=== PATIENT | male | born 1960 | race Caucasian/White ===

== ENCOUNTER → 2017-03-31 | Outpatient (CLI) | payer OTHER ==
[2017-03-31 12:07] LABS: BASO # 0.1 K/mm3 (0.0-0.2); BASO % 0.7 % (0.0-1.0); EOS # 0.3 K/mm3 (0.0-0.50); EOS % 2.9 % (0.0-3.0); LARGE UNSTAINED CELL # 0.2 K/mm3 (0.0-0.4); LARGE UNSTAINED CELL % 2.2 % (0.0-4.0); LYMPH % 19.9 % (24.0-44.0); MEAN CORPUSCULAR HEMOGLOBIN 32.4 pg (27.0-33.0); MEAN CORPUSCULAR HGB CONC 34.3 g/dl (32.0-36.5); MEAN CORPUSCULAR VOLUME 94.5 fl (80.0-96.0); MONO # 0.6 K/mm3 (0.0-0.8); MONO % 5.4 % (0.0-5.0); NEUTROPHILS % 68.9 % (36.0-66.0); PLATELET COUNT, AUTOMATED 281 k/mm3 (150-450); RED CELL DISTRIBUTION WIDTH 12.1 % (11.5-14.5); WHITE BLOOD COUNT 10.2 K/mm3 (4.0-10.0)
[2017-03-31 12:27] LABS: ALBUMIN/GLOBULIN RATIO 1.48 (1.00-1.93); ALKALINE PHOSPHATASE 77 U/L (45-117); ALT/SGPT 30 U/L (12-78); ANION GAP 7 MEQ/L (8-16); AST/SGOT 22 U/L (15-37); BILIRUBIN,TOTAL 0.7 MG/DL (0.2-1.0); BLOOD UREA NITROGEN 13 MG/DL (7-18); CALCIUM LEVEL 8.7 MG/DL (8.5-10.1); CARBON DIOXIDE LEVEL 26 MEQ/L (21-32); CHLORIDE LEVEL 106 MEQ/L (98-107); CHOLESTEROL LEVEL 221 MG/DL (<200); CREATININE FOR GFR 0.99 MG/DL (0.70-1.30); GLOMERULAR FILTRATION RATE > 60.0 (>56); GLUCOSE, FASTING 92 MG/DL (70-105); POTASSIUM SERUM 4.4 MEQ/L (3.5-5.1); SODIUM LEVEL 139 MEQ/L (136-145); TOTAL PROTEIN 6.7 GM/DL (6.4-8.2); TRIGLYCERIDES LEVEL 56 MG/DL (<150)
== END ==
LOC: M LAB 10:22
PROVIDERS: ATTEND Family Medicine
DX: R03.0 Elevated blood-pressure reading, without diagnosis of hypertension (principal)

== ENCOUNTER → 2017-06-11 | Outpatient (CLI) | payer OTHER ==
[2017-06-11 09:05] LABS: ALBUMIN 3.8 GM/DL (3.2-5.2); ALBUMIN/GLOBULIN RATIO 1.46 (1.00-1.93); BILIRUBIN,DIRECT 0.1 MG/DL (0.0-0.2); BILIRUBIN,TOTAL 0.4 MG/DL (0.2-1.0); TOTAL PROTEIN 6.4 GM/DL (6.4-8.2)
== END ==
LOC: M LAB 08:23
PROVIDERS: ATTEND Family Medicine
DX: E78.2 Mixed hyperlipidemia (principal)

== ENCOUNTER 2017-10-29 08:33 | Day surgery (SDC) | payer OTHER ==
[~2017-10-29 08:33] MED LIST: LIDOCAINE 2% MDV 20 ML VIAL As Ordered; PROPOFOL 200 MG/20 ML VIAL As Ordered
[2017-10-29] MEDS: NS 1,000 ML IV (08:57)
== END 2017-10-29 10:05 | disposition home or self-care (01) ==
LOC: M OPP 08:33
DX: Z12.11 Encounter for screening for malignant neoplasm of colon (principal); K64.4 Residual hemorrhoidal skin tags; K57.30 Diverticulosis of large intestine without perforation or abscess without bleeding; I10 Essential (primary) hypertension; E78.00 Pure hypercholesterolemia, unspecified; R51 Headache; F32.9 Major depressive disorder, single episode, unspecified; F41.9 Anxiety disorder, unspecified; R06.83 Snoring; Z79.82 Long term (current) use of aspirin; Z79.899 Other long term (current) drug therapy; Z87.891 Personal history of nicotine dependence
CPT/HCPCS: 45378

== ENCOUNTER → 2018-08-04 | Outpatient (CLI) | payer OTHER ==
[2018-08-04 11:31] LABS: ALBUMIN/GLOBULIN RATIO 1.48 (1.00-1.93); ALKALINE PHOSPHATASE 72 U/L (45-117); ALT/SGPT 27 U/L (12-78); ANION GAP 6 MEQ/L (8-16); AST/SGOT 21 U/L (7-37); BILIRUBIN,TOTAL 0.6 MG/DL (0.2-1.0); BLOOD UREA NITROGEN 9 MG/DL (7-18); CARBON DIOXIDE LEVEL 27 MEQ/L (21-32); CHLORIDE LEVEL 106 MEQ/L (98-107); CHOLESTEROL LEVEL 163 MG/DL (<200); CREATININE FOR GFR 1.03 MG/DL (0.70-1.30); GLOMERULAR FILTRATION RATE > 60.0 (>56); GLUCOSE, FASTING 103 MG/DL (70-100); HDL CHOLESTEROL 50 MG/DL (>40); LDL CHOLESTEROL 101 MG/DL (<100); NON-HDL-C 113 MG/DL; POTASSIUM SERUM 4.4 MEQ/L (3.5-5.1); SODIUM LEVEL 139 MEQ/L (136-145); TOTAL PROTEIN 6.7 GM/DL (6.4-8.2); TRIGLYCERIDES LEVEL 59 MG/DL (<150)
== END ==
LOC: M LAB 10:21
DX: E78.2 Mixed hyperlipidemia (principal)
CPT/HCPCS: 80053

== ENCOUNTER → 2019-12-02 | Outpatient (CLI) | payer OTHER ==
[~2019-12-02] MED LIST changes: +AMBI5TAB PO; +ASPI81TA26 PO; +ATOR1TAB21 PO; -LIDOCAINE 2% MDV 20 ML VIAL As Ordered; +MULT200T7 PO; -PROPOFOL 200 MG/20 ML VIAL As Ordered; +WELLTAB38 PO
--- NOTE | 2019-12-06 14:43 | SLEEPHOME ---
DATE OF PROCEDURE: 12/02/2019 ORDERING PROVIDER: Ignacio Farrell. INTERPRETATION: Diagnostic home sleep testing was performed due to concern for the obstructive sleep apnea syndrome. For testing a nocturnal T3 respiratory monitoring device was used. Continuous record was made of pulse, oxygen saturation, airflow, chest, abdominal strain and body position. 9 hours and 58 minutes of data were reviewed. There were 7 hours and 22 minutes marked as time in bed. During the interval marked time in bed, there were 70 respiratory events identified of 10 seconds in duration or greater for respiratory event index of 9.5. The events were primarily obstructive. Baseline pulse rate 65, pulse rate ranged 58-97. Baseline saturation 94%. Saturations fell to 87%. Testing was performed in both supine and non-supine positions. IMPRESSION: Abnormal home sleep testing with repetitive respiratory events and oxygen desaturations to 87% with a respiratory event index of 9.5 is consistent with the obstructive sleep apnea syndrome. RECOMMENDATIONS: The patient should be encouraged to undergo formal sleep evaluation.
== END ==
LOC: M SLEEP HO 10:01
PROVIDERS: ATTEND Physician Assistant
DX: G47.9 Sleep disorder, unspecified (principal); R53.82 Chronic fatigue, unspecified

== ENCOUNTER → 2020-02-15 | Outpatient (CLI) | payer OTHER | LOC: M LABSMTC 10:30 | PROVIDERS: ATTEND Family Medicine | DX: Z11.59 Encounter for screening for other viral diseases (principal); Z20.828 Contact with and (suspected) exposure to other viral communicable diseases ==

== ENCOUNTER → 2020-08-28 | Outpatient (CLI) | payer OTHER ==
[~2020-08-28] MED LIST changes: +ASPI-255 PO; +BRIN10TA4 PO; +BUPIVACAINE/EPIN 0.5% 30 ML VIAL As Ordered ONE; +CLON0.5T17 PO; +CLOP75TA2 PO; +ISOVUE-300 61% 50ML VIAL As Ordered ONE; +LIDOCAINE 1% MDV 20ML VIAL As Ordered ONE; +MELO15TA28 PO; +MIDAZOLAM INJ 2MG/2ML VIAL (J2250 PER 1MG) As Ordered ONE; +NAPR220C14 PO; +NORC1TAB7 PO; +PRED10TA2 PO; +REGL10TA6 PO; +ceFAZolin 2 GM/D5W 50 ML IV BAG (J0690 PER 500MG) As Ordered ONE; +fentaNYL 100 MCG/2 ML INJECTION (J3010) As Ordered ONE
[2020-08-28 06:52] LABS: HEMATOCRIT 45.6 % (42.0-52.0); HEMOGLOBIN 14.8 g/dl (13.5-17.5); MEAN CORPUSCULAR HGB CONC 32.5 g/dl (32.0-36.5); MEAN CORPUSCULAR VOLUME 95.4 fl (80.0-96.0); PLATELET COUNT, AUTOMATED 269 10^3/uL (150-450); RED BLOOD COUNT 4.78 10^6/uL (4.30-6.10); WHITE BLOOD COUNT 11.2 10^3/uL (4.0-10.0)
[2020-08-28 07:23] LABS: BLOOD UREA NITROGEN 16 MG/DL (7-18); CALCIUM LEVEL 8.8 MG/DL (8.8-10.2); CARBON DIOXIDE LEVEL 30 MEQ/L (21-32); CHLORIDE LEVEL 107 MEQ/L (98-107); CREATININE FOR GFR 0.98 MG/DL (0.70-1.30); GLOMERULAR FILTRATION RATE > 60.0 (>49); GLUCOSE, FASTING 99 MG/DL (70-100); POTASSIUM SERUM 4.1 MEQ/L (3.5-5.1); SODIUM LEVEL 140 MEQ/L (136-145)
--- NOTE | 2020-08-28 10:04 | ROOPDOC ---
[facility] Report Of Operation Report of Operation DATE OF PROCEDURE: 08/28/20 PREPROCEDURE DIAGNOSES: Right brachiocephalic artery stenosis with TIA POSTPROCEDURE DIAGNOSES: Same PROCEDURE: 1. Ultrasound-guided access right common femoral artery 2. Arteriogram aortic arch 3. Open exposure right brachial artery 4. Selection right brachiocephalic arteriogram 5. Predilation right brachiocephalic artery with 7 x 40 [place] balloon 6. VBX balloon expandable covered stent (8 x 29) placement right brachiocephalic artery and posterior dilation with 10 x 40 [place] balloon 7. Completion arteriograms 8. Primary closure right brachial arteriotomy 9. Mynx closure device right common femoral artery SURGEON: Frederick Arango MD ANESTHESIA: Local anesthesia 12 mL lidocaine and 10 mL half percent Marcaine with epinephrine. Moderate intravenous conscious sedation was supervised by Dr. Arango. The patient was independently monitored by registered nurse assigned to the Department of radiology using automated blood pressure, EKG, and pulse oximetry. The detailed sedation record is permanently stored in the [facility] information system. The following is a brief sedation record: Start time 07:44, stop time 09:34, Versed 3 mg IV, fentanyl 150 g IV, heparin 5000 units IV, Ancef 2 g IV. 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 Risks benefits and alternatives to an arteriogram and potential intervention were explained to the patient, including the possibility of both a right common femoral access and a right open brachial artery access. We extensively discussed the risk of stroke with this procedure, and we'll take every precaution to prevent this. The patient is agreeable to proceed. Informed consent was obtained. INTERPRETATION: 1. There is widely patent inflow through the arch, the left subclavian artery, the left carotid artery, the right carotid artery, the right subclavian artery, but a focal 50% stenosis is noted 1 cm from the origin of the brachiocephalic artery with no significant poststenotic dilatation noted. 2. After predilation with the 7 x 40 [place] balloon, we had successful balloon expandable covered stent placement over the stenosis in the brachiocephalic artery. This was then postdilated with a 10 x 40 [place] balloon and completion imaging showed a widely patent brachiocephalic artery with no significant residual stenosis, no dissection, no embolization noted, no neuro deficits during the case, no extravasation. REPORT OF OPERATION: The patient was brought to the angiographic suite in stable condition. His bilateral groins and right upper extremity were prepped and draped in a sterile fashion. A timeout was performed. Sedation and antibiotics were administered without complication. Local anesthesia was administered to the skin and subcutaneous tissue over the right common femoral artery. A microneedle was used to access the artery under ultrasound guidance. A wire was passed through this access and the needle was removed. A 4 [place] sheath was placed and flushed with saline. Through this access a pigtail catheter and Glidewire were advanced into the aortic arch and arteriograms were performed. Please see interpretation above. We attempted to access the right brachiocephalic artery utilizing the pigtail, but this was challenging due to the angle of the origin of the right brachiocephalic artery off of the arch. We then turned our attention to the right upper extremity. Local anesthesia was a sharepoint consultant to the skin and subcutaneous tissue just proximal to the antecubital crease over the brachial artery pulse. A longitudinal incision was made over the brachial artery and carried down through the subcutaneous tissue carefully sharp dissection. Additional local anesthesia was given. We then continued R dissection down through the brachial sheath and expose the brachial artery proximally and distally. Vesseloops were placed proximally and distally on the artery. A microneedle was used to access the artery and a wire was passed through this access the needle was removed and a 4 [place] sheath was placed and flushed with saline. We then advanced a Glidewire through this access into the central system under fluoroscopic guidance. The patient was heparinized. We then exchange the sheath for a 7 [place] destination sheath over the wire using the Seldinger technique and flushed the sheath was saline. We then exchange the sheath at the right groin for a 6 x 90 sheath over the Glidewire. The sheath was flushed with saline. We then advanced the Glidewire into the descending aorta and snared it through the 6 [place] sheath from the groin to gain a through and through access with a stiff O35 Glidewire. The the 6 [place] sheath was then advanced using a stylette up to the origin of the right brachiocephalic artery. The sheath was flushed with saline. We dilated the right brachiocephalic artery with a 7 x 40 [place] balloon and no significant waist was noted on the balloon. I wanted to minimize the chance of an embolic event while passing the balloon across the stenosis. We then advanced the 8 x 29 balloon expandable covered stent across the lesion. A contrast injection through the 6 [place] sheath from the groin confirm the stent to be in good position. The stent was deployed with the proximal and slightly into the aortic arch. We then exchange the balloon for a 10 x 40 [place] balloon to upsize the stent to a 10 and gently expanded the stent. Following this, there was widely patent inflow through the brachiocephalic artery with no extravasation, no embolization, no dissection, no significant residual stenosis. The patient was able to move all 4 extremities equally and his speech was clear and vision was unaffected. We then flushed both of our sheaths. The sheath at the right groin was exchanged for a short 6 [place] sheath which was flushed with saline. We then removed the wire and under direct visualization we removed the 7 [place] sheath and used hour Vesseloops for hemostasis. We irrigated with heparinized saline and Prolene suture was used to close the arteriotomy. We flushed the inflow and outflow artery irrigated with saline and the suture was secured. Good hemostasis was noted. Has a good pulse in the artery proximal and distal to our closure. We irrigated with saline and the deep tissues were approximated with [id number] 4-0 Vicryl suture. The fascia was closed with running 4-0 Vicryl suture. The dermal layer was approximated with interrupted 4-0 Vicryl suture. The skin was closed with r unning subcuticular Monocryl suture. The skin was cleaned and dried and Mastisol and Steri-Strips replace the length of the incision. A dry gauze and Tegaderm were placed as a final dressing. The hand was warm and well-perfused. Next, a Mynx closure device was deployed at the right femoral access with good hemostasis. Pressure was held for 10 minutes and sterile dressings were applied. The patient was then taken to recovery in stable condition. Tolerated the procedure and the sedation well. ESTIMATED BLOOD LOSS: Approximately 5 mL. COMPLICATIONS: None. PLAN: The patient will be given a prescription for Plavix at discharge. He will need to take this uninterrupted for 60 days. He should continue aspirin and statin for life. We will see him back in clinic in 1 week to check his arm incision and his groin access site and to see how he is doing after the procedure. He can resume his home diet medications. No lifting greater than 5 pounds or strenuous exercise for 72 hours. No tub baths or swimming until incis ion right arm is completely healed. Okay to shower. We appreciate the opportunity to participate the care of this patient. FREDERICK ARANGO MD Aug 28, 2020 10:04
[2020-08-28 14:00] VITALS: BP 119/64
== END ==
LOC: M IRPRO 06:23
PROVIDERS: ATTEND Surgery Vascular Surgery
DX: I70.298 Other atherosclerosis of native arteries of extremities, other extremity (principal); G45.3 Amaurosis fugax
CPT/HCPCS: 36215; 36221; 37236; 75625; 80048; 85027; 99152; 99153; C1725; C1760; C1769; C1773; C1874; C1887; C1894; J0690; J1644; J2250; J3010; Q9967

== ENCOUNTER 2020-08-30 11:43 | Emergency (ER) | payer OTHER ==
[~2020-08-30] VITALS: Ht 172.7 cm; Wt 61.4 kg
[~2020-08-30 11:43] MED LIST changes: -BUPIVACAINE/EPIN 0.5% 30 ML VIAL As Ordered ONE; -ISOVUE-300 61% 50ML VIAL As Ordered ONE; -LIDOCAINE 1% MDV 20ML VIAL As Ordered ONE; -MIDAZOLAM INJ 2MG/2ML VIAL (J2250 PER 1MG) As Ordered ONE; -NORC1TAB7 PO; -PRED10TA2 PO; -REGL10TA6 PO; -ceFAZolin 2 GM/D5W 50 ML IV BAG (J0690 PER 500MG) As Ordered ONE; -fentaNYL 100 MCG/2 ML INJECTION (J3010) As Ordered ONE
[2020-08-30 12:34] LABS: BASO # 0.1 10^3/uL (0.0-0.2); BASO % 0.4 % (0.0-1.0); EOS # 0.1 10^3/uL (0.0-0.5); EOS % 0.7 % (0.0-3.0); HEMATOCRIT 42.6 % (42.0-52.0); HEMOGLOBIN 14.5 g/dl (13.5-17.5); LYMPH # 1.6 10^3/uL (1.5-5.0); LYMPH % 10.4 % (24.0-44.0); MEAN CORPUSCULAR HEMOGLOBIN 31.7 pg (27.0-33.0); MONO # 1.2 10^3/uL (0.0-0.8); MONO % 7.7 % (0.0-5.0); NEUTROPHILS # 12.3 10^3/uL (1.5-8.5); NEUTROPHILS % 80.5 % (36.0-66.0); PLATELET COUNT, AUTOMATED 263 10^3/uL (150-450); RED BLOOD COUNT 4.58 10^6/uL (4.30-6.10); WHITE BLOOD COUNT 15.3 10^3/uL (4.0-10.0)
--- NOTE | 2020-08-30 12:38 | REP ---
INDICATION: CHEST PAIN. COMPARISON: 03/11/2016. TECHNIQUE: SINGLE PORTABLE AP VIEW OF THE CHEST WAS PERFORMED. FINDINGS: THERE IS NO ACUTE INFILTRATE OR PULMONARY EDEMA. LUNGS ARE CLEAR. HEART IS NOT SIGNIFICANTLY ENLARGED. MEDIASTINAL SILHOUETTE IS UNREMARKABLE. THE VISUALIZED OSSEOUS STRUCTURES ARE INTACT. IMPRESSION: NO ACUTE PULMONARY DISEASE. <Electronically signed by Sander Cunha > 08/30/20 [id number]
[2020-08-30 12:52] LABS: BLOOD UREA NITROGEN 12 MG/DL (7-18); CALCIUM LEVEL 9.5 MG/DL (8.8-10.2); CARBON DIOXIDE LEVEL 25 MEQ/L (21-32); CHLORIDE LEVEL 109 MEQ/L (98-107); CREATININE FOR GFR 1.02 MG/DL (0.70-1.30); GLOMERULAR FILTRATION RATE > 60.0 (>49); GLUCOSE, FASTING 118 MG/DL (70-100); POTASSIUM SERUM 3.7 MEQ/L (3.5-5.1); SODIUM LEVEL 139 MEQ/L (136-145)
[2020-08-30] MEDS ORDERED: ISOVUE-370 76% 100ML VIAL As Ordered ONE (14:03)
--- NOTE | 2020-08-30 14:58 | REP ---
INDICATION: headache- right. COMPARISON: None. TECHNIQUE: Helical scanning is acquired. 5 mm axial images were reformatted. Coronal MPR images were generated. FINDINGS: Bone window settings demonstrate an intact bony calvarium. There is no evidence of skull fracture or incidental bony calvarial lesion. The visualized paranasal sinuses appear clear. No intraorbital abnormality is seen. On soft tissue window setting images; the lateral, third, and fourth ventricles are normal in size and position. Cunha-white differentiation pattern is normal above and below the tentorium. There are is no evidence of intracranial hemorrhage. No mass, edema, infarction, or midline shift is seen. No extra-axial fluid collection is appreciated. IMPRESSION: Negative noncontrast head CT. <Electronically signed by Edu Nuñez > 08/30/20 1502
--- NOTE | 2020-08-30 15:03 | REP ---
INDICATION: brachiocephalic stent this week- headache, chest pain COMPARISON: Comparison is made with angiography images obtained on 28 August 2020. TECHNIQUE: Contrast enhancement dose is 100 mL of intravenous Isovue 370. Helical scanning is acquired. 2 mm axial images are re-formatted. Coronal and sagittal MPR images are generated. Coronal and sagittal MIP and oblique MPR images are generated. 3D surface rendered images are generated and viewed rotationally. FINDINGS: There is good opacification of the aortic arch and great vessels. A patent right innominate artery stent is seen in position. The right distal innominate the right common carotid the right vertebral artery are patent. Right vertebral artery is smaller than the left. There is minimal plaquing in the proximal ICA at the carotid bulb. There is no evidence of dissection aneurysm or significant stenosis. No occlusive changes seen. Great vessel origins are otherwise intact. There is mild vascular calcification is subclavian artery on the left and minimal vascular calcification is seen at the carotid bifurcation on the left. No high-grade stenosis is seen on either side. IMPRESSION: There is a patent innominate artery stent in place on the right. No evidence of occlusion or stenosis. No evidence of dissection. Minimal plaquing in the carotid bifurcations bilaterally. Otherwise negative. <Electronically signed by Edu Nuñez > 08/30/20 [id number]
--- NOTE | 2020-08-30 15:06 | REP ---
INDICATION: brachiocephalic stent this week- headache, chest pain. COMPARISON: None. TECHNIQUE: CT contrast dose: 100 ml of intravenous Isovue 370. CT technique: Helical scanning is acquired. 2 mm axial images are reformatted. Maximal intensity projection and multiplanar re-formation images are generated along with 3-D surface rendered color imaging which is viewed rotational. FINDINGS: The distal vertebral arteries are patent bilaterally. Left is dominant. Basilar artery is somewhat tortuous but patent. Posterior cerebral and superior cerebellar vessels are unremarkable. The distal internal carotid arteries are unremarkable. Anterior and middle cerebral arteries appear intact. There is no evidence of sheppard aneurysm or vessel cut off. No evidence of arteriovenous malformation. Dural sinuses are patent. The right sigmoid sinus is smaller than the left. IMPRESSION: No evidence of dissection, stenosis or occlusion. No aneurysm or arteriovenous malformation seen. <Electronically signed by Edu Nuñez > 08/30/20 [id number]
--- NOTE | 2020-08-30 15:13 | REP ---
INDICATION: brachiocephalic stent this week- headache, chest pain. COMPARISON: Comparison CT angio October 13, 2008.. TECHNIQUE: Contrast dose: 100 ML of Isovue [address] technique: Helical scanning is acquired and overlapping 1.5 mm and contiguous 3 mm axial images are reformatted. In addition, maximum intensity projection and multiplanar re-formation images are generated in sagittal and coronal imaging projections. FINDINGS: There is adequate opacification of the thoracic aorta and pulmonary arterial tree. There is mild vascular calcification in the aortic arch. Patent right innominate artery stent is seen in place. There is some vascular calcification in the left subclavian artery. There is no filling defect in the pulmonary arterial tree to suggest pulmonary embolism. No hilar or mediastinal mass or adenopathy is observed. No pleural or pericardial effusion is seen. Lung rodriguez show no evidence of infiltrate or mass lesion. Mild biapical pleuroparenchymal scarring is seen. There is a 4 mm noncalcified fairly pulmonary nodule in the left lung apex on page 31 of 124 series 702 of today's study. This is not apparent in 2007. There is minimal adjacent pleural fibrosis. There is a granulomatous calcification in the right middle lobe, page 61. No bony destructive lesion is seen. IMPRESSION: Right innominate arterial stent in place. Mild vascular calcification. 4 mm noncalcified pulmonary nodule in the left upper lobe. If the patient is considered at risk for pulmonary malignancy, a follow-up chest CT can be obtained in 1 year. <Electronically signed by Edu Nuñez > 08/30/20 [id number]
[2020-08-30] MEDS ORDERED: METOCLOPRAMIDE INJ 10MG/2ML VIAL (J2765 PER 1) IV ONE (15:15)
[2020-08-30] MEDS ORDERED: NS 1,000 ML IV ONE (15:15)
[2020-08-30] MEDS ORDERED: KETOROLAC 30 MG/ML 1ML VIAL IV ONE (15:15)
[2020-08-30] MEDS ORDERED: diphenhydrAMINE 50MG/ML VIAL (J1200) IV ONE (15:15)
[2020-08-30] MEDS ORDERED: dexameTHASONE 4 MG/ML 1ML VIAL (J1100 PER 1MG) IV ONE (15:15)
[2020-08-30] MEDS ORDERED: ACETAMINOPHEN 500 MG TAB PO ONE (15:15)
[2020-08-30 16:35] LABS: ERYTHROCYTE SEDIMENTATION RATE 8 mm/hr (0-20)
[2020-08-30] MEDS ORDERED: PRED10TA2 PO (18:16)
[2020-08-30] MEDS ORDERED: REGL10TA6 PO (18:16)
[2020-08-30] MEDS ORDERED: NORC1TAB7 PO (18:16)
[2020-08-30 19:15] VITALS: BP 129/70
--- NOTE | 2020-08-30 20:47 | ECGEPIP ---
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
--- NOTE | 2020-09-04 11:43 | ED PDOC ---
Post-Departure Follow-Up dr sosa faxed formal report of cta chest for fu Elvin Mejía MD Sep 04, 2020 11:43
== END 2020-08-30 19:37 | disposition home or self-care (01) ==
LOC: M ED 11:43
DX: G43.909 Migraine, unspecified, not intractable, without status migrainosus (principal); R07.9 Chest pain, unspecified; R11.2 Nausea with vomiting, unspecified; R91.8 Other nonspecific abnormal finding of lung field; R00.1 Bradycardia, unspecified; I10 Essential (primary) hypertension; Z95.5 Presence of coronary angioplasty implant and graft; Z87.891 Personal history of nicotine dependence; Z79.899 Other long term (current) drug therapy
CPT/HCPCS: 70450; 70496; 70498; 71045; 71275; 80047; 80048; 85025; 85652; 93005; 93041; 94760; 96361; 96374; 96375; 99285; J1100; J1200; J1885; J2765; Q9967

== ENCOUNTER → 2020-10-13 | Outpatient (CLI) | payer OTHER ==
[~2020-10-13] MED LIST changes: +NORC1TAB7 PO; +PRED10TA2 PO; +REGL10TA6 PO
--- NOTE | 2020-10-13 16:00 | REP ---
INDICATION: ATHEROSCLEROSIS, HX NICOTINE DEPENDENCE COMPARISON: None. TECHNIQUE: Real time sonographic evaluation and duplex Doppler evaluation of the Bilateral upper extremity arterial systems is performed. FINDINGS: Bilaterally there is mild plaquing and narrowing of the arterial systems with no evidence of hemodynamically significant stenosis. There is no arterial occlusion. Right arterial structures: Peak systolic velocity (cm/s)/waveform Distal subclavian: 79.4 TRIPHASIC Axillary: 95.4 TRIPHASIC Proximal brachial: 84.7 TRIPHASIC Mid brachial: 121.5 TRIPHASIC Distal brachial: 131.9 TRIPHASIC Proximal radial: 69.4 TRIPHASIC Mid radial: 66.3 TRIPHASIC Distal radial: 62.4 TRIPHASIC Proximal 69.2 TRIPHASIC Mid 63.2 TRIPHASIC Distal ulnar: 68.9 TRIPHASIC Left arterial structures: Peak systolic velocity (cm/s)/waveform Distal subclavian: 97.5 TRIPHASIC Axillary: 51.8 TRIPHASIC Proximal brachial: 70.9 TRIPHASIC Mid brachial: 84.8 TRIPHASIC Distal brachial: 90.0 TRIPHASIC Proximal radial: 55.0 TRIPHASIC Mid radial: 60.3 TRIPHASIC Distal radial: 49.6 TRIPHASIC Proximal ulnar:61.3 TRIPHASIC Mid ulnar:45.1 TRIPHASIC Distal ulnar: 48.6 TRIPHASIC IMPRESSION: No evidence of hemodynamically significant stenosis and no evidence of occlusion of the upper extremity arterial systems bilaterally. <Electronically signed by Sander Cunha > 10/13/20 [id number]
== END ==
LOC: M RAD 13:47
PROVIDERS: ATTEND Physician Assistant
DX: I70.8 Atherosclerosis of other arteries (principal); Z87.891 Personal history of nicotine dependence

== ENCOUNTER → 2021-04-16 | Outpatient (REF) | payer OTHER ==
[2021-04-16 12:42] LABS: MAGNESIUM LEVEL 2.4 MG/DL (1.8-2.4); PHOSPHORUS LEVEL 3.5 MG/DL (2.5-4.9); THYROID STIMULATING HORMONE 0.585 uIU/ML (0.358-3.740)
[2021-04-16 14:45] LABS: TOTAL 25(OH) VITAMIN D 30.4 NG/ML (30.0-100.0)
== END ==
LOC: M SFHCRHEU 10:02
PROVIDERS: ATTEND Internal Medicine
DX: M79.10 Myalgia, unspecified site (principal)

== ENCOUNTER → 2021-05-28 | Outpatient (CLI) | payer OTHER ==
[~2021-05-28] MED LIST changes: +CIPR-249 PO; +FIRV25SO; +FLAG500T PO; +OMEP40CA5
[2021-05-28 17:41] LABS: BASO # 0.1 10^3/uL (0.0-0.2); BASO % 0.7 % (0.0-1.0); EOS # 0.3 10^3/uL (0.0-0.5); EOS % 2.4 % (0.0-3.0); HEMATOCRIT 41.7 % (42.0-52.0); HEMOGLOBIN 13.7 g/dl (13.5-17.5); LYMPH # 1.6 10^3/uL (1.5-5.0); LYMPH % 15.3 % (24.0-44.0); MEAN CORPUSCULAR HEMOGLOBIN 31.1 pg (27.0-33.0); MEAN CORPUSCULAR HGB CONC 32.9 g/dl (32.0-36.5); MEAN CORPUSCULAR VOLUME 94.8 fl (80.0-96.0); MONO # 0.8 10^3/uL (0.0-0.8); MONO % 7.9 % (2.0-8.0); NEUTROPHILS # 7.7 10^3/uL (1.5-8.5); NEUTROPHILS % 73.4 % (36.0-66.0); PLATELET COUNT, AUTOMATED 254 10^3/uL (150-450); WHITE BLOOD COUNT 10.5 10^3/uL (4.0-10.0)
[2021-05-28 18:14] LABS: ALBUMIN 3.8 GM/DL (3.2-5.2); ALT/SGPT 33 U/L (12-78); AMYLASE 55 U/L (25-115); BILIRUBIN,TOTAL 0.4 MG/DL (0.2-1.0); BLOOD UREA NITROGEN 12 MG/DL (7-18); CALCIUM LEVEL 9.1 MG/DL (8.8-10.2); CARBON DIOXIDE LEVEL 30 MEQ/L (21-32); CHLORIDE LEVEL 107 MEQ/L (98-107); CREATININE FOR GFR 0.86 MG/DL (0.70-1.30); FREE T4 0.69 NG/DL (0.76-1.46); GLOMERULAR FILTRATION RATE > 60.0 (>49); GLUCOSE, FASTING 101 MG/DL (70-100); LIPASE 378 U/L (73-393); POTASSIUM SERUM 4.2 MEQ/L (3.5-5.1); SODIUM LEVEL 142 MEQ/L (136-145); THYROID STIMULATING HORMONE 0.901 uIU/ML (0.358-3.740); TOTAL PROTEIN 6.5 GM/DL (6.4-8.2)
== END ==
LOC: M LAB 15:35
PROVIDERS: ATTEND Family Medicine
DX: R68.84 Jaw pain (principal); R63.4 Abnormal weight loss

== ENCOUNTER → 2021-06-01 | Outpatient (CLI) | payer OTHER ==
[~2021-06-01] MED LIST changes: -CIPR-249 PO; -FIRV25SO; -FLAG500T PO; +GASTROGRAFIN SOLUTION 30ML (Q9963) As Ordered ONE; +ISOVUE-370 76% 100ML VIAL As Ordered ONE; -OMEP40CA5
--- NOTE | 2021-06-01 19:20 | REP ---
INDICATION: EARLY SATIETY, ABN WEIGHT LOSS, CONSTIPATION. COMPARISON: None. TECHNIQUE: Abdomen pelvis CT with IV and bowel contrast. FINDINGS: The visualized lung rodriguez are unremarkable. The hepatic parenchyma is homogeneous. The gallbladder, pancreas and spleen are normal size and unremarkable. The adrenals and kidneys are unremarkable. The abdominal aorta is unremarkable. There is no periaortic adenopathy or mass. The large and small bowel loops are unremarkable. The mesentery is unremarkable. There is no ascites. Pelvis: There are multiple diverticula in the sigmoid colon. The pelvic bowel loops are otherwise unremarkable. The bladder is unremarkable. There is no pelvic adenopathy or ascites. There are no lytic, blastic or destructive skeletal changes. There is advanced degenerative disc disease in the lumbar spine at L5-S1. IMPRESSION: There is no abdominal or pelvic mass, adenopathy or ascites. There is sigmoid colon diverticulosis. There is advanced degenerative disc disease in the lumbar spine at L5-S1. <Electronically signed by Sander Wu > 06/01/21 [id number]
== END ==
LOC: M RAD 15:41
PROVIDERS: ATTEND Family Medicine
DX: R68.81 Early satiety (principal); K59.00 Constipation, unspecified; R63.4 Abnormal weight loss; K57.30 Diverticulosis of large intestine without perforation or abscess without bleeding; M51.37 Other intervertebral disc degeneration, lumbosacral region
CPT/HCPCS: 74177; Q9963; Q9967

== ENCOUNTER 2021-06-16 18:27 | Emergency (ER) | payer OTHER ==
[~2021-06-16] VITALS: Ht 175.3 cm; Wt 64.4 kg
[~2021-06-16 18:27] MED LIST changes: -GASTROGRAFIN SOLUTION 30ML (Q9963) As Ordered ONE; -ISOVUE-370 76% 100ML VIAL As Ordered ONE
[2021-06-16] MEDS ORDERED: OMEP-221 (18:40)
[2021-06-16] MEDS ORDERED: NS 1,000 ML IV ONE (20:35)
[2021-06-16] MEDS ORDERED: ONDANSETRON 4MG/2ML VIAL IV ONE (20:35)
[2021-06-16] MEDS ORDERED: KETOROLAC 30 MG/ML 1ML VIAL IV ONE (20:35)
[2021-06-16 21:25] LABS: BASO # 0.1 10^3/uL (0.0-0.2); BASO % 0.3 % (0.0-1.0); EOS # 0.1 10^3/uL (0.0-0.5); EOS % 0.6 % (0.0-3.0); HEMOGLOBIN 14.8 g/dl (13.5-17.5); LYMPH # 1.8 10^3/uL (1.5-5.0); MEAN CORPUSCULAR HGB CONC 33.6 g/dl (32.0-36.5); MEAN CORPUSCULAR VOLUME 92.1 fl (80.0-96.0); MONO # 1.5 10^3/uL (0.0-0.8); MONO % 8.3 % (2.0-8.0); NEUTROPHILS # 14.2 10^3/uL (1.5-8.5); NEUTROPHILS % 80.2 % (36.0-66.0); PLATELET COUNT, AUTOMATED 279 10^3/uL (150-450); RED BLOOD COUNT 4.78 10^6/uL (4.30-6.10)
[2021-06-16 21:28] LABS: WHITE BLOOD COUNT 17.7 10^3/uL (4.0-10.0)
[2021-06-16] MEDS ORDERED: ISOVUE-370 76% 100ML VIAL As Ordered ONE (21:37)
[2021-06-16 21:53] LABS: ALBUMIN 3.6 GM/DL (3.2-5.2); BILIRUBIN,DIRECT 0.2 MG/DL (0.0-0.2); TOTAL PROTEIN 6.8 GM/DL (6.4-8.2)
--- NOTE | 2021-06-16 23:04 | REPVR ---
PROCEDURE INFORMATION: Exam: CT Abdomen And Pelvis With Contrast Exam date and time: 06/16/2021 10:24 PM Age: 61 years old Clinical indication: Other: Llq abd pain TECHNIQUE: Imaging protocol: Computed tomography of the abdomen and pelvis with contrast. Radiation optimization: All CT scans at this facility use at least one of these dose optimization techniques: automated exposure control; mA and/or kV adjustment per patient size (includes targeted exams where dose is matched to clinical indication); or iterative reconstruction. Contrast material: ISOVUE 370; Contrast volume: 100 ml; Contrast route: INTRAVENOUS (IV); COMPARISON: CT ABD PELVIS WITH CONTRAST 06/01/2021 5:36 PM FINDINGS: Lungs: No suspicious mass or airspace process in the visualized lung bases. Liver: Liver appears normal with no focal abnormality. Gallbladder and bile ducts: Gallbladder is present and shows no evidence of gallstone. Pancreas: Pancreas appears normal. No focal mass or peripancreatic inflammation. Spleen: Spleen appears homogeneous without focal mass. Adrenal glands: Adrenal glands are normal in appearance. Kidneys and ureters: Kidneys appear normal, with no stone, solid mass or hydronephrosis. Stomach and bowel: No concerning asymmetry or abnormality at the GE junction. No evidence of small bowel obstruction. Mid descending colon wall thickening at the level of the left iliac crest, with adjacent fat stranding and regional diverticula suggests acute diverticulitis without perforation or abscess formation at this point. Appendix: Normal caliber appendix is identified, with no adjacent inflammation. Intraperitoneal space: No pneumoperitoneum. Vasculature: Atherosclerotic change present in the aorta, without aneurysm. Main portal and splenic veins enhance normally. Lymph nodes: No enlarged lymph nodes. Urinary bladder: Urinary bladder appears normal. Reproductive: Dystrophic prostate calcifications are noted. Bones/joints: Bony structures are normal except for lumbar spine degenerative disc changes. Soft tissues: No concerning focal abnormality of the extra-abdominal and pelvic soft tissues. IMPRESSION: Acute diverticulitis involving the mid descending colon without evidence of obstruction, perforation or abscess. Electronically signed by: Azeem Dunne On 06/16/2021 23:04:00 PM
[2021-06-16] MEDS ORDERED: metroNIDAZOLE (FLAGYL) 500MG TABLET PO ONE (23:10)
[2021-06-16] MEDS ORDERED: CIPROFLOXACIN 500MG TABLET PO ONE (23:10)
[2021-06-16] MEDS ORDERED: FLAG500T PO (23:14)
[2021-06-16] MEDS ORDERED: CIPR-249 PO (23:14)
[2021-06-16 23:20] VITALS: BP 129/73
== END 2021-06-16 23:22 | disposition home or self-care (01) ==
LOC: M ED 18:27
DX: K57.32 Diverticulitis of large intestine without perforation or abscess without bleeding (principal); I10 Essential (primary) hypertension; E78.5 Hyperlipidemia, unspecified; R51.9 Headache, unspecified; F17.200 Nicotine dependence, unspecified, uncomplicated; Z79.82 Long term (current) use of aspirin; Z79.899 Other long term (current) drug therapy
CPT/HCPCS: 74177; 80047; 80076; 81001; 83690; 85025; 96361; 96374; 96375; 99284; J1885; J2405; Q9967

== ENCOUNTER → 2021-07-03 | Outpatient (CLI) | payer OTHER ==
[~2021-07-03] MED LIST changes: +CIPR-249 PO; +FLAG500T PO; +OMEP-221
--- NOTE | 2021-07-03 14:57 | REP ---
INDICATION: PRIMARY OSTEOARTHRITIS, UNSPECIFIED HAND. COMPARISON: None. TECHNIQUE: Eight views, bilateral wrist radiographs. FINDINGS: Four views of the right and four views of the left wrist are presented. There are 2 accessory ossicles adjacent to the ulnar styloid on the right. There is distal radioulnar spurring. There is osteoarthritis at the 1st carpometacarpal articulation on the right with joint space narrowing, sclerosis and spurring. Joint spaces are otherwise preserved. On the left, there is advanced osteophyte formation, joint space narrowing and accessory ossicle formation at the 1st carpometacarpal articulation. Subcortical cyst formation is seen at this joint. There is a tiny accessory ossicle adjacent to the lunate. Left wrist views are otherwise unremarkable. IMPRESSION: Advanced osteoarthritis at the 1st carpometacarpal articulations bilaterally. Accessory ossicles noted bilaterally. <Electronically signed by Edu Nuñez > 07/03/21 [id number]
--- NOTE | 2021-07-03 14:59 | REP ---
INDICATION: PRIMARY OSTEOARTHRITIS, UNSPECIFIED HAND. COMPARISON: None. TECHNIQUE: Nine views, five views of each knee. Bilateral study. FINDINGS: Five views of the right and left knee demonstrate mild bilateral superior and lateral patellar spurring. There is some vascular calcification noted on the left. A normal fabella is seen bilaterally. There is non articular spurring on the superior pole of the patella on the left consistent with tendinitis of the quadriceps tendon insertion. Joint spaces are preserved. No fracture or subluxation is seen. No opaque foreign body noted. IMPRESSION: Mild bilateral patellofemoral osteoarthritic spurring. Non articular spurring of the left patella superiorly at the quadriceps tendon insertion. Vascular calcification on the left. <Electronically signed by Edu Nuñez > 07/03/21 0019
--- NOTE | 2021-07-03 14:59 | REP ---
INDICATION: PRIMARY OSTEOARTHRITIS, UNSPECIFIED HAND. COMPARISON: None. TECHNIQUE: Four views bilateral FINDINGS: Right hand: There is asymmetric intra digital joint space narrowing affecting the interphalangeal joint of the 1st digit, D IP joint of the 2nd digit, and D IP joint of the 5th digit to the greatest degree and seen in conjunction with marginal osteophytosis. The remainder of the joint spaces are symmetric and relatively well maintained. There is no acute fracture, dislocation, or subluxation. There is no periarticular osteopenia. There are no marginal erosions. Mild to moderate degenerative changes seen involving the wrist. Left hand: There is asymmetric intra digital joint space narrowing seen affecting the interphalangeal joint of the 1st digit and all D IP joints but particularly the 2nd and 3rd. There is concomitant marginal osteophyte formation involving those joints. More mild appearing joint space narrowing is seen involving all other imaged joints. Moderate to severe degenerative changes are seen involving the wrist particularly the 1st carpometacarpal joint and some evidence of an old fracture arising from the trapezium. There are no marginal erosions. There is no periarticular osteopenia. IMPRESSION: Chronic changes seen bilaterally as described above. <Electronically signed by Varun Fuentes > 07/03/21 [id number]
== END ==
LOC: M RAD 12:38
PROVIDERS: ATTEND Internal Medicine
DX: M19.032 Primary osteoarthritis, left wrist (principal); M19.031 Primary osteoarthritis, right wrist; M25.741 Osteophyte, right hand; M25.742 Osteophyte, left hand; M17.0 Bilateral primary osteoarthritis of knee; M18.0 Bilateral primary osteoarthritis of first carpometacarpal joints

== ENCOUNTER → 2021-08-13 | Outpatient (CLI) | payer OTHER ==
--- NOTE | 2021-08-15 06:31 | REP ---
INDICATION: CAROTID COMPARISON: None. TECHNIQUE: Cunha scale and color Doppler evaluation using linear high frequency transducer Findings: FINDINGS: Two-dimensional cunha scale and color images demonstrate intimal thickening and atherosclerotic plaquing with laminar flow and no appreciable narrowing. Color Doppler interrogation demonstrates normal arterial wave patterns and velocities with no significant spectral broadening. Normal flow direction is appreciated in the bilateral vertebral arteries. ICA peak systolic velocity: Right 114 cm/s; Left 70.1 cm/s ICA diastolic velocity: Right 42.3 cm/s; Left 24.6 cm/s ECA peak systolic velocity: Right 90.2 cm/s; Left 76.2 cm/s CCA peak systolic velocity: Right 99.4 cm/s; Left 96.2 cm/s ICA/CCA ratio: Right 1.2 cm/s; Left 0.73 cm/s IMPRESSION: No hemodynamically significant areas of narrowing or stenosis appreciated. Based on set standards narrowing falls within the less than 50% range. <Electronically signed by Chris Bledsoe > 08/15/21 0628
--- NOTE | 2021-08-15 06:49 | REP ---
INDICATION: ATHEROSCLEROSIS, AMAUROSIS FUGAX COMPARISON: None. TECHNIQUE: Real time diehl scale and color Doppler evaluation of the bilateral lower extremity arterial vasculature using linear high frequency transducer. FINDINGS: Doppler interrogation demonstrates patent bilateral upper extremity arteries with velocities and wave patterns as described below. No obvious areas of stenosis or occlusion are identified. The right brachiocephalic stent could not be evaluated due to technical factors related to air. Peak systolic velocities (cm/sec)-phasicity Subclavian artery: Right 110-triphasic; Left 80-biphasic Proximal axillary artery: Right 75-triphasic; Left 77-triphasic Distal axillary artery: Right 76-monophasic; Left 60-monophasic Proximal brachial artery: Right 95-monophasic; Left 81-monophasic Distal brachial artery: Right 96-monophasic; Left 79-monophasic Proximal ulnar artery: Right 68-monophasic; Left 39-monophasic Distal ulnar artery: Right 94-monophasic; Left 42-monophasic Proximal radial artery: Right 108-monophasic; Left 40-triphasic Mid radial artery: Right 62-monophasic; Left 41-triphasic Distal radial artery: Right 51-monophasic; Left 47-monophasic IMPRESSION: 1. Age-related changes with patent appearance to the bilateral arterial system and no evidence for focal stenosis or occlusion. 2. Evaluation of the right brachiocephalic stent could not be evaluated due to technical factors related to gas within the lungs <Electronically signed by Chris Bledsoe > 08/15/21 0654
== END ==
LOC: M RAD 09:47
PROVIDERS: ATTEND Surgery Vascular Surgery
DX: I70.8 Atherosclerosis of other arteries (principal); G45.3 Amaurosis fugax

== ENCOUNTER → 2021-08-20 | Outpatient (CLI) | payer OTHER ==
[2021-08-20 16:02] LABS: BLOOD UREA NITROGEN 11 MG/DL (7-18); CREATININE FOR GFR 0.82 MG/DL (0.70-1.30); FREE T4 0.89 NG/DL (0.76-1.46); GLOMERULAR FILTRATION RATE > 60.0 (>49); THYROID STIMULATING HORMONE 0.719 uIU/ML (0.358-3.740)
== END ==
LOC: M PLALAB 10:38
PROVIDERS: ATTEND Internal Medicine Gastroenterology
DX: R19.4 Change in bowel habit (principal)

== ENCOUNTER → 2021-08-24 | Outpatient (CLI) | payer OTHER ==
[~2021-08-24] MED LIST changes: +ISOVUE-370 76% 100ML VIAL ONE
--- NOTE | 2021-08-24 13:05 | REP ---
INDICATION: ABN WT LOSS, DISORDERS OF INTESTINE COMPARISON: 06/16/2021. TECHNIQUE: CT angiogram of the abdomen and pelvis was performed with intravenous administration of 100 cc of Isovue 370, without oral contrast. 3D MIP reconstruction images performed. FINDINGS: Abdominal aorta: No aneurysm or dissection. There is mild scattered atherosclerotic plaquing of the abdominal aorta. 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 There is stenosis at the origin of the superior mesenteric artery, estimated to be 40% stenotic. There is approximately 50% stenosis of the inferior mesenteric artery origin. There is approximately 50% stenosis at the origin of the main right renal artery. There is mild narrowing at the origin of the main left renal artery. There is mild diffuse partially calcified plaque in the iliac arterial system bilaterally. There is mild diffuse narrowing of the common iliac arteries bilaterally. There is moderate stenosis at the origin of the left internal iliac artery. There is [id number] narrowing of the left common femoral artery without significant stenosis. Lung bases: Mild fibrotic changes. Liver: Normal Gallbladder: Unremarkable. Spleen: Normal. Adrenals: Normal. Pancreas: Normal. Kidneys: Normal. Small and large bowel: There is sigmoid and left colonic diverticulosis. There is significant improvement of the previously noted left colonic diverticulitis. There is some minimal inflammatory stranding in the left pericolonic fat at that location.. Free fluid: None. Adenopathy: None. Appendix: Not inflamed. Pelvis: No mass. Osseous structures: There are degenerative changes of the spine without compression deformity.. 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 There is 40% stenosis at the origin of the superior mesenteric artery. There is approximately 50% stenosis at the origin of the inferior mesenteric artery. There is approximately 50% stenosis at the origin of the main right renal artery. There is mild narrowing of the main left renal artery. <Electronically signed by Sander Cunha > 08/24/21 8706
== END ==
LOC: M PLAIMG 09:42
PROVIDERS: ATTEND Internal Medicine Gastroenterology
DX: K55.1 Chronic vascular disorders of intestine (principal); R63.4 Abnormal weight loss; I77.4 Celiac artery compression syndrome; I70.0 Atherosclerosis of aorta; I70.1 Atherosclerosis of renal artery; J84.10 Pulmonary fibrosis, unspecified

== ENCOUNTER → 2021-08-26 | Outpatient (REF) | payer OTHER ==
[~2021-08-26] MED LIST changes: -ISOVUE-370 76% 100ML VIAL ONE
[2021-08-26 18:17] LABS: CLOSTRIDIUM DIFFICILE PCR POSITIVE (NEGATIVE)
== END ==
LOC: M LAB REF 16:31
PROVIDERS: ATTEND Internal Medicine Gastroenterology
DX: R19.4 Change in bowel habit (principal)

== ENCOUNTER → 2021-09-10 | Outpatient (CLI) | payer OTHER ==
--- NOTE | 2021-09-10 12:44 | REP ---
INDICATION: SOLITARY PULMONARY NODULE COMPARISON: Multiple the latest 08/30/2020 CT angio chest TECHNIQUE: Standard helical technique without contrast FINDINGS: Once again, there are multiple nonenlarged mediastinal and hilar lymph nodes. There are no pleural or pericardial effusions. There is no significant change in appearance of the imaged upper abdomen or imaged osseous structures. Evaluation of the lung rodriguez shows rather extensive appearing biapical pleuroparenchymal scarring. In the left lung apex there is a 1.1 cm sized irregular nodule which has changed significantly in appearance compared to the prior exam. The 4 mm size nodule seen previously in the apicoposterior segment of the left upper lobe now measures 7 mm. There are scattered asymmetric parenchymal densities status quo. There is cylindrical bronchiectasis. IMPRESSION: 1. There is a new 1.1 cm sized asymmetric nodule in the left lung apex. For this lesion alone according to the revised Fleischner society criteria PET-CT is recommended. 2. Evidence of increased biapical pleuroparenchymal scarring. 3. Additional chronic lung field changes as described above. <Electronically signed by Varun Fuentes > 09/10/21 9090
== END ==
LOC: M RAD 11:22
PROVIDERS: ATTEND Physician Assistant
DX: R91.1 Solitary pulmonary nodule (principal); J47.1 Bronchiectasis with (acute) exacerbation; J98.4 Other disorders of lung

== ENCOUNTER 2021-09-13 11:19 | Emergency (ER) | payer OTHER ==
[~2021-09-13] VITALS: Ht 172.7 cm; Wt 65.6 kg
[2021-09-13 11:19] VITALS: BP 134/83
--- OUTSIDE RECORDS SUMMARY | 2021-09-13 11:27 | CCD | Continuity of Care Document ---
Author Organization Unknown Address Unknown Phone Unavailable Care Team Providers Care Barber Shop Manager Name Role Phone Ping Garcia D.O. [facility] [phone] Mela Harrison NP [facility] [phone] Fay Sinha MD [facility] [phone] Jos Barr MD [facility] [phone] [facility] [phone] [facility] [phone] [facility] Rheumatology AUTM [phone] Jose L Cherry MD [facility]M [phone] Marianna Arango M.D. [facility] [phone] Dinesh Santacruz M.D. 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 12/24/2019 Mild recurrent major depression LISSA Jimenez Onset: 0 05/22/2020 Obstructive sleep apnea syndrome LISSA Jimenez Onset: 02/21/2020 Mixed hyperlipidemia LISSA Jimenez Onset: 01/13/2019 Essential hypertension LISSA Jimenez Onset: 01/13/2019 Social History Type Date Description Comments Sex Unknown ETOH Use Occasionally consumes alcohol Recreational Drug Use Current Drug User Tobacco Use Start: Unknown End: Unknown Patient is a former smoker Recreational Drug Use Regularly uses Marijuana Smoking Status Reviewed: 06/14/21 Patient is a former smoker Exercise Type/Frequency Exercises regularly Exercise Type/Frequency hard work Sun Exposure Uses sunscreen Seat Belt/Car Seat Always uses seat belt Allergies and adverse reactions Active Allergies Criticality Reaction | Severity Comments Date Ketoconazole Unable to assess criticality 12/27/2019 Inactive Allergies NKDA Unable to assess criticality 08/25/2018 Medications Active Medications SIG Qnty Indications Ordering Provide r Date Zolpidem Tartrate 10mg Tablets Take One Tablet By Mouth Every Day AT Bedtime as Needed, Maximum Daily Dose = One Tablet 30tabs Josseline UsOSilke 06/14/[address] 1 by mouth every day 90caps Josseline UsO. 05/28 Clopidogrel Bisulfate 75mg Tablets Take One Tablet By Mouth Every Day 30tabs Ping Urbina er, Abbie.O. 12/04/2020 Hydrocodone Bitartrate/Acetaminophen 5-325mg Tablets take 1 tablet every 12 hours by mouth as needed for pain istop: [id number] 60tabs M25.552 Josselien UsOSilke 10/23 Aspirin Adult 325mg Tablets take one tablet by mouth daily. 90tabs I65.29 Josseline UsO Silke 06/08/2020 Albuterol Sulfate HFA 108(90Base) mcg/Act Aerosol 1-2 puffs every 4-6 hours as needed for shortness of breath 8.50 0gm Josseline UsOSilke 05/22/2020 Clobetasol Propionate 0.05% Shampo o apply daily to scalp until rash resolves. 236ml L40.9 Josseline SutherlandOSilke 05/22/2020 Adult Mask Large Misc cpap mask and related supplies. prognosis good. 1units G47.33 Josseline MeyerOSilke 02/21/2020 Trintellix 10mg Tablets Take One Tablet By Mouth Every Day 90tabs F33.0 Josseline UsOSilke 12/22 Atorvastatin Calcium 20mg Tablets Take One Tablet By Mouth Every Evening 90tabs Ping Urbina er, D.O. Clonazepam 0.5mg Tablets Take One Tablet By Mouth Twice A Day , Maximum Daily Dose = 2 Tablets 60tabs Ping Camilo, D.O. Iron 27 240(27Fe) mg Tablets Unknown History Medications Zolpidem Tartrate 5mg Tablets Take One Tablet By Mouth AT Bedtime as Needed Maximum Daily Dose = 1 30tabs Ping Garcia D.O. 05/05/2021 - 06/14/2021 Immunizations CPT Code Status Date Vaccine Lot # [id number] Given 07/26/2021 Influenza Virus Vaccine, Quadrivalent, Slit Virus, Im Use [id number] Given 03/10/2019 TB Intradermal Test [id number] Vital Signs Date Vital Result Comment 08/15/2021 9:35am BP Systolic 142 mmHg BP Diastolic 82 mmHg Height 68 inches 5'8" Weight 144.00 lb BMI (Body Mass Index) 21.9 kg/m2 Heart Rate 68 /min Respiratory Rate 18 /min Body Temperature 97.6 F O2 % BldC Oximetry 98 % Orma Body Weight 154 lb 07/26/2021 9:04am BP Systolic 146 mmHg BP Diastolic 72 mmHg Height 68 inches 5'8" Weight 148.00 lb BMI (Body Mass Index) 22.5 kg/m2 Heart Rate 68 /min Respiratory Rate 18 /min Body Temperature 97.2 F O2 % BldC Oximetry 98 % Orma Body Weight 154 lb Results Test Acquired Date Facility Test Result H/L Range Note Laboratory test finding 08/20/2021 [facility] Outpatient T esting (Registration) [address] [place] [address] [phone] Blood Urea Nitrogen 11 mg/dL Normal 7-18 Creatinine With GFR 08/20/2021 [facility] Outpatient Testi ng (Registration) [address] [place] [address] [phone] Creatinine For GFR 0.82 mg/dL Normal 0.70-1.30 Glomerular Filtration Rate > 60.0 Normal >49 1 Laboratory test finding 08/20/2021 [facility] Outpatient T esting (Registration) [address] [place] [address] [phone] Immunoglobulin A 145.0 mg/dL Normal 70-400 FT4&TSH Panel 08/20/2021 [facility] Outpatient Testi ng (Registration) [address] [place] [address] [phone] Thyroid Stimulating Hormone 0.719 uIU/ML Normal 0. 358-3.740 Free T4 0.89 ng/dL Normal 0.76-1.46 Laboratory test finding 08/20/2021 [facility] Outpatient T mileying (Registration) [address] [place] [address] [phone] Tissue Transglutaminase IgA <2 U/mL Normal 0-3 2 Istat Chem8+ Panel 06/16/2021 [facility] Outpatient Testi ng (Registration) [address] [place] [address] [phone] iSTAT HCT 44.0 % Normal 38.0-51.0 iSTAT Glucose 99 mg/dL Normal 70-105 iSTAT Sodium 139 mEq/L Normal 136-145 iSTAT Potassium 4.0 mEq/L Normal 3.5-5.1 iSTAT CA++ 4.7 mg/dL Normal 4.5-5.3 iSTAT Chloride 102 mEq/L Normal 98-109 iSTAT Co2 23.0 MM/L Normal 23.0-27.0 iSTAT BUN 12 mg/dL Normal 8-26 iSTAT Creatinine 0.9 mg/dL Normal 0.6-1.3 CBC With Differential 06/16/2021 [facility] Outpatient Ita ting (Registration) [address] [place] [address] [phone] White Blood Count 17.7 10 High 4.0-10.0 3 Red Blood Count 4.78 10 Normal 4.30-6.10 Hemoglobin 14.8 g/dL Normal 13.5-17.5 Hematocrit 44.0 % Normal 42.0-52.0 Mean Corpuscular Volume 92.1 fl Normal 80.0-96.0 Mean Corpuscular Hemoglobin 31.0 pg Normal 27.0-33.0 Mean Corpuscular HGB Conc 33.6 g/dL Normal 32.0-36.5 Red Cell Distribution Width 12.7 % Normal 11.5-14.5 Platelet Count, Automated 279 10 Normal 150-450 Neutrophils % 80.2 % High 36.0-66.0 Lymph % 10.0 % Low 24.0-44.0 Merrick % 8.3 % High 2.0-8.0 Eos % 0.6 % Normal 0.0-3.0 Baso % 0.3 % Normal 0.0-1.0 Immature Granulocyte % 0.6 % Normal 0-3.0 Nucleated Red Blood Cell % 0.0 % Normal 0-0 Neutrophils # 14.2 10 High 1.5-8.5 Lymph # 1.8 10 Normal 1.5-5.0 Merrick # 1.5 10 High 0.0-0.8 Eos # 0.1 10 Normal 0.0-0.5 Baso # 0.1 10 Normal 0.0-0.2 Liver Profile 06/16/2021 [facility] Outpatient Testi ng (Registration) [address] [place] [address] [phone] Ast/Sgot 19 U/L Normal 7-37 Alt/SGPT 23 U/L Normal 12-78 Alkaline Phosphatase 100 U/L Normal 45-117 Bilirubin,Total 1.0 mg/dL Normal 0.2-1.0 Bilirubin,Direct 0.2 mg/dL Normal 0.0-0.2 Total Protein 6.8 GM/DL Normal 6.4-8.2 Albumin 3.6 GM/DL Normal 3.2-5.2 Albumin/Globulin Ratio 1.1 Normal Laboratory test finding 06/16/2021 [facility] Outpatient T esting (Registration) [address] [place] [address] [phone] Lipase 128 U/L Normal 73-393 Ua W/ Reflex To Culture 06/16/2021 [facility] Outpatient T esting (Registration) [address] [place] [address] [phone] Appearance, Urine RFX CLEAR Normal Clear Color, Urine RFX YELLOW Normal Yellow PH,Urine RFX 6.0 units Normal 5.0-9.0 Specific [place] Ur Auto RFX 1.033 Normal 1.002-1.035 Protein, Urine Auto RFX NEGATIVE mg/dL Normal Negative Glucose, Urine (Ua) Auto RFX NEGATIVE mg/dL Normal Negative Ketone, Urine Auto RFX 1+ mg/dL High Negative Urobilinogen, Urine Auto RFX 0.2 mg/dL Normal 0.0-2.0 Bilirubin, Urine Auto RFX NEGATIVE Normal Negative Nitrite, Urine Auto RFX NEGATIVE Normal Negative Leukocyte Esterase Ur Auto RFX NEGATIVE Normal Negative Blood, Urine Blood RFX NEGATIVE Normal Negative WBC, Urine Auto RFX 0 /HPF Normal 0-3 RBC, Urine Auto RFX 2 /HPF Normal 0-3 Bacteria, Urine Auto RFX NEGATIVE Normal Negative Squam Epithelial Cell Ur Aurfx 0 /HPF Normal 0-6 Transitional Epithelial AU RFX <1 /HPF Normal None Mucus, Urine RFX SMALL Normal Negative Hyaline Cast, Urine Auto RFX 0 /LPF Normal 0-1 FT4&TSH Panel 05/28/2021 [facility] nter [address] [place] [address] [phone] Thyroid Stimulating Hormone 0.901 uIU/ML Normal 0. 358-3.740 Free T4 0.69 ng/dL Low 0.76-1.46 CBC With Differential 05/28/[address] [address] [phone] White Blood Count 10.5 10 High 4.0-10.0 Red Blood Count 4.40 10 Normal 4.30-6.10 Hemoglobin 13.7 g/dL Normal 13.5-17.5 Hematocrit 41.7 % Low 42.0-52.0 Mean Corpuscular Volume 94.8 fl Normal 80.0-96.0 Mean Corpuscular Hemoglobin 31.1 pg Normal 27.0-33.0 Mean Corpuscular HGB Conc 32.9 g/dL Normal 32.0-36.5 Red Cell Distribution Width 12.2 % Normal 11.5-14.5 Platelet Count, Automated 254 10 Normal 150-450 Neutrophils % 73.4 % High 36.0-66.0 Lymph % 15.3 % Low 24.0-44.0 Merrick % 7.9 % Normal 2.0-8.0 Eos % 2.4 % Normal 0.0-3.0 Baso % 0.7 % Normal 0.0-1.0 Immature Granulocyte % 0.3 % Normal 0-3.0 Nucleated Red Blood Cell % 0.0 % Normal 0-0 Neutrophils # 7.7 10 Normal 1.5-8.5 Lymph # 1.6 10 Normal 1.5-5.0 Merrick # 0.8 10 Normal 0.0-0.8 Eos # 0.3 10 Normal 0.0-0.5 Baso # 0.1 10 Normal 0.0-0.2 Comprehensive Metabolic Profil 05/28/[address] [address] [phone] Glucose, Fasting 101 mg/dL High 70-100 Blood Urea Nitrogen 12 mg/dL Normal 7-18 Creatinine For GFR 0.86 mg/dL Normal 0.70-1.30 Glomerular Filtration Rate > 60.0 Normal >49 4 Sodium Level 142 mEq/L Normal 136-145 Potassium Serum 4.2 mEq/L Normal 3.5-5.1 Chloride Level 107 mEq/L Normal 98-107 Carbon Dioxide Level 30 mEq/L Normal 21-32 Anion Gap 5 mEq/L Low 8-16 Calcium Level 9.1 mg/dL Normal 8.8-10.2 Ast/Sgot 23 U/L Normal 7-37 Alt/SGPT 33 U/L Normal 12-78 Alkaline Phosphatase 83 U/L Normal 45-117 Bilirubin,Total 0.4 mg/dL Normal 0.2-1.0 Total Protein 6.5 GM/DL Normal 6.4-8.2 Albumin 3.8 GM/DL Normal 3.2-5.2 Albumin/Globulin Ratio 1.4 Normal Laboratory test finding 05/28/[address] [address] [phone] Lipase 378 U/L Normal 73-393 Amylase 55 U/L Normal 25-115 1 Units are mL/min/1.73 m2 Chronic Kidney Disease Staging per NKF: Stage I & II GFR >=60 Normal to Mildly Decreased Stage III GFR 30-59 Moderately Decreased Stage IV GFR 15-29 Severely Decreased Stage V GFR <15 Very Little GFR Left ESRD GFR <15 on PRINT DECORATOR 2 Negative 0 - 3 Weak Positive 4 - 10 Positive >10 . Tissue Transglutaminase (tTG) has been identified as the endomysial antigen. Studies have demonstr- ated that endomysial IgA antibodies have over 99% specificity for gluten sensitive enteropathy. Performed at: RN - [facility] [address] [id number] Ventilation Equipment Tender: Lakshmi Martin MD, Phone: [phone] 3 A Pathologist review of this differential can help in the evaluation of a differential diagnosis. Please order a Pathologist Review (PERISM) if deemed necessary. Results are subject to change if a Pathologist Review is performed. 4 Units are mL/min/1.73 m2 Chronic Kidney Disease Staging per NKF: Stage I & II GFR >=60 Normal to Mildly Decreased Stage III GFR 30-59 Moderately Decreased Stage IV GFR 15-29 Severely Decreased Stage V GFR <15 Very Little GFR Left ESRD GFR <15 on PRINT DECORATOR Procedures Date Code Description Status 08/15/2021 32888 Office/Outpatient Established Mo d MDM 30-39 Min Completed 07/26/2021 47456 Preventive Visit Est 40-64 Yrs C ompleted 06/14/2021 26611 Office/Outpatient Established Mo d MDM 30-39 Min Completed 05/28/2021 55740 Office/Outpatient Established Mo d MDM 30-39 Min Completed 04/24/2021 35905 Office/Outpatient Established Mo d MDM 30-39 Min Completed Medical Devices Description No Information Available Encounters Type Date Location Provider Dx Diagnosis Office Visit 08/15/2021 9:20a [facility] Ping Garcia D.O. 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, lumbar region Office Visit 07/26/2021 9:00a [facility] LISSA Zimmer Z00.00 Encntr for general adult med ical exam w/o abnormal findings G47.33 Obstructive sleep apnea (neel lt) (pediatric) E78.2 Mixed hyperlipidemia F33.0 Major depressive disorder, r ecurrent, mild Z79.899 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 R68.81 Early satiety K59.00 Constipation, unspecified R63.4 Abnormal weight loss Office Visit 05/28/2021 2:40p [facility] Ping Garcia D.O. R68.81 Early satiety K59.00 Constipation, unspecified R63.4 Abnormal weight loss Office Visit 04/24/2021 9:00a [facility] LISSA Jimenez G47.33 Obstructive sleep apnea (neel lt) (pediatric) E78.2 Mixed hyperlipidemia M25.552 Pain in left hip L40.9 Psoriasis, unspecified F33.0 Major depressive disorder, r ecurrent, mild Z79.82 exterminator (current) use of a spirin Z79.01 exterminator (current) use of a nticoagulants Assessments Date Code Description Provider 08/15/2021 M16.0 Bilateral primary osteoarthritis of hip Ping Garcia, D.O. 08/15/2021 R68.81 Early satiety Ping casas, D.O. 08/15/2021 R63.4 Abnormal weight loss Ping Joaquin, D.O. 08/15/2021 K59.00 Constipation, unspecified Ping Garcia, D.O. 08/15/2021 G47.33 Obstructive sleep apnea (adult) (pediatric) Ping Camilo, D.O. 08/15/2021 E78.2 Mixed hyperlipidemia Ping Sandhuber, D.O. 08/15/2021 F33.0 Major depressive disorder, recur rent, mild Ping Camilo, D.O. 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 08/15/2021 Z79.01 exterminator (current) use of antic oagulants Ping Camilo, D.O. 08/15/2021 M51.86 Other intervertebral disc disord ers, lumbar region Josseline UsOSilke 07/26/2021 Z00.00 Encntr for general adult medical exam w/o abnormal findings LISSA Jimenez 07/26/2021 G47.33 Obstructive sleep apnea (adult) (pediatric) LISSA Jimenez 07/26/2021 E78.2 Mixed hyperlipidemia LISSA Sanchez 07/26/2021 F33.0 Major depressive disorder, recur rent, mild LISSA Jimenez 07/26/2021 Z79.899 Other group home (current) drug t herapy LISSA Jimenez 07/26/2021 Z79.01 residential (current) use of antic oagulants LISSA Jimenez 07/26/2021 Z12.5 Encounter for screening for matthieu gnant neoplasm of prostate LISSA Jimenez 07/26/2021 Z13.220 Encounter for screening for lipo id disorders LISSA Jimenez 07/26/2021 Z23 Encounter for immunization LISSA Branch 06/14/2021 R68.81 Early satiety Abbie Tello.OSilke 06/14/2021 K59.00 Constipation, unspecified Ping Garcia D.O. 06/14/2021 R63.4 Abnormal weight loss Abbie Stephenson.OSilke 05/28/2021 R68.81 Early satiety Abbie Tello.O. 05/28/2021 K59.00 Constipation, unspecified Ping Garcia, D.O. 05/28/2021 R63.4 Abnormal weight loss Abbie Stephenson.O. 04/24/2021 G47.33 Obstructive sleep apnea (adult) (pediatric) LISSA Jimenez 04/24/2021 E78.2 Mixed hyperlipidemia LISSA Sanchez 04/24/2021 M25.552 Pain in left hip LISSA Jimenez 04/24/2021 L40.9 Psoriasis, unspecified LISSA Jeronimo 04/24/2021 F33.0 Major depressive disorder, recur rent, mild LISSA Jimenez 04/24/2021 Z79.82 residential (current) use of aspir in LISSA Jimenez 04/24/2021 Z79.01 residential (current) use of antic oagulants LISSA Jimenez Plan of Treatment Future Appointment(s):* 09/26/2021 9:30 am - Ping Garcia D.O. at [facility] Functional Status Description No Information Available Mental Status Description No Information Available Referrals Refer to Dr Reason for Referral Status Appt Date Jonathan Arango M.D. This is a 61 year old male w ith left greater than right hip pain. He thinks he is ready for the hip replacement and he has talked with ortho about this in the past. Please evaluate and treat. Sent [facility] [address] [place], [place] [id number] [phone] Jose L Cherry MD This is a 61 year old male w ith abnormal weight loss, early satiety and change in bowel habit from constipation to loose stools. Please evaluate and treat. Sent 08/16/2021 [address] [facility] [address] [place], [place] [id number] [phone]
--- OUTSIDE RECORDS SUMMARY | 2021-09-13 11:28 | CCD | Continuity of Care Document ---
Author Author Atilio GARCIA D.O. Organization Unknown Address [address] [facility] [address] [place] [address] Phone [phone] Care Team Providers Care Service Delivery Director Name Role Phone Ping Garcia D.O. AUTM [phone] [facility] AUTM [phone] Mela Harrison NP AUTM [phone] Fay Sinha MD AUTM [phone] Jos Barr MD AUTM [phone] [facility] AUTM [phone] [facility] AUTM [phone] [facility] Rheumatology AUTM [phone] Jose L Cherry MD AUTM [phone] Problems Active Problems Provider Date Long-term current [...] Mouth Every Day 30tabs Ping Urbina er, D.O. 12/04/2020 Hydrocodone Bitartrate/Acetaminophen 5-325mg Tablets take 1 tablet every 12 hours by mouth as needed for pain istop: [id number] 60tabs M25.552 Josseline UsO. 10/23 Aspirin Adult 325mg Tablets take one [...] Daily Dose = 2 Tablets 60tabs Ping Camilo D.O. Iron 27 240(27Fe) mg Tablets Unknown History Medications Zolpidem Tartrate 5mg Tablets Take One Tablet By Mouth AT Bedtime as Needed Maximum Daily Dose = 1 30tabs Ping Garcia D.O. 05/05/2021 - 06/14/2021 Immunizations CPT Code Status Date Vaccine Lot # [id number] Given 07/26/2021 Influenza Virus Vaccine, Quadrivalent, Slit Virus, Im Use [id number] Given 03/10/2019 TB Intradermal Test [id number] Vital Signs Date Vital Result Comment 08/15/2021 9:35am BP Systolic 142 mmHg BP Diastolic 82 mmHg Height 68 inches 5'8" Weight 144.00 lb BMI (Body Mass Index) 21.9 kg/m2 Heart Rate 68 /min Respiratory Rate 18 /min Body Temperature 97.6 F O2 % BldC Oximetry 98 % [place] Body Weight 154 lb 07/26/2021 9:04am BP Systolic 146 mmHg BP Diastolic 72 mmHg Height 68 inches 5'8" Weight 148.00 lb BMI (Body Mass Index) 22.5 kg/m2 Heart Rate 68 /min Respiratory Rate 18 /min Body Temperature 97.2 F O2 % BldC Oximetry 98 % [place] Body Weight 154 lb Results Test Acquired Date Facility Test Result H/L Range Note Istat Chem8+ Panel 06/16/2021 [facility] Outpatient Testi ng (Registration) [address] [place] [address] [phone] iSTAT HCT 44.0 % Normal 38.0-51.0 iSTAT Glucose 99 mg/dL Normal 70-105 iSTAT Sodium 139 mEq/L Normal 136-145 iSTAT Potassium 4.0 mEq/L Normal 3.5-5.1 iSTAT CA++ 4.7 mg/dL Normal 4.5-5.3 iSTAT Chloride 102 mEq/L Normal 98-109 iSTAT Co2 23.0 MM/L Normal 23.0-27.0 iSTAT BUN 12 mg/dL Normal 8-26 iSTAT Creatinine 0.9 mg/dL Normal 0.6-1.3 CBC With Differential 06/16/2021 [facility] Outpatient Ita ting (Registration) [address] [place] [address] [phone] White Blood Count 17.7 10 High 4.0-10.0 1 Red Blood Count 4.78 10 Normal 4.30-6.10 [...] 36.0-66.0 Lymph % 10.0 % Low 24.0-44.0 [place] % 8.3 % High 2.0-8.0 Eos % 0.6 % Normal 0.0-3.0 Baso % 0.3 % Normal 0.0-1.0 Immature Granulocyte % 0.6 % Normal 0-3.0 Nucleated Red Blood Cell % 0.0 % Normal 0-0 Neutrophils # 14.2 10 High 1.5-8.5 Lymph # 1.8 10 Normal 1.5-5.0 [place] # 1.5 10 High 0.0-0.8 Eos # 0.1 10 Normal 0.0-0.5 Baso # 0.1 10 Normal 0.0-0.2 Liver Profile 06/16/2021 [facility] Outpatient Testi ng (Registration) [address] [place] [address] [phone] Ast/Sgot 19 U/L Normal 7-37 Alt/SGPT 23 U/L Normal 12-78 Alkaline Phosphatase 100 U/L Normal 45-117 Bilirubin,Total 1.0 mg/dL Normal 0.2-1.0 Bilirubin,Direct 0.2 mg/dL Normal 0.0-0.2 Total Protein 6.8 GM/DL Normal 6.4-8.2 Albumin 3.6 GM/DL Normal 3.2-5.2 Albumin/Globulin Ratio 1.1 Normal Laboratory test finding 06/16/2021 [facility] Outpatient T esting (Registration) [address] [place] [address] [phone] Lipase 128 U/L Normal 73-393 Ua W/ Reflex To Culture 06/16/2021 [facility] Outpatient T esting (Registration) [address] [place] [address] [phone] Appearance, Urine RFX CLEAR Normal Clear Color, Urine RFX YELLOW Normal Yellow PH,Urine RFX 6.0 units Normal 5.0-9.0 Specific Adin Ur Auto RFX 1.033 Normal 1.002-1.035 Protein, [...] 0 /LPF Normal 0-1 FT4&TSH Panel 05/28/2021 [facility] ce nter [address] [place] [address] [phone] Thyroid Stimulating Hormone 0.901 uIU/ML Normal 0. 358-3.740 Free T4 0.69 ng/dL Low 0.76-1.46 CBC With Differential 05/28/[address] [address] [phone] White Blood Count 10.5 10 High 4.0-10.0 [...] 36.0-66.0 Lymph % 15.3 % Low 24.0-44.0 [place] % 7.9 % Normal 2.0-8.0 Eos % 2.4 % Normal 0.0-3.0 Baso % 0.7 % Normal 0.0-1.0 Immature Granulocyte % 0.3 % Normal 0-3.0 Nucleated Red Blood Cell % 0.0 % Normal 0-0 Neutrophils # 7.7 10 Normal 1.5-8.5 Lymph # 1.6 10 Normal 1.5-5.0 [place] # 0.8 10 Normal 0.0-0.8 Eos # 0.3 10 Normal 0.0-0.5 Baso # 0.1 10 Normal 0.0-0.2 Comprehensive Metabolic Profil 05/28/[address] [address] [phone] Glucose, Fasting 101 mg/dL High 70-100 Blood Urea Nitrogen 12 mg/dL Normal 7-18 Creatinine For GFR 0.86 mg/dL Normal 0.70-1.30 Glomerular Filtration Rate > 60.0 Normal >49 2 Sodium Level 142 mEq/L Normal 136-145 Potassium [...] Ratio 1.4 Normal Laboratory test finding 05/28/2021 [facility] [address], [place] [address] [phone] Lipase 378 U/L Normal 73-393 Amylase 55 U/L Normal 25-115 1 A Pathologist review of this differential can help in the evaluation of a differential diagnosis. Please order a Pathologist Review (PERISM) if deemed necessary. Results are subject to change if a Pathologist Review is performed. 2 Units are mL/min/1.73 m2 Chronic Kidney Disease Staging per NKF: Stage I & II GFR >=60 Normal to Mildly Decreased Stage III GFR 30-59 Moderately Decreased Stage IV GFR 15-29 Severely Decreased Stage V GFR <15 Very Little GFR Left ESRD GFR <15 on TELESALES MANAGER Procedures Date Code Description Status 08/15/2021 09843 Office/Outpatient Established Mo d MDM 30-39 Min Completed 07/26/2021 56644 Preventive Visit Est 40-64 Yrs C ompleted 06/14/2021 54248 Office/Outpatient Established Mo d MDM 30-39 Min Completed 05/28/2021 43526 Office/Outpatient Established Mo d MDM 30-39 Min Completed 04/24/2021 18077 Office/Outpatient Established Mo d MDM 30-39 Min Completed Medical Devices Description No Information Available Encounters Type Date Location Provider Dx Diagnosis Office Visit 08/15/2021 9:20a [facility] Ping Garcia D.O. 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, lumbar region Office Visit 07/26/2021 9:00a [facility] LISSA Jimenez Z00.00 Encntr for general adult med ical exam w/o abnormal findings G47.33 Obstructive sleep apnea (neel lt) (pediatric) E78.2 Mixed hyperlipidemia F33.0 Major depressive disorder, r ecurrent, mild Z79.899 Other [facility] (current) dr justine varghese 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 R68.81 Early satiety K59.00 Constipation, unspecified R63.4 Abnormal weight loss Office Visit 05/28/2021 2:40p [facility] Ping Garcia D.O. R68.81 Early satiety K59.00 Constipation, unspecified R63.4 Abnormal weight loss Office Visit 04/24/2021 9:00a [facility] LISSA Jimenez G47.33 Obstructive sleep apnea (neel lt) (pediatric) E78.2 Mixed hyperlipidemia M25.552 Pain in left hip L40.9 Psoriasis, unspecified F33.0 Major depressive disorder, r ecurrent, mild Z79.82 alf (current) use of a spirin Z79.01 alf (current) use of a nticoagulants Assessments Date Code Description Provider 08/15/2021 M16.0 Bilateral primary osteoarthritis of hip Ping Garcia, D.O. 08/15/2021 R68.81 Early satiety Ping casas D.O. 08/15/2021 R63.4 Abnormal weight loss Ping Joaquin, D.O. 08/15/2021 K59.00 Constipation, unspecified Ping Garcia, D.O. 08/15/2021 G47.33 Obstructive sleep apnea (adult) (pediatric) Ping Camilo D.O. 08/15/2021 E78.2 Mixed hyperlipidemia Ping Joaquin, D.O. 08/15/2021 F33.0 Major depressive disorder, recur rent, mild Ping Camilo D.O. 08/15/2021 Z79.899 [facility] drug t herapy Ping Garcia D.O. 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 08/15/2021 M51.86 Other intervertebral disc disord ers, lumbar region Ping Garcia D.O. 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 06/14/2021 K59.00 Constipation, unspecified Ping Garcia, D.O. 06/14/2021 R63.4 Abnormal weight loss Ping Joaquin, D.O. 05/28/2021 R68.81 Early satiety Ping casas, D.O. 05/28/2021 K59.00 Constipation, unspecified Ping Garcia, D.O. 05/28/2021 R63.4 Abnormal weight loss Ping Joaquin D.O. 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 at [facility] Functional Status Description No Information Available Mental [...] in the past. Please evaluate and treat. Created [facility] [address], [place] [id number] [phone] Jose L Cherry MD This is a 61 year old male w ith abnormal weight loss, early satiety and change in bowel habit from constipation to loose stools. Please evaluate and treat. Sent 08/16/2021 [address] [facility] [address] [place], [place] [address] [phone]
--- OUTSIDE RECORDS SUMMARY | 2021-09-13 11:28 | CCD ---
Author Author [facility] Organization [facility] Address Unknown Phone Unavailable Care Team Providers Care Landing Support Specialist Name Role Phone Jessica Soto PROBLEMS Type Condition ICD9-CM Code QBE47-QV Code Onset Dates Condition S tatus W/U Status Risk SNOMED Code Notes Problem Osteoarthritis of hand, unsp ecified laterality, unspecified osteoarthritis type M19.049 Active confirmed 40223981 Problem Osteoarthritis of knee, unsp ecified laterality, unspecified osteoarthritis type M17.10 Active confirmed [id number] Problem Paresthesias R20.2 Active confirmed [id number] ALLERGIES Allergen (clinical drug ingredient) Drug/Non Drug Allergy do cumented on EMR Reaction Allergy Type Onset Date Status Ketoconazole Ketoconazole Hives Non Drug Allergy Acti ve ENCOUNTERS from 1960 to 2021-07-17 Encounter Location Date Provider Diagnosis [facility] Rheumatology [address] [place] [address] [place] [address] Mar, Jessica Soto Osteoarthritis of hand, unsp ecified laterality, unspecified osteoarthritis type M19.049 ; Polyarthralgia M25.50 ; Myalgia M79.10 ; Paresthesias R20.2 and Rash R21 IMMUNIZATIONS No Information SOCIAL HISTORY Tobacco Use: Social History Observation Description Date Details (start date - stop date) Former Smoker Sex Assigned At : Social History Observation Description Sex Assigned At Unknown Alcohol Screening: Question Answer Notes Did you have a drink containing alcohol in the past year? Ye s Points 5 Interpretation Positive How often did you have six or more drinks on one occas ion in the past year? Never (0 points) How many drinks did you have on a typica l day when you were drinking in the past year? 3 or 4 (1 point) How often did you have a drink containing alcohol in t he past year? Four or more times a week (4 points) Tobacco Use: Question Answer Notes Are you a: former smoker 3 ppd x 25 years REASON FOR REFERRAL from 1960 to 2021-07-17 Reason EMG of the upper extremities Diagnosis 1 Paresthesias (R20.2) Referral Organization [facility] Rheumatology Referring Provider First Name Jessica Referring Provider Last Name Charles Referring Provider Specialty Rheumatology Referred Provider Marquise Lee Referred Provider Specialty Neurology Referral Priority Routine General Notes Sarina Whitfield 04/16/2021 6:27:4 3 PM > Referral faxed with attachments as requested.Gwendolyn Montaño 06/08/2021 2:56:44 PM > Faxed againGwendolyn Montaño 06/08/2021 3:25:12 PM > Referral status request has been fax to neurology office.Sarina Whitfield 07/13/2021 1:38:01 PM > Referral has been faxed to Dr Callejas's office to obtain PA through insurance in order for Dr Lee to perform EMG. Clinical Notes CharlesJessica Payan 04/16/2021 9:58 :55 AM > Please perform EMG of the upper extremities, concern for carpal tunnel syndrome. VITAL SIGNS Weight 144.0 lbs Mar, Weight-kg 65.3 kg Mar, Height 69 in Mar, BMI 21.26 kg/m2 Mar, Heart Rate 77 /min Mar, Respiratory Rate 20 /min Mar, Temperature 98.1 degrees Fahrenheit Mar, Oximetry 97 Mar, Blood pressure systolic 118 mm Hg Mar, Blood pressure diastolic 72 mm Hg Mar, MEDICATIONS Medication SIG (Take, Route, Frequency, Duration) Notes Start Da te End Date Status HYDROcodone-Acetaminophen 5-325 MG (Schedule II Drug) TAKE ONE TABLET BY MOUTH EVERY 12 HOURS NEEDED FOR PAIN MAXIMUM DAILY DOSE TWO TABLETS Oral for 30 Active clonazePAM 0.5 MG 1 tablet Oral once daily as needed Active Aspirin Adult 325 MG TAKE ONE TABLET BY MOUTH EVERY DAY Oral for 30 Active Clopidogrel Bisulfate 75 MG TAKE ONE TABLET BY MOUTH EVERY D AY Oral for 30 (Plavix) Active Zolpidem Tartrate 10 MG 1 tablet at bedtime as needed Oral Once a day Active Clobetasol Propionate 0.05 % APPLY TO SCALP DAILY UNTI L RASH RESOLVES External for 15 Active Ferrous Sulfate 325 (65 Fe) MG 1 tablet Orally Once a day for 30 day( s) Active Trintellix 10 MG TAKE ONE TABLET BY MOUTH EVERY DAY Oral for 30 Active KAYDEN Neoprene Wrist Brace - as needed for 99 days 21 Sep, 2 021 Active Atorvastatin Calcium 20 MG TAKE ONE TABLET BY MOUTH EVERY EVENIN G Oral for 30 Active PROCEDURES No Information RESULTS Component Value Reference Range CPK CREATINE PHOSPHOKINASE Reviewed date:04/16/2021 14:47:02 Interpretation: Performing Lab:[facility] LABORATORY [address] [place] [address] , ,[place] [address] CPK CREATINE PHOSPHOKINASE 79 39-308 MAGNESIUM LEVEL Reviewed date:04/16/2021 14:47:02 Interpretation: Performing Lab:[facility] [address] [place] [address] , ,[place] [address] MAGNESIUM LEVEL 2.4 1.8-2.4 PHOSPHOROUS LEVEL Reviewed date:04/16/2021 14:47:02 Interpretation: Performing Lab:[facility] LAB[facility] [address] [facility] [address] , ,[place] [address] PHOSPHORUS LEVEL 3.5 2.5-4.9 TSH Reviewed date:04/16/2021 14:47:02 Interpretation: Performing Lab:[facility] LABOR[facility]ORY [address] [place] [address] , ,[place] [address] THYROID STIMULATING HORMONE 0.585 0.358-3.740 VITAMIN D 25-HYDROXY Reviewed date:04/16/2021 14:47:02 Interpretation: Performing Lab:[facility] [address] [place] [address] , ,[place] [address] TOTAL 25(OH) VITAMIN D 30.4 30.0-100.0 VITAMIN B12 LEVEL Reviewed date:04/16/2021 14:47:02 Interpretation: Performing Lab:[facility], [facility] [address] [facility] [address] , ,[place] [address] VITAMIN B12 LEVEL [phone] IRON (FE) Reviewed date:05/13/2021 18:30:56 Interpretation: Performing Lab:[facility], [facility] [address] [facility] [address] , ,[place] [address] IRON (FE) [phone] [facility] Hand, complete Reviewed date:07/05/2021 20:16:28 Interpretation: Performing Lab:[facility] ct ivnm], ,[address] Knee, complete Reviewed date:07/05/2021 20:16:28 Interpretation: Performing Lab:[facility],rep ct ivnm], ,[address] Wrist, complete Reviewed date:07/05/2021 20:16:28 Interpretation: Performing Lab:[facility],rep ct ivnm], ,[facility] REASON FOR VISIT C/o joint stiffness in multiple sites, states that his joints become very stiff then he is unable to walk. C/o bilateral leg pain, states that he is unable to j ogg anymore due to his pain symptons. 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 Counseling provided on the disease course and symptomatology of the hand osteoarthritis. Will obtain the x-rays of the hands to evaluate the severity of OA. Information on hand exercises provided to the patient for further education. Recommended the performance of the hand exercises for 10 minutes daily and the use of voltaren gel OTC - four times/daily as needed. If conservative methods fail, then will consider sending to occupational therapy to evaluate the ability to perform activities of daily living (ADLs), instruction in joint protection techniques, to provide assistive devices to help perform ADLs, and to instruct in use of thermal modalities. The patient had multiple concerns about his clinical presentation. He was agreeable and expressed understanding of the plan. All questions and concerns were addressed Mar, Polyarthralgia (ICD-10 - M25.50) Polyarthralgias are likely multifactorial. At this time, there is no synovitis on the physical examination. There is a concern that the patient is developing symptomatic osteoarthritis in the joints. Will obtain further imaging (wrists, knees) for further investigation of the underlying etiology. Mar, Myalgia (ICD-10 - M79.10) Given the widespread pain and somatic symptoms, will perform further investigation. Will check TSH, vitamin D and vitamin B12, given the muscle aches. Will check creatinine kinase to evaluate for elevated muscle enzymes, given the muscle pain. Nutritional deficiencies can contribute to increased joint pain and muscle aches. Will check iron, magnesium, and phosphorous. Mar, Paresthesias (ICD-10 - R20.2) Given the paresthesias of the upper extremities, will perform an EMG for further evaluation. Mar, Rash (ICD-10 - R21) Will defer to dermatology for further evaluation of the macular eruption. Mar, Other - Recommended th e performance of the hand exercises for 10 minutes daily. The total time spent on the date of the encounter: 95 minutes PLAN OF TREATMENT Medication Medication Name Sig Start Date Stop Date KAYDEN Neoprene Wrist Brace - as needed for 99 days Jun, Ferrous Sulfate 325 (65 Fe) MG 1 tablet Orally Once a day for 30 day(s) Treatment Notes Assessment Notes Clinical Notes Osteoarthritis of hand, unspecified laterality, unspec ified osteoarthritis type Clinical presentation consistent with bi lateral osteoarthritis of the hands. Counseling provided on the disease course and symptomatology of the hand osteoarthritis. Will obtain the x-rays of the hands to evaluate the severity of OA. Information on hand exercises provided to the patient for further education. Recommended the performance of the hand exercises for 10 minutes daily and the use of voltaren gel OTC - four times/daily as needed. If conservative methods fail, then will consider sending to occupational therapy to evaluate the ability to perform activities of daily living (ADLs), instruction in joint protection techniques, to provide assistive devices to help perform ADLs, and to instruct in use of thermal modalities. The patient had multiple concerns about his clinical presentation. He was agreeable and expressed understanding of the plan. All questions and concerns were addressed Polyarthralgia Polyarthralgias are likely multifactorial. At this time, there is no synovitis on the physical examination. There is a concern that the patient is developing symptomatic osteoarthritis in the joints. Will obtain further imaging (wrists, knees) for further investigation of the underlying etiology. Myalgia Given the widespread pain and somatic symptoms, will perform further investigation. Will check TSH, vitamin D and vitamin B12, given the muscle aches. Will check creatinine kinase to evaluate for elevated muscle enzymes, given the muscle pain. Nutritional deficiencies can contribute to increased joint pain and muscle aches. Will check iron, magnesium, and phosphorous. Paresthesias Given the paresthesi as of the upper extremities, will perform an EMG for further evaluation. Rash Will defer to dermat ology for further evaluation of the macular eruption. Referrals Referral Date Details EMG of the upper extremities , Marquise Lee Next Appt Details Provider Name:Jessica Soto, 2022-01-14 11:15:00 AM, [address] [place] [address], , [place], [address], Insurance Providers Payer Name Payer Address Payer Phone Insured Name Patient Relati onship to Insured Coverage Start Date Coverage End Date FOR[facility]LY [facility] [employer] [facility] [address] [facility] [id number] KIP [place] self
--- OUTSIDE RECORDS SUMMARY | 2021-09-13 11:28 | CCD ---
Author Author [employer] [facility] Syst ems Organization [facility] [facility] Syst ems Address Unknown Phone Unavailable Care Team Providers Care Reducing System Operator Name Role Phone Jessica Soto PROBLEMS Type Condition ICD9-CM Code [id number] Code Onset Dates Condition S tatus W/U Status Risk SNOMED Code Notes Problem Osteoarthritis of hand, unsp ecified laterality, unspecified osteoarthritis type M19.049 Active confirmed 80636866 Problem Paresthesias R20.2 Active confirmed [id number] ALLERGIES Allergen (clinical drug ingredient) Drug/Non Drug Allergy do cumented on EMR Reaction Allergy Type Onset Date Status Ketoconazole Ketoconazole Hives Non Drug Allergy Acti ve ENCOUNTERS from 1960 to 2021-07-13 Encounter Location Date Provider Diagnosis [facility] Rheumatology [address] [place] [address] [place] [address] Jun, [facility] IMMUNIZATIONS No Information SOCIAL HISTORY Tobacco Use: [...] ppd x 25 years REASON FOR REFERRAL No Information VITAL SIGNS No information MEDICATIONS Medication SIG (Take, Route, Frequency, Duration) Notes Start Da te End Date Status HYDROcodone-Acetaminophen 5-325 MG (Schedule II Drug) TAKE ONE TABLET BY MOUTH EVERY 12 HOURS NEEDED FOR PAIN MAXIMUM DAILY DOSE TWO TABLETS Oral for 30 Active Clobetasol Propionate 0.05 % APPLY TO SCALP DAILY UNTI L RASH RESOLVES External for 15 Active Atorvastatin Calcium 20 MG TAKE ONE TABLET BY MOUTH EVERY EVENIN G Oral for 30 Active Zolpidem Tartrate 10 MG 1 tablet at bedtime as needed Oral Once a day Active clonazePAM 0.5 MG 1 tablet Oral once daily as needed Active Ferrous Sulfate 325 (65 Fe) MG 1 tablet Orally Once a day for 30 day(s) Apr, Active Aspirin Adult 325 MG TAKE ONE TABLET BY MOUTH EVERY DAY Oral for 30 Active Trintellix 10 MG TAKE ONE TABLET BY MOUTH EVERY DAY Oral for 30 Active Clopidogrel Bisulfate 75 MG TAKE ONE TABLET BY MOUTH EVERY D AY Oral for 30 (Plavix) Active PROCEDURES No Information RESULTS No Results REASON FOR VISIT NCS/EMG MEDICAL (GENERAL) HISTORY Type Description Date Medical History Hypertension Medical History Hyperlipidemia Medical History Sleep Apnea Medical History 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 Medical History Multiple fractures in 20's and 30's r/t work Medical History Tetanus immunization Surgical History Colonoscopy Surgical History Dental surgery 02/2018 Surgical History 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 Hospitalization History Surgery related Goals Section No Information Health Concerns No Information MEDICAL EQUIPMENT No Information MENTAL STATUS No Information FUNCTIONAL STATUS No Information ASSESSMENTS No Information PLAN OF TREATMENT Medication Medication Name Sig Start Date Stop Date Ferrous Sulfate 325 (65 Fe) MG 1 tablet Orally Once a day fo r 30 day(s) Apr, Next Appt Details Provider Name:Jessica Soto, 2021-07-16 03:45:00 PM, [address] [place] [address], , [place], [place], [facility], Insurance Providers Payer Name Payer Address Payer Phone Insured Name Patient Relati onship to Insured Coverage Start Date Coverage End Date [facility] [employer] [facility] [address] [facility] [phone] KIP PATTEN self
--- OUTSIDE RECORDS SUMMARY | 2021-09-13 11:28 | CCD | Continuity of Care Document ---
Author Author Atilio ROB Organization [place] [address] Phone [phone] Care Team Providers Care Bowling Alley Refinisher Name Role Phone Ping Garcia D.O. [facility] [phone] Mela Harrison NP [facility] [phone] Fay Sinha MD [facility] [phone] Jos Barr MD [facility]M [phone] [facility] [phone] [facility] [phone] [facility] Rheumatology AUTM [phone] Jose L Cherry MD AUTM [phone] Problems Active Problems Provider Date Long-term current [...] Seat Belt/Car Seat Always uses seat belt Allergies, Adverse Reactions, Alerts Active Allergies Criticality Reaction | Severity Comments [...] by mouth as needed for pain istop: [id number] 60tabs M25.552 Josseline UsOSilke 10/23 Aspirin Adult 325mg Tablets take [...] Tablet By Mouth Every Evening 90tabs Ping benitez, D.O. Clonazepam 0.5mg Tablets Take One Tablet [...] CPT Code Status Date Vaccine Lot # [id number] Given 07/26/2021 Influenza Virus Vaccine, Quadrivalent, Slit Virus, Im Use [id number] Given 03/10/2019 TB Intradermal Test [id number] Vital Signs Date Vital Result Comment 07/26/2021 9:04am BP Systolic 146 mmHg BP Diastolic 72 mmHg Height 68 inches 5'8" Weight 148.00 lb BMI (Body Mass Index) 22.5 kg/m2 Heart Rate 68 /min Respiratory Rate 18 /min Body Temperature 97.2 F O2 % BldC Oximetry 98 % [place] Body Weight 154 lb 06/14/2021 11:24am BP Systolic 126 mmHg BP Diastolic 64 mmHg Height 68 inches 5'8" Weight 147.25 lb BMI (Body Mass Index) 22.4 kg/m2 Heart Rate 70 /min Respiratory Rate 18 /min Body Temperature 98.3 F O2 % BldC Oximetry 98 % [place] Body Weight 154 lb Results Test Acquired Date Facility Test Result H/L Range Note Istat Chem8+ Panel 06/16/2021 [facility] Outpatient Testi ng (Registration) [address] [place] [address] [phone] iSTAT HCT 44.0 % Normal 38.0-51.0 iSTAT Glucose 99 mg/dL Normal 70-105 iSTAT Sodium 139 mEq/L Normal 136-145 iSTAT Potassium 4.0 mEq/L Normal 3.5-5.1 iSTAT CA++ 4.7 mg/dL Normal 4.5-5.3 iSTAT Chloride 102 mEq/L Normal 98-109 iSTAT Co2 23.0 MM/L Normal 23.0-27.0 iSTAT BUN 12 mg/dL Normal 8-26 iSTAT Creatinine 0.9 mg/dL Normal 0.6-1.3 CBC With Differential 06/16/2021 [facility] Outpatient Ita ting (Registration) [address] [place] [address] [phone] White Blood Count 17.7 10 High 4.0-10.0 [...] 36.0-66.0 Lymph % 10.0 % Low 24.0-44.0 [place] % 8.3 % High 2.0-8.0 Eos % 0.6 % Normal 0.0-3.0 Baso % 0.3 % Normal 0.0-1.0 Immature Granulocyte % 0.6 % Normal 0-3.0 Nucleated Red Blood Cell % 0.0 % Normal 0-0 Neutrophils # 14.2 10 High 1.5-8.5 Lymph # 1.8 10 Normal 1.5-5.0 [place] # 1.5 10 High 0.0-0.8 Eos # 0.1 10 Normal 0.0-0.5 Baso # 0.1 10 Normal 0.0-0.2 Liver Profile 06/16/2021 [facility] Outpatient Testi ng (Registration) [address] [place] [address] [phone] Ast/Sgot 19 U/L Normal 7-37 Alt/SGPT 23 U/L Normal 12-78 Alkaline Phosphatase 100 U/L Normal 45-117 Bilirubin,Total 1.0 mg/dL Normal 0.2-1.0 Bilirubin,Direct 0.2 mg/dL Normal 0.0-0.2 Total Protein 6.8 GM/DL Normal 6.4-8.2 Albumin 3.6 GM/DL Normal 3.2-5.2 Albumin/Globulin Ratio 1.1 Normal Laboratory test finding 06/16/2021 [facility] Outpatient T esting (Registration) [address] [place] [address] [phone] Lipase 128 U/L Normal 73-393 Ua W/ Reflex To Culture 06/16/2021 [facility] Outpatient T esting (Registration) [address] [place] [address] [phone] Appearance, Urine RFX CLEAR Normal Clear Color, Urine RFX YELLOW Normal Yellow PH,Urine RFX 6.0 units Normal 5.0-9.0 Specific Ceres Ur Auto RFX 1.033 Normal 1.002-1.035 Protein, [...] 0 /LPF Normal 0-1 FT4&TSH Panel 05/28/2021 [facility] ce nter [address] [place] [address] [phone] Thyroid Stimulating Hormone 0.901 uIU/ML Normal 0. 358-3.740 Free T4 0.69 ng/dL Low 0.76-1.46 CBC With Differential 05/28/[address] [address] [phone] White Blood Count 10.5 10 High 4.0-10.0 [...] 36.0-66.0 Lymph % 15.3 % Low 24.0-44.0 [place] % 7.9 % Normal 2.0-8.0 Eos % 2.4 % Normal 0.0-3.0 Baso % 0.7 % Normal 0.0-1.0 Immature Granulocyte % 0.3 % Normal 0-3.0 Nucleated Red Blood Cell % 0.0 % Normal 0-0 Neutrophils # 7.7 10 Normal 1.5-8.5 Lymph # 1.6 10 Normal 1.5-5.0 [place] # 0.8 10 Normal 0.0-0.8 Eos # 0.3 10 Normal 0.0-0.5 Baso # 0.1 10 Normal 0.0-0.2 Comprehensive Metabolic Profil 05/28/[address] [address] [phone] Glucose, Fasting 101 mg/dL High 70-100 Blood [...] Ratio 1.4 Normal Laboratory test finding 05/28/[address] [id number] [phone] Lipase 378 U/L Normal 73-393 Amylase 55 [...] Little GFR Left ESRD GFR <15 on JOINERS 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 Procedures Date Code Description Status 07/26/2021 22712 Preventive Visit Est 40-64 Yrs C ompleted 06/14/2021 73020 Office/Outpatient Established Mo d MDM 30-39 Min Completed 05/28/2021 16597 Office/Outpatient Established Mo d MDM 30-39 Min Completed 04/24/2021 27277 Office/Outpatient Established Mo d MDM 30-39 Min Completed Medical Devices Description No Information Available Encounters Type Date Location Provider Dx Diagnosis Office Visit 07/26/2021 9:00a Family [facility] LISSA Jimenez Z00.00 Encntr for general adult med ical exam w/o abnormal findings G47.33 Obstructive sleep apnea (neel lt) (pediatric) E78.2 Mixed hyperlipidemia F33.0 Major depressive disorder, r ecurrent, mild Z79.899 Other long goods drier (current) dr fletcher therapy Z79.01 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 R68.81 Early satiety K59.00 Constipation, unspecified R63.4 Abnormal weight loss Office Visit 05/28/2021 2:40p [facility] Ping Garcia D.O. R68.81 Early satiety K59.00 Constipation, unspecified R63.4 Abnormal weight loss Office Visit 04/24/2021 9:00a [facility] LISSA Jimenez G47.33 Obstructive sleep apnea (neel lt) (pediatric) E78.2 Mixed hyperlipidemia M25.552 Pain in left hip L40.9 Psoriasis, unspecified F33.0 Major depressive disorder, r ecurrent, mild Z79.82 termite treater helper (current) use of a spirin Z79.01 termite treater helper (current) use of a nticoagulants Assessments Date Code Description Provider 07/26/2021 Z00.00 Encounter for genera l adult medical examination without abnormal findings LISSA Jimenez 07/26/2021 G47.33 Obstructive sleep apnea (adult) (pediatric) LISSA Jimenez 07/26/2021 E78.2 Mixed hyperlipidemia LISSA Sanchez 07/26/2021 F33.0 Major depressive disorder, recur rent, mild LISSA Jimenez 07/26/2021 Z79.899 Other [facility] (current) drug t herapy LISSA Jimenez 07/26/2021 Z79.01 jail (current) use of antic oagulants LISSA Jimenez 07/26/2021 Z12.5 Encounter for screening for matthieu gnant neoplasm of prostate LISSA Jimenez 07/26/2021 Z13.220 Encounter for screening for lipo id disorders LISSA Jimenez 06/14/2021 R68.81 Early satiety Ping casas, D.O. 06/14/2021 K59.00 Constipation, unspecified Ping marie-Leslee, D.O. 06/14/2021 R63.4 Abnormal weight loss Ping Joaquin, D.O. 05/28/2021 R68.81 Early satiety Ping casas, D.O. 05/28/2021 K59.00 Constipation, unspecified Ping L Jose, D.O. 05/28/2021 R63.4 Abnormal weight loss Ping Joaquin, D.O. 04/24/2021 G47.33 Obstructive sleep apnea (adult) (pediatric) LISSA Jimenez 04/24/2021 E78.2 Mixed hyperlipidemia LISSA Sanchez 04/24/2021 M25.552 Pain in left hip LISSA Jimenez 04/24/2021 L40.9 Psoriasis, unspecified LISSA Jeronimo 04/24/2021 F33.0 Major depressive disorder, recur rent, mild LISSA Jimenez 04/24/2021 Z79.82 termite treater helper (current) use of aspir in LISSA Jimenez 04/24/2021 Z79.01 jail (current) use of antic oagulants LISSA Jimenez Plan of Treatment Future Appointment(s):* 08/15/2021 9:20 am - Ping Garcia D.O. at [facility] 07/26/2021 - LISSA Jimenez* Z00.00 Encounter for general adult medical examination without abnormal findings* Comments:* Normal exam. Follow up with GI as scheduled next week to set up an EGD and colonoscopy to evaluate your bowels due to weight loss and abdominal pain * G47.33 Obstructive sleep apnea (adult) (pediatric)* Comments:* You must use your CPAP or we will not be able to prescribe you Ambien. consistently use your CPAP to help improve symptoms fatigue, headaches and ' clear head'. * E78.2 Mixed hyperlipidemia* Comments:* Atorvastatin tolerated well and continue with current medications. * F33.0 Major depressive disorder, recurrent, mild* Comments:* Continue with Trintellix on a regular basis and with Ambien and Clonazepam as needed for sleeping and/or anxiety. * Z79.899 Other [facility] (current) drug therapy * Z79.01 termite treater helper (current) use of anticoagulants * Z12.5 Encounter for screening for malignant neoplasm of prostate * Z13.220 Encounter for screening for lipoid disorders* New Labs:* Comprehensive Metabolic Profil, Scheduled: 07/26/21 * PSA Screening, Scheduled: 07/26/21 * Lipid Panel, Scheduled: 07/26/21 * CBC With Differential, Scheduled: 07/26/21 Functional Status Description No Information Available Mental Status Description No Information Available Referrals Refer to Reason for Referral Status Appt Date Jose L Cherry MD This is a 61 year old male w ith abnormal weight loss, early satiety and change in bowel habit from constipation to loose stools. Please evaluate and treat. Sent 08/16/2021 [address] [id number] [phone]
--- OUTSIDE RECORDS SUMMARY | 2021-09-13 11:28 | CCD ---
Author Author [facility] Organization [facility] Address Unknown Phone Unavailable Care Team Providers Care Insulation Professional Name Role Phone Jessica Soto PROBLEMS Type Condition ICD9-CM Code PCH28-SA Code Onset Dates Condition S tatus W/U Status Risk SNOMED Code Notes Problem Osteoarthritis of hand, unsp ecified laterality, unspecified osteoarthritis type M19.049 Active confirmed [id number] Problem Osteoarthritis of knee, unsp ecified laterality, unspecified osteoarthritis type M17.10 Active confirmed [id number] Problem Paresthesias R20.2 Active confirmed [id number] 4 ALLERGIES Allergen (clinical drug ingredient) Drug/Non Drug Allergy do cumented on EMR Reaction Allergy Type Onset Date Status Ketoconazole Ketoconazole Hives Non Drug Allergy Acti ve ENCOUNTERS from 1960 to 2021-08-02 Encounter Location Date Provider Diagnosis [facility] Rheumatology [address] [place] [address] [place] [address] Jun, Jessica Soto Osteoarthritis of hand, unsp ecified laterality, unspecified osteoarthritis type M19.049 ; Osteoarthritis of carpometacarpal (CMC) joint of thumb, unspecified laterality, unspecified osteoarthritis type M18.9 ; Osteoarthritis of knee, unspecified laterality, unspecified osteoarthritis type M17.10 ; Iron deficiency E61.1 ; Polyarthralgia M25.50 ; Myalgia M79.10 and Rash R21 IMMUNIZATIONS No Information SOCIAL HISTORY Tobacco Use: Social History Observation Description Date Details (start date - stop date) Former Smoker Sex Assigned At : Social History Observation Description Sex Assigned At Unknown Alcohol Screening: Question Answer Notes Did you have a drink containing alcohol in the past year? Gary s Points 5 Interpretation Positive How often [...] REASON FOR REFERRAL No Information VITAL SIGNS Weight 140.8 lbs Jun, Weight-kg 63.87 kg Jun, Height 69 in Jun, BMI 20.79 kg/m2 Jun, Heart Rate 73 /min Jun, Respiratory Rate 20 /min Jun, Temperature 98.0 degrees Fahrenheit Jun, Oximetry 98 Jun, Blood pressure systolic 122 mm Hg Jun, Blood pressure diastolic 68 mm Hg Jun, MEDICATIONS Medication SIG (Take, Route, Frequency, Duration) [...] - as needed for 99 days Jun, 2 021 Active Atorvastatin Calcium 20 MG TAKE ONE TABLET BY MOUTH EVERY EVENIN G Oral for 30 Active PROCEDURES No Information RESULTS No Results REASON FOR VISIT C/o joint pain in multiple sites MEDICAL (GENERAL) HISTORY Type Description Date Medical History Hypertension Medical History Hyperlipidemia Medical History Sleep Apnea Medical History 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 Counseling provided on the disease course and symptomatology of the hand osteoarthritis. Reviewed the x-rays of the hands consistent w/ degenerative changes. Information on hand exercises provided to the patient for further education. Continue the performance of the hand exercises for 10 minutes daily and the use of voltaren gel OTC - four times/daily as needed. Jun, Osteoarthritis of carpometac arpal (CMC) joint of thumb, unspecified laterality, unspecified osteoarthritis type (ICD-10 - M18.9) Clinical presentation consistent with CMC OA of the left hand. Will prescribe a thumb splica to improve function and decrease the pain. Information on hand exercises given to the patient for further education. Jun, Osteoarthritis of knee, unsp ecified laterality, unspecified osteoarthritis type (ICD-10 - M17.10) Knee pain is consistent with osteoarthritis. Counseling provided on the disease course, symptomatology, complications, and prognosis of osteoarthritis. Discussed the importance of a consistent exercise program and weight management. Exercises previously provided for home exercise program. Recommend participation in a home exercise programs for 10 minutes every other day. - Discussed the importance of a healthy, well balanced life style and making healthy choices. a. Discussed the importance of sleep; without a good night sleep, it will be extremely difficult to successfully treat the osteoarthritis. b. Discussed the importance of a well balanced diet, which has increased fruits and vegetables and decreased processed foods. c. Discussed the importance of physical activity and incorporating a consistent exercise regimen. - Information concerning osteoarthritis provided to the patient. He was agreeable and expressed understanding of the plan. All questions and concerns were addressed. Jun, Iron deficiency (ICD-10 - E61.1) Continue iron supplementation in the setting of iron deficiency. Expect improvement in the myalgias. Jun, Polyarthralgia (ICD-10 - M25.50) Polyarthralgias are likely multifactorial. There was no synovitis on the physical examination; the patient has symptomatic osteoarthritis in the joints. Jun, Myalgia (ICD-10 - M79.10) Myalgias likely related to the iron deficiency; will monitor the symptomatology closely. Jun, Rash (ICD-10 - R21) Will defer to dermatology for further evaluation of the macular eruption. No evidence of Psoriatic Arthritis, based on the clinical presentation. Jun, Other The total time spent on the date of the encounter: 38 minutes PLAN OF TREATMENT Medication Medication Name [...] course and symptomatology of the hand osteoarthritis. Reviewed the x-rays of the hands consistent w/ degenerative changes. Information on hand exercises provided to the patient for further education. Continue the performance of the hand exercises for 10 minutes daily and the use of voltaren gel OTC - four times/daily as needed. Osteoarthritis of carpometacarpal (CMC) joint of thumb, unspecified laterality, unspecified osteoarthritis type Clinical presentation consistent with CMC OA of the left hand. Will prescribe a thumb splica to improve function and decrease the pain. Information on hand exercises given to the patient for further education. Osteoarthritis of knee, unspecified laterality, unspec ified osteoarthritis type Knee pain is consistent with osteoarthri tis. Counseling provided on the disease course, symptomatology, complications, and prognosis of osteoarthritis. Discussed the importance of a consistent exercise program and weight management. Exercises previously provided for home exercise program. Recommend participation in a home exercise programs for 10 minutes every other day.- Discussed the importance of a healthy, well balanced life style and making healthy choices.a. Discussed the importance of sleep; without a good night sleep, it will be extremely difficult to successfully treat the osteoarthritis.b. Discussed the importance of a well balanced diet, which has increased fruits and vegetables and decreased processed foods.c. Discussed the importance of physical activity and incorporating a consistent exercise regimen.- Information concerning osteoarthritis provided to the patient. He was agreeable and expressed understanding of the plan. All questions and concerns were addressed. Iron deficiency Continue iron supple mentation in the setting of iron deficiency. Expect improvement in the myalgias. Polyarthralgia Polyarthralgias are likely multifactorial. There was no synovitis on the physical examination; the patient has symptomatic osteoarthritis in the joints. Myalgia Myalgias likely rela medina to the iron deficiency; will monitor the symptomatology closely. Rash Will defer to dermat ology for further evaluation of the macular eruption. No evidence of Psoriatic Arthritis, based on the clinical presentation. Next Appt Details Provider Name:Jessica Payan Soto, 2022-01-14 11:15:00 AM, [address] [place] [address], , [place], [place], [facility], Insurance Providers Payer Name Payer Address Payer Phone Insured Name Patient Relati onship to Insured Coverage Start Date Coverage End Date [facility] [employer] [address] [facility] [phone] KIP PATTEN self
--- OUTSIDE RECORDS SUMMARY | 2021-09-13 11:28 | CCD | Continuity of Care Document ---
Author Author Atilio GARCIA D.O. Organization Unknown Address [address] [facility] [address] [place] [address] Phone [phone] Care Team Providers Care Retail Assistant Manager Name Role Phone Ping Garcia D.O. AUT[facility] AUTM [phone] Mela Harrison NP AUTM [phone] Fay Sinha MD AUTM [phone] Jos Barr MD AUTM [phone] [facility] AUTM [phone] [facility] AUTM [phone] [facility] AUTM [phone] [facility] Rheumatology AUTM [phone] Jose L Cherry MD AUTM [phone] Problems Active Problems Provider Date Long-term current [...] Maximum Daily Dose = One Tablet 30tabs Abbie Us.O. 06/14/[address] 1 by mouth every day 90caps Abbie Us.O. 05/28 Clopidogrel Bisulfate 75mg Tablets Take One Tablet By Mouth Every Day 30tabs Ping Urbina er, D.O. 12/04/2020 Hydrocodone Bitartrate/Acetaminophen 5-325mg Tablets take 1 tablet every 12 hours by mouth as needed for pain istop: [id number] 60tabs M25.552 Abbie Us.O. 10/23 Aspirin Adult 325mg Tablets take one tablet by mouth daily. 90tabs I65.29 Abbie Us.O . 06/08/2020 Albuterol Sulfate HFA 108(90Base) mcg/Act Aerosol 1-2 puffs every 4-6 hours as needed for shortness of breath 8.50 0gm Abbie Us.OSilke 05/22/2020 Clobetasol Propionate 0.05% Shampo o apply daily to scalp until rash resolves. 236ml L40.9 Josseline SutherlandOSilke 05/22/2020 Adult Mask Large Misc cpap mask and related supplies. prognosis good. 1units G47.33 Abbie Meyer.OSilke 02/21/2020 Trintellix 10mg Tablets Take One Tablet By Mouth Every Day 90tabs F33.0 Abbie Us.OSilke 12/22 Atorvastatin Calcium 20mg Tablets Take One [...] CPT Code Status Date Vaccine Lot # [id number] Given 03/10/2019 TB Intradermal Test [id number] Vital Signs Date Vital Result Comment 06/14/2021 11:24am BP Systolic 126 mmHg BP Diastolic 64 mmHg Height 68 inches 5'8" Weight 147.25 lb BMI (Body Mass Index) 22.4 kg/m2 Heart Rate 70 /min Respiratory Rate 18 /min Body Temperature 98.3 F O2 % BldC Oximetry 98 % [place] Body Weight 154 lb 05/28/2021 2:53pm BP Systolic 122 mmHg BP Diastolic 68 mmHg Height 68 inches 5'8" Weight 145.50 lb BMI (Body Mass Index) 22.1 kg/m2 Heart Rate 81 /min Respiratory Rate 14 /min Body Temperature 97.6 F O2 % BldC Oximetry 98 % [place] Body Weight 154 lb Results Test Acquired Date Facility Test Result H/L Range Note Istat Chem8+ Panel 06/16/2021 [facility] Outpatient Testi (Registration) [address] [place] [address] [phone] iSTAT HCT 44.0 % Normal 38.0-51.0 iSTAT Glucose 99 mg/dL Normal 70-105 iSTAT Sodium 139 mEq/L Normal 136-145 iSTAT Potassium 4.0 mEq/L Normal 3.5-5.1 iSTAT CA++ 4.7 mg/dL Normal 4.5-5.3 iSTAT Chloride 102 mEq/L Normal 98-109 iSTAT Co2 23.0 MM/L Normal 23.0-27.0 iSTAT BUN 12 mg/dL Normal 8-26 iSTAT Creatinine 0.9 mg/dL Normal 0.6-1.3 CBC With Differential 06/16/2021 [facility] Outpatient Ita ting (Registration) [address] [place] [address] [phone] White Blood Count 17.7 10 High 4.0-10.0 [...] 36.0-66.0 Lymph % 10.0 % Low 24.0-44.0 [place] % 8.3 % High 2.0-8.0 Eos % 0.6 % Normal 0.0-3.0 Baso % 0.3 % Normal 0.0-1.0 Immature Granulocyte % 0.6 % Normal 0-3.0 Nucleated Red Blood Cell % 0.0 % Normal 0-0 Neutrophils # 14.2 10 High 1.5-8.5 Lymph # 1.8 10 Normal 1.5-5.0 [place] # 1.5 10 High 0.0-0.8 Eos # 0.1 10 Normal 0.0-0.5 Baso # 0.1 10 Normal 0.0-0.2 Liver Profile 06/16/2021 [facility] Outpatient Testi ng (Registration) [address] [place] [address] [phone] Ast/Sgot 19 U/L Normal 7-37 Alt/SGPT 23 U/L Normal 12-78 Alkaline Phosphatase 100 U/L Normal 45-117 Bilirubin,Total 1.0 mg/dL Normal 0.2-1.0 Bilirubin,Direct 0.2 mg/dL Normal 0.0-0.2 Total Protein 6.8 GM/DL Normal 6.4-8.2 Albumin 3.6 GM/DL Normal 3.2-5.2 Albumin/Globulin Ratio 1.1 Normal Laboratory test finding 06/16/2021 [facility] Outpatient T esting (Registration) [address] [place] [address] [phone] Lipase 128 U/L Normal 73-393 Ua W/ Reflex To Culture 06/16/2021 [facility] Outpatient T esting (Registration) [address] [place] [address] [phone] Appearance, Urine RFX CLEAR Normal Clear Color, Urine RFX YELLOW Normal Yellow PH,Urine RFX 6.0 units Normal 5.0-9.0 Specific [place] Ur Auto RFX 1.033 Normal 1.002-1.035 Protein, [...] 0 /LPF Normal 0-1 FT4&TSH Panel 05/28/2021 [facility] ce nter [address] [place] [address] [phone] Thyroid Stimulating Hormone 0.901 uIU/ML Normal 0. 358-3.740 Free T4 0.69 ng/dL Low 0.76-1.46 CBC With Differential 05/28/[address] [address] [phone] White Blood Count 10.5 10 High 4.0-10.0 [...] 36.0-66.0 Lymph % 15.3 % Low 24.0-44.0 [place] % 7.9 % Normal 2.0-8.0 Eos % 2.4 % Normal 0.0-3.0 Baso % 0.7 % Normal 0.0-1.0 Immature Granulocyte % 0.3 % Normal 0-3.0 Nucleated Red Blood Cell % 0.0 % Normal 0-0 Neutrophils # 7.7 10 Normal 1.5-8.5 Lymph # 1.6 10 Normal 1.5-5.0 [place] # 0.8 10 Normal 0.0-0.8 Eos # 0.3 10 Normal 0.0-0.5 Baso # 0.1 10 Normal 0.0-0.2 Comprehensive Metabolic Profil 05/28/[address] [address] [phone] Glucose, Fasting 101 mg/dL High 70-100 Blood [...] Ratio 1.4 Normal Laboratory test finding 05/28/2021 [address] [place] [address] [phone] Lipase 378 U/L Normal 73-393 Amylase 55 [...] Little GFR Left ESRD GFR <15 on P D DRIVER Procedures Date Code Description Status 06/14/2021 17964 Office/Outpatient Established Mo d MDM 30-39 Min Completed 05/28/2021 61544 Office/Outpatient Established Mo d MDM 30-39 Min Completed 04/24/2021 37538 Office/Outpatient Established Mo d MDM 30-39 Min Completed 01/22/2021 44427 Office/Outpatient Established Mo d MDM 30-39 Min Completed 01/02/2021 57783 Office/Outpatient Established Mo d MDM 30-39 Min Completed Medical Devices Description No Information Available Encounters Type Date Location Provider Dx Diagnosis Office Visit 06/14/2021 11:20a Family [facility] Ping Garcia D.O. R68.81 Early satiety K59.00 Constipation, unspecified R63.4 Abnormal weight loss Office Visit 05/28/2021 2:40p [facility] Ping Garcia D.O. 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 Office Visit 01/22/2021 9:30a [facility] LISSA Jimenez G47.33 Obstructive sleep apnea (neel lt) (pediatric) E78.2 Mixed hyperlipidemia L40.9 Psoriasis, unspecified F33.0 Major depressive disorder, r ecurrent, mild Z79.82 FDC (current) use of a spirin Z79.01 terminal carman (current) use of a nticoagulants Office Visit 01/02/2021 4:00p [facility] LISSA Jimenez E78.2 Mixed hyperlipidemia G47.33 Obstructive sleep apnea (neel lt) (pediatric) L40.9 Psoriasis, unspecified M25.552 Pain in left hip M25.512 Pain in left shoulder F41.1 Generalized anxiety disorder Z79.01 terminal carman (current) use of a nticoagulants F33.0 Major depressive disorder, r ecurrent, mild Assessments Date Code Description Provider 06/14/2021 R68.81 Early satiety Ping casas, D.O. 06/14/2021 K59.00 Constipation, unspecified Ping L aureano-Leslee, D.O. 06/14/2021 R63.4 Abnormal weight loss Ping Soria no-Leslee, D.O. 05/28/2021 R68.81 Early satiety Ping Blum rbemmanuel, D.O. 05/28/2021 K59.00 Constipation, unspecified Ping L aureano-Leslee, D.O. 05/28/2021 R63.4 Abnormal weight loss Ping Soria no-Leslee, D.O. 04/24/2021 G47.33 Obstructive sleep apnea (adult) (pediatric) LISSA Jimenez 04/24/2021 E78.2 Mixed hyperlipidemia LISSA Sanchez 04/24/2021 M25.552 Pain in left hip LISSA Jimenez 04/24/2021 L40.9 Psoriasis, unspecified LISSA Jeronimo 04/24/2021 F33.0 Major depressive disorder, recur rent, mild LISSA Jimenez 04/24/2021 Z79.82 FDC (current) use of aspir in LISSA Jimenez 04/24/2021 Z79.01 FDC (current) use of antic oagulants LISSA Jimenez 01/22/2021 G47.33 Obstructive sleep apnea (adult) (pediatric) LISSA Jimenez 01/22/2021 E78.2 Mixed hyperlipidemia LISSA Sanchez 01/22/2021 L40.9 Psoriasis, unspecified LISSA Jeronimo 01/22/2021 F33.0 Major depressive disorder, recur rent, mild LISSA Jimenez 01/22/2021 Z79.82 terminal carman (current) use of aspir in LISSA Jimenez 01/22/2021 Z79.01 FDC (current) use of antic oagulants LISSA Jimenez 01/02/2021 E78.2 Mixed hyperlipidemia LISSA Sanchez 01/02/2021 G47.33 Obstructive sleep apnea (adult) (pediatric) LISSA Jimenez 01/02/2021 L40.9 Psoriasis, unspecified LISSA Jeronimo 01/02/2021 M25.552 Pain in left hip LISSA Jimenez 01/02/2021 M25.512 Pain in left shoulder LISSA Brown 01/02/2021 F41.1 Generalized anxiety disorder [facility] LISSA Leahy 01/02/2021 Z79.01 terminal carman (current) use of antic oagulants LISSA Jimenez 01/02/2021 F33.0 Major depressive disorder, recur rent, LISSA Lira Plan of Treatment Future Appointment(s):* 08/15/2021 9:20 am - Ping Garcia D.O. at [facility] * 07/26/2021 9:00 am - LISSA Jimenez at [facility] Functional Status Description No Information Available Mental Status Description No Information Available Referrals Refer to Reason for Referral Status Appt Date Jose L Cherry MD This is a 61 year old male w ith abnormal weight loss, early satiety and change in bowel habit from constipation to loose stools. Please evaluate and treat. Sent 08/16/[address] [place], [place] [address], [place] [address] [phone] [facility] Rheumatology psoriatic arthritis with pro gressively worsening joint pains and difficultly controlling rash except prednisone. Closed [address] [facility] [address] [place] [address] [phone] [facility] Don has been established wit h [facility] for his left shoulder but having further pain in the left hip, and bilateral hands worse in thumbs. Please evaluate and treat for joint pains. Closed [address] [place] [address] [phone]
--- OUTSIDE RECORDS SUMMARY | 2021-09-13 11:28 | CCD ---
Continuity of Care Document (CCD) Created on: 07/26/2021 Atilio Rojas External Reference #: [id number] : [id number] Sex: Male Author Author Atilio ROB Organization Unknown [place] [address] Phone [phone] Care Team Providers Care Director Operations Broadcast Name Role Phone Ping Garcia D.O. AUT[facility] AUTM [phone] Mela Harrison NP AUTM [phone] Fay Sinha MD AUTM [phone] Jos Barr MD AUTM [phone] [facility] AUTM [phone] [facility] AUTM [phone] [facility] Outpatient [facility] Rheumatology AUTM [phone] Jose L Cherry MD AUTM [phone] Problems Active Problems Provider Date Long-term current [...] by mouth as needed for pain istop: [id number] 60tabs M25.552 Josseline UsOSilke 10/23 Aspirin Adult [...] CPT Code Status Date Vaccine Lot # [id number] Given 07/26/2021 Influenza Virus Vaccine, Quadrivalent, Slit Virus, Im Use [id number] Given 03/10/2019 TB Intradermal Test [id number] Vital Signs Date Vital Result Comment 07/26/2021 9:04am BP Systolic 146 mmHg BP Diastolic 72 mmHg Height 68 inches 5'8" Weight 148.00 lb BMI (Body Mass Index) 22.5 kg/m2 Heart Rate 68 /min Respiratory Rate 18 /min Body Temperature 97.2 F O2 % BldC Oximetry 98 % [place] Body Weight 154 lb 06/14/2021 11:24am BP Systolic 126 mmHg BP Diastolic 64 mmHg Height 68 inches 5'8" Weight 147.25 lb BMI (Body Mass Index) 22.4 kg/m2 Heart Rate 70 /min Respiratory Rate 18 /min Body Temperature 98.3 F O2 % BldC Oximetry 98 % [place] Body Weight 154 lb Results Test Acquired Date Facility Test Result H/L Range Note Istat Chem8+ Panel 06/16/2021 [facility] Outpatient Testi ng (Registration) [address] [place] [address] [phone] iSTAT HCT 44.0 % Normal 38.0-51.0 iSTAT Glucose 99 mg/dL Normal 70-105 iSTAT Sodium 139 mEq/L Normal 136-145 iSTAT Potassium 4.0 mEq/L Normal 3.5-5.1 iSTAT CA++ 4.7 mg/dL Normal 4.5-5.3 iSTAT Chloride 102 mEq/L Normal 98-109 iSTAT Co2 23.0 MM/L Normal 23.0-27.0 iSTAT BUN 12 mg/dL Normal 8-26 iSTAT Creatinine 0.9 mg/dL Normal 0.6-1.3 CBC With Differential 06/16/2021 [facility] Outpatient Ita ting (Registration) [address] [place] [address] [phone] White Blood Count 17.7 10 High 4.0-10.0 [...] 36.0-66.0 Lymph % 10.0 % Low 24.0-44.0 [place] % 8.3 % High 2.0-8.0 Eos % 0.6 % Normal 0.0-3.0 Baso % 0.3 % Normal 0.0-1.0 Immature Granulocyte % 0.6 % Normal 0-3.0 Nucleated Red Blood Cell % 0.0 % Normal 0-0 Neutrophils # 14.2 10 High 1.5-8.5 Lymph # 1.8 10 Normal 1.5-5.0 [place] # 1.5 10 High 0.0-0.8 Eos # 0.1 10 Normal 0.0-0.5 Baso # 0.1 10 Normal 0.0-0.2 Liver Profile 06/16/2021 [facility] Outpatient Testi ng (Registration) [address] [place] [address] [phone] Ast/Sgot 19 U/L Normal 7-37 Alt/SGPT 23 U/L Normal 12-78 Alkaline Phosphatase 100 U/L Normal 45-117 Bilirubin,Total 1.0 mg/dL Normal 0.2-1.0 Bilirubin,Direct 0.2 mg/dL Normal 0.0-0.2 Total Protein 6.8 GM/DL Normal 6.4-8.2 Albumin 3.6 GM/DL Normal 3.2-5.2 Albumin/Globulin Ratio 1.1 Normal Laboratory test finding 06/16/2021 [facility] Outpatient T esting (Registration) [address] [place] [address] [phone] Lipase 128 U/L Normal 73-393 Ua W/ Reflex To Culture 06/16/2021 [facility] Outpatient T esting (Registration) [address] [place] [address] [phone] Appearance, Urine RFX CLEAR Normal Clear Color, Urine RFX YELLOW Normal Yellow PH,Urine RFX 6.0 units Normal 5.0-9.0 Specific [place] Ur Auto RFX 1.033 Normal 1.002-1.035 Protein, [...] 0 /LPF Normal 0-1 FT4&TSH Panel 05/28/2021 [facility] ce nter [address] [place] [address] [phone] Thyroid Stimulating Hormone 0.901 uIU/ML Normal 0. 358-3.740 Free T4 0.69 ng/dL Low 0.76-1.46 CBC With Differential 05/28/[address] [address] [phone] White Blood Count 10.5 10 High 4.0-10.0 [...] 36.0-66.0 Lymph % 15.3 % Low 24.0-44.0 [place] % 7.9 % Normal 2.0-8.0 Eos % 2.4 % Normal 0.0-3.0 Baso % 0.7 % Normal 0.0-1.0 Immature Granulocyte % 0.3 % Normal 0-3.0 Nucleated Red Blood Cell % 0.0 % Normal 0-0 Neutrophils # 7.7 10 Normal 1.5-8.5 Lymph # 1.6 10 Normal 1.5-5.0 [place] # 0.8 10 Normal 0.0-0.8 Eos # 0.3 10 Normal 0.0-0.5 Baso # 0.1 10 Normal 0.0-0.2 Comprehensive Metabolic Profil 05/28/[address] [address] [phone] Glucose, Fasting 101 mg/dL High 70-100 Blood [...] Ratio 1.4 Normal Laboratory test finding 05/28/[address] [address] [phone] Lipase 378 U/L Normal 73-393 Amylase 55 [...] Little GFR Left ESRD GFR <15 on COMMERCIAL FISHING VESSEL OPERATOR Procedures Date Code Description Status 07/26/2021 49902 Preventive Visit Est 40-64 Yrs C ompleted 06/14/2021 61618 Office/Outpatient Established Mo d MDM 30-39 Min Completed 05/28/2021 72316 Office/Outpatient Established Mo d MDM 30-39 Min Completed 04/24/2021 47[address] Office/Outpatient Established Mo d MDM 30-39 Min Completed Medical Devices Description No Information Available Encounters Type Date Location Provider Dx Diagnosis Office Visit 07/26/2021 9:00a Family [facility] LISSA Jimenez Z00.00 Encntr for general adult med ical exam w/o abnormal findings G47.33 Obstructive sleep apnea (neel lt) (pediatric) E78.2 Mixed hyperlipidemia F33.0 Major depressive disorder, r ecurrent, mild Z79.899 Other buttermaker continuous churn (current) dr fletcher therapy 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 R68.81 Early satiety K59.00 Constipation, unspecified R63.4 Abnormal weight loss Office Visit 05/28/2021 2:40p Family [facility] Ping Garcia D.O. 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 of a spirin Z79.01 FPC (current) use of a nticoagulants Assessments Date Code Description Provider 07/26/2021 Z00.00 Encntr for general adult medical exam w/o abnormal findings LISSA Jimenez 07/26/2021 G47.33 Obstructive sleep apnea (adult) (pediatric) LISSA Jimenez 07/26/2021 E78.2 Mixed hyperlipidemia LISSA Sanchez 07/26/2021 F33.0 Major depressive disorder, recur rent, mild LISSA Jimenez 07/26/2021 Z79.899 Other mcfp (current) drug t herapy LISSA Jimenez 07/26/2021 Z79.01 FPC (current) use of antic oagulants LISSA Jimenez 07/26/2021 Z12.5 Encounter for screening for matthieu gnant neoplasm of prostate LISSA Jimenez 07/26/2021 Z13.220 Encounter for screening for lipo id disorders LISSA Jimenez 07/26/2021 Z23 Encounter for immunization LISSA Branch 06/14/2021 R68.81 Early satiety Ping casas, D.OSilke 06/14/2021 K59.00 Constipation, unspecified Pnig Garcia D.OSilke 06/14/2021 R63.4 Abnormal weight loss Ping Joaquin D.OSilke 05/28/2021 R68.81 Early satiety Ping casas D.OSilke 05/28/2021 K59.00 Constipation, unspecified Ping Garcia D.OSilke 05/28/2021 R63.4 Abnormal weight loss Ping Joaquin D.O. 04/24/2021 G47.33 Obstructive sleep apnea (adult) (pediatric) LISSA Jimenez 04/24/2021 E78.2 Mixed hyperlipidemia LISSA Sanchez 04/24/2021 M25.552 Pain in left hip LISSA Jimenez 04/24/2021 L40.9 Psoriasis, unspecified LISSA Jeronimo 04/24/2021 F33.0 Major depressive disorder, recur rent, mild LISSA Jimenez 04/24/2021 Z79.82 termite control technician (current) use of aspir in LISSA Jimenez 04/24/2021 Z79.01 termite control technician (current) use of antic oagulants LISSA Jimenez Plan of Treatment Future Appointment(s):* 08/15/2021 9:20 am - Ping Garcia D.O. at [facility] Functional Status Description No Information Available Mental Status Description No Information Available Referrals Refer to Reason for Referral Status Appt Date Jose L Cherry MD This is a 61 year old male w ith abnormal weight loss, early satiety and change in bowel habit from constipation to loose stools. Please evaluate and treat. Sent 08/16/[address] [address] [phone]
--- OUTSIDE RECORDS SUMMARY | 2021-09-13 11:28 | CCD ---
Author Author [employer] [facility] Organization [employer] [facility] Address Unknown Phone Unavailable Care Team Providers Care Corrections Caseworker Name Role Phone Jessica Soto PROBLEMS Type Condition ICD9-CM Code [id number] Code Onset Dates Condition S tatus W/U Status Risk SNOMED Code Notes Problem Osteoarthritis of hand, unsp ecified laterality, unspecified osteoarthritis type M19.049 Active confirmed 97106260 Problem Paresthesias R20.2 Active confirmed 2955264 4 ALLERGIES Allergen (clinical drug ingredient) Drug/Non Drug Allergy do cumented on EMR Reaction Allergy Type Onset Date Status Ketoconazole Ketoconazole Hives Non Drug Allergy Acti ve ENCOUNTERS from 1960 to 2021-07-13 Encounter Location Date Provider Diagnosis [facility] Rheumatology [address] [place] [address] [place] [address] Jun, [facility] IMMUNIZATIONS No Information SOCIAL HISTORY Tobacco Use: [...] Information RESULTS No Results REASON FOR VISIT Missing EMG MEDICAL (GENERAL) HISTORY Type Description Date Medical History Hypertension Medical History Hyperlipidemia Medical History Sleep Apnea Medical History 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 Medical History terminal worker use of 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
--- OUTSIDE RECORDS SUMMARY | 2021-09-13 11:28 | CCD | Continuity of Care Document ---
Author Organization Unknown Address Unknown Phone Unavailable Care Team Providers Care Research Manufacturing Operator Name Role Phone Ping Garcia D.O. AUTM [phone] AUTM [phone] Mela Harrison NP AUTM [phone] Fay iSnha MD AUTM [phone] Jos Barr MD AUTM [phone] [facility] AUTM [phone] [facility] AUTM [phone] [facility] Rheumatology AUTM [phone] Jose L Cherry MD AUTM [phone] Marianna Arango M.D. AUTM [phone] Dinesh Santacruz M.D. AUTM [phone] Problems Active Problems Provider Date Long-term current [...] by mouth as needed for pain istop: [id number] 60tabs M25.552 Josseline UsOSilke 10/23 Aspirin Adult [...] CPT Code Status Date Vaccine Lot # [id number] Given 07/26/2021 Influenza Virus Vaccine, Quadrivalent, Slit Virus, Im Use [id number] Given 03/10/2019 TB Intradermal Test [id number] Vital Signs Date Vital Result Comment 08/15/2021 9:35am BP Systolic 142 mmHg BP Diastolic 82 mmHg Height 68 inches 5'8" Weight 144.00 lb BMI (Body Mass Index) 21.9 kg/m2 Heart Rate 68 /min Respiratory Rate 18 /min Body Temperature 97.6 F O2 % BldC Oximetry 98 % [place] Body Weight 154 lb 07/26/2021 9:04am BP Systolic 146 mmHg BP Diastolic 72 mmHg Height 68 inches 5'8" Weight 148.00 lb BMI (Body Mass Index) 22.5 kg/m2 Heart Rate 68 /min Respiratory Rate 18 /min Body Temperature 97.2 F O2 % BldC Oximetry 98 % [place] Body Weight 154 lb Results Test Acquired Date Facility Test Result H/L Range Note Laboratory test finding 08/20/2021 [facility] Outpatient T esting (Registration) [address] [place] [address] [phone] Blood Urea Nitrogen 11 mg/dL Normal 7-18 Creatinine With GFR 08/20/2021 [facility] Outpatient Testi ng (Registration) [address] [place] [address] [phone] Creatinine For GFR 0.82 mg/dL Normal 0.70-1.30 Glomerular Filtration Rate > 60.0 Normal >49 1 Laboratory test finding 08/20/2021 [facility] Outpatient T esting (Registration) [address] [place] [address] [phone] Immunoglobulin A 145.0 mg/dL Normal 70-400 FT4&TSH Panel 08/20/2021 [facility] Outpatient Testi ng (Registration) [address] [place] [address] [phone] Thyroid Stimulating Hormone 0.719 uIU/ML Normal 0. 358-3.740 Free T4 0.89 ng/dL Normal 0.76-1.46 Istat Chem8+ Panel 06/16/2021 [facility] Outpatient Testi ng (Registration) [address] [place] [address] [phone] iSTAT HCT 44.0 % Normal 38.0-51.0 iSTAT Glucose 99 mg/dL Normal 70-105 iSTAT Sodium 139 mEq/L Normal 136-145 iSTAT Potassium 4.0 mEq/L Normal 3.5-5.1 iSTAT CA++ 4.7 mg/dL Normal 4.5-5.3 iSTAT Chloride 102 mEq/L Normal 98-109 iSTAT Co2 23.0 MM/L Normal 23.0-27.0 iSTAT BUN 12 mg/dL Normal 8-26 iSTAT Creatinine 0.9 mg/dL Normal 0.6-1.3 CBC With Differential 06/16/2021 [facility] Outpatient Ita ting (Registration) [address] [place] [address] [phone] White Blood Count 17.7 10 High 4.0-10.0 2 Red Blood Count 4.78 10 Normal 4.30-6.10 [...] 36.0-66.0 Lymph % 10.0 % Low 24.0-44.0 [place] % 8.3 % High 2.0-8.0 Eos % 0.6 % Normal 0.0-3.0 Baso % 0.3 % Normal 0.0-1.0 Immature Granulocyte % 0.6 % Normal 0-3.0 Nucleated Red Blood Cell % 0.0 % Normal 0-0 Neutrophils # 14.2 10 High 1.5-8.5 Lymph # 1.8 10 Normal 1.5-5.0 [place] # 1.5 10 High 0.0-0.8 Eos # 0.1 10 Normal 0.0-0.5 Baso # 0.1 10 Normal 0.0-0.2 Liver Profile 06/16/2021 [facility] Outpatient Testi ng (Registration) [address] [place] [address] [phone] Ast/Sgot 19 U/L Normal 7-37 Alt/SGPT 23 U/L Normal 12-78 Alkaline Phosphatase 100 U/L Normal 45-117 Bilirubin,Total 1.0 mg/dL Normal 0.2-1.0 Bilirubin,Direct 0.2 mg/dL Normal 0.0-0.2 Total Protein 6.8 GM/DL Normal 6.4-8.2 Albumin 3.6 GM/DL Normal 3.2-5.2 Albumin/Globulin Ratio 1.1 Normal Laboratory test finding 06/16/2021 [facility] Outpatient T esting (Registration) [address] [place] [address] [phone] Lipase 128 U/L Normal 73-393 Ua W/ Reflex To Culture 06/16/2021 [facility] Outpatient T esting (Registration) [address] [place] [address] [phone] Appearance, Urine RFX CLEAR Normal Clear Color, Urine RFX YELLOW Normal Yellow PH,Urine RFX 6.0 units Normal 5.0-9.0 Specific [place] Ur Auto RFX 1.033 Normal 1.002-1.035 Protein, [...] 0 /LPF Normal 0-1 FT4&TSH Panel 05/28/2021 [facility] nter [address] [place] [address] [phone] Thyroid Stimulating Hormone 0.901 uIU/ML Normal 0. 358-3.740 Free T4 0.69 ng/dL Low 0.76-1.46 CBC With Differential 05/28/[address] [address] [phone] White Blood Count 10.5 10 High 4.0-10.0 [...] 36.0-66.0 Lymph % 15.3 % Low 24.0-44.0 [place] % 7.9 % Normal 2.0-8.0 Eos % 2.4 % Normal 0.0-3.0 Baso % 0.7 % Normal 0.0-1.0 Immature Granulocyte % 0.3 % Normal 0-3.0 Nucleated Red Blood Cell % 0.0 % Normal 0-0 Neutrophils # 7.7 10 Normal 1.5-8.5 Lymph # 1.6 10 Normal 1.5-5.0 [place] # 0.8 10 Normal 0.0-0.8 Eos # 0.3 10 Normal 0.0-0.5 Baso # 0.1 10 Normal 0.0-0.2 Comprehensive Metabolic Profil 05/28/[address] [address] [phone] Glucose, Fasting 101 mg/dL High 70-100 Blood Urea Nitrogen 12 mg/dL Normal 7-18 Creatinine For GFR 0.86 mg/dL Normal 0.70-1.30 Glomerular Filtration Rate > 60.0 Normal >49 3 Sodium Level 142 mEq/L Normal 136-145 Potassium [...] Ratio 1.4 Normal Laboratory test finding 05/28/[address] [address] [phone] Lipase 378 U/L Normal 73-393 Amylase 55 U/L Normal 25-115 1 Units are mL/min/1.73 m2 Chronic Kidney Disease Staging per NKF: Stage I & II GFR >=60 Normal to Mildly Decreased Stage III GFR 30-59 Moderately Decreased Stage IV GFR 15-29 Severely Decreased Stage V GFR <15 Very Little GFR Left ESRD GFR <15 on BEAMING MACHINE OPERATOR 2 A Pathologist review of this differential can help in the evaluation of a differential diagnosis. Please order a Pathologist Review (PERISM) if deemed necessary. Results are subject to change if a Pathologist Review is performed. 3 Units are mL/min/1.73 m2 Chronic Kidney Disease Staging per NKF: Stage I & II GFR >=60 Normal to Mildly Decreased Stage III GFR 30-59 Moderately Decreased Stage IV GFR 15-29 Severely Decreased Stage V GFR <15 Very Little GFR Left ESRD GFR <15 on BEAMING MACHINE OPERATOR Procedures Date Code Description Status 08/15/2021 03849 Office/Outpatient Established Mo d MDM 30-39 Min Completed 07/26/2021 69852 Preventive Visit Est 40-64 Yrs C ompleted 06/14/2021 16412 Office/Outpatient Established Mo d MDM 30-39 Min Completed 05/28/2021 13691 Office/Outpatient Established Mo d MDM 30-39 Min Completed 04/24/2021 31978 Office/Outpatient Established Mo d MDM 30-39 Min Completed Medical Devices Description No Information Available Encounters Type Date Location Provider Dx Diagnosis Office Visit 08/15/2021 9:20a [facility] Ping Garcia D.O. M16.0 Bilateral primary osteoarthr itis of hip R68.81 Early satiety R63.4 Abnormal weight loss K59.00 Constipation, unspecified G47.33 Obstructive sleep apnea (neel lt) (pediatric) E78.2 Mixed hyperlipidemia F33.0 Major depressive disorder, r ecurrent, mild Z79.899 Other intermediate manager (current) dr justine varghese Z79.01 intermediate manager (current) use of a nticoagulants M51.86 Other intervertebral disc di sorders, lumbar region Office Visit 07/26/2021 9:00a [facility] LISSA Zimmer Z00.00 Encntr for general adult med ical exam w/o abnormal findings G47.33 Obstructive sleep apnea (neel lt) (pediatric) E78.2 Mixed hyperlipidemia F33.0 Major depressive disorder, r ecurrent, mild Z79.899 Other intermediate manager (current) dr justine varghese Z79.01 intermediate manager (current) use of a nticoagulants Z12.5 Encounter for screening for malignant neoplasm of prostate Z13.220 Encounter for screening for lipoid disorders Z23 Encounter for immunization Office Visit 06/14/2021 11:20a [facility] Ping Garcia D.O. R68.81 Early satiety K59.00 Constipation, unspecified R63.4 Abnormal weight loss Office Visit 05/28/2021 2:40p [facility] Ping Garcia D.O. R68.81 Early satiety K59.00 Constipation, unspecified R63.4 Abnormal weight loss Office Visit 04/24/2021 9:00a [facility] LISSA Jimenez G47.33 Obstructive sleep apnea (neel lt) (pediatric) E78.2 Mixed hyperlipidemia M25.552 Pain in left hip L40.9 Psoriasis, unspecified F33.0 Major depressive disorder, r ecurrent, mild Z79.82 halfway (current) use of a spirin Z79.01 intermediate manager (current) use of a nticoagulants Assessments Date Code Description Provider 08/15/2021 M16.0 Bilateral primary osteoarthritis of hip Ping Garcia, D.O. 08/15/2021 R68.81 Early satiety Ping casas D.O. 08/15/2021 R63.4 Abnormal weight loss Ping Joaquin D.O. 08/15/2021 K59.00 Constipation, unspecified Ping Garcia, D.O. 08/15/2021 G47.33 Obstructive sleep apnea (adult) (pediatric) Ping Camilo D.O. 08/15/2021 E78.2 Mixed hyperlipidemia Ping Joaquin, D.O. 08/15/2021 F33.0 Major depressive disorder, recur rent, mild Ping Camilo, D.O. 08/15/2021 Z79.899 Other alf (current) drug t herapy Ping Garcia D.O. 08/15/2021 Z79.01 halfway (current) use of antic oagulants Ping Camilo D.O. 08/15/2021 M51.86 Other intervertebral disc disord ers, lumbar region Ping Garcia, D.O. 07/26/2021 Z00.00 Encntr for general adult medical exam w/o abnormal findings LISSA Jimenez 07/26/2021 G47.33 Obstructive sleep apnea (adult) (pediatric) LISSA Jimenez 07/26/2021 E78.2 Mixed hyperlipidemia LISSA Sanchez 07/26/2021 F33.0 Major depressive disorder, recur rent, mild LISSA Jimenez 07/26/2021 Z79.899 Other alf (current) drug t herapy LISSA Jimenez 07/26/2021 Z79.01 halfway (current) use of antic oagulants LISSA Jimenez 07/26/2021 Z12.5 Encounter for screening for matthieu gnant neoplasm of prostate LISSA Jimenez 07/26/2021 Z13.220 Encounter for screening for lipo id disorders LISSA Jimenez 07/26/2021 Z23 Encounter for immunization LISSA Branch 06/14/2021 R68.81 Early satiety Ping casas D.O. 06/14/2021 K59.00 Constipation, unspecified Ping Garcia, D.O. 06/14/2021 R63.4 Abnormal weight loss Ping Joaquin D.O. 05/28/2021 R68.81 Early satiety Ping casas D.O. 05/28/2021 K59.00 Constipation, unspecified Ping Garcia, D.O. 05/28/2021 R63.4 Abnormal weight loss Ping Joaquin D.O. 04/24/2021 G47.33 Obstructive sleep apnea (adult) (pediatric) LISSA Jimenez 04/24/2021 E78.2 Mixed hyperlipidemia LISSA Sanchez 04/24/2021 M25.552 Pain in left hip LISSA Jimenez 04/24/2021 L40.9 Psoriasis, unspecified LISSA Jeronimo 04/24/2021 F33.0 Major depressive disorder, recur rent, mild LISSA Jimenez 04/24/2021 Z79.82 halfway (current) use of aspir in LISSA Jimenez 04/24/2021 Z79.01 intermediate manager (current) use of antic oagulants LISSA Jimenez Plan of Treatment Future Appointment(s):* 09/26/2021 9:30 am - Ping Garcia D.O. at [facility] Functional Status Description No Information Available Mental Status Description No Information Available Referrals Refer to Reason for Referral Status Appt Date Jonathan Arango M.D. This is a 61 year old male w ith left greater than right hip pain. He thinks he is ready for the hip replacement and he has talked with ortho about this in the past. Please evaluate and treat. Sent [facility] [address] [place] [address] [phone] Jose L Cherry MD This is a 61 year old male w ith abnormal weight loss, early satiety and change in bowel habit from constipation to loose stools. Please evaluate and treat. Sent 08/16/2021 [address] [facility] [address] [place] [address] [phone]
--- OUTSIDE RECORDS SUMMARY | 2021-09-13 11:28 | CCD | Continuity of Care Document ---
Author Author Atilio SMALL MD Organization Unknown Address [address] [place] [address] Phone [phone] Care Team Providers Care Radio Dispatcher Name Role Phone Ignacio Jeff AUTM [phone] Ping Garcia D.O. AUTM [facility] [employer] Claim Review AUTM [phone] AUTM Unavailable AUTM Unavailable Problems Active Problems Provider Date Essential hypertension Liam Smith MD Onset: 017 Social History Type Date Description Comments Sex Unknown ETOH Use 2 A Day Recreational Drug Use Denies Drug Use Tobacco Use Start: Unknown End: Unknown Patient is a former smoker 3 PPD X 25 YRS QUIT 1998 Tobacco Use Start: Unknown Quit 1998 Smoking Status Reviewed: 10/24/20 Quit 1998 Allergies and adverse reactions Description No Known Drug Allergies Medications Active Medications SIG Qnty Indications Ordering Provide r Date Miralax 17GM/Scoop Powder 17 gm once a day 1020gm R19.4 Dinesh Small MD 08/16/2021 Magnesium Citrate 1.745GM/30ML Shanna ution one 10 oz bottle green or clear only, use for additional prep at 2-3 days before procedure 296ml R19.4 Dinesh Small MD 08/16/2021 Miralax 17GM/Scoop Powder use as directed see dr small colon preparation instructions 510gm R19.4 Nathaniel joseph Small MD 08/16/2021 Atorvastatin Calcium 20mg Tablets 1 by mouth every day Unknown Aspirin 325mg Tablets 1 by mouth every day Unknown Clonazepam 0.5mg Tablets as n eeded Unknown Trintellix 10mg Tablets 1 qd Unknown Zolpidem Tartrate 5mg Tablets 1 qd Unknown Centrum Silver Tablets once a day Unknown Acetaminophen 8 Hour 650mg Tablets ER 1 by mouth tid prn Unknown Clopidogrel Bisulfate 75mg Tablets Take One Tablet By Mouth Every Day Unknown Immunizations Description No Information Available Vital Signs Date Vital Result Comment 08/16/2021 9:08am BP Systolic 148 mmHg BP Diastolic 78 mmHg Height 68 inches 5'8" Weight 143.00 lb BMI (Body Mass Index) 21.7 kg/m2 [place] Body Weight 154 lb Weight 64.865 kg BSA (Body Surface Area) 1.77 m2 10/24/2020 9:49am BP Systolic 132 mmHg BP Diastolic 70 mmHg Height 69 inches 5'9" Weight 156.38 lb BMI (Body Mass Index) 23.1 kg/m2 [place] Body Weight 160 lb Weight 70.932 kg BSA (Body Surface Area) 1.86 m2 Results Test Acquired Date Facility Test Result H/L Range Note Xray 08/13/2021 [facility] nter Radiology Dept [address] [place] [address] [phone] US Duplex Doppler Carotid Arteries Bilateral <pending> US Duplex Doppler Upper Extremity Arterial Bilateral <pending> Procedures Date Code Description Status 08/16/2021 85384 Office/Outpatient New Moderate M DM 45-59 Minutes Completed Medical Devices Description No Information Available Encounters Type Date Location Provider Dx Diagnosis Office Visit 08/16/2021 9:00a [facility] Dinesh Small MD R19.4 Change in bowel habit K59.00 Constipation, unspecified R10.30 Lower abdominal pain, unspec ified R63.4 Abnormal weight loss Assessments Date Code Description Provider 08/16/2021 R19.4 Change in bowel habit Dinesh hickey MD 08/16/2021 K59.00 Constipation, unspecified Dinesh Small MD 08/16/2021 R10.30 Lower abdominal pain, unspecifie d Dinesh Small MD 08/16/2021 R63.4 Abnormal weight loss Dinesh thakur MD 08/03/2021 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 Nakia Regan MD Plan of Treatment Future Appointment(s):* 09/06/2021 10:00 am - Nakia Regan MD at [facility] 08/16/2021 - Dinesh Small MD* R19.4 Change in bowel habit * K59.00 Constipation, unspecified * R10.30 Lower abdominal pain, unspecified * R63.4 Abnormal weight loss * * New Medication:* Miralax 17 GM/Scoop * Magnesium Citrate 1.745 GM/30ML * Miralax 17 GM/Scoop * New Labs:* Clostridium Difficile PCR, Ordered: 08/16/21 * Tissue Transglutaminase Iga, Ordered: 08/16/21 * Immunoglobulin A, Ordered: 08/16/21 * FT4&TSH Panel, Ordered: 08/16/21 * BUN & Creatinine ([facility]), Ordered: 08/16/21 * New Orders:* EGD and Colonoscopy, Ordered: 08/16/21 * Recommendations:* CT abdomen/angio--pain when eating/weight loss/Hx of vascular issues. EGD Colonoscopy Miralax daily use. stool for c diff--foul smelling stool/recent antibiotics Functional Status Description No Information Available Mental Status Description No Information Available Referrals Refer to Dr Reason for Referral Status Appt Date Nakia Regan MD VASCULAR RECALL Scheduled 08/2021 [address] [facility], [address] [place] [address] [phone] Dinesh Small M.D. R68.81 EARLY SATIETY K59.00 CONSTIPATION Me heduled 08/16/2021 [facility], Gastroenterology [address] [facility] [address] [place], [place] [id number] [phone]
--- OUTSIDE RECORDS SUMMARY | 2021-09-13 11:28 | CCD | Continuity of Care Document ---
Author Author Atilio GARCIA D.O. Organization Unknown Address [address] [facility] [address] [place] [address] Phone [phone] Care Team Providers Care Manager Truck Name Role Phone Ping Garcia D.O. AUTM [phone] [facility] AUTM [phone] Mela Harrison NP AUTM [phone] Fay Sinha MD AUTM [phone] Jos Barr MD AUTM [phone] [facility] AUTM [phone] [facility] AUTM [phone] [facility] AUTM [facility] Rheumatology AUTM [phone] Jose L Cherry MD AUTM [phone] Marianna Arango M.D. AUTM [phone] Problems Active Problems Provider Date Long-term current [...] Mouth Every Day 30tabs Ping Urbina er, Abbie.OSilke 12/04/2020 Hydrocodone Bitartrate/Acetaminophen 5-325mg Tablets take 1 tablet every 12 hours by mouth as needed for pain istop: [id number] 60tabs M25.552 Josseline UsOSilke 10/23 Aspirin Adult [...] Tablet By Mouth Every Day 90tabs F33.0 Ping Garcia D.O. 12/22 Atorvastatin Calcium 20mg Tablets Take One [...] CPT Code Status Date Vaccine Lot # [id number] Given 07/26/2021 Influenza Virus Vaccine, Quadrivalent, Slit Virus, Im Use [id number] Given 03/10/2019 TB Intradermal Test [id number] Vital Signs Date Vital Result Comment 08/15/2021 9:35am BP Systolic 142 mmHg BP Diastolic 82 mmHg Height 68 inches 5'8" Weight 144.00 lb BMI (Body Mass Index) 21.9 kg/m2 Heart Rate 68 /min Respiratory Rate 18 /min Body Temperature 97.6 F O2 % BldC Oximetry 98 % [place] Body Weight 154 lb 07/26/2021 9:04am BP Systolic 146 mmHg BP Diastolic 72 mmHg Height 68 inches 5'8" Weight 148.00 lb BMI (Body Mass Index) 22.5 kg/m2 Heart Rate 68 /min Respiratory Rate 18 /min Body Temperature 97.2 F O2 % BldC Oximetry 98 % [place] Body Weight 154 lb Results Test Acquired Date Facility Test Result H/L Range Note Istat Chem8+ Panel 06/16/2021 [facility] Outpatient Testi ng (Registration) [address] [place] [address] [phone] iSTAT HCT 44.0 % Normal 38.0-51.0 iSTAT Glucose 99 mg/dL Normal 70-105 iSTAT Sodium 139 mEq/L Normal 136-145 iSTAT Potassium 4.0 mEq/L Normal 3.5-5.1 iSTAT CA++ 4.7 mg/dL Normal 4.5-5.3 iSTAT Chloride 102 mEq/L Normal 98-109 iSTAT Co2 23.0 MM/L Normal 23.0-27.0 iSTAT BUN 12 mg/dL Normal 8-26 iSTAT Creatinine 0.9 mg/dL Normal 0.6-1.3 CBC With Differential 06/16/2021 [facility] Outpatient Ita ting (Registration) [address] [place] [address] [phone] White Blood Count 17.7 10 High 4.0-10.0 [...] 36.0-66.0 Lymph % 10.0 % Low 24.0-44.0 [place] % 8.3 % High 2.0-8.0 Eos % 0.6 % Normal 0.0-3.0 Baso % 0.3 % Normal 0.0-1.0 Immature Granulocyte % 0.6 % Normal 0-3.0 Nucleated Red Blood Cell % 0.0 % Normal 0-0 Neutrophils # 14.2 10 High 1.5-8.5 Lymph # 1.8 10 Normal 1.5-5.0 [place] # 1.5 10 High 0.0-0.8 Eos # 0.1 10 Normal 0.0-0.5 Baso # 0.1 10 Normal 0.0-0.2 Liver Profile 06/16/2021 [facility] Outpatient Testi ng (Registration) [address] [place] [address] [phone] Ast/Sgot 19 U/L Normal 7-37 Alt/SGPT 23 U/L Normal 12-78 Alkaline Phosphatase 100 U/L Normal 45-117 Bilirubin,Total 1.0 mg/dL Normal 0.2-1.0 Bilirubin,Direct 0.2 mg/dL Normal 0.0-0.2 Total Protein 6.8 GM/DL Normal 6.4-8.2 Albumin 3.6 GM/DL Normal 3.2-5.2 Albumin/Globulin Ratio 1.1 Normal Laboratory test finding 06/16/2021 [facility] Outpatient T esting (Registration) [address] [place] [address] [phone] Lipase 128 U/L Normal 73-393 Ua W/ Reflex To Culture 06/16/2021 [facility] Outpatient T esting (Registration) [address] [place] [address] [phone] Appearance, Urine RFX CLEAR Normal Clear Color, Urine RFX YELLOW Normal Yellow PH,Urine RFX 6.0 units Normal 5.0-9.0 Specific [place] Ur Auto RFX 1.033 Normal 1.002-1.035 Protein, [...] 0 /LPF Normal 0-1 FT4&TSH Panel 05/28/2021 [facility] ce nter [address] [place] [address] [phone] Thyroid Stimulating Hormone 0.901 uIU/ML Normal 0. 358-3.740 Free T4 0.69 ng/dL Low 0.76-1.46 CBC With Differential 05/28/[address] [address] [phone] White Blood Count 10.5 10 High 4.0-10.0 [...] 36.0-66.0 Lymph % 15.3 % Low 24.0-44.0 [place] % 7.9 % Normal 2.0-8.0 Eos % 2.4 % Normal 0.0-3.0 Baso % 0.7 % Normal 0.0-1.0 Immature Granulocyte % 0.3 % Normal 0-3.0 Nucleated Red Blood Cell % 0.0 % Normal 0-0 Neutrophils # 7.7 10 Normal 1.5-8.5 Lymph # 1.6 10 Normal 1.5-5.0 [place] # 0.8 10 Normal 0.0-0.8 Eos # 0.3 10 Normal 0.0-0.5 Baso # 0.1 10 Normal 0.0-0.2 Comprehensive Metabolic Profil 05/28/2021 [place] [id number] [phone] Glucose, Fasting 101 mg/dL High 70-100 Blood [...] Ratio 1.4 Normal Laboratory test finding 05/28/[address] [id number] [phone] Lipase 378 U/L Normal 73-393 Amylase 55 [...] Little GFR Left ESRD GFR <15 on [employer] Procedures Date Code Description Status 08/15/2021 13947 Office/Outpatient Established Mo d MDM 30-39 Min Completed 07/26/2021 48739 Preventive Visit Est 40-64 Yrs C ompleted 06/14/2021 87633 Office/Outpatient Established Mo d MDM 30-39 Min Completed 05/28/2021 08674 Office/Outpatient Established Mo d MDM 30-39 Min Completed 04/24/2021 95668 Office/Outpatient Established Mo d MDM 30-39 Min Completed Medical Devices Description No Information Available Encounters Type Date Location Provider Dx Diagnosis Office Visit 08/15/2021 9:20a [facility] Ping Garcia D.O. 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 M51.86 Other intervertebral disc di sorders, lumbar region Office Visit 07/26/2021 9:00a [facility] LISSA Jimenez Z00.00 Encntr for general adult med ical exam w/o abnormal findings G47.33 Obstructive sleep apnea (neel lt) (pediatric) E78.2 Mixed hyperlipidemia F33.0 Major depressive disorder, r ecurrent, mild Z79.899 Other intermediate teacher (current) dr justine varghese Z79.01 group home (current) use of a nticoagulants Z12.5 Encounter for screening for malignant neoplasm of prostate Z13.220 Encounter for screening for lipoid disorders Z23 Encounter for immunization Office Visit 06/14/2021 11:20a Family [facility] Ping Garcia D.O. 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 08/15/2021 R68.81 Early satiety Ping casas D.O. 08/15/2021 R63.4 Abnormal weight loss Ping Joaquin, D.O. 08/15/2021 K59.00 Constipation, unspecified Ping Garcia, D.O. 08/15/2021 G47.33 Obstructive sleep apnea (adult) (pediatric) Ping Camilo D.O. 08/15/2021 E78.2 Mixed hyperlipidemia Ping Joaquin, D.O. 08/15/2021 F33.0 Major depressive disorder, recur rent, mild Ping Camilo D.O. 08/15/2021 Z79.899 Other intermediate (current) drug t herapy Abbie Us.O. 08/15/2021 Z79.01 group home (current) use of antic oagulants Abbie Meyer.O. 08/15/2021 M51.86 Other intervertebral disc disord ers, lumbar region Abbie Us.O. 07/26/2021 Z00.00 Encntr for general adult medical exam w/o abnormal findings LISSA Jimenez 07/26/2021 G47.33 Obstructive sleep apnea (adult) (pediatric) LISSA Jimenez 07/26/2021 E78.2 Mixed hyperlipidemia LISSA Sanchez 07/26/2021 F33.0 Major depressive disorder, recur rent, mild LISSA Jimenez 07/26/2021 Z79.899 Other intermediate teacher (current) drug t herapy LISSA Jimenez 07/26/2021 Z79.01 group home (current) use of antic oagulants LISSA Jimenez 07/26/2021 Z12.5 Encounter for screening for matthieu gnant neoplasm of prostate LISSA Jimenez 07/26/2021 Z13.220 Encounter for screening for lipo id disorders LISSA Jimenez 07/26/2021 Z23 Encounter for immunization LISSA Branch 06/14/2021 R68.81 Early satiety Ping casas D.O. 06/14/2021 K59.00 Constipation, unspecified Ping aGrcia D.O. 06/14/2021 R63.4 Abnormal weight loss Ping Joaquin D.O. 05/28/2021 R68.81 Early satiety Ping casas D.O. 05/28/2021 K59.00 Constipation, unspecified Ping Garcia D.O. 05/28/2021 R63.4 Abnormal weight loss Ping Joaquin D.O. 04/24/2021 G47.33 Obstructive sleep apnea (adult) (pediatric) LISSA Jimenez 04/24/2021 E78.2 Mixed hyperlipidemia LISSA Sanchez 04/24/2021 M25.552 Pain in left hip LISSA Jimenez 04/24/2021 L40.9 Psoriasis, unspecified LISSA Jeronimo 04/24/2021 F33.0 Major depressive disorder, recur rent, mild LISSA Jimenez 04/24/2021 Z79.82 intermediate project manager (current) use of aspir in LISSA Jimenez 04/24/2021 Z79.01 group home (current) use of antic oagulants LISSA Jimenez [...] the past. Please evaluate and treat. Sent [facility] [address] [place] [address] [phone] Jose L Cherry MD This is a 61 year old male w ith abnormal weight loss, early satiety and change in bowel habit from constipation to loose stools. Please evaluate and treat. Sent 08/16/2021 [address] [facility] [address] [place] [address] [phone]
--- OUTSIDE RECORDS SUMMARY | 2021-09-13 11:29 | CCD | Continuity of Care Document ---
Author Author Atilio GARCIA D.O. Organization Unknown Address [address] [facility] [address] [place] [address] Phone [phone] Care Team Providers Care Photo Colorer Name Role Phone Ping Garcia D.O. AUTM [facility] AUTM [phone] Mela Harrison NP AUTM [phone] Fay Sinha MD AUTM [phone] Jos Barr MD AUTM [phone] [facility] AUTM [phone] [facility] AUTM [phone] D[facility]atology Outpatient Clinic AUTM [facility] Rheumatology AUTM [phone] Jose L Cherry MD AUTM [phone] Problems Active Problems Provider Date Long-term current [...] by mouth as needed for pain istop: [id number] 60tabs M25.552 Abbie Us.O. 10/23 Aspirin Adult [...] CPT Code Status Date Vaccine Lot # [id number] Given 03/10/2019 TB Intradermal Test [id number] Vital Signs Date Vital Result Comment 06/14/2021 11:24am BP Systolic 126 mmHg BP Diastolic 64 mmHg Height 68 inches 5'8" Weight 147.25 lb BMI (Body Mass Index) 22.4 kg/m2 Heart Rate 70 /min Respiratory Rate 18 /min Body Temperature 98.3 F O2 % BldC Oximetry 98 % [place] Body Weight 154 lb 05/28/2021 2:53pm BP Systolic 122 mmHg BP Diastolic 68 mmHg Height 68 inches 5'8" Weight 145.50 lb BMI (Body Mass Index) 22.1 kg/m2 Heart Rate 81 /min Respiratory Rate 14 /min Body Temperature 97.6 F O2 % BldC Oximetry 98 % [place] Body Weight 154 lb Results Test Acquired Date Facility Test Result H/L Range Note Istat Chem8+ Panel 06/16/2021 [facility] Outpatient Testi (Registration) [address] [place] [address] [phone] iSTAT HCT 44.0 % Normal 38.0-51.0 iSTAT Glucose 99 mg/dL Normal 70-105 iSTAT Sodium 139 mEq/L Normal 136-145 iSTAT Potassium 4.0 mEq/L Normal 3.5-5.1 iSTAT CA++ 4.7 mg/dL Normal 4.5-5.3 iSTAT Chloride 102 mEq/L Normal 98-109 iSTAT Co2 23.0 MM/L Normal 23.0-27.0 iSTAT BUN 12 mg/dL Normal 8-26 iSTAT Creatinine 0.9 mg/dL Normal 0.6-1.3 CBC With Differential 06/16/2021 [facility] Outpatient Ita ting (Registration) [address] [place] [address] [phone] White Blood Count 17.7 10 High 4.0-10.0 [...] 36.0-66.0 Lymph % 10.0 % Low 24.0-44.0 [place] % 8.3 % High 2.0-8.0 Eos % 0.6 % Normal 0.0-3.0 Baso % 0.3 % Normal 0.0-1.0 Immature Granulocyte % 0.6 % Normal 0-3.0 Nucleated Red Blood Cell % 0.0 % Normal 0-0 Neutrophils # 14.2 10 High 1.5-8.5 Lymph # 1.8 10 Normal 1.5-5.0 [place] # 1.5 10 High 0.0-0.8 Eos # 0.1 10 Normal 0.0-0.5 Baso # 0.1 10 Normal 0.0-0.2 Liver Profile 06/16/2021 [facility] Outpatient Testi ng (Registration) [address] [place] [address] [phone] Ast/Sgot 19 U/L Normal 7-37 Alt/SGPT 23 U/L Normal 12-78 Alkaline Phosphatase 100 U/L Normal 45-117 Bilirubin,Total 1.0 mg/dL Normal 0.2-1.0 Bilirubin,Direct 0.2 mg/dL Normal 0.0-0.2 Total Protein 6.8 GM/DL Normal 6.4-8.2 Albumin 3.6 GM/DL Normal 3.2-5.2 Albumin/Globulin Ratio 1.1 Normal Laboratory test finding 06/16/2021 [facility] Outpatient T esting (Registration) [address] [place] [address] [phone] Lipase 128 U/L Normal 73-393 Ua W/ Reflex To Culture 06/16/2021 [facility] Outpatient T esting (Registration) [address] [place] [address] [phone] Appearance, Urine RFX CLEAR Normal Clear Color, Urine RFX YELLOW Normal Yellow PH,Urine RFX 6.0 units Normal 5.0-9.0 Specific [place] Ur Auto RFX 1.033 Normal 1.002-1.035 Protein, [...] 0 /LPF Normal 0-1 FT4&TSH Panel 05/28/2021 [facility] ce nter [address] [place] [address] [phone] Thyroid Stimulating Hormone 0.901 uIU/ML Normal 0. 358-3.740 Free T4 0.69 ng/dL Low 0.76-1.46 CBC With Differential 05/28/[address] [address] [phone] White Blood Count 10.5 10 High 4.0-10.0 [...] 36.0-66.0 Lymph % 15.3 % Low 24.0-44.0 [place] % 7.9 % Normal 2.0-8.0 Eos % 2.4 % Normal 0.0-3.0 Baso % 0.7 % Normal 0.0-1.0 Immature Granulocyte % 0.3 % Normal 0-3.0 Nucleated Red Blood Cell % 0.0 % Normal 0-0 Neutrophils # 7.7 10 Normal 1.5-8.5 Lymph # 1.6 10 Normal 1.5-5.0 [place] # 0.8 10 Normal 0.0-0.8 Eos # 0.3 10 Normal 0.0-0.5 Baso # 0.1 10 Normal 0.0-0.2 Comprehensive Metabolic Profil 05/28/[address] [address] [phone] Glucose, Fasting 101 mg/dL High 70-100 Blood [...] Ratio 1.4 Normal Laboratory test finding 05/28/2021 [place] [address] [place] [address] [phone] Lipase 378 U/L Normal 73-393 Amylase 55 [...] Little GFR Left ESRD GFR <15 on [employer] Procedures Date Code Description Status 06/14/2021 49372 Office/Outpatient Established Mo d MDM 30-39 Min Completed 05/28/2021 42938 Office/Outpatient Established Mo d MDM 30-39 Min Completed 04/24/2021 33078 Office/Outpatient Established Mo d MDM 30-39 Min Completed 01/22/2021 78917 Office/Outpatient Established Mo d MDM 30-39 Min Completed 01/02/2021 16093 Office/Outpatient Established Mo d MDM 30-39 Min Completed Medical Devices Description No Information Available Encounters Type Date Location Provider Dx Diagnosis Office Visit 06/14/2021 11:20a Family [facility] Ping Garcia D.O. R68.81 Early satiety K59.00 Constipation, unspecified R63.4 Abnormal weight loss Office Visit 05/28/2021 2:40p [facility] Ping Garcia D.O. 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 Office Visit 01/22/2021 9:30a Family [facility] LISSA Jimenez G47.33 Obstructive sleep apnea (neel lt) (pediatric) E78.2 Mixed hyperlipidemia L40.9 Psoriasis, unspecified F33.0 Major depressive disorder, r ecurrent, mild Z79.82 assisted (current) use of a spirin Z79.01 computer terminal operator (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) use of a nticoagulants Office Visit 01/02/2021 4:00p [facility] LISSA Jimenez E78.2 Mixed hyperlipidemia G47.33 Obstructive sleep apnea (neel lt) (pediatric) L40.9 Psoriasis, unspecified M25.552 Pain in left hip M25.512 Pain in left shoulder F41.1 Generalized anxiety disorder 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.01 computer terminal operator (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) use of a nticoagulants F33.0 Major [...] recur rent, mild LISSA Jimenez 04/24/2021 Z79.82 assisted (current) use of aspir in LISSA Jimenez 04/24/2021 Z79.01 assisted (current) use of antic oagulants LISSA Jimenez 01/22/2021 G47.33 Obstructive sleep apnea (adult) (pediatric) LISSA Jimenez 01/22/2021 E78.2 Mixed hyperlipidemia LISSA Sanchez 01/22/2021 L40.9 Psoriasis, unspecified LISSA Jeronimo 01/22/2021 F33.0 Major depressive disorder, recur rent, mild LISSA Jimenez 01/22/2021 Z79.82 computer terminal operator (current) use of aspir in LISSA Jimenez 01/22/2021 Z79.01 assisted (current) use of antic oagulants LISSA Jimenez 01/02/2021 E78.2 Mixed hyperlipidemia LISSA Sanchez 01/02/2021 G47.33 Obstructive sleep apnea (adult) (pediatric) LISSA Jimenez 01/02/2021 L40.9 Psoriasis, unspecified LISSA Jeronimo 01/02/2021 M25.552 Pain in left hip LISSA Jimenez 01/02/2021 M25.512 Pain in left shoulder LISSA Brown 01/02/2021 F41.1 Generalized anxiety disorder [facility] LISSA Leahy 01/02/2021 Z79.01 computer terminal operator (current) use of antic oagulants LISSA Jimenez 01/02/2021 F33.0 Major depressive disorder, recur rent, LISSA Lira Plan of Treatment Future Appointment(s):* 08/15/2021 9:20 am - Ping Garcia D.O. at [facility] * 07/26/2021 9:00 am - LISSA Jimenez at [facility] Functional Status Description No Information Available Mental Status Description No Information Available Referrals Refer to Reason for Referral Status Appt Date Jose L Cherry MD This is a 61 year old male w ith abnormal weight loss, early satiety and change in bowel habit from constipation to loose stools. Please evaluate and treat. Sent 08/16/[address] [place], [place] [address], [place] [address] [phone] [facility] Rheumatology psoriatic arthritis with pro gressively worsening joint pains and difficultly controlling rash except prednisone. Closed [address] [facility] [address] [place] [address] [phone] [facility] Don has been established wit h [facility] for his left shoulder but having further pain in the left hip, and bilateral hands worse in thumbs. Please evaluate and treat for joint pains. Closed [address] [place] [address] [phone]
--- OUTSIDE RECORDS SUMMARY | 2021-09-13 11:29 | CCD | Continuity of Care Document ---
Author Organization Unknown Address Unknown Phone Unavailable Care Team Providers Care Gate Watch Name Role Phone Ping Garcia D.O. [facility] [phone] Mela Harrison NP AUTM [phone] Fay Sinha MD AUTM [phone] Jos Barr MD AUTM [phone] [facility] [phone] [facility] [phone] [facility] [phone] [facility] Rheumatology AUTM [phone] Jose L Cherry MD AUTM [phone] Problems Active Problems Provider Date Long-term current [...] by mouth as needed for pain istop: [id number] 60tabs M25.552 Abbie Us.O. 10/23 Aspirin Adult 325mg Tablets take one tablet by mouth daily. 90tabs I65.29 Abbie Us.O . 06/08/2020 Albuterol Sulfate HFA 108(90Base) mcg/Act Aerosol 1-2 puffs every 4-6 hours as needed for shortness of breath 8.50 0gm Abbie Us.O. 05/22/2020 Clobetasol Propionate 0.05% Shampo o apply daily to scalp until rash resolves. 236ml L40.9 Abbie Sutherland.O. 05/22/2020 Adult Mask Large Misc cpap mask and related supplies. prognosis good. 1units G47.33 Abbie Meyer.O. 02/21/2020 Trintellix 10mg Tablets Take One Tablet By Mouth Every Day 90tabs F33.0 Abbie Us.O. 12/22 Atorvastatin Calcium 20mg Tablets Take One [...] CPT Code Status Date Vaccine Lot # [id number] Given 03/10/2019 TB Intradermal Test [id number] Vital Signs Date Vital Result Comment 06/14/2021 11:24am BP Systolic 126 mmHg BP Diastolic 64 mmHg Height 68 inches 5'8" Weight 147.25 lb BMI (Body Mass Index) 22.4 kg/m2 Heart Rate 70 /min Respiratory Rate 18 /min Body Temperature 98.3 F O2 % BldC Oximetry 98 % [place] Body Weight 154 lb 05/28/2021 2:53pm BP Systolic 122 mmHg BP Diastolic 68 mmHg Height 68 inches 5'8" Weight 145.50 lb BMI (Body Mass Index) 22.1 kg/m2 Heart Rate 81 /min Respiratory Rate 14 /min Body Temperature 97.6 F O2 % BldC Oximetry 98 % [place] Body Weight 154 lb Results Test Acquired Date Facility Test Result H/L Range Note Istat Chem8+ Panel 06/16/2021 [facility] Outpatient Testi ng (Registration) [address] [place] [address] [phone] iSTAT HCT 44.0 % Normal 38.0-51.0 iSTAT Glucose 99 mg/dL Normal 70-105 iSTAT Sodium 139 mEq/L Normal 136-145 iSTAT Potassium 4.0 mEq/L Normal 3.5-5.1 iSTAT CA++ 4.7 mg/dL Normal 4.5-5.3 iSTAT Chloride 102 mEq/L Normal 98-109 iSTAT Co2 23.0 MM/L Normal 23.0-27.0 iSTAT BUN 12 mg/dL Normal 8-26 iSTAT Creatinine 0.9 mg/dL Normal 0.6-1.3 CBC With Differential 06/16/2021 [facility] Outpatient Ita ting (Registration) [address] [place] [address] [phone] White Blood Count 17.7 10 High 4.0-10.0 [...] 36.0-66.0 Lymph % 10.0 % Low 24.0-44.0 [place] % 8.3 % High 2.0-8.0 Eos % 0.6 % Normal 0.0-3.0 Baso % 0.3 % Normal 0.0-1.0 Immature Granulocyte % 0.6 % Normal 0-3.0 Nucleated Red Blood Cell % 0.0 % Normal 0-0 Neutrophils # 14.2 10 High 1.5-8.5 Lymph # 1.8 10 Normal 1.5-5.0 [place] # 1.5 10 High 0.0-0.8 Eos # 0.1 10 Normal 0.0-0.5 Baso # 0.1 10 Normal 0.0-0.2 Liver Profile 06/16/2021 [facility] Outpatient Testi ng (Registration) [address] [place] [address] [phone] Ast/Sgot 19 U/L Normal 7-37 Alt/SGPT 23 U/L Normal 12-78 Alkaline Phosphatase 100 U/L Normal 45-117 Bilirubin,Total 1.0 mg/dL Normal 0.2-1.0 Bilirubin,Direct 0.2 mg/dL Normal 0.0-0.2 Total Protein 6.8 GM/DL Normal 6.4-8.2 Albumin 3.6 GM/DL Normal 3.2-5.2 Albumin/Globulin Ratio 1.1 Normal Laboratory test finding 06/16/2021 [facility] Outpatient T esting (Registration) [address] [place] [address] [phone] Lipase 128 U/L Normal 73-393 Ua W/ Reflex To Culture 06/16/2021 [facility] Outpatient James willis (Registration) [address] [place] [address] [phone] Appearance, Urine RFX CLEAR Normal Clear Color, Urine RFX YELLOW Normal Yellow PH,Urine RFX 6.0 units Normal 5.0-9.0 Specific [place] Ur Auto RFX 1.033 Normal 1.002-1.035 Protein, [...] 0 /LPF Normal 0-1 FT4&TSH Panel 05/28/2021 [facility] nter [address] [place] [address] [phone] Thyroid Stimulating Hormone 0.901 uIU/ML Normal 0. 358-3.740 Free T4 0.69 ng/dL Low 0.76-1.46 CBC With Differential 05/28/[address] [address] [phone] White Blood Count 10.5 10 High 4.0-10.0 [...] 36.0-66.0 Lymph % 15.3 % Low 24.0-44.0 [place] % 7.9 % Normal 2.0-8.0 Eos % 2.4 % Normal 0.0-3.0 Baso % 0.7 % Normal 0.0-1.0 Immature Granulocyte % 0.3 % Normal 0-3.0 Nucleated Red Blood Cell % 0.0 % Normal 0-0 Neutrophils # 7.7 10 Normal 1.5-8.5 Lymph # 1.6 10 Normal 1.5-5.0 [place] # 0.8 10 Normal 0.0-0.8 Eos # 0.3 10 Normal 0.0-0.5 Baso # 0.1 10 Normal 0.0-0.2 Comprehensive Metabolic Profil 05/28/[address] [address] [phone] Glucose, Fasting 101 mg/dL High 70-100 Blood [...] Ratio 1.4 Normal Laboratory test finding 05/28/[address] [address] [phone] Lipase 378 U/L Normal 73-393 Amylase 55 [...] Little GFR Left ESRD GFR <15 on STRETCH BOX TENDER Procedures Date Code Description Status 06/14/2021 90737 Office/Outpatient Established Mo d MDM 30-39 Min Completed 05/28/2021 92758 Office/Outpatient Established Mo d MDM 30-39 Min Completed 04/24/2021 39390 Office/Outpatient Established Mo d MDM 30-39 Min Completed 01/22/2021 53643 Office/Outpatient Established Mo d MDM 30-39 Min Completed 01/02/2021 04775 Office/Outpatient Established Mo d MDM 30-39 Min Completed Medical Devices Description No Information Available Encounters Type Date Location Provider Dx Diagnosis Office Visit 06/14/2021 11:20a Family [facility] Ping Garcia D.O. R68.81 Early satiety K59.00 Constipation, unspecified R63.4 Abnormal weight loss Office Visit 05/28/2021 2:40p [facility] Ping Garcia D.O. R68.81 Early satiety K59.00 Constipation, unspecified R63.4 Abnormal weight loss Office Visit 04/24/2021 9:00a Family [facility] LISSA Jimenez G47.33 Obstructive sleep apnea (neel lt) (pediatric) E78.2 Mixed hyperlipidemia M25.552 Pain in left hip L40.9 Psoriasis, unspecified F33.0 Major depressive disorder, r ecurrent, mild Z79.82 land classifier (current) use of a spirin Z79.01 land classifier (current) use of a nticoagulants Office Visit 01/22/2021 9:30a [facility] LISSA Jimenez G47.33 Obstructive sleep apnea (neel lt) (pediatric) E78.2 Mixed hyperlipidemia L40.9 Psoriasis, unspecified F33.0 Major depressive disorder, r ecurrent, mild Z79.82 land classifier (current) use of a spirin Z79.01 FDC (current) use of a nticoagulants Office Visit 01/02/2021 4:00p [facility] LISSA Jimenez E78.2 Mixed hyperlipidemia G47.33 Obstructive sleep apnea (neel lt) (pediatric) L40.9 Psoriasis, unspecified M25.552 Pain in left hip M25.512 Pain in left shoulder F41.1 Generalized anxiety disorder Z79.01 land classifier (current) use of a nticoagulants F33.0 Major depressive disorder, r ecurrent, mild Assessments Date Code Description Provider 06/14/2021 R68.81 Early satiety Ping Blum rbemmanuel, D.O. 06/14/2021 K59.00 Constipation, unspecified Ping marie-Leslee, D.O. 06/14/2021 R63.4 Abnormal weight loss Ping mitchell-Leslee, D.O. 05/28/2021 R68.81 Early satiety Ping Blum rber, D.O. 05/28/2021 K59.00 Constipation, unspecified Ping L cynthia-Leslee, D.O. 05/28/2021 R63.4 Abnormal weight loss Ping Soria no-Leslee, D.O. 04/24/2021 G47.33 Obstructive sleep apnea (adult) (pediatric) LISSA Jimenez 04/24/2021 E78.2 Mixed hyperlipidemia LISSA Sanchez 04/24/2021 M25.552 Pain in left hip LISSA Jimenez 04/24/2021 L40.9 Psoriasis, unspecified LISSA Jeronimo 04/24/2021 F33.0 Major depressive disorder, recur rent, mild LISSA Jimenez 04/24/2021 Z79.82 FDC (current) use of aspir in LISSA Jimenez 04/24/2021 Z79.01 land classifier (current) use of antic oagulants LISSA Jimenez 01/22/2021 G47.33 Obstructive sleep apnea (adult) (pediatric) LISSA Jimenez 01/22/2021 E78.2 Mixed hyperlipidemia LISSA Sanchez 01/22/2021 L40.9 Psoriasis, unspecified LISSA Jeronimo 01/22/2021 F33.0 Major depressive disorder, recur rent, mild LISSA Jimenez 01/22/2021 Z79.82 FDC (current) use of aspir in LISSA Jimenez 01/22/2021 Z79.01 land classifier (current) use of antic oagulants LISSA Jimenez 01/02/2021 E78.2 Mixed hyperlipidemia LISSA Sanchez 01/02/2021 G47.33 Obstructive sleep apnea (adult) (pediatric) LISSA Jimenez 01/02/2021 L40.9 Psoriasis, unspecified LISSA Jeronimo 01/02/2021 M25.552 Pain in left hip LISSA Jimenez 01/02/2021 M25.512 Pain in left shoulder LISSA Brown 01/02/2021 F41.1 Generalized anxiety disorder [facility] LISSA Leahy 01/02/2021 Z79.01 land classifier (current) use of antic oagulants LISSA Jimenez 01/02/2021 F33.0 Major depressive disorder, recur rent, LISSA Lira Plan of Treatment Future Appointment(s):* 08/15/2021 9:20 am - Ping Garcia D.O. at [facility] * 07/26/2021 9:00 am - LISSA Jimenez at [facility] Functional Status Description No Information Available Mental Status Description No Information Available Referrals Refer to Dr Reason for Referral Status Appt Date Jose L Cherry MD This is a 61 year old male w ith abnormal weight loss, early satiety and change in bowel habit from constipation to loose stools. Please evaluate and treat. Sent 08/16/2021 [address] [place] [address] [phone] [facility] Rheumatology psoriatic arthritis with pro gressively worsening joint pains and difficultly controlling rash except prednisone. Closed [address] [facility] [address] [place] [address] [phone] [facility] Don has been established wit h [facility] for his left shoulder but having further pain in the left hip, and bilateral hands worse in thumbs. Please evaluate and treat for joint pains. Closed 1 [address] [place] [address] [phone]
--- OUTSIDE RECORDS SUMMARY | 2021-09-13 11:29 | CCD | Continuity of Care Document ---
Author Author Atilio GARCIA D.O. Organization Unknown Address [address] [facility] [address] [place] [address] Phone [phone] Care Team Providers Care House Wirer Name Role Phone Ping Garcia D.O. [facility] [phone] Mela Harrison NP [facility]M [phone] Fay Sinha MD AUTM [phone] Jos Barr MD AUTM [phone] [facility]M [phone] [facility] [phone] [facility] Rheumatology AUTM [phone] Jose L Cherry MD AUTM [phone] Problems Active Problems Provider Date Long-term current [...] by mouth as needed for pain istop: [id number] 60tabs M25.552 Abbie Us.O. 10/23 Aspirin Adult [...] related supplies. prognosis good. 1units G47.33 Abbie Meyre.OSilke 02/21/2020 Trintellix 10mg Tablets Take One Tablet [...] CPT Code Status Date Vaccine Lot # [id number] Given 03/10/2019 TB Intradermal Test [id number] Vital Signs Date Vital Result Comment 06/14/2021 11:24am BP Systolic 126 mmHg BP Diastolic 64 mmHg Height 68 inches 5'8" Weight 147.25 lb BMI (Body Mass Index) 22.4 kg/m2 Heart Rate 70 /min Respiratory Rate 18 /min Body Temperature 98.3 F O2 % BldC Oximetry 98 % [place] Body Weight 154 lb 05/28/2021 2:53pm BP Systolic 122 mmHg BP Diastolic 68 mmHg Height 68 inches 5'8" Weight 145.50 lb BMI (Body Mass Index) 22.1 kg/m2 Heart Rate 81 /min Respiratory Rate 14 /min Body Temperature 97.6 F O2 % BldC Oximetry 98 % [place] Body Weight 154 lb Results Test Acquired Date Facility Test Result H/L Range Note Istat Chem8+ Panel 06/16/2021 [facility] Outpatient Testi (Registration) [address] [place] [address] [phone] iSTAT HCT 44.0 % Normal 38.0-51.0 iSTAT Glucose 99 mg/dL Normal 70-105 iSTAT Sodium 139 mEq/L Normal 136-145 iSTAT Potassium 4.0 mEq/L Normal 3.5-5.1 iSTAT CA++ 4.7 mg/dL Normal 4.5-5.3 iSTAT Chloride 102 mEq/L Normal 98-109 iSTAT Co2 23.0 MM/L Normal 23.0-27.0 iSTAT BUN 12 mg/dL Normal 8-26 iSTAT Creatinine 0.9 mg/dL Normal 0.6-1.3 CBC With Differential 06/16/2021 [facility] Outpatient Ita ting (Registration) [address] [place] [address] [phone] White Blood Count 17.7 10 High 4.0-10.0 [...] 36.0-66.0 Lymph % 10.0 % Low 24.0-44.0 [place] % 8.3 % High 2.0-8.0 Eos % 0.6 % Normal 0.0-3.0 Baso % 0.3 % Normal 0.0-1.0 Immature Granulocyte % 0.6 % Normal 0-3.0 Nucleated Red Blood Cell % 0.0 % Normal 0-0 Neutrophils # 14.2 10 High 1.5-8.5 Lymph # 1.8 10 Normal 1.5-5.0 [place] # 1.5 10 High 0.0-0.8 Eos # 0.1 10 Normal 0.0-0.5 Baso # 0.1 10 Normal 0.0-0.2 Liver Profile 06/16/2021 [facility] Outpatient Testi ng (Registration) [address] [place] [address] [phone] Ast/Sgot 19 U/L Normal 7-37 Alt/SGPT 23 U/L Normal 12-78 Alkaline Phosphatase 100 U/L Normal 45-117 Bilirubin,Total 1.0 mg/dL Normal 0.2-1.0 Bilirubin,Direct 0.2 mg/dL Normal 0.0-0.2 Total Protein 6.8 GM/DL Normal 6.4-8.2 Albumin 3.6 GM/DL Normal 3.2-5.2 Albumin/Globulin Ratio 1.1 Normal Laboratory test finding 06/16/2021 [facility] Outpatient T esting (Registration) [address] [place] [address] [phone] Lipase 128 U/L Normal 73-393 Ua W/ Reflex To Culture 06/16/2021 [facility] Outpatient T esting (Registration) [address] [place] [address] [phone] Appearance, Urine RFX CLEAR Normal Clear Color, Urine RFX YELLOW Normal Yellow PH,Urine RFX 6.0 units Normal 5.0-9.0 Specific [place] Ur Auto RFX 1.033 Normal 1.002-1.035 Protein, [...] 0 /LPF Normal 0-1 FT4&TSH Panel 05/28/2021 [facility] [address] [place] [address] [phone] Thyroid Stimulating Hormone 0.901 uIU/ML Normal 0. 358-3.740 Free T4 0.69 ng/dL Low 0.76-1.46 CBC With Differential 05/28/[address] [address] [phone] White Blood Count 10.5 10 High 4.0-10.0 [...] 36.0-66.0 Lymph % 15.3 % Low 24.0-44.0 [place] % 7.9 % Normal 2.0-8.0 Eos % 2.4 % Normal 0.0-3.0 Baso % 0.7 % Normal 0.0-1.0 Immature Granulocyte % 0.3 % Normal 0-3.0 Nucleated Red Blood Cell % 0.0 % Normal 0-0 Neutrophils # 7.7 10 Normal 1.5-8.5 Lymph # 1.6 10 Normal 1.5-5.0 [place] # 0.8 10 Normal 0.0-0.8 Eos # 0.3 10 Normal 0.0-0.5 Baso # 0.1 10 Normal 0.0-0.2 Comprehensive Metabolic Profil 05/28/[address] [address] [phone] Glucose, Fasting 101 mg/dL High 70-100 Blood [...] Ratio 1.4 Normal Laboratory test finding 05/28/2021 [place] [address] [place] [address] [phone] Lipase 378 U/L Normal 73-393 Amylase 55 [...] Little GFR Left ESRD GFR <15 on ARTIFICIAL BREAST FABRICATOR Procedures Date Code Description Status 06/14/2021 [address]312 Office/Outpatient Established Mo d MDM 30-39 Min Completed 05/28/2021 25347 Office/Outpatient Established Mo d MDM 30-39 Min Completed 04/24/2021 [address]47[address] Office/Outpatient Established Mo d MDM 30-39 Min Completed 01/22/2021 [address]76[address] Office/Outpatient Established Mo d MDM 30-39 Min Completed 01/02/2021 [address]6212 Office/Outpatient Established Mo d MDM 30-39 Min Completed Medical Devices Description No Information Available Encounters Type Date Location Provider Dx Diagnosis Office Visit 06/14/2021 11:20a Family [facility] Ping Garcia D.O. R68.81 Early satiety K59.00 Constipation, unspecified R63.4 Abnormal weight loss Office Visit 05/28/2021 2:40p [facility] Ping Garcia D.O. R68.81 Early satiety K59.00 Constipation, unspecified R63.4 Abnormal weight loss Office Visit 04/24/2021 9:00a Family [facility] LISSA Jimenez G47.33 Obstructive sleep apnea (neel lt) (pediatric) E78.2 Mixed hyperlipidemia M25.552 Pain in left hip L40.9 Psoriasis, unspecified F33.0 Major depressive disorder, r ecurrent, mild Z79.82 residential (current) use of a spirin Z79.01 terminal computer operator (current) use of a nticoagulants Office Visit 01/22/2021 9:30a Family Medicine [facility] LISSA Jimenez G47.33 Obstructive sleep apnea (neel lt) (pediatric) E78.2 Mixed hyperlipidemia L40.9 Psoriasis, unspecified F33.0 Major depressive disorder, r ecurrent, mild Z79.82 residential (current) use of a spirin Z79.01 terminal computer operator (current) use of a nticoagulants Office Visit 01/02/2021 4:00p [facility] LISSA Jimenez E78.2 Mixed hyperlipidemia G47.33 Obstructive sleep apnea (neel lt) (pediatric) L40.9 Psoriasis, unspecified M25.552 Pain in left hip M25.512 Pain in left shoulder F41.1 Generalized anxiety disorder Z79.01 terminal computer operator (current) use of a nticoagulants F33.0 [...] rent, mild LISSA Jimenez 01/22/2021 Z79.82 terminal computer operator (current) use of aspir in LISSA Jimenez 01/22/2021 Z79.01 residential (current) use of antic oagulants LISSA Jimenez 01/02/2021 E78.2 Mixed hyperlipidemia LISSA Sanchez 01/02/2021 G47.33 Obstructive sleep apnea (adult) (pediatric) LISSA Jimenez 01/02/2021 L40.9 Psoriasis, unspecified LISSA Jeronimo 01/02/2021 M25.552 Pain in left hip LISSA Jimenez 01/02/2021 M25.512 Pain in left shoulder LISSA Brown 01/02/2021 F41.1 Generalized anxiety disorder [facility] LISSA Leahy 01/02/2021 Z79.01 terminal computer operator (current) use of antic oagulants LISSA Jimenez 01/02/2021 F33.0 Major depressive disorder, recur rent, LISSA Lira Plan of Treatment Future Appointment(s):* 08/15/2021 9:20 am - Ping Garcia D.O. at [facility] * 07/26/2021 9:00 am - LISSA Jimenez at [facility] Functional Status Description No Information Available Mental Status Description No Information Available Referrals Refer to Reason for Referral Status Appt Date Jose L Cherry MD This is a 61 year old male w ith abnormal weight loss, early satiety and change in bowel habit from constipation to loose stools. Please evaluate and treat. Sent 08/16/[address] [place], [place] [address], [place] [address] [phone] [facility] Rheumatology psoriatic arthritis with pro gressively worsening joint pains and difficultly controlling rash except prednisone. Closed [address] [facility] [address] [place] [address] [phone] [facility] has been established wit h [facility] for his left shoulder but having further pain in the left hip, and bilateral hands worse in thumbs. Please evaluate and treat for joint pains. Closed 1 [address] [place] [address] [phone]
--- OUTSIDE RECORDS SUMMARY | 2021-09-13 11:30 | CCD ---
Author Author [facility] Organization [facility] Address Unknown Phone Unavailable Care Team Providers Care Circuit Board Assembler Name Role Phone EDDY PRAKASH MD Unavailable Unavailable EDDY PRAKASH MD Unavailable Unavailable EDDY PRAKASH MD Unavailable Unavailable EDDY PRAKASH MD Unavailable Unavailable EDDY PRAKASH MD Unavailable Unavailable EDDY PRAKASH MD Unavailable Unavailable EDDY PRAKASH MD Unavailable Unavailable EDDY PRAKASH MD Unavailable Unavailable EDDY PRAKASH MD Unavailable Unavailable EDDY PRAKASH MD Unavailable Unavailable EDDY PRAKASH MD Unavailable EDDY Krishna MD Unavailable Unavailable EDDY PRAKASH MD Unavailable Unavailable EDDY PRAKASH MD Unavailable Unavailable EDDY PRAKASH MD Unavailable Unavailable EDDY PRAKASH MD Unavailable Unavailable EDDY PRAKASH MD Unavailable Unavailable EDDY PRAKASH MD Unavailable Unavailable REINDL, EDDY MONACO Unavailable Unavailable REINDL, EDDY MONACO Unavailable Unavailable REINDL, EDDY MONACO Unavailable Unavailable REINDL, EDDY MONACO Unavailable Unavailable REINDL, EDDY MONACO Unavailable Unavailable REINDL, EDDY MONACO Unavailable Unavailable REINDL, EDDY MONACO Unavailable Unavailable REINDL, EDDY MONACO Unavailable Unavailable REINDL, EDDY MONACO Unavailable Unavailable REINDL, EDDY MONACO Unavailable Unavailable REINDL, EDDY MONACO Unavailable Unavailable REINDL, EDDY MONACO Unavailable Unavailable REINDL, EDDY MONACO Unavailable Unavailable REINDL, EDDY MONACO Unavailable Unavailable REINDL, EDDY MONACO Unavailable Unavailable REINDL, EDDY MONACO Unavailable Unavailable REINDL, EDDY MONACO Unavailable Unavailable REINDL, EDDY MONACO Unavailable Unavailable REINDL, EDDY MONACO Unavailable Unavailable REINDL, EDDY MONACO Unavailable Unavailable REINDL, EDDY MONACO Unavailable Unavailable REINDL, EDDY MONACO Unavailable Unavailable REINDL, EDDY MONACO Unavailable Unavailable REINDL, EDDY MONACO Unavailable Unavailable WALKER-NORBERT, SHAWN DO Unavailable Unavailable WALKER-NORBERT, SHAWN DO Unavailable Unavailable WALKER-NORBERT, SHAWN DO Unavailable Unavailable WALKER-NORBERT, SHAWN DO Unavailable Unavailable WALKER-NORBERT, SHAWN DO Unavailable Unavailable WALKER-NORBERT, SHAWN DO Unavailable Unavailable WALKER-NORBERT, SHAWN DO Unavailable Unavailable WALKER-NORBERT, SHAWN DO Unavailable Unavailable WALKER-NORBERT, SHAWN DO Unavailable Unavailable WALKER-NORBERT, SHAWN DO Unavailable Unavailable WALKER-NORBERT, SHAWN DO Unavailable Unavailable WALKER-NORBERT, SHAWN DO Unavailable Unavailable WALKER-NORBERT, SHAWN DO Unavailable Unavailable WALKER-NORBERT, SHAWN DO Unavailable Unavailable WALKER-NORBERT, SHAWN DO Unavailable Unavailable WALKER-NORBERT, SHAWN DO Unavailable Unavailable WALKER-NORBERT, SHAWN DO Unavailable Unavailable WALKER-NORBERT, SHAWN DO Unavailable Unavailable WALKER-NORBERT, SHAWN DO Unavailable Unavailable WALKER-NORBERT, SHAWN DO Unavailable Unavailable WALKER-NORBERT, SHAWN DO Unavailable Unavailable WALKER-NORBERT, SHAWN DO Unavailable Unavailable WALKER-NORBERT, SHAWN DO Unavailable Unavailable WALKER-NORBERT, SHAWN DO Unavailable Unavailable WALKER-NORBERT, SHAWN DO Unavailable Unavailable WALKER-NORBERT, SHAWN DO Unavailable Unavailable WALKER-NORBERT, SHAWN DO Unavailable Unavailable WALKER-NORBERT, SHAWN DO Unavailable Unavailable WALKER-NORBERT, SHAWN DO Unavailable Unavailable WALKER-NORBERT, SHAWN DO Unavailable Unavailable WALKER-NORBERT, SHAWN DO Unavailable Unavailable WALKER-NORBERT, SHAWN DO Unavailable Unavailable WALKER-NORBERT, SHAWN DO Unavailable Unavailable WALKER-NORBERT, SHAWN DO Unavailable Unavailable WALKER-NORBERT, SHAWN DO Unavailable Unavailable WALKER-NORBERT, SHAWN DO Unavailable Unavailable WALKER-NORBERT, SHAWN DO Unavailable Unavailable WALKER-NORBERT, SHAWN DO Unavailable Unavailable WALKER-NORBERT, SHAWN DO Unavailable Unavailable WALKER-NORBERT, SHAWN DO Unavailable Unavailable WALKER-NORBERT, SHAWN DO Unavailable Unavailable WALKER-NORBERT, SHAWN DO Unavailable Unavailable WALKER-NORBERT, SHAWN DO Unavailable Unavailable WALKER-NORBERT, SHAWN DO Unavailable Unavailable WALKER-NORBERT, SHAWN DO Unavailable Unavailable WALKER-NORBERT, SHAWN DO Unavailable Unavailable WALKER-NORBERT, SHAWN DO Unavailable Unavailable WALKER-NORBERT, SHAWN DO Unavailable Unavailable WALKER-NORBERT, SHAWN DO Unavailable Unavailable WALKER-NORBERT, SHAWN DO Unavailable Unavailable WALKER-NORBERT, SHAWN DO Unavailable Unavailable WALKER-NORBERT, SHAWN DO Unavailable Unavailable WALKER-NORBERT, SHAWN DO Unavailable Unavailable WALKER-NORBERT, SHAWN DO Unavailable Unavailable WALKER-NORBERT, SHAWN DO Unavailable Unavailable WALKER-NORBERT, SHAWN DO Unavailable Unavailable WALKER-NORBERT, SHAWN DO Unavailable Unavailable WALKER-NORBERT, SHAWN DO Unavailable Unavailable WALKER-NORBERT, SHAWN DO Unavailable Unavailable WALKER-NORBERT, SHAWN DO Unavailable Unavailable WALKER-NORBERT, SHAWN DO Unavailable Unavailable WALKER-NORBERT, SHAWN DO Unavailable Unavailable WALKER-NORBERT, SHAWN DO Unavailable Unavailable WALKER-NORBERT, SHAWN DO Unavailable Unavailable WALKER-NORBERT, SHAWN DO Unavailable Unavailable WALKER-NORBERT, SHAWN DO Unavailable Unavailable WALKER-NORBERT, SHAWN DO Unavailable Unavailable WALKER-NORBERT, SHAWN DO Unavailable Unavailable WALKER-NORBERT, SHAWN DO Unavailable Unavailable WALKER-NORBERT, SHAWN DO Unavailable Unavailable WALKER-NORBERT, SHAWN DO Unavailable Unavailable WALKER-NORBERT, SHAWN DO Unavailable Unavailable WALKER-NORBERT, SHAWN DO Unavailable Unavailable WALKER-NORBERT, SHAWN DO Unavailable Unavailable WALKER-NORBERT, SHAWN DO Unavailable Unavailable WALKER-NORBERT, SHAWN DO Unavailable Unavailable WALKER-NORBERT, SHAWN DO Unavailable Unavailable WALKER-NORBERT, SHAWN DO Unavailable Unavailable WALKER-NORBERT, SHAWN DO Unavailable Unavailable WALKER-NORBERT, SHAWN DO Unavailable Unavailable WALKER-NORBERT, SHAWN DO Unavailable Unavailable WALKER-NORBERT, SHAWN DO Unavailable Unavailable WALKER-NORBERT, SHAWN DO Unavailable Unavailable WALKER-NORBERT, SHAWN DO Unavailable Unavailable Mahesh CHARLES MD Unavailable Unavailable Mahesh CHARLES MD Unavailable Unavailable Mahesh CHARLES MD Unavailable Unavailable Mahesh CHARLES MD Unavailable Unavailable Mahesh CHARLES MD Unavailable Unavailable Mahesh CHARLES MD Unavailable Unavailable Mahesh CHARLES MD Unavailable Unavailable Mahesh CHARLES MD Unavailable Unavailable Mahesh CHARLES MD Unavailable Unavailable Mahesh CHARLES MD Unavailable Unavailable Mahesh CHARLES MD Unavailable Unavailable Mahesh CHARLES MD Unavailable Unavailable Mahesh CHARLES MD Unavailable Unavailable Mahesh CHARLES MD Unavailable Unavailable Mahesh CHARLES MD Unavailable Unavailable Mahesh CHARLES MD Unavailable Unavailable Mahesh CHARLES MD Unavailable Unavailable Mahesh CHARLES MD Unavailable Unavailable Mahesh CHARLES MD Unavailable Unavailable Mahesh CHARLES MD Unavailable Unavailable Mahesh CHARLES MD Unavailable Unavailable Mahesh CHARLES MD Unavailable Unavailable Mahesh CHARLES MD Unavailable Unavailable Mahesh CHARLES MD Unavailable Unavailable Mahesh CHARLES MD Unavailable Unavailable Mahesh CHARLES MD Unavailable Unavailable Mahesh CHARLES MD Unavailable Unavailable Mahesh CHARLES MD Unavailable Unavailable Mahesh CHARLES MD Unavailable Unavailable Mahesh CHARLES MD Unavailable Unavailable Mahesh CHARLES MD Unavailable Unavailable Mahesh CHARLES MD Unavailable Unavailable Mahesh CHARLES MD Unavailable Unavailable Mahesh CHARLES MD Unavailable Unavailable Mahesh CHARLES MD Unavailable Unavailable Mahesh CHARLES MD Unavailable Unavailable Mahesh CHARLES MD Unavailable Unavailable Mahesh CHARLES MD Unavailable Unavailable Mahesh CHARLES MD Unavailable Unavailable Mahesh CHARLES MD Unavailable Unavailable Mahesh CHARLES MD Unavailable Unavailable Mahesh CHARLES MD Unavailable Unavailable Mahesh CHARLES MD Unavailable Unavailable Mahesh CHARLES MD Unavailable Unavailable Mahesh CHARLES MD Unavailable Unavailable Mahesh CHARLES MD Unavailable Unavailable Mahesh CHARLES MD Unavailable Unavailable Mahesh CHARLES MD Unavailable Unavailable Mahesh CHARLES MD Unavailable Unavailable Mahesh CHARLES MD Unavailable Unavailable Mahesh CHARLES MD Unavailable Unavailable Mahesh CHARLES MD Unavailable Unavailable Mahesh CHARLES MD Unavailable Unavailable Mahesh CHARLES MD Unavailable Unavailable Mahesh CHARLES MD Unavailable Unavailable Mahesh CHARLES MD Unavailable Unavailable Mahesh CHARLES MD Unavailable Unavailable Mahesh CHARLES MD Unavailable Unavailable Mahesh CHARLES MD Unavailable Unavailable Mahesh CHARLES MD Unavailable Unavailable Mhaesh CHARLES MD Unavailable Unavailable Mahesh CHARLES MD Unavailable Unavailable Mahesh CHARLES MD Unavailable Unavailable Mahesh CHARLES MD Unavailable Unavailable Mahesh CHARLES MD Unavailable Unavailable Mahesh CHARLES MD Unavailable Unavailable Mahesh CHARLES MD Unavailable Unavailable Mahesh CHARLES MD Unavailable Unavailable Mahesh CHARLES MD Unavailable Unavailable Mahesh CHARLES MD Unavailable Unavailable Mahesh CHARLES MD Unavailable Unavailable Mahesh CHARLES MD Unavailable Unavailable Mahesh CHARLES MD Unavailable Unavailable CederstrandMarycruz MD Unavailable Unavailable CederstrandMarycruz MD Unavailable Unavailable CederstrandMarycruz MD Unavailable Unavailable CederstrandMarycruz MD Unavailable Unavailable CederstranMarycruz rosas MD Unavailable Unavailable KberstranMarycruz rosas MD Unavailable Unavailable CederstranMarycruz rosas MD Unavailable Unavailable CederstranMarycruz rosas MD Unavailable Unavailable CederstranMarycruz rosas MD Unavailable Unavailable CederstranMarycruz rosas MD Unavailable Unavailable CederstrandMarycruz MD Unavailable Unavailable CederstrandMarycruz MD Unavailable Unavailable CederstrandMarycruz MD Unavailable Unavailable CederstrandMarycruz MD Unavailable Unavailable CederstrandMarycruz MD Unavailable Unavailable Cederstrand, Marycruz Aponte MD Unavailable Unavailable O'van, A Ignacio PA Unavailable Unavailable O'van, A Ignacio PA Unavailable Unavailable O'van, A Ignacio PA Unavailable Unavailable O'van, A Ignacio PA Unavailable Unavailable O'van, A Ignacio PA Unavailable Unavailable O'van, A Ignacio PA Unavailable Unavailable O'van, A Ignacio PA Unavailable Unavailable O'van, A Ignacio PA Unavailable Unavailable O'van, A Ignacio PA Unavailable Unavailable O'van, A Ignacio PA Unavailable Unavailable O'van, A Ignacio PA Unavailable Unavailable O'van, A Ignacio PA Unavailable Unavailable O'van, A Ignacio PA Unavailable Unavailable O'van, A Ignacio PA Unavailable Unavailable O'van, A Ignacio PA Unavailable Unavailable O'van, A Ignacio PA Unavailable Unavailable O'van, A Ignacio PA Unavailable Unavailable O'van, A Ignacio PA Unavailable Unavailable O'van, A Ignacio PA Unavailable Unavailable O'van, A Ignacio PA Unavailable Unavailable O'van, A Ignacio PA Unavailable Unavailable O'van, A Ignacio PA Unavailable Unavailable O'van, A Ignacio PA Unavailable Unavailable O'van, A Ignacio PA Unavailable Unavailable O'van, A Ignacio PA Unavailable Unavailable O'van, A Ignacio PA Unavailable Unavailable O'van, A Ignacio PA Unavailable Unavailable O'van, A Ignacoi PA Unavailable Unavailable O'van, A Ignacio PA Unavailable Unavailable O'van, A Ignacio PA Unavailable Unavailable O'van, A Ignacio PA Unavailable Unavailable O'van, A Ignacio PA Unavailable Unavailable O'van, A Ignacio PA Unavailable Unavailable PFLUGH, FLORINA SCRUM COACH Unavailable Unavailable PFLUGH, FLORINA SCRUM COACH Unavailable Unavailable PFLUGH, FLORINA SCRUM COACH Unavailable Unavailable PFLUGH, FLORINA SCRUM COACH Unavailable Unavailable PFLUGH, FLORINA SCRUM COACH Unavailable Unavailable PFLUGH, FLORINA SCRUM COACH Unavailable Unavailable PFLUGH, FLORINA SCRUM COACH Unavailable Unavailable PFLUGH, FLORINA SCRUM COACH Unavailable Unavailable PFLUGH, FLORINA SCRUM COACH Unavailable Unavailable PFLUGH, FLORINA SCRUM COACH Unavailable Unavailable PFLUGH, FLORINA SCRUM COACH Unavailable Unavailable PFLUGH, FLORINA SCRUM COACH Unavailable Unavailable PFLUGH, FLORINA SCRUM COACH Unavailable Unavailable PFLUGH, FLORINA SCRUM COACH Unavailable Unavailable PFLUGH, FLORINA SCRUM COACH Unavailable Unavailable PFLUGH, FLORINA SCRUM COACH Unavailable Unavailable PFLUGH, FLORINA SCRUM COACH Unavailable Unavailable PFLUGH, FLORINA SCRUM COACH Unavailable Unavailable PFLUGH, FLORINA SCRUM COACH Unavailable Unavailable PFLUGH, FLORINA SCRUM COACH Unavailable Unavailable PFLUGH, FLORINA SCRUM COACH Unavailable Unavailable PFLUGH, FLORINA SCRUM COACH Unavailable Unavailable PFLUGH, FLORINA SCRUM COACH Unavailable Unavailable PFLUGH, FLORINA SCRUM COACH Unavailable Unavailable PFLUGH, FLORINA SCRUM COACH Unavailable Unavailable PFLUGH, FLORINA SCRUM COACH Unavailable Unavailable PFLUGH, FLORINA SCRUM COACH Unavailable Unavailable PFLUGH, FLORINA SCRUM COACH Unavailable Unavailable PFLUGH, FLORINA SCRUM COACH Unavailable Unavailable PFLUGH, FLORINA SCRUM COACH Unavailable Unavailable PFLUGH, FLORINA SCRUM COACH Unavailable Unavailable PFLUGH, FLORINA SCRUM COACH Unavailable Unavailable PFLUGH, FLORINA SCRUM COACH Unavailable Unavailable PFLUGH, FLORINA SCRUM COACH Unavailable Unavailable PFLUGH, FLORINA SCRUM COACH Unavailable Unavailable PFLUGH, FLORINA SCRUM COACH Unavailable Unavailable PFLUGH, FLORINA SCRUM COACH Unavailable Unavailable PFLUGH, FLORINA SCRUM COACH Unavailable Unavailable PFLUGH, FLORINA SCRUM COACH Unavailable Unavailable PFLUGH, FLORINA SCRUM COACH Unavailable Unavailable PFLUGH, FLORINA SCRUM COACH Unavailable Unavailable PFLUGH, FLORINA SCRUM COACH Unavailable Unavailable PFLUGH, FLORINA SCRUM COACH Unavailable Unavailable PFLUGH, FLORINA SCRUM COACH Unavailable Unavailable PFLUGH, FLORINA SCRUM COACH Unavailable Unavailable Tello, L Elyse RPA Unavailable Unavailable Tello, L Elyse RPA Unavailable Unavailable Tello, L Elyse RPA Unavailable Unavailable Tello, L Elyse RPA Unavailable Unavailable Tello, L Elyse RPA Unavailable Unavailable Tello, L Elyse RPA Unavailable Unavailable Tello, L Elyse RPA Unavailable Unavailable Tello, L Elyse RPA Unavailable Unavailable Tello, L Elyse RPA Unavailable Unavailable Tello, L Elyse RPA Unavailable Unavailable Tello, L Elyse RPA Unavailable Unavailable Tello, L Elyse RPA Unavailable Unavailable Tello, L Elyse RPA Unavailable Unavailable Tello, L Elyse RPA Unavailable Unavailable Tello, L Elyse RPA Unavailable Unavailable Tello, L Elyse RPA Unavailable Unavailable Tello, L Elyse RPA Unavailable Unavailable Tello, L Elyse RPA Unavailable Unavailable Tello, L Elyse RPA Unavailable Unavailable Tello, L Elyse RPA Unavailable Unavailable Tello, L Elyse RPA Unavailable Unavailable Tello, L Elyse RPA Unavailable Unavailable Tello, L Elyse RPA Unavailable Unavailable Telol, L Elyse RPA Unavailable Unavailable Tello, L Elyse RPA Unavailable Unavailable Tello, L Elyse RPA Unavailable Unavailable Tello, L Elyse RPA Unavailable Unavailable Tello, L Elyse RPA Unavailable Unavailable Tello, L Elyse RPA Unavailable Unavailable Tello, L Elyse RPA Unavailable Unavailable Tello, L Elyse RPA Unavailable Unavailable Tello, L Elyse RPA Unavailable Unavailable Greenky, S Rene MD Unavailable Unavailable Greenky, S Rene MD Unavailable Unavailable Greenky, S Rene MD Unavailable Unavailable Greenky, S Rene MD Unavailable Unavailable Greenky, S Rene MD Unavailable Unavailable Greenky, S Rene MD Unavailable Unavailable Greenky, S Rene MD Unavailable Unavailable Greenky, S Rene MD Unavailable Unavailable Greenky, S Rene MD Unavailable Unavailable Greenky, S Rene MD Unavailable Unavailable Greenky, S Rene MD Unavailable Unavailable Greenky, S Rene MD Unavailable Unavailable Greenky, S Rene MD Unavailable Unavailable Greenky, S Rene MD Unavailable Unavailable Greenky, S Rene MD Unavailable Unavailable Greenky, S Rene MD Unavailable Unavailable Greenky, S Rene MD Unavailable Unavailable Greenky, S Rene MD Unavailable Unavailable Greenky, S Rene MD Unavailable Unavailable Greenky, S Rene MD Unavailable Unavailable Greenky, S Rene MD Unavailable Unavailable Greenky, S Rene MD Unavailable Unavailable Greenky, S Rene MD Unavailable Unavailable Greenky, S Rene MD Unavailable Unavailable Greenky, S Rene MD Unavailable Unavailable Greenky, S Rene MD Unavailable Unavailable Greenky, S Rene MD Unavailable Unavailable Greenky, S Rene MD Unavailable Unavailable Greenky, S Rene MD Unavailable Unavailable Greenky, S Rene MD Unavailable Unavailable Greenky, S Rene MD Unavailable Unavailable Greenky, S Rene MD Unavailable Unavailable Greenky, S Rene MD Unavailable Unavailable Greenky, S Rene MD Unavailable Unavailable Greenky, S Rene MD Unavailable Unavailable Greenky, S Rene MD Unavailable Unavailable Greenky, S Rene MD Unavailable Unavailable Greenky, S Rene MD Unavailable Unavailable Greenky, S Rene MD Unavailable Unavailable Greenky, S Rene MD Unavailable Unavailable Greenky, S Rene MD Unavailable Unavailable Greenky, S Rene MD Unavailable Unavailable Greenky, S Rene MD Unavailable Unavailable Greenky, S Rene MD Unavailable Unavailable Greenky, S Rene MD Unavailable Unavailable Greenky, S Rene MD Unavailable Unavailable Greenky, S Rene MD Unavailable Unavailable Greenky, S Rene MD Unavailable Unavailable Greenky, S Rene MD Unavailable Unavailable Greenky, S Rene MD Unavailable Unavailable Greenky, S Rene MD Unavailable Unavailable Greenky, S Rene MD Unavailable Unavailable Greenky, S Rene MD Unavailable Unavailable Greenky, S Rene MD Unavailable Unavailable Greenky S Rene MD Unavailable Unavailable Greenky S Rene MD Unavailable Unavailable Greenky S Rene MD Unavailable Unavailable Greenky S Rene MD Unavailable Unavailable Greenky, S Rene MD Unavailable Unavailable Greenky, S Rene MD Unavailable Unavailable Greenky, S Rene MD Unavailable Unavailable Greenky, S Rene MD Unavailable Unavailable Greenky, S Rene MD Unavailable Unavailable Greenky, S Rene MD Unavailable Unavailable Greenky, S Rene MD Unavailable Unavailable Greenky, S Rene MD Unavailable Unavailable Greenky, S Rene MD Unavailable Unavailable Greenky, S Rene MD Unavailable Unavailable Greenky, S Rene MD Unavailable Unavailable Greenky, S Rene MD Unavailable Unavailable Greenky, S Rene MD Unavailable Unavailable Greenky, S Rene MD Unavailable Unavailable Greenky, S Rene MD Unavailable Unavailable Greenky, S Rene MD Unavailable Unavailable Greenky, S Rene MD Unavailable Unavailable Greenky, S Rene MD Unavailable Unavailable Greenky, S Rene MD Unavailable Unavailable Greenky S Rene MD Unavailable Unavailable Greenky S Rene MD Unavailable Unavailable Greenky, S Rene MD Unavailable Unavailable Greenky, S Rene MD Unavailable Unavailable Greenky S Rene MD Unavailable Unavailable Greenky S Rene MD Unavailable Unavailable Greenky, S Rene MD Unavailable Unavailable Greenky S Rene MD Unavailable Unavailable Greenky S Rene MD Unavailable Unavailable Greenky S Rene MD Unavailable Unavailable Emekaky S Rene MD Unavailable Unavailable Conor S Rene MD Unavailable Unavailable Rossi ARAIZA MD Unavailable Unavailable Rossi ARAIZA MD Unavailable Unavailable Rossi ARAIZA MD Unavailable Unavailable Rossi ARAIZA MD Unavailable Unavailable Rossi ARAIZA MD Unavailable Unavailable Rossi ARAIZA MD Unavailable Unavailable Rossi ARAIZA MD Unavailable Unavailable Rossi ARAIZA MD Unavailable Unavailable Rossi ARAIZA MD Unavailable Unavailable Rsosi ARAIZA MD Unavailable Unavailable Rossi ARAIZA MD Unavailable Unavailable Rossi ARAIZA MD Unavailable Unavailable Rossi ARAIZA MD Unavailable Unavailable Rossi ARAIZA MD Unavailable Unavailable Rossi ARAIZA MD Unavailable Unavailable Rossi ARAIZA MD Unavailable Unavailable Rossi ARAIZA MD Unavailable Unavailable Rossi ARAIZA MD Unavailable Unavailable Rossi ARAIZA MD Unavailable Unavailable Rossi ARAIZA MD Unavailable Unavailable Rossi ARAIAZ MD Unavailable Unavailable Rossi ARAIZA MD Unavailable Unavailable Rossi ARAIZA MD Unavailable Unavailable Rossi ARAIZA MD Unavailable Unavailable Rossi ARAIZA MD Unavailable Unavailable Rossi ARAIZA MD Unavailable Unavailable Rossi ARAIZA MD Unavailable Unavailable Rossi ARAIZA MD Unavailable Unavailable Rossi ARAIZA MD Unavailable Unavailable Rossi ARAIZA MD Unavailable Unavailable Rossi ARAIZA MD Unavailable Unavailable Rossi ARAIZA MD Unavailable Unavailable Rossi ARAIZA MD Unavailable Unavailable Rossi ARAIZA MD Unavailable Unavailable Rossi ARAIZA MD Unavailable Unavailable Rossi ARAIZA MD Unavailable Unavailable Rossi ARAIZA MD Unavailable Unavailable Rossi ARAIZA MD Unavailable Unavailable Rossi ARAIZA MD Unavailable Unavailable Rossi ARAIZA MD Unavailable Unavailable Rossi ARAIZA MD Unavailable Unavailable Rossi ARAIZA MD Unavailable Unavailable Rossi ARAIZA MD Unavailable Unavailable Rossi ARAIZA MD Unavailable Unavailable Rossi ARAIZA MD Unavailable Unavailable Rossi ARAIZA MD Unavailable Unavailable Rossi ARAIZA MD Unavailable Unavailable Rossi ARAIZA MD Unavailable Unavailable Rossi ARAIZA MD Unavailable Unavailable Rossi ARAIZA MD Unavailable Unavailable Rossi ARAIZA MD Unavailable Unavailable Rossi ARAIZA MD Unavailable Unavailable Rossi ARAIZA MD Unavailable Unavailable Rossi ARAIZA MD Unavailable Unavailable Rossi ARAIZA MD Unavailable Unavailable Rossi ARAIZA MD Unavailable Unavailable Rossi ARAIZA MD Unavailable Unavailable Rossi ARAIZA MD Unavailable Unavailable Rossi ARAIZA MD Unavailable Unavailable Rossi ARAIZA MD Unavailable Unavailable Rossi ARAIZA MD Unavailable Unavailable Rossi ARAIZA MD Unavailable Unavailable Rossi ARAIZA MD Unavailable Unavailable Rossi ARAIZA MD Unavailable Unavailable Rossi ARAIZA MD Unavailable Unavailable Rossi ARAIZA MD Unavailable Unavailable Rossi ARAIZA MD Unavailable Unavailable Rossi ARAIZA MD Unavailable Unavailable Rossi ARAIZA MD Unavailable Unavailable Rossi ARAIZA MD Unavailable Unavailable Rossi ARAIZA MD Unavailable Unavailable Rossi ARAIZA MD Unavailable Unavailable Rossi ARAIZA MD Unavailable Unavailable Rossi ARAIZA MD Unavailable Unavailable Rossi ARAIZA MD Unavailable Unavailable Rossi ARAIZA MD Unavailable Unavailable Rossi ARAIZA MD Unavailable Unavailable GIANLUCA, Rossi KINGSLEY MD Unavailable Unavailable Rossi ARAIZA MD Unavailable Unavailable Rossi ARAIZA MD Unavailable Unavailable Rossi ARAIZA MD Unavailable Unavailable Rossi ARAIZA MD Unavailable Unavailable Rossi ARAIZA MD Unavailable Unavailable WALKER-NORBERT, SHAWN DO Unavailable Unavailable WALKER-NORBERT, SHAWN DO Unavailable Unavailable WALKER-NORBERT, SHAWN DO Unavailable Unavailable WALKER-NORBERT, SHAWN DO Unavailable Unavailable WALKER-NORBERT, SHAWN DO Unavailable Unavailable WALKER-NORBERT, SHAWN DO Unavailable Unavailable WALKER-NORBERT, SHAWN DO Unavailable Unavailable WALKER-NORBERT, SHAWN DO Unavailable Unavailable WALKER-NORBERT, SHAWN DO Unavailable Unavailable WALKER-NORBERT, SHAWN DO Unavailable Unavailable WALKER-NORBERT, SHAWN DO Unavailable Unavailable WALKER-NORBERT, SHAWN DO Unavailable Unavailable WALKER-NORBERT, SHAWN DO Unavailable Unavailable WALKER-NORBERT, SHAWN DO Unavailable Unavailable WALKER-NORBERT, HSAWN DO Unavailable Unavailable WALKER-NORBERT, SHAWN DO Unavailable Unavailable WALKER-NORBERT, SHAWN DO Unavailable Unavailable WALKER-NORBERT, SHAWN DO Unavailable Unavailable WALKER-NORBERT, SHAWN DO Unavailable Unavailable WALKER-NORBERT, SHAWN DO Unavailable Unavailable WALKER-NORBERT, SHAWN DO Unavailable Unavailable WALKER-NORBERT, SHAWN DO Unavailable Unavailable WALKER-NORBERT, SHAWN DO Unavailable Unavailable WALKER-NORBERT, SHAWN DO Unavailable Unavailable WALKER-NORBERT, SHAWN DO Unavailable Unavailable WALKER-NORBERT, SHAWN DO Unavailable Unavailable WALKER-NORBERT, SHAWN DO Unavailable Unavailable WALKER-NORBERT, SHAWN DO Unavailable Unavailable WALKER-NORBERT, SHAWN DO Unavailable Unavailable WALKER-NORBERT, SHAWN DO Unavailable Unavailable WALKER-NORBERT, SHAWN DO Unavailable Unavailable WALKER-NORBERT, SHAWN DO Unavailable Unavailable WALKER-NORBERT, SHAWN DO Unavailable Unavailable WALKER-NORBERT, SHAWN DO Unavailable Unavailable WALKER-NORBERT, SHAWN DO Unavailable Unavailable WALKER-NORBERT, SHAWN DO Unavailable Unavailable WALKER-NORBERT, SHAWN DO Unavailable Unavailable WALKER-NORBERT, SHAWN DO Unavailable Unavailable WALKER-NORBERT, SHAWN DO Unavailable Unavailable WALKER-NORBERT, SHAWN DO Unavailable Unavailable WALKER-NORBERT, SHAWN DO Unavailable Unavailable WALKER-NORBERT, SHAWN DO Unavailable Unavailable WALKER-NORBERT, SHAWN DO Unavailable Unavailable WALKER-NORBERT, SHAWN DO Unavailable Unavailable WALKER-NORBERT, SHAWN DO Unavailable Unavailable WALKER-NORBERT, SHAWN DO Unavailable Unavailable WALKER-NORBERT, SHAWN DO Unavailable Unavailable WALKER-NORBERT, SHAWN DO Unavailable Unavailable WALKER-NORBERT, SHAWN DO Unavailable Unavailable WALKER-NORBERT, SHAWN DO Unavailable Unavailable WALKER-NORBERT, SHAWN DO Unavailable Unavailable WALKER-NORBERT, SHAWN DO Unavailable Unavailable WALKER-NORBERT, SHAWN DO Unavailable Unavailable WALKER-NORBERT, SHAWN DO Unavailable Unavailable WALKER-NORBERT, SHAWN DO Unavailable Unavailable WALKER-NORBERT, SHAWN DO Unavailable Unavailable WALKER-NORBERT, SHAWN DO Unavailable Unavailable WALKER-NORBERT, SHAWN DO Unavailable Unavailable WALKER-NORBERT, SHAWN DO Unavailable Unavailable WALKER-NORBERT, SHAWN DO Unavailable Unavailable WALKER-NORBERT, SHAWN DO Unavailable Unavailable WALKER-NORBERT, SHAWN DO Unavailable Unavailable WALKER-NORBERT, SHAWN DO Unavailable Unavailable WALKER-NORBERT, SHAWN DO Unavailable Unavailable WALKER-NORBERT, SHAWN DO Unavailable Unavailable WALKER-NORBERT, SHAWN DO Unavailable Unavailable WALKER-NORBERT, SHAWN DO Unavailable Unavailable WALKER-NORBERT, SHAWN DO Unavailable Unavailable WALKER-NORBERT, SHAWN DO Unavailable Unavailable WALKER-NORBERT, SHAWN DO Unavailable Unavailable WALKER-NORBERT, SHAWN DO Unavailable Unavailable WALKER-NORBERT, SHAWN DO Unavailable Unavailable WALKER-NORBERT, SHAWN DO Unavailable Unavailable WALKER-NORBERT, SHAWN DO Unavailable Unavailable WALKER-NORBERT, SHAWN DO Unavailable Unavailable WALKER-NORBERT, SHAWN DO Unavailable Unavailable WALKER-NORBERT, SHAWN DO Unavailable Unavailable WALKER-NORBERT, SHAWN DO Unavailable Unavailable WALKER-NORBERT, SHAWN DO Unavailable Unavailable WALKER-NORBERT, SHAWN DO Unavailable Unavailable WALKER-NORBERT, SHAWN DO Unavailable Unavailable WALKER-NORBERT, SHAWN DO Unavailable Unavailable WALKER-NORBERT, SHAWN DO Unavailable Unavailable WALKER-NORBERT, SHAWN DO Unavailable Unavailable Re-disclosure Warning The records that you are about to access may contain information from federally-assisted alcohol or drug abuse programs. If such information is present, then the following federally mandated warning applies: This information has been disclosed to you from records protected by federal confidentiality rules (42 CFR part 2). The federal rules prohibit you from making any further disclosure of this information unless further disclosure is expressly permitted by the written consent of the person to whom it pertains or as otherwise permitted by 42 CFR part 2. A general authorization for the release of medical or other information is NOT sufficient for this purpose. The Federal rules restrict any use of the information to criminally investigate or prosecute any alcohol or drug abuse patient.The records that you are about to access may contain highly sensitive health information, the redisclosure of which is protected by Article 27-F of the [facility] Public Health law. If you continue you may have access to information: Regarding HIV / AIDS; Provided by facilities licensed or operated by the [facility] Office of Mental Health; or Provided by the [facility] Office for People With Developmental Disabilities. If such information is present, then the following [facility] mandated warning applies: This information has been disclosed to you from confidential records which are protected by state law. State law prohibits you from making any further disclosure of this information without the specific written consent of the person to whom it pertains, or as otherwise permitted by law. Any unauthorized further disclosure in violation of state law may result in a fine or halfway sentence or both. A general authorization for the release of medical or other information is NOT sufficient authorization for further disc losure. Family History Family Member Name Family Member Gender Family Member Status Date o f Status Description Data Source(s) Unknown Male Problem 08/25/2018 12:00:00 AM EDT [facility] Encounters Encounter Providers Location Date Indications Data Source(s ) Outpatient Attender: EDDY Bhat/Gab/Lukas/Rein dl 08/16/2021 09:00:00 AM EDT [facility] ([facility] Outpatient Attender: SHAWN JANG DO [facility] 08/15/2021 09:20:00 AM EDT [facility] ([facility]) Outpatient Attender: Ignacio ALCARAZ [facility] 07/26/2021 09:00:00 AM EDT [facility] ([facility]) Outpatient 07/23/2021 12:00:00 AM EDT [facility] [address] [address] 07/17/2021 12:00:00 AM EDT eCW1 ([facility]) [place] [address] [address] 07/13/2021 12:00:00 AM EDT eCW1 ([facility]) [place] [address] [address] 07/13/2021 12:00:00 AM EDT eCW1 ([facility]) Outpatient Attender: SHAWN JANG DO [facility] 06/14/2021 11:20:00 AM EDT [facility] ([facility]) [place] [address] [address] 05/30/2021 12:00:00 AM EDT eCW1 ([facility]) Outpatient Attender: SHAWN JANG DO [facility] 05/28/2021 02:40:00 PM EDT [facility] ([facility]) [place] [address] [address] 05/13/2021 12:00:00 AM EDT eCW1 ([facility]) Outpatient Attender: Ignacio ALCARAZ [facility] 04/24/2021 09:00:00 AM EDT [facility] ([facility]) [place] [address] [address] 04/16/2021 12:00:00 AM EDT eCW1 ([facility]) Outpatient Attender: SANDER CHARLES MDReferrer: Ignacio ALCARAZ 03/14/2021 09:52:02 AM EDT [facility] Recurring Patient Attender: Rene Hendricksonleticia MDReferrer: Ignacio ALCARAZ 03/14/2021 08:51:33 AM EDT [facility] Outpatient Attender: Rene Conor MDReferrer: Ignacio ALCARAZ 02/13/2021 12:28:56 PM EDT [facility] Recurring Patient Attender: Rene Conor MDReferrer: Ignacio ALCARAZ 02/13/2021 11:26:43 AM EDT [facility] Rec[facility]ring Patient Attender: Rene Conor MDReferrer: Ignacio ALCARAZ 02/07/2021 11:05:59 AM EDT [facility] Rec[facility]ring Patient Referrer: Ignacio ALCARAZ 02/06/2021 04:38:02 PM EDT [facility] Outpatient Attender: FLORINA RUIZ NPReferrer: SHAWN DEWITT DO 01/24/2021 10:15:40 PM EDT [facility] Outpatient Attender: Ignacio ALCARAZ [facility] 01/22/2021 09:30:00 AM EDT [facility] ([facility]) Recurring Patient Referrer: Ignacio ALCARAZ 01/19/2021 09:34:02 AM EDT [facility] Recurring Patient Referrer: Ignacio ALCARAZ 01/09/2021 09:48:56 AM EDT [facility] Outpatient Attender: Ignacio ALCARAZ [facility] 01/02/2021 03:00:00 PM EST [facility] ([facility]) Outpatient Attender: TEETEE ARAIZA MDReferrer: SHAWN PHOENIX DO 11/30/2020 08:01:29 AM EST [facility] Recurring Patient Referrer: Ignacio ALCARAZ 11/29/2020 12:48:26 PM EST [facility] Recurring Patient Referrer: Ignacio ALCARAZ 11/29/2020 12:32:20 PM EST [facility] Recurring Patient Referrer: Ignacio ALCARAZ 10/24/2020 11:37:02 AM EST [facility] Recurring Patient Referrer: Ignacio ALCARAZ 10/24/2020 11:30:53 AM EST [facility] Outpatient Attender: Ignacio ALCARAZ [facility] 10/23/2020 08:40:00 AM EST [facility] ([facility]) Outpatient Attender: Elyse Bhat/Gab/Lukas/R eindl 09/04/2020 08:30:00 AM EST [facility] ([facility]) Outpatient Attender: Fay Bhat/Gab/Lukas/ Reindl 07/27/2020 09:15:00 AM EDT [facility] ([facility]) Outpatient Attender: Ignacio ALCARAZ [facility] 07/24/2020 10:30:00 AM EDT [facility] ([facility]) Immunizations Vaccine Date Status Description Data Source(s) New in 2012. IIV4 07/26/2021 09:44:00 AM EDT completed [facility] ([facility]) COVID-19 VACCINE Moderna 02/05/2021 12:00:00 AM EDT completed [facility] Vaccine Series Complete: YESThis Data wa s Submitted to [facility] Via [employer]. COVID-19 VACCINE, MRNA-1273, LNP-S (MODERNA)/PF 02/05/2021 1 2:00:00 AM EDT completed [facility] COVID-19 VACCINE Moderna 01/04/2021 12:00:00 AM EST completed [facility] Vaccine Series Complete: NOThis Data was Submitted to [facility] Via [employer]. COVID-19 VACCINE, MRNA-1273, LNP-S (MODERNA)/PF 01/04/2021 1 2:00:00 AM EST completed [facility] Medications Medication Brand Name Start Date Product Form Dose Route Admi nistrative Instructions Pharmacy Instructions Status Indications Reaction Description Data Source(s) 75 mg 08/22/2021 12:00:00 AM EDT tablet 30 TAKE ONE TABLET BY MOUTH EVERY DAY TAKE ONE TABLET BY MOUTH EVERY DAY SOLD: 08/28/2021 [facility] atorvastatin 20 MG Oral Tablet ATORVASTATIN CALCIUM 08/22/2021 1 2:00:00 AM EDT tablet 90 TAKE ONE TABLET BY MOUTH EVERY E VENING TAKE ONE TABLET BY MOUTH EVERY EVENING SOLD: 08/28/2021 [facility] 0.5 mg 08/22/2021 12:00:00 AM EDT tablet 60 TAKE ONE TABLET BY MOUTH TWICE A DAY , MAXIMUM DAILY DOSE = 2 TABLETS TAKE ONE TABLET BY MOUTH TWICE A DAY , MAXIMUM DAILY DOSE = 2 TABLETS SOLD: 08/28/2021 [facility] MAGNESIUM CITRATE 08/16/2021 12:00:00 AM EDT solution 296 DRINK ONE 10 OZ BOTTLE (GREEN OR CLEAR ONLY) USE FOR ADDITIONAL PREP AT 2-3 DAYS BEFORE PROCEDURE DRINK ONE 10 OZ BOTTLE (GREEN OR CLEAR O NLY) USE FOR ADDITIONAL PREP AT 2-3 DAYS BEFORE PROCEDURE SOLD: 08/16/2021 [facility] POLYETHYLENE GLYCOL 3350 142 MG/ML Oral Solution [Miralax] M iralax 08/16/2021 12:00:00 AM EDT active M [facility] ([facility]) 17 gram/dose 08/16/2021 12:00:00 AM EDT powder 510 TAKE 17 GRAMS ONCE A DAY TAKE 17 GRAMS ONCE A DAY SOLD: 08/20/2021 [facility] magnesium citrate 58.2 MG/ML Oral Solution Magnesium Citrate 08/16/2021 12:00:00 AM EDT active [facility] ([facility]) POLYETHYLENE GLYCOL 3350 142 MG/ML Oral Solution [Miralax] M iralax 08/16/2021 12:00:00 AM EDT active M [facility] ([facility]) 75 mg 07/18/2021 12:00:00 AM EDT tablet 30 TAKE ONE TABLET BY MOUTH EVERY DAY TAKE ONE TABLET BY MOUTH EVERY DAY SOLD: 07/23/2021 [facility] KAYDEN Neoprene Wrist Brace UNK 07/17/2021 12:00:00 AM EDT active KAYDEN Neoprene Wrist Brace eCW1 ([facility]) KAYDEN Neoprene Wrist Brace UNK 07/17/2021 12:00:00 AM EDT active KAYDEN Neoprene Wrist Brace eCW1 ([facility]) 0.5 mg 07/10/2021 12:00:00 AM EDT tablet 60 TAKE ONE TABLET BY MOUTH TWICE A DAY MAXIMUM DAILY DOSE = TWO TABLETS TAKE ONE TABLET BY MOUTH TWICE A DAY MAXIMUM DAILY DOSE = TWO TABLETS SOLD: 07/12/2021 [facility] 500 mg 06/17/2021 12:00:00 AM EDT tablet 20 TAKE ONE TABLET BY MOUTH TWO TIMES A DAY TAKE ONE TABLET BY MOUTH TWO TIMES A DAY SOLD: 06/17/2021 [facility] Metronidazole 500 MG Oral Tablet METRONIDAZOLE 06/17/2021 12:0 0:00 AM EDT tablet 30 TAKE ONE TABLET BY MOUTH EVERY 8 HOURS FOR 10 DAYS TAKE ONE TABLET BY MOUTH EVERY 8 HOURS FOR 10 DAYS SOLD: 06/17/2021 [facility] 75 mg 06/15/2021 12:00:00 AM EDT tablet 30 TAKE ONE TABLET BY MOUTH EVERY DAY TAKE ONE TABLET BY MOUTH EVERY DAY SOLD: 06/17/2021 [facility] Zolpidem tartrate 10 MG Oral Tablet Zolpidem Tartrate 05/27 12:00:00 AM EDT active [facility] ([facility]) 10 mg 06/14/2021 12:00:00 AM EDT tablet 30 TAKE ONE TABLET BY MOUTH EVERY DAY AT BEDTIME NEEDED MAXIMUM DAILY DOSE = ONE TABLET TAKE ONE TABLET BY MOUTH EVERY DAY AT BEDTIME NEEDED MAXIMUM DAILY DOSE = ONE TABLET SOLD: 06/17/2021 [facility] 40 mg 05/29/2021 12:00:00 AM EDT capsule,delayed release (DR/EC) 90 TAKE ONE CAPSULE BY MOUTH EVERY DAY TAKE ONE CAPSULE BY MOUTH EVERY DAY SOLD: 05/30/2021 [facility] Omeprazole 40 MG Delayed Release Oral Capsule Omeprazole 05/28/2021 12:00:00 AM EDT ORAL active [facility] ([facility]) ferrous sulfate 325 MG Oral Tablet Ferrous Sulfate 325 (65 Fe) MG Ferrous Sulfate 325 (65 Fe) MG 05/13/2021 12:00:00 AM EDT 1.0 {tablet} active Ferrous Sulfate 325 (65 Fe) MG eCW1 ([facility]) ferrous sulfate 325 MG Oral Tablet Ferrous Sulfate 325 (65 Fe) MG Ferrous Sulfate 325 (65 Fe) MG 05/13/2021 12:00:00 AM EDT 1.0 {tablet} active Ferrous Sulfate 325 (65 Fe) MG eCW1 ([facility]) ferrous sulfate 325 MG Oral Tablet Ferrous Sulfate 325 (65 Fe) MG Ferrous Sulfate 325 (65 Fe) MG 05/13/2021 12:00:00 AM EDT 1.0 {tablet} active Ferrous Sulfate 325 (65 Fe) MG eCW1 ([facility]) ferrous sulfate 325 MG Oral Tablet Ferrous Sulfate 325 (65 Fe) MG Ferrous Sulfate 325 (65 Fe) MG 05/13/2021 12:00:00 AM EDT 1.0 {tablet} active Ferrous Sulfate 325 (65 Fe) MG eCW1 ([facility]) 75 mg 05/07/2021 12:00:00 AM EDT tablet 30 TAKE ONE TABLET BY MOUTH EVERY DAY TAKE ONE TABLET BY MOUTH EVERY DAY SOLD: 05/07/2021 [facility] 0.5 mg 05/06/2021 12:00:00 AM EDT tablet 60 TAKE ONE TABLET BY MOUTH TWICE A DAY MAXIMUM DAILY DOSE = TWO TABLETS TAKE ONE TABLET BY MOUTH TWICE A DAY MAXIMUM DAILY DOSE = TWO TABLETS SOLD: 05/06/2021 [facility] 5 mg 05/06/2021 12:00:00 AM EDT tablet 30 TAKE ONE TABLET BY MOUTH EVERY DAY AT BEDTIME NEEDED MAXIMUM DAILY DOSE = ONE TABLET TAKE ONE TABLET BY MOUTH EVERY DAY AT BEDTIME NEEDED MAXIMUM DAILY DOSE = ONE TABLET SOLD: 05/06/2021 [facility] Zolpidem tartrate 5 MG Oral Tablet Zolpidem Tartrate 05/05/2021 12:00:00 AM EDT completed [facility] ([facility]) Acetaminophen 325 MG / Hydrocodone Bitartrate 5 MG Ora l Tablet 5-325 mg HYDROCODONE/ACETAMINOPHEN 05/03/2021 12:00:00 AM EDT tablet 60 TAKE ONE TABLET BY MOUTH EVERY 12 HOURS NEEDED FOR PAIN , MAXIMUM DAILY DOSE = 2 TABLETS TAKE ONE TABLET BY MOUTH EVERY 12 HOURS NEEDED FOR PAIN , MAXIMUM DAILY DOSE = 2 TABLETS SOLD: 05/06/2021 [facility] 10 mg 04/27/2021 12:00:00 AM EDT tablet 90 TAKE ONE TABLET BY MOUTH EVERY DAY TAKE ONE TABLET BY MOUTH EVERY DAY SOLD: 05/01/2021 [facility] 10 mg 04/27/2021 12:00:00 AM EDT tablet 90 TAKE ONE TABLET BY MOUTH EVERY DAY TAKE ONE TABLET BY MOUTH EVERY DAY SOLD: 07/23/2021 [facility] Acetaminophen 325 MG / Hydrocodone Bitartrate 5 MG Ora l Tablet 5-325 mg HYDROCODONE/ACETAMINOPHEN 03/14/2021 12:00:00 AM EDT tablet 60 TAKE ONE TABLET BY MOUTH EVERY 12 HOURS NEEDED FOR PAIN MAXIMUM DAILY DOSE = TWO TABLETS TAKE ONE TABLET BY MOUTH EVERY 12 HOURS NEEDED FOR PAIN MAXIMUM DAILY DOSE = TWO TABLETS SOLD: 03/19/2021 [facility] 75 mg 03/12/2021 12:00:00 AM EDT tablet 30 TAKE ONE TABLET BY MOUTH EVERY DAY TAKE ONE TABLET BY MOUTH EVERY DAY SOLD: 03/19/2021 [facility] 10 mg 03/12/2021 12:00:00 AM EDT tablet 30 TAKE ONE TABLET BY MOUTH EVERY DAY AT BEDTIME NEEDED, MAXIMUM DAILY DOSE = 1 TAKE ONE TABLET BY MOUTH EVERY DAY AT BEDTIME NEEDED, MAXIMUM DAILY DOSE = 1 SOLD: 03/19/2021 [facility] 0.5 mg 02/02/2021 12:00:00 AM EDT tablet 60 TAKE ONE TABLET BY MOUTH TWICE A DAY , MAXIMUM DAILY DOSE = 2 TABLETS TAKE ONE TABLET BY MOUTH TWICE A DAY , MAXIMUM DAILY DOSE = 2 TABLETS SOLD: 02/05/2021 [facility] 75 mg 02/02/2021 12:00:00 AM EDT tablet 30 TAKE ONE TABLET BY MOUTH EVERY DAY TAKE ONE TABLET BY MOUTH EVERY DAY SOLD: 02/05/2021 [facility] 5-325 mg 01/24/2021 12:00:00 AM EDT tablet 14 TAKE ONE TABLET BY MOUTH EVERY 12 HOURS NEEDED FOR PAIN MAXIMUM DAILY DOSE = TWO TABLETS TAKE ONE TABLET BY MOUTH EVERY 12 HOURS NEEDED FOR PAIN MAXIMUM DAILY DOSE = TWO TABLETS SOLD: 01/27/2021 [facility] 75 mg 2021 12:00:00 AM EST tablet 30 TAKE ONE TABLET BY MOUTH EVERY DAY TAKE ONE TABLET BY MOUTH EVERY DAY SOLD: 01/02/2021 [facility] atorvastatin 20 MG Oral Tablet ATORVASTATIN CALCIUM 12/05/2020 1 2:00:00 AM EST tablet 30 TAKE ONE TABLET BY MOUTH EVERY E VENING TAKE ONE TABLET BY MOUTH EVERY EVENING SOLD: 05/07/2021 [facility] atorvastatin 20 MG Oral Tablet ATORVASTATIN CALCIUM 12/05/2020 1 2:00:00 AM EST tablet 30 TAKE ONE TABLET BY MOUTH EVERY E VENING TAKE ONE TABLET BY MOUTH EVERY EVENING SOLD: 03/19/2021 [facility] atorvastatin 20 MG Oral Tablet ATORVASTATIN CALCIUM 12/05/2020 1 2:00:00 AM EST tablet 30 TAKE ONE TABLET BY MOUTH EVERY E VENING TAKE ONE TABLET BY MOUTH EVERY EVENING SOLD: 07/23/2021 [facility] atorvastatin 20 MG Oral Tablet ATORVASTATIN CALCIUM 12/05/2020 1 2:00:00 AM EST tablet 30 TAKE ONE TABLET BY MOUTH EVERY E VENING TAKE ONE TABLET BY MOUTH EVERY EVENING SOLD: 02/05/2021 [facility] atorvastatin 20 MG Oral Tablet ATORVASTATIN CALCIUM 12/05/2020 1 2:00:00 AM EST tablet 30 TAKE ONE TABLET BY MOUTH EVERY E VENING TAKE ONE TABLET BY MOUTH EVERY EVENING SOLD: 12/08/2020 [facility] 75 mg 12/05/2020 12:00:00 AM EST tablet 30 TAKE ONE TABLET BY MOUTH EVERY DAY TAKE ONE TABLET BY MOUTH EVERY DAY SOLD: 12/08/2020 [facility] atorvastatin 20 MG Oral Tablet ATORVASTATIN CALCIUM 12/05/2020 1 2:00:00 AM EST tablet 30 TAKE ONE TABLET BY MOUTH EVERY E VENING TAKE ONE TABLET BY MOUTH EVERY EVENING SOLD: 06/21/2021 [facility] clopidogrel 75 MG Oral Tablet Clopidogrel Bisulfate 12/04/2020 1 2:00:00 AM EST active [facility] ( [facility]) 0.5 mg 12/04/2020 12:00:00 AM EST tablet 60 TAKE ONE TABLET BY MOUTH TWICE A DAY, MAXIMUM DAILY DOSE = 2 TAKE ONE TABLET BY MOUTH TWICE A DAY, SAMI FERRIS DAILY DOSE = 2 SOLD: 12/08/2020 [facility] 75 mg 11/01/2020 12:00:00 AM EST tablet 30 TAKE ONE TABLET BY MOUTH EVERY DAY TAKE ONE TABLET BY MOUTH EVERY DAY SOLD: 11/06/2020 [facility] Acetaminophen 325 MG / Hydrocodone Bitartrate 5 MG Ora l Tablet Hydrocodone Bitartrate/Acetaminophen 10/23/2020 12:00:00 AM EST ORAL active [facility] ([facility]) 5-325 mg 10/23/2020 12:00:00 AM EST tablet 14 TAKE ONE TABLET BY MOUTH EVERY 12 HOURS NEEDED FOR PAIN, MAXIMUM DAILY DOSE = TWO TABLETS TAKE ONE TABLET BY MOUTH EVERY 12 HOURS NEEDED FOR PAIN, MAXIMUM DAILY DOSE = TWO TABLETS SOLD: 10/30/2020 [facility] 0.5 mg 10/07/2020 12:00:00 AM EST tablet 60 TAKE ONE TABLET BY MOUTH TWICE A DAY, MAXIMUM DAILY DOSE = TWO TABLETS TAKE ONE TABLET BY MOUTH TWICE A DAY, MAXIMUM DAILY DOSE = TWO TABLETS SOLD: 10/07/2020 [facility] 10 mg 09/25/2020 12:00:00 AM EST tablet 30 TAKE ONE TABLET BY MOUTH EVERY DAY TAKE ONE TABLET BY MOUTH EVERY DAY SOLD: 02/05/2021 [facility] 10 mg 09/25/2020 12:00:00 AM EST tablet 30 TAKE ONE TABLET BY MOUTH EVERY DAY TAKE ONE TABLET BY MOUTH EVERY DAY SOLD: 03/19/2021 [facility] 10 mg 09/25/2020 12:00:00 AM EST tablet 90 TAKE ONE TABLET BY MOUTH EVERY DAY TAKE ONE TABLET BY MOUTH EVERY DAY SOLD: 09/28/2020 [facility] 10 mg 09/25/2020 12:00:00 AM EST tablet 30 TAKE ONE TABLET BY MOUTH EVERY DAY TAKE ONE TABLET BY MOUTH EVERY DAY SOLD: 01/02/2021 [facility] 5-325 mg 08/31/2020 12:00:00 AM EST tablet 10 TAKE 1 TABLET BY MOUTH THREE TIMES A DAY NEEDED FOR PAIN, MAXIMUM DAILY DOSE = THREE TABLETS TAKE 1 TABLET BY MOUTH THREE TIMES A DAY NEEDED FOR PAIN, MAXIMUM DAILY DOSE = THREE TABLETS SOLD: 09/01/2020 [facility] 10 mg 08/30/2020 12:00:00 AM EST tablet 20 TAKE ONE TABLET BY MOUTH EVERY 6 HOURS NEEDED FOR NAUSEA OR HEADACHE TAKE ONE TABLET BY MOUTH EVERY 6 HOURS A S NEEDED FOR NAUSEA OR HEADACHE SOLD: 08/31/2020 [facility] 10 mg 08/30/2020 12:00:00 AM EST tablet 49 TAKE 6 TABLETS BY MOUTH DAILY ON DAYS 1-3, THEN 5 DAILY ON DAYS 4-5, THEN 4 DAILY ON DAYS 6-7, THEN 3 DAILY ON DAYS 8-9, THEN 2 DAILY ON DAYS 10-11, THEN ONE DAILY ON DAYS 12-14 TAKE 6 TABLETS BY MOUTH DAILY ON DAYS 1-3, THEN 5 DAILY ON DAYS 4-5, THEN 4 DAILY ON DAYS 6-7, THEN 3 DAILY ON DAYS 8-9, THEN 2 DAILY ON DAYS 10-11, THEN ONE DAILY ON DAYS 12-14 SOLD: 08/31/2020 [facility] 75 mg 08/28/2020 12:00:00 AM EST tablet 30 TAKE ONE TABLET BY MOUTH EVERY DAY TAKE ONE TABLET BY MOUTH EVERY DAY SOLD: 10/06/2020 [facility] 10 mg 07/31/2020 12:00:00 AM EDT tablet 30 TAKE ONE TABLET BY MOUTH EVERY DAY AT BEDTIME NEEDED, MAXIMUM DAILY DOSE = ONE TABLET TAKE ONE TABLET BY MOUTH EVERY DAY AT BEDTIME NEEDED, MAXIMUM DAILY DOSE = ONE TABLET SOLD: 08/13/2020 [facility] 10 mg 07/31/2020 12:00:00 AM EDT tablet 30 TAKE ONE TABLET BY MOUTH EVERY DAY AT BEDTIME NEEDED, MAXIMUM DAILY DOSE = ONE TABLET TAKE ONE TABLET BY MOUTH EVERY DAY AT BEDTIME NEEDED, MAXIMUM DAILY DOSE = ONE TABLET SOLD: 10/07/2020 [facility] Zolpidem tartrate 10 MG Oral Tablet Zolpidem Tartrate 06/28 12:00:00 AM EDT active [facility] ([facility]) 15 mg 05/31/2020 12:00:00 AM EDT tablet 30 TAKE ONE TABLET BY MOUTH EVERY DAY NEEDED TAKE ONE TABLET BY MOUTH EVERY DAY NEEDED SOLD: 08/13/2020 [facility] 0.05 % 05/22/2020 12:00:00 AM EDT shampoo 118 APPLY TO SCALP DAILY UNTIL RASH RESOLVES APPLY TO SCALP DAILY UNTIL RASH RESOLVES SOLD: 05/03/2021 [facility] 0.05 % 05/22/2020 12:00:00 AM EDT shampoo 118 APPLY TO SCALP DAILY UNTIL RASH RESOLVES APPLY TO SCALP DAILY UNTIL RASH RESOLVES SOLD: 12/08/2020 [facility] Insurance Providers Payer name Policy type / Coverage type Policy ID Covered libertarian ID Covered libertarian's relationship to donis Policy Donis Plan Information [facility] SDI-Solution [id number] [employer] Commercial [id number] [place] [facility] Commercial [id number] [facility] [id number] [facility] Community Plan Medigap Part B [id number] Self [facility] Community Plan Medigap Part B [id number] Self [id number] [employer] COMM[employer]ITY [employer]AN MCDHMO [id number] SP [id number] [employer] COMMUNITY PLAN MCDHMO [id number] SP [id number] [facility] Comm Plan Medicaid F [id number] SELF [id number] [employer] COMMUNITY PLAN MCDHMO [id number] SP [id number] [facility] I [id number] Self [id number] [facility] Community Plan Commercial [id number] Self [id number] [facility] Health Maintenance Organization (HMO) [id number] Self [id number] [facility] Community Plan Commercial [id number] Self [id number] [facility] Health Maintenance Organization (HMO) [id number] Self [id number] [facility] Health Maintenance Organization (HMO) [id number] Self [id number] [facility] Community Plan Commercial [id number] Self [id number] [facility] Community Plan Commercial [id number] Self [id number] [facility] [facility] [id number] Self [id number] [facility] Plan Commercial [id number] Self O UNAVAILABLE UNAVAILA BLE [facility] Plan-[place] Commercial [id number] Self UN COMMUNITY PLAN [id number] SP [id number] [facility] COMMUNITY PLAN [id number] [id number] SP [id number] [facility] O [id number] S [id number] [facility] Comm Plan Medicaid F [id number] SELF [id number] [facility] PLAN XIX [id number] 18 [id number] [facility] Plan Commercial [id number] Self [id number] [facility] O [id number] S [id number] [facility] Plan Commercial [id number] Self [id number] [facility] Plan Commercial [id number] Self [id number] Medicaid S UNAVAILABLE S UNAVAILA BLE Managed Care - [facility] P UNAVAILABLE S UNAVAILABLE Problems, Conditions, and Diagnoses Code Display Name Description Problem Type Effective Dates Data Source(s) M17.10 [id number] Osteoarthritis of kn ee, unspecified laterality, unspecified osteoarthritis type Problem 07/17/2021 12:00:00 AM EDT eCW1 ([facility]) R20.2 [id number] Paresthesias Problem 04/16/2021 12:00:00 AM EDT eCW1 ([facility]) M19.049 [id number] Osteoarthritis of [place], unspecified laterality, unspecified osteoarthritis type Problem 04/16/2021 12:00:00 AM EDT eCW1 ([facility]) Z79.01 Long-term current use of anticoagulant L janna-term current use of anticoagulant Problem 01/22/2021 12:00:00 AM EDT MEDENT ([facility]) 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) OFFICE OUTPATIENT VISIT 25 MINUTES 08/15/2021 12:00:00 AM EDT MEDENT ([facility]) PERIODIC PREVENTIVE MED EST PATIENT 40-64YRS 12:00:00 AM EDT MEDENT ([facility]) OFFICE OUTPATIENT VISIT 25 MINUTES 06/14/2021 12:00:00 AM EDT MED[facility] ([facility]) OFFICE OUTPATIENT VISIT 25 MINUTES 05/28/2021 12:00:00 AM EDT MED[facility] ([facility]) OFFICE OUTPATIENT VISIT 25 MINUTES 04/24/2021 12:00:00 AM EDT MED[facility] ([facility]) OFFICE OUTPATIENT VISIT 25 MINUTES 01/22/2021 12:00:00 AM EDT MED[facility] ([facility]) OFFICE OUTPATIENT VISIT 25 MINUTES 01/02/2021 12:00:00 AM EST MED[facility] ([facility]) Catheter Placement Arterial System First Order Thoracic/Brac hioce 08/28/2020 12:00:00 AM EST MED[facility] ([facility]) Non-Selective Catheter Placement Thoracic Aorta W/Angiograph y 08/28/2020 12:00:00 AM EST MED[facility] ([facility]) Transcatheter Placement Intravascular Stent Initial Artery 08/28/2020 12:00:00 AM EST MED[facility] ([facility]) Moderate Sedation Services; Same Phys Intl 15 Mins; PT >= 5 Years 08/28/2020 12:00:00 AM EST MED[facility] ([facility]) MRI Upper Extremity Any Joint 08/23/2020 12:00:00 AM E DT MEDENT ([facility]) RADEX SHOULDER COMPLETE MINIMUM 2 VIEWS 08/14/2020 12: 00:00 AM EDT MED[facility] ([facility]) X-Ray Hip Unilateral With Pelvis 2-3 Views 07/26/2020 12:00:00 AM EDT MEDENT ([facility]) Results ID Date Data Source [id number] 08/20/2021 10:59:00 AM EDT [facility]) Name Value Range Interpretation Code Description Data Nimisha rce(s) Supporting Document(s) Tissue transglutaminase IgA Ab [Units/volume] in Serum Labor atory test result 0-3 Normal (applies to non-numeric results) [facility]) Negative 0 - 3 Weak Positive 4 - 10 Positive >10 . Tissue Transglutaminase (tTG) has been identified as the endomysial antigen. Studies have demonstr- ated that endomysial IgA antibodies have over 99% specificity for gluten sensitive enteropathy. Performed at: RN - [facility] [address] [id number] Radio Journalist: Lakshmi Martin MD, Phone: [phone] ID Date Data Source [id number] 08/20/2021 10:59:00 AM EDT [facility] ([facility]) Name Value Range Interpretation Code Description Data Nimisha rce(s) Supporting Document(s) Free T4 0.89 ng/dL 0.76-1.46 Normal (applies to non-numeric resul ts) [facility] ([facility]) Thyroid Stimulating Hormone 0.719 uIU/ML 0.358-3.740 Norm al (applies to non- numeric results) [facility] ([facility]) ID Date Data Source [id number] 08/20/2021 10:59:00 AM EDT [facility] ([facility]) Name Value Range Interpretation Code Description Data Nimisha rce(s) Supporting Document(s) IgA [Mass/volume] in Serum or Plasma 145.0 mg/dL 70-400 Normal (applies to non- numeric results) [facility]) ID Date Data Source [id number] 08/20/2021 10:59:00 AM EDT MEDENT ([facility]) Name Value Range Interpretation Code Description Data Nimisha rce(s) Supporting Document(s) Creatinine For GFR 0.82 mg/dL 0.70-1.30 Normal (applies to non -numeric results) [facility] ([facility]) Glomerular Filtration Rate Laboratory test result Normal (applies to non- numeric results) [facility]) <content>Units are mL/min/1.73 m2</content>
<content></content>
<content>Chronic Kidney Disease Staging per NKF:</content>
<content></content>
<content>Stage I & II GFR >=60 Normal to Mildly Decreased</content>
<content>Stage III GFR 30- 59 Moderately Decreased</content>
<content>Stage IV GFR 15-29 Severely Decreased</content>
<content>Stage V GFR <15 Very Little GFR Left</content>
<content>ESRD GFR <15 on PASSENGER SERVICE MANAGER</content>
<content></content> ID Date Data Source [id number] 08/20/2021 10:59:00 AM EDT [facility] ([facility]) Name Value Range Interpretation Code Description Data Nimisha rce(s) Supporting Document(s) Urea nitrogen [Mass/volume] in Serum or Plasma 11 mg/dL 7 -18 Normal (applies to non-numeric results) [facility]) ID Date Data Source [id number] 08/13/2021 01:13:00 PM EDT [facility] ([facility] ) Name Value Range Interpretation Code Description Data Nimisha rce(s) Supporting Document(s) Carotid arteries - bilateral US.doppler Laboratory test result [facility] ([facility]) Upper extremity artery - bilateral US.doppler Laboratory test result [facility] ([facility]) ID Date Data Source [facility] Wrist, complete 07/03/2021 12:00:00 AM EDT eCW ([facility]) Name Value Range Interpretation Code Description Data Nimisha rce(s) Supporting Document(s) [facility] Wrist, complete eCW1 ([facility]) ID Date Data Source [facility] Knee, complete 07/03/2021 12:00:00 AM EDT eCW1 ([facility]) Name Value Range Interpretation Code Description Data Nimisha rce(s) Supporting Document(s) [facility] Knee, complete eCW1 ([facility]) ID Date Data Source [facility] Hand, complete 07/03/2021 12:00:00 AM EDT eCW1 ([facility]) Name Value Range Interpretation Code Description Data Nimisha rce(s) Supporting Document(s) [facility] Hand, complete eCW1 ([facility]) ID Date Data Source [id number] 06/16/2021 09:10:00 PM EDT MEDENT ([facility]) Name Value Range Interpretation Code Description Data Nimisha rce(s) Supporting Document(s) Laboratory test finding (navigational concept) 44.0 % 3 8.0-51.0 Normal (applies to non-numeric results) [facility] ([facility]) Laboratory test finding (navigational concept) 4.0 meq/L 3 .5-5.1 Normal (applies to non-numeric results) [facility]) Laboratory test finding (navigational concept) 99 mg/dL 7 0-105 Normal (applies to non-numeric results) [facility] ([facility]) Laboratory test finding (navigational concept) 139 meq/L 1 36-145 Normal (applies to non-numeric results) [facility] ([facility]) Laboratory test finding (navigational concept) 23.0 MM/L 2 3.0-27.0 Normal (applies to non-numeric results) [facility] ([facility]) Laboratory test finding (navigational concept) 4.7 mg/dL 4 .5-5.3 Normal (applies to non-numeric results) [facility] ([facility]) Laboratory test finding (navigational concept) 102 meq/L 9 8-109 Normal (applies to non-numeric results) [facility] ([facility]) Laboratory test finding (navigational concept) 12 mg/dL 8 -26 Normal (applies to non-numeric results) [facility] ([facility]) Laboratory test finding (navigational concept) 0.9 mg/dL 0 .6-1.3 Normal (applies to non-numeric results) [facility] ([facility]) ID Date Data Source [id number] 06/16/2021 09:02:00 PM EDT [facility] ([facility]) Name Value Range Interpretation Code Description Data Nimisha rce(s) Supporting Document(s) Ast/Sgot 19 U/L 7-37 Normal (applies to non-numeric resul ts) [facility] ([facility]) Alkaline Phosphatase 100 U/L 45-117 Normal (applies to non-num aron results) [facility] ([facility]) Bilirubin,Total 1.0 mg/dL 0.2-1.0 Normal (applies to non-numeric results) [facility] ([facility]) Alt/SGPT 23 U/L 12-78 Normal (applies to non-numeric resul ts) [facility] ([facility]) Bilirubin,Direct 0.2 mg/dL 0.0-0.2 Normal (applies to non-numeric results) [facility] ([facility]) Total Protein 6.8 GM/DL 6.4-8.2 Normal (applies to non-numeric re sults) [facility] ([facility]) Albumin 3.6 GM/DL 3.2-5.2 Normal (applies to non-numeric resul ts) [facility] ([facility]) Albumin/Globulin Ratio 1.1 Normal (applies to non-n umeric results) [facility] ([facility]) ID Date Data Source [id number] 06/16/2021 09:02:00 PM EDT [facility] ([facility]) Name Value Range Interpretation Code Description Data Nimisha rce(s) Supporting Document(s) White Blood Count 17.7 10 4.0-10.0 Above high normal [facility] ([facility]) A Pathologist review of this differentia l can help in the evaluation of a differential diagnosis. Please order a Pathologist Review (PERISM) if deemed necessary. Results are subject to change if a Pathologist Review is performed. Red Blood Count 4.78 10 4.30-6.10 Normal (applies to non-numeric results) [facility] ([facility]) Hematocrit 44.0 % 42.0-52.0 Normal (applies to non-numeric resul ts) [facility] ([facility]) Mean Corpuscular Volume 92.1 fl 80.0-96.0 Normal ( applies to non-numeric results) [facility] ([facility]) Hemoglobin 14.8 g/dL 13.5-17.5 Normal (applies to non-numeric resul ts) [facility] ([facility]) Mean Corpuscular HGB Conc 33.6 g/dL 32.0-36.5 Normal (applies to non-numeric results) [facility] ([facility]) Mean Corpuscular Hemoglobin 31.0 pg 27.0-33.0 Norm al (applies to non-numeric results) [facility] ([facility]) Neutrophils % 80.2 % 36.0-66.0 Above high normal MEDE NT ([facility]) Platelet Count, Automated 279 10 150-450 Normal (applies to non-numeric results) [facility] ([facility]) Red Cell Distribution Width 12.7 % 11.5-14.5 Norm al (applies to non-numeric results) [facility] ([facility]) [place] % 8.3 % 2.0-8.0 Above high normal [facility] ([facility]) Lymph % 10.0 % 24.0-44.0 Below low normal [facility] ( [facility]) Eos % 0.6 % 0.0-3.0 Normal (applies to non-numeric resul ts) [facility] ([facility]) Baso % 0.3 % 0.0-1.0 Normal (applies to non-numeric resul ts) [facility] ([facility]) Immature Granulocyte % 0.6 % 0-3.0 Normal (applies to non-n umeric results) [facility] ([facility]) Lymph # 1.8 10 1.5-5.0 Normal (applies to non-numeric resul ts) [facility] ([facility]) Nucleated Red Blood Cell % 0.0 % 0-0 Normal (applies to n on-numeric results) [facility] ([facility]) Neutrophils # 14.2 10 1.5-8.5 Above high normal MEDE NT ([facility]) [place] # 1.5 10 0.0-0.8 Above high normal [facility] ([facility]) Eos # 0.1 10 0.0-0.5 Normal (applies to non-numeric resul ts) [facility] ([facility]) Baso # 0.1 10 0.0-0.2 Normal (applies to non-numeric resul ts) [facility] ([facility]) ID Date Data Source [id number] 06/16/2021 09:02:00 PM EDT [facility] ([facility]) Name Value Range Interpretation Code Description Data Nimisha rce(s) Supporting Document(s) Lipase [Enzymatic activity/volume] in Serum or Plasma 128 U/L 73-393 Normal (applies to non-numeric results) [facility] ([facility]) ID Date Data Source [id number] 06/16/2021 08:57:00 PM EDT [facility] ([facility]) Name Value Range Interpretation Code Description Data Nimisha rce(s) Supporting Document(s) Appearance, Urine RFX Laboratory test result Nor mal (applies to non-numeric results) [facility] ([facility]) Specific [place] Ur Auto RFX 1.033 1.002-1.035 Nor mal (applies to non-numeric results) [facility] ([facility]) PH,Urine RFX 6.0 units 5.0-9.0 Normal (applies to non-numeric res ults) [facility] ([facility]) Color, Urine RFX Laboratory test result Normal ( applies to non-numeric results) [facility] ([facility]) Protein, Urine Auto RFX Laboratory test result N ormal (applies to non-numeric results) [facility] ([facility]) Glucose, Urine (Ua) Auto RFX Laboratory test result Normal (applies to non- numeric results) [facility] ([facility]) Bilirubin, Urine Auto RFX Laboratory test result Normal (applies to non- numeric results) [facility] ([facility]) Urobilinogen, Urine Auto RFX 0.2 mg/dL 0.0-2.0 Nor mal (applies to non-numeric results) [facility] ([facility]) Ketone, Urine Auto RFX Laboratory test result Above high n ormal [facility] ([facility]) Nitrite, Urine Auto RFX Laboratory test result N ormal (applies to non-numeric results) [facility] ([facility]) Leukocyte Esterase Ur Auto RFX Laboratory test result Normal (applies to non- numeric results) [facility] ([facility]) WBC, Urine Auto RFX 0 /HPF 0-3 Normal (applies to non-nume sara results) [facility] ([facility]) Blood, Urine Blood RFX Laboratory test result No rmal (applies to non-numeric results) [facility] ([facility]) Bacteria, Urine Auto RFX Laboratory test result Normal (applies to non-numeric results) [facility] ([facility]) Squam Epithelial Cell Ur Aurfx 0 /HPF 0-6 N ormal (applies to non-numeric results) [facility] ([facility]) RBC, Urine Auto RFX 2 /HPF 0-3 Normal (applies to non-nume sara results) [facility] ([facility]) Transitional Epithelial AU RFX Laboratory test result Normal (applies to non- numeric results) [facility] ([facility]) Mucus, Urine RFX Laboratory test result Normal ( applies to non-numeric results) [facility] ([facility]) Hyaline Cast, Urine Auto RFX 0 /LPF 0-1 Normal (appl ies to non-numeric results) [facility] ([facility]) ID Date Data Source [id number] 05/28/2021 03:53:00 PM EDT [facility]) Name Value Range Interpretation Code Description Data Nimisha rce(s) Supporting Document(s) Lipase [Enzymatic activity/volume] in Serum or Plasma 378 U/L 73-393 Normal (applies to non-numeric results) [facility] ([facility]) Amylase [Enzymatic activity/volume] in Serum or Plasma 55 U/L 25-115 Normal (applies to non-numeric results) [facility] ([facility]) ID Date Data Source [id number] 05/28/2021 03:53:00 PM EDT [facility]) Name Value Range Interpretation Code Description Data Nimisha rce(s) Supporting Document(s) Glucose, Fasting 101 mg/dL 70-100 Above high normal [facility]) Creatinine For GFR 0.86 mg/dL 0.70-1.30 Normal (applies to non -numeric results) [facility] ([facility]) Blood Urea Nitrogen 12 mg/dL 7-18 Normal (applies to non-nume sara results) [facility] ([facility]) Potassium Serum 4.2 meq/L 3.5-5.1 Normal (applies to non-numeric results) [facility] ([facility]) Glomerular Filtration Rate Laboratory test result Normal (applies to non- numeric results) [facility] ([facility]) <content>Units are mL/min/1.73 m2</content>
<content></content>
<content>Chronic Kidney Disease Staging per NKF:</content>
<content></content>
<content>Stage I & II GFR >=60 Normal to Mildly Decreased</content>
<content>Stage III GFR 30-59 Moderately Decreased</content>
<content>Stage IV GFR 15-29 Severely Decreased</content>
<content>Stage V GFR <15 Very Little GFR Left</content>
<content>ESRD GFR <15 on PASSENGER SERVICE MANAGER</content>
<content></content> Sodium Level 142 meq/L 136-145 Normal (applies to non-numeric res ults) [facility] ([facility]) Anion Gap 5 meq/L 8-16 Below low normal [facility] ( [facility]) Carbon Dioxide Level 30 meq/L 21-32 Normal (applies to non-num aron results) [facility] ([facility]) Chloride Level 107 meq/L 98-107 Normal (applies to non-numeric r esults) [facility] ([facility]) Calcium Level 9.1 mg/dL 8.8-10.2 Normal (applies to non-numeric re sults) [facility] ([facility]) Ast/Sgot 23 U/L 7-37 Normal (applies to non-numeric resul ts) [facility] ([facility]) Alt/SGPT 33 U/L 12-78 Normal (applies to non-numeric resul ts) [facility] ([facility]) Bilirubin,Total 0.4 mg/dL 0.2-1.0 Normal (applies to non-numeric results) [facility] ([facility]) Alkaline Phosphatase 83 U/L 45-117 Normal (applies to non-num aron results) [facility] ([facility]) Albumin 3.8 GM/DL 3.2-5.2 Normal (applies to non-numeric resul ts) [facility] ([facility]) Total Protein 6.5 GM/DL 6.4-8.2 Normal (applies to non-numeric re sults) [facility] ([facility]) Albumin/Globulin Ratio 1.4 Normal (applies to non-n umeric results) [facility] ([facility]) ID Date Data Source [id number] 05/28/2021 03:53:00 PM EDT [facility] ([facility]) Name Value Range Interpretation Code Description Data Nimisha rce(s) Supporting Document(s) Red Blood Count 4.40 10 4.30-6.10 Normal (applies to non-numeric results) [facility] ([facility]) Hemoglobin 13.7 g/dL 13.5-17.5 Normal (applies to non-numeric resul ts) [facility] ([facility]) White Blood Count 10.5 10 4.0-10.0 Above high normal [facility] ([facility]) Hematocrit 41.7 % 42.0-52.0 Below low normal [facility] ( [facility]) Mean Corpuscular Volume 94.8 fl 80.0-96.0 Normal ( applies to non-numeric results) [facility] ([facility]) Mean Corpuscular Hemoglobin 31.1 pg 27.0-33.0 Norm al (applies to non-numeric results) [facility] ([facility]) Mean Corpuscular HGB Conc 32.9 g/dL 32.0-36.5 Normal (applies to non-numeric results) [facility] Neutrophils % 73.4 % 36.0-66.0 Above high normal MED[facility] NT ([facility]) Platelet Count, Automated 254 10 150-450 Normal (applies to non-numeric results) [facility] ([facility]) Red Cell Distribution Width 12.2 % 11.5-14.5 Norm al (applies to non-numeric results) [facility] ([facility]) Lymph % 15.3 % 24.0-44.0 Below low normal [facility] ( [facility]) [place] % 7.9 % 2.0-8.0 Normal (applies to non-numeric resul ts) [facility] ([facility]) Eos % 2.4 % 0.0-3.0 Normal (applies to non-numeric resul ts) [facility] ([facility]) Nucleated Red Blood Cell % 0.0 % 0-0 Normal (applies to n on-numeric results) [facility] ([facility]) Immature Granulocyte % 0.3 % 0-3.0 Normal (applies to non-n umeric results) [facility] ([facility]) Baso % 0.7 % 0.0-1.0 Normal (applies to non-numeric resul ts) [facility] ([facility]) Lymph # 1.6 10 1.5-5.0 Normal (applies to non-numeric resul ts) [facility] ([facility]) Neutrophils # 7.7 10 1.5-8.5 Normal (applies to non-numeric re sults) [facility] ([facility]) Baso # 0.1 10 0.0-0.2 Normal (applies to non-numeric resul ts) [facility] ([facility]) [place] # 0.8 10 0.0-0.8 Normal (applies to non-numeric resul ts) [facility] ([facility]) Eos # 0.3 10 0.0-0.5 Normal (applies to non-numeric resul ts) [facility] ([facility]) ID Date Data Source [id number] 05/28/2021 03:53:00 PM EDT [facility] ([facility]) Name Value Range Interpretation Code Description Data Nimisha rce(s) Supporting Document(s) Thyroid Stimulating Hormone 0.901 uIU/ML 0.358-3.740 Norm al (applies to non- numeric results) [facility] ([facility]) Free T4 0.69 ng/dL 0.76-1.46 Below low normal [facility] ( [facility]) ID Date Data Source IRON (FE) 04/16/2021 12:00:00 AM EDT eCW1 ([facility]) Name Value Range Interpretation Code Description Data Nimisha rce(s) Supporting Document(s) [id number] IRON (FE) eCW1 ([facility]) ID Date Data Source VITAMIN B12 LEVEL 04/16/2021 12:00:00 AM EDT eCW1 ([facility]) Name Value Range Interpretation Code Description Data Nimisha rce(s) Supporting Document(s) [id number] VITAMIN B12 LEVEL eCW1 ([facility]) ID Date Data Source VITAMIN D 25-HYDROXY 04/16/2021 12:00:00 AM EDT eCW1 (Critical [facility] hospital) Name Value Range Interpretation Code Description Data Nimisha rce(s) Supporting Document(s) 30.4 30.0-100.0 TOTAL 25(OH) VITAMIN D eC W1 ([facility]) ID Date Data Source TSH 04/16/2021 12:00:00 AM EDT eCW1 ([facility]) Name Value Range Interpretation Code Description Data Nimisha rce(s) Supporting Document(s) 0.585 0.358-3.740 THYROID STIMULATING HORM ONE eCW1 ([facility]) ID Date Data Source PHOSPHOROUS LEVEL 04/16/2021 12:00:00 AM EDT eCW1 ([facility]) Name Value Range Interpretation Code Description Data Nimisha rce(s) Supporting Document(s) 3.5 2.5-4.9 PHOSPHORUS LEVEL eCW1 ([facility]) ID Date Data Source MAGNESIUM LEVEL 04/16/2021 12:00:00 AM EDT eCW1 ([facility]) Name Value Range Interpretation Code Description Data Nimisha rce(s) Supporting Document(s) 2.4 1.8-2.4 MAGNESIUM LEVEL eCW1 ([facility]) ID Date Data Source CPK CREATINE PHOSPHOKINASE 04/16/2021 12:00:00 AM EDT eCW1 ( [facility]) Name Value Range Interpretation Code Description Data Nimisha rce(s) Supporting Document(s) [id number] CPK CREATINE PHOSPHOKINASE eCW 1 ([facility]) ID Date Data Source [id number] 03/14/2021 09:52:02 AM EDT [facility]: Kip WaddellOB: 1960Provider: Dany CharlesRy: 03/14/2021 Reason For VisitKip Rojas is here today for bilat thumbs. Kip Rojas is an established patient here for a new problem. pt states extreme stiffness and pain in bilat thumbs. cannot do a squeezing motion. has been taking hydrocodone that was prescribed by PCP for his hip. Patient is working at this time at regular duty. AssessmentNew patient problem. Here for chief complaint bilateral thumb pain and weakness. 5-year-old male xxakj-aveh-logobveq reports pain in the thumbs bilaterally. Exacerbated by group program manager and pinch. No specific 1 injury. Left side greater than right.No new medications.Exam:Awake and alert, well-developed, well nourished and in no distress Patient is oriented x3, mood appropriate, gait normal, coordination normal, vascular status intact , skin is intact without breakdown or lesions.Bilateral upper extremities show full motion shoulder elbow wrist and hand.Prominence and tenderness basal joints of the thumbs bilaterally. Positive axial grind for crepitus and tenderness. 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 Discussed the nature of the medical condition. Discussed treatment options. Re viewed injection, split support, basal joint arthroplasty. X-rays reviewed at the bedside with the patient. Diagrammatically reviewed the basal joint arthroplasty. Patient's been think about it let us know how he likes to proceed. He has some lower extremity hip issues and will likely need hip replacement.This note was dictated using [employer] voice recognition software. A reasonable attempt was made to access the note for accuracy and grammatical correctness.Please contact us for any questions regarding the content of the above note.Sander Charles Jr, MD Plan X-Ray I Hand - 2 views (XRays were ordered, obtained and interpreted today in theoffice. Indication: pain/dysfunction.); Status:Complete; Done: 14Mar2021 Perform:SOS29; Due:28Mar2021; Last Updated By:Yimi Ramirez; 03/14/2021 9:06:22 AM;Ordered; For:Pain in both hands; Ordered By:Sander Charles;Laterality: : Bilateral Signatures Electronically signed by : Sander Charles M.D.; Mar 14 2021 9:52AM EST (Author) Name Value Range Interpretation Code Description Data Nimisha rce(s) Supporting Document(s) ID Date Data Source [id number] 02/13/2021 12:28:56 PM EDT [facility]: Kip WaddellOB: 1960Provider: Geovani PerdomoOS: 02/07/2021 Reason For VisitSOS Patient Intake: Kip Rojas is here today for New Left Hip. Kip had her second Covid vaccine on 02-05-21. Kip Rojas is a new patient. No recalled injury, c/o constant joint type of pain, can lay on left side comfortably, cant bed or dress w/o increased pain, is able to ski and do other recreational things, can be tender at times, uses a heating pad daily, uses Hydrocodone for joint pain PRN, no assistive devices, pain scale of 5 out of 10 most days. SOS Occupation and Work Status: Patient is working at this time at regular duty. AssessmentREASON FOR VISIT:Increasingly severe left hip pain. 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 He has had his COVID vaccines. Over the last several years, the pain in his left groin and thigh has become increasingly severe. Twisting and turning are especially bothe rsome. He was able to ski and do some recreational things as long as it didn't involve twisting or turning. He only uses a heating pad. He rarely uses Hydrocodone. He cannot use nonsteroidals because of a cardiac issue. PAST MEDICAL HISTORY:Please see intake; he has hyperlipidemia, anxiety, sleep apnea, coronary artery disease with an arterial stent placed. PHYSICAL EXAMINATION:He is 5' 8' and weighs 145 pounds. He is alert, awake and oriented. Appropriate mood and affect. His lower extremities have equal leg lengths. Pulses are fine. Sensory and motor intact. Passive motion of his right hip is full and painless. Left hip can flex to 90, extend to about +5. Internal and external rotation to 10 with pain on internal rotation. IMAGING: X-RAYS: AP pelvis and AP and lateral of his left hip, ordered, obtained and interpreted by me in the office today for pain, reveal osteoarthritis of the hip, osteophytes on the acetabulum, narrowing of the joint space; bone quality looks good. <OBX.5.1><OBX.5.1.1>IMPRESSION </OBX.5.1.1><OBX.5.1.2> PLAN: </OBX.5.1.2></OBX.5.1>Significant primary osteoarthritis of the left hip. He has had MRI scans which show degenerative changes in the acetabulum and femoral head, concurrent with his x-ray. He is going to make it through this summer. I offered him a shot, he is going to pass on that right now. We will reconvene at the end of May, reassess how his pain is and how disabled he is and then decide on the course of action. Plan<OBX.5.1><OBX.5.1.1> X-Ray I Hip-Uni </OBX.5.1.1><OBX.5.1.2> Pelvis - 2 or 3 views (XRays were ordered, obtained and interpreted</OBX.5.1.2></OBX.5.1>today in the office. Indication: pain/dysfunction.); Status:Complete; Done: 07Feb2021 Perform:SOS29; Due:21Feb2021; Last Updated By:Jovan Key; 02/07/2021 11:28:19 AM;Ordered; For:Pain of left hip; Ordered By:Rene Perdomo;Weight Bearing Status : Weight bearing Signatures Electronically signed by : Mulu Kinney, ; Feb 07 2021 12:28PM EST Electronically signed by : Rene Perdomo M.D.; Feb 13 2021 12:28PM EST Name Value Range Interpretation Code Description Data Nimisha rce(s) Supporting Document(s) ID Date Data Source [id number] 01/24/2021 10:15:40 PM EDT [facility]: Kip WaddellOB: 1960Provider: Madina RuizEsmeOS: 01/24/2021 Reason For VisitKip Rojas is here today for Left Shoulder. Kip had her first Covid vaccine on 01/08/21. Kip is scheduled to have her second Covid vaccine on 02/05/21. Kip Rojas is an established patient here for follow up. Other DOI/DOO: 03/2020. 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 The patient cannot tolerate NSAIDs. 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 History of Present IllnessDon returns for reevaluation of his left shoulder. He had an MRI that indicated impingement, AC joint arthritis and tendinosis to the supra and infraspinatus portions of the rotator cuff but no definite tearing. It is office exam 6 weeks ago, he was exhibiting symptoms of not only these findings but also adhesive capsulitis. He received a steroid injection and states that it was significantly helpful for his inflammatory symptoms and in fact his pain is now graded as a 1-2. His only issue is still some residual sleep disruption. Otherwise, he did not obtain formal physical therapy but did some online research in regards to proper exercises that he has been performing daily. As a result, he has noted almost full return of motion and is noting better strength. He states that he is not limited in his usual daily activities in regards to his shoulder at this time. If anything, he is complaining of more pain to the CMC joint of both thumbs. AssessmentSubacromial impingement of left shoulder, subsequent encounterPrimary osteoarthritis of the left shoulderTendinosis of the rotator cuff of the left sh oulder, subsequent encounter PlanPlan, Assessment and Recommendation(s) continue with current plan. continue with conservative treatment. Follow up as needed, if not improving, or getting worse. As noted, he is currently doing very well with almost complete resolution of the acute symptoms in regards to his shoulder. He will continue with proper exercising and continue to increase activities at his discretion. He will contact us for any questions, concerns or additional treatment options in the future. He was advised that if need be, the steroid injection could be repeated at 3 to 4-month intervals. He will set up a consultation appointment with the hand team in regards to his thumbs. This document was dictated and electronically signed using [employer] software. A reasonable attempt at proof reading has been made to minimize errors. Please call with any questions. Signatures Electronically signed by : Florina Ruiz NP; Jan 24 2021 1:17PM EST (Author) Electronically signed by : Teetee Araiza M.D.; Jan 24 2021 10:15PM EST Name Value Range Interpretation Code Description Data Nimisha rce(s) Supporting Document(s) ID Date Data Source [id number] 11/30/2020 08:01:29 AM EST [facility]: Kip JustinPerOB: 1960Provider: Jaime Araiza: 11/29/2020 Reason For VisitKip Rojas is here today for Left Shoulder. Kip Rojas is a new patient. Other DOI/DOO: 03/2020. 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 The patient has had a course of physical therapy for greater than 4 weeks. The patient has followed a home exercise program for greater than 4 weeks. Physical therapy and/or home exercise program has been effective. The patient has not had a course of NSAIDs for greater than 4 weeks. The patient cannot tolerate NSAIDs. The patient was notified that the office visit was recorded to enhance documentation accuracy. 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 History of Present IllnessCHIEF COMPLAINTLeft shoulder pain.HISTORY OF PRESENT ILLNESSThis is a 60-year-old uqfey-kihw-pxudtwek male who presents for an initial evaluation regarding his left shoulder. This is a second opinion evaluation from 08/23/2020. 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 His pain is aggravated by overhead activity. The patient affirms having difficulty sleeping due to the pain. He has done some physical therapy on his own regarding his shoulder, but has not attended formal physical therapy regarding his shoulder. The patient affirms taking meloxicam for his symptoms, but this was discontinued when he had a stent placed in his right arm. He has not received any cortisone injections to the shoulder. He denies any issues with his right shoulder.Medical history is positive for hip issues and right hand issues, for which he had arterial stent placement in his right arm. The patient is currently taking blood thinners. He has no known allergy to medications. 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 Results/Data OtherMRI of the left shoulder, images and report, per formed on 08/23/2020 [facility] were reviewed. These show what appears to be some tendinosis in the supraspinatus and infraspinatus tendons, but no full-thickness tearing. There is what appears to be some early chondromalacia of the glenohumeral joint, AC joint degenerative changes, and a lot of signal along the bicipital groove consistent with bicipital tendinosis. AssessmentASSESSMENT1. Left shoulder impingement.2. Left shoulder primary AC joint arthrosis. Plan Physical Therapy (SOS) - General Treatment Treatment Status: Complete Done:[id number] Ordered;For: Left shoulder pain; Ordered By: Teetee Araiza Performed: Order Comments: left shoulder impingement Due: [id number]; Last Updated By: Beatrice Santana; 11/29/2020 2:20:57 PMPT Protocol : Evaluate and treat as indicated, per protocol or as previously written.Duration: : Six WeeksPT Frequency : Two or three times a weekLaterality and Body Part : left shoulder Leyla patient presents with left shoulder pain that began 6 to 8 months ago. I reviewed with the patient their exam and imaging findings. He does have some impingement symptoms and tendinitis of the left shoulder. It was most likely aggravated by a traumatic event over the summer when he was working on his car. It is bothering him with overhead activity. It is starting to bother him with certain night activities. I explained the anatomy of the shoulder. We discussed their diagnosis as well as treatment options. I think he would benefit from conservative care including physical therapy, which was prescribed today. He can not take anti-inflammatories due to a recent stent procedure and is on anticoagulation, so we will avoid any anti-inflammatories. We will proceed with a subacromial injection into the left shoulder today. All questions were answer ed. He will follow up in 6 to 8 weeks. The patient understands and agrees with this plan.PROCEDUREAt this point since the patient is experiencing progressively worsening symptoms, an injection was recommended. The procedure was outlined fully. The risks and benefits of the injection were discussed with the patient in detail, including but not limited to: injury to nerve, artery or tendon, infection and the possibility of failure of a complete resolution of symptoms were outlined to the patient. Consent was obtained.Under sterile technique the left shoulder was prepped and draped in the usual sterile fashion and bony landmarks were palpated. The left shoulder was then injected with 80 mg of Depo- Medrol and 2 cc of lidocaine under sterile technique.The anticipated outcome, benefits and risks including but not limited to infection, failure to provide benefit and bleeding were discussed with the patient. I advised the patient that steroid injections are frequently used to provide relief for musculoskeletal pain and to aid in the diagnosis of musculoskeletal problems. These injection offers a variety of benefits and various potential risks associated with medication administered during the injection. I informed the patient that. Alternatives to this injection includes no treatment, use of rehabilitation and exercise, use of a different medication, either oral or injectable, and surgical intervention when appropriate. I advised the patient that the risks associated with this injection include: An allergic reaction to the medication, pain at the injection site, possible infection of the injection site, facial flushing and skin changes, temporary increase in blood sugar, tendon, muscle or nerve injury, avascular necrosis and that there may actually not be beneficial effect at all. Having discussed, benefits, alternatives, and potential risks of the injection, the patient elected to proceed with the procedure. The patient tolerated the procedure well. There was no injectable waste. Scribed by Jamie Vinson on 11/30/2020 at 02:00 AM for Teetee Araiza Signatures Electronically signed by : Jamie Vinson MA; Nov 30 2020 2:01AM EST (Author) Electronically signed by : Teetee Araiza M.D.; Nov 30 2020 8:01AM EST Name Value Range Interpretation Code Description Data Nimisha rce(s) Supporting Document(s) ID Date Data Source [id number] 08/30/2020 12:19:00 PM EST [facility] ([facility]) Name Value Range Interpretation Code Description Data Nimisha rce(s) Supporting Document(s) Laboratory test finding (navigational concept) 0.00 ng/mL 0 .00-0.08 Normal (applies to non-numeric results) [facility] ([facility]) ID Date Data Source [id number] 08/30/2020 12:16:00 PM EST [facility] ([facility]) Name Value Range Interpretation Code Description Data Nimisha rce(s) Supporting Document(s) Erythrocyte sedimentation rate by Westergren method 8 mm/hr 0-20 Normal (applies to non-numeric results) [facility] ([facility]) ID Date Data Source [id number] 08/30/2020 12:16:00 PM EST [facility] ([facility]) Name Value Range Interpretation Code Description Data Nimisha e(s) Supporting Document(s) Glucose, Fasting 118 mg/dL 70-100 Above high normal [facility] Creatinine For GFR 1.02 mg/dL 0.70-1.30 Normal (applies to non -numeric results) [facility] ([facility]) Blood Urea Nitrogen 12 mg/dL 7-18 Normal (applies to non-nume sara results) [facility] ([facility]) Glomerular Filtration Rate Laboratory test result Normal (applies to non- numeric results) [facility] ([facility]) <content>Units are mL/min/1.73 m2</content>
<content></content>
<content>Chronic Kidney Disease Staging per NKF:</content>
<content></content>
<content>Stage I & II GFR >=60 Normal to Mildly Decreased</content>
<content>Stage III GFR 30-59 Moderately Decreased</content>
<content>Stage IV GFR 15-29 Severely Decreased</content>
<content>Stage V GFR <15 Very Little GFR Left</content>
<content>ESRD GFR <15 on PASSENGER SERVICE MANAGER</content>
<content></content> Sodium Level 139 meq/L 136-145 Normal (applies to non-numeric res ults) [facility] ([facility]) Potassium Serum 3.7 meq/L 3.5-5.1 Normal (applies to non-numeric results) [facility] ([facility]) Chloride Level 109 meq/L 98-107 Above high normal [facility] ([facility]) Carbon Dioxide Level 25 meq/L 21-32 Normal (applies to non-num aron results) [facility] ([facility]) Anion Gap 5 meq/L 8-16 [facility] Calcium Level 9.5 mg/dL 8.8-10.2 Normal (applies to non-numeric re sults) [facility] ([facility]) ID Date Data Source [id number] 08/30/2020 12:16:00 PM EST [facility] ([facility]) Name Value Range Interpretation Code Description Data Nimisha rce(s) Supporting Document(s) Laboratory test finding (navigational concept) 42.0 % 3 8.0-51.0 Normal (applies to non-numeric results) [facility] ([facility]) Laboratory test finding (navigational concept) 124 mg/dL 7 0-105 Above high normal [facility] ([facility]) Laboratory test finding (navigational concept) 139 meq/L 1 36-145 Normal (applies to non-numeric results) [facility] ([facility]) Laboratory test finding (navigational concept) 105 meq/L 9 8-109 Normal (applies to non-numeric results) [facility] ([facility]) Laboratory test finding (navigational concept) 3.6 meq/L 3 .5-5.1 Normal (applies to non-numeric results) [facility] ([facility]) Laboratory test finding (navigational concept) 4.9 mg/dL 4 .5-5.3 Normal (applies to non-numeric results) [facility]) Laboratory test finding (navigational concept) 12 mg/dL 8 -26 Normal (applies to non-numeric results) [facility] ([facility]) Laboratory test finding (navigational concept) 21.0 MM/L 2 3.0-27.0 Below low normal [facility] ([facility]) Laboratory test finding (navigational concept) 0.9 mg/dL 0 .6-1.3 Normal (applies to non-numeric results) [facility] [facility]) ID Date Data Source [id number] 08/30/2020 12:16:00 PM EST MEDENT ([facility]) Name Value Range Interpretation Code Description Data Nimisha rce(s) Supporting Document(s) Red Blood Count 4.58 10 4.30-6.10 Normal (applies to non-numeric results) [facility] ([facility]) White Blood Count 15.3 10 4.0-10.0 Above high normal [facility] Hematocrit 42.6 % 42.0-52.0 Normal (applies to non-numeric resul ts) MEDENT ([facility]) Hemoglobin 14.5 g/dL 13.5-17.5 Normal (applies to non-numeric resul ts) [facility] ([facility]) Mean Corpuscular Volume 93.0 fl 80.0-96.0 Normal ( applies to non-numeric results) MEDENT ([facility]) Mean Corpuscular Hemoglobin 31.7 pg 27.0-33.0 Norm al (applies to non-numeric results) [facility] ([facility]) Mean Corpuscular HGB Conc 34.0 g/dL 32.0-36.5 Normal (applies to non-numeric results) MEDENT ([facility]) Red Cell Distribution Width 12.0 % 11.5-14.5 Norm al (applies to non-numeric results) MED[facility] ([facility]) Platelet Count, Automated 263 10 150-450 Normal (applies to non-numeric results) MEDENT ([facility]) Neutrophils % 80.5 % 36.0-66.0 Above high normal MEDE NT ([facility]) [place] % 7.7 % 0.0-5.0 Above high normal MEDENT ([facility]) Lymph % 10.4 % 24.0-44.0 Below low normal MEDENT ( [facility]) Eos % 0.7 % 0.0-3.0 Normal (applies to non-numeric resul ts) MED[facility] ([facility]) Baso % 0.4 % 0.0-1.0 Normal (applies to non-numeric resul ts) MED[facility] ([facility]) Nucleated Red Blood Cell % 0.0 % 0-0 Normal (applies to n on-numeric results) MED[facility] ([facility]) Immature Granulocyte % 0.3 % 0-3.0 Normal (applies to non-n umeric results) [facility] ([facility]) Neutrophils # 12.3 10 1.5-8.5 Above high normal MEDE NT ([facility]) Lymph # 1.6 10 1.5-5.0 Normal (applies to non-numeric resul ts) [facility] ([facility]) [place] # 1.2 10 0.0-0.8 Above high normal [facility] ([facility]) Eos # 0.1 10 0.0-0.5 Normal (applies to non-numeric resul ts) [facility] ([facility]) Baso # 0.1 10 0.0-0.2 Normal (applies to non-numeric resul ts) [facility] ([facility]) ID Date Data Source [id number] 08/28/2020 06:39:00 AM EST MEDENT ([facility]) Name Value Range Interpretation Code Description Data Nimisha rce(s) Supporting Document(s) Glucose, Fasting 99 mg/dL 70-100 Normal (applies to non-numeric results) MEDENT ([facility]) Blood Urea Nitrogen 16 mg/dL 7-18 Normal (applies to non-nume sara results) [facility] Glomerular Filtration Rate Laboratory test result Normal (applies to non- numeric results) [facility] ([facility]) <content>Units are mL/min/1.73 m2</content>
<content></content>
<content>Chronic Kidney Disease Staging per NKF:</content>
<content></content>
<content>Stage I & II GFR >=60 Normal to Mildly Decreased</content>
<content>Stage III GFR 30-59 Moderately Decreased</content>
<content>Stage IV GFR 15-29 Severely Decreased</content>
<content>Stage V GFR <15 Very Little GFR Left</content>
<content>ESRD GFR <15 on PASSENGER SERVICE MANAGER</content>
<content></content> Creatinine For GFR 0.98 mg/dL 0.70-1.30 Normal (applies to non -numeric results) MEDENT ([facility]) Sodium Level 140 meq/L 136-145 Normal (applies to non-numeric res ults) [facility] ([facility]) Potassium Serum 4.1 meq/L 3.5-5.1 Normal (applies to non-numeric results) [facility] ([facility]) Carbon Dioxide Level 30 meq/L 21-32 Normal (applies to non-num aron results) [facility] ([facility]) Chloride Level 107 meq/L 98-107 Normal (applies to non-numeric r esults) [facility] ([facility]) Anion Gap 3 meq/L 8-16 Below low normal [facility] Calcium Level 8.8 mg/dL 8.8-10.2 Normal (applies to non-numeric re sults) [facility]) ID Date Data Source [id number] 08/28/2020 06:39:00 AM EST MEDENT ([facility]) Name Value Range Interpretation Code Description Data Nimisha rce(s) Supporting Document(s) Hemoglobin 14.8 g/dL 13.5-17.5 Normal (applies to non-numeric resul ts) [facility] ([facility]) White Blood Count 11.2 10 4.0-10.0 Above high normal [facility] ([facility]) Red Blood Count 4.78 10 4.30-6.10 Normal (applies to non-numeric results) [facility]) Mean Corpuscular Volume 95.4 fl 80.0-96.0 Normal ( applies to non-numeric results) [facility] ([facility]) Hematocrit 45.6 % 42.0-52.0 Normal (applies to non-numeric resul ts) [facility] ([facility]) Mean Corpuscular HGB Conc 32.5 g/dL 32.0-36.5 Normal (applies to non-numeric results) [facility] ([facility]) Mean Corpuscular Hemoglobin 31.0 pg 27.0-33.0 Norm al (applies to non-numeric results) [facility] ([facility]) Red Cell Distribution Width 12.3 % 11.5-14.5 Norm al (applies to non-numeric results) [facility] ([facility]) Platelet Count, Automated 269 10 150-450 Normal (applies to non-numeric results) [facility] ([facility]) Nucleated Red Blood Cell % 0.0 % 0-0 Normal (applies to n on-numeric results) [facility] ([facility]) ID Date Data Source [id number] 08/28/2020 06:39:00 AM EST [facility], ) Name Value Range Interpretation Code Description Data Nimisha rce(s) Supporting Document(s) Glucose, Fasting 99 mg/dL 70-100 Normal (applies to non-numeric results) [facility] ([facility], ) Creatinine For GFR 0.98 mg/dL 0.70-1.30 Normal (applies to non -numeric results) [facility] ([facility]) Blood Urea Nitrogen 16 mg/dL 7-18 Normal (applies to non-nume sara results) [facility] ([facility], ) Sodium Level 140 meq/L 136-145 Normal (applies to non-numeric res ults) [facility] ([facility], ) Glomerular Filtration Rate Laboratory test result Normal (applies to non- numeric results) [facility], ) <content>Units are mL/min/1.73 m2</content>
<content></content>
<content>Chronic Kidney Disease Staging per NKF:</content>
<content></content>
<content>Stage I & II GFR >=60 Normal to Mildly Decreased</content>
<content>Stage III GFR 30-59 Moderately Decreased</content>
<content>Stage IV GFR 15-29 Severely Decreased</content>
<content>Stage V GFR <15 Very Little GFR Left</content>
<content>ESRD GFR <15 on PASSENGER SERVICE MANAGER</content>
<content></content> Chloride Level 107 meq/L 98-107 Normal (applies to non-numeric r esults) [facility] ([facility]) Potassium Serum 4.1 meq/L 3.5-5.1 Normal (applies to non-numeric results) [facility] ([facility]) Calcium Level 8.8 mg/dL 8.8-10.2 Normal (applies to non-numeric re sults) [facility]) Anion Gap 3 meq/L 8-16 Below low normal [facility] ( [facility]) Carbon Dioxide Level 30 meq/L 21-32 Normal (applies to non-num aron results) [facility]) ID Date Data Source [id number] 08/28/2020 06:39:00 AM EST [facility] ([facility]) Name Value Range Interpretation Code Description Data Nimisha rce(s) Supporting Document(s) Red Blood Count 4.78 10 4.30-6.10 Normal (applies to non-numeric results) [facility]) White Blood Count 11.2 10 4.0-10.0 Above high normal [facility]) Mean Corpuscular Volume 95.4 fl 80.0-96.0 Normal ( applies to non-numeric results) [facility]) Hemoglobin 14.8 g/dL 13.5-17.5 Normal (applies to non-numeric resul ts) [facility]) Hematocrit 45.6 % 42.0-52.0 Normal (applies to non-numeric resul ts) [facility]) Mean Corpuscular Hemoglobin 31.0 pg 27.0-33.0 Norm al (applies to non-numeric results) [facility]) Mean Corpuscular HGB Conc 32.5 g/dL 32.0-36.5 Normal (applies to non-numeric results) [facility] ([facility], ) Red Cell Distribution Width 12.3 % 11.5-14.5 Norm al (applies to non-numeric results) [facility] ([facility], ) Platelet Count, Automated 269 10 150-450 Normal (applies to non-numeric results) [facility] ([facility], ) Nucleated Red Blood Cell % 0.0 % 0-0 Normal (applies to n on-numeric results) [facility] ([facility], ) ID Date Data Source [id number] 08/14/2020 12:00:00 AM EDT [facility] Jonathan Arango MD Patient Name: [id number] [facility] Date of : 1960[place] [address] Date of Exam: 08/14/2020#: Fax: [phone] EXAM: ARTHROCENTESIS LTHIP-ASPIR / INJ STEROID/PAIN MEDSLEFT HIP INJECTION:The procedure was performed by KAYCEE Marquez under the generalsupervision of Dr. Cunha.The benefits and risks including, but not limited to pain, infection,bleeding, and anaphylaxis were explained to the patient and informedconsent was obtained.The left femoral neck was localized using fluoroscopic guidance. The skinwas prepped and draped in a sterile fashion. 1% Lidocaine was used as alocal anesthetic. Using fluoroscopic guidance, a #22 gauge spinal needlewas inserted and advanced to the femoral neck. 0.5 cc of Omnipaque 300 wasinjected to verify placement. 6 cc of a solution containing 5 cc of 1%Lidocaine and 1 cc of Kenalog 40 mg was injected into the joint space. Theneedle was then removed.The patient tolerated the procedure well and there were no immediatecomplications.Fluoroscopy time was 3 seconds at 3 pulses/second. This is equal to 0.75seconds continuous fluoroscopy time which is a 75% reduction in radiation.HANK Portillo/Ava you for referring KIP ROJAS to our office. Electronically Signed - SANDER CUNHA MD 08/16/20 15:04 Name Value Range Interpretation Code Description Data Nimisha rce(s) Supporting Document(s) ID Date Data Source [id number] 08/14/2020 12:00:00 AM EDT [facility] Jonathan Arango MD Patient Name: [id number] [id number] [facility] Date of : 1960[place] [address] Date of Exam: 08/14/2020#: Fax: [phone] EXAM: ARTHROCENTESIS LTHIP-ASPIR / INJ STEROID/PAIN MEDSLEFT HIP INJECTION:The procedure was performed by KAYCEE Marquez under the generalsupervision of Dr. Cunha.The benefits and risks including, but not limited to pain, infection,bleeding, and anaphylaxis were explained to the patient and informedconsent was obtained.The left femoral neck was localized using fluoroscopic guidance. The skinwas prepped and draped in a sterile fashion. 1% Lidocaine was used as alocal anesthetic. Using fluoroscopic guidance, a #22 gauge spinal needlewas inserted and advanced to the femoral neck. 0.5 cc of Omnipaque 300 wasinjected to verify placement. 6 cc of a solution containing 5 cc of 1%Lidocaine and 1 cc of Kenalog 40 mg was injected into the joint space. Theneedle was then removed.The patient tolerated the procedure well and there were no immediatecomplications.Fluoroscopy time was 3 seconds at 3 pulses/second. This is equal to 0.75seconds continuous fluoroscopy time which is a 75% reduction in radiation.HANK Portillo/Ava you for referring KIP ROJAS to our office. Electronically Signed - SANDER CUNHA MD 08/16/20 15:04 Name Value Range Interpretation Code Description Data Nimisha rce(s) Supporting Document(s) Procedure Social History Code Duration Value Status Description Data Source(s ) Smoking 07/17/2021 12:00:00 AM EDT Former Smoker completed Former Smoker eCW1 ([facility]) Smoking 07/17/2021 12:00:00 AM EDT Former Smoker completed Former Smoker eCW1 ([facility]) Smoking 06/14/2021 12:00:00 AM EDT Patient is a former smoker completed Patient is a former smoker ROBERT ([facility]) Smoking 04/16/2021 12:00:00 AM EDT Former Smoker completed Former Smoker eCW1 ([facility]) Smoking 04/16/2021 12:00:00 AM EDT Former Smoker completed Former Smoker eCW1 ([facility]) Smoking 04/16/2021 12:00:00 AM EDT Former Smoker completed Former Smoker eCW1 ([facility]) Smoking 04/16/2021 12:00:00 AM EDT Former Smoker completed Former Smoker eCW1 ([facility]) Smoking 04/16/2021 12:00:00 AM EDT Former Smoker completed Former Smoker eCW1 ([facility]) Vital Signs ID Date Data Source UNK Name Value Range Interpretation Code Description Data Source(s) Systolic blood pressure 148 mm[Hg] 148 mm[Hg] M CORNELIUS ([facility]) Diastolic blood pressure 78 mm[Hg] 78 mm[Hg] [facility] ([facility]) Body height 68 [in_i] 68 [in_i] [facility] ([facility]) 5'8" Body weight 143.00 [lb_av] 143.00 [lb_av] MEDEN T ([facility]) Body mass index (BMI) [Ratio] 21.7 kg/m2 21.7 k g/m2 [facility] ([facility]) [place] body weight 154 [lb_av] 154 [lb_av] [facility] Body weight 64.865 kg 64.865 kg [facility] ([facility]) Body surface area Derived from formula 1.77 m2 1.77 m2 [facility] ([facility]) Body height 68 [in_i] 68 [in_i] [facility] ([facility]) 5'8" Systolic blood pressure 142 mm[Hg] 142 mm[Hg] [facility] Oxygen saturation in Arterial blood by Pulse oximetry 98 % 98 % [facility] ([facility]) Diastolic blood pressure 82 mm[Hg] 82 mm[Hg] [facility] ([facility]) Body weight 144.00 [lb_av] 144.00 [lb_av] [facility] Body mass index (BMI) [Ratio] 21.9 kg/m2 21.9 k g/m2 [facility] ([facility]) Heart rate 68 /min 68 /min [facility] ([facility]) Respiratory rate 18 /min 18 /min [facility] ( [facility]) Body temperature 97.6 [degF] 97.6 [degF] [facility] ([facility]) [place] body weight 154 [lb_av] 154 [lb_av] MEDEN T ([facility]) Body temperature 97.2 [degF] 97.2 [degF] [facility] ([facility]) [place] body weight 154 [lb_av] 154 [lb_av] MEDEN T ([facility]) Systolic blood pressure 146 mm[Hg] 146 mm[Hg] M EDENT ([facility]) Body weight 148.00 [lb_av] 148.00 [lb_av] MEDEN T ([facility]) Respiratory rate 18 /min 18 /min [facility] ( [facility]) Oxygen saturation in Arterial blood by Pulse oximetry 98 % 98 % [facility] ([facility]) Diastolic blood pressure 72 mm[Hg] 72 mm[Hg] [facility] ([facility]) Body height 68 [in_i] 68 [in_i] MED[facility] ([facility]) 5'8" Body mass index (BMI) [Ratio] 22.5 kg/m2 22.5 k g/m2 [facility] ([facility]) Heart rate 68 /min 68 /min [facility] ([facility]) Body temperature 98.0 [degF] 98.0 [degF] eCW1 ( [facility]) Body weight 140.8 [lb_av] 140.8 [lb_av] eCW1 ([facility]) Body weight 63.87 kg 63.87 kg W1 ([facility]) Body height 69 [in_i] 69 [in_i] eCW1 ([facility]) Body mass index (BMI) [Ratio] 20.79 kg/m2 20.79 kg/m2 W1 ([facility]) Heart rate 73 /min 73 /min eCW1 ([facility]) Respiratory rate 20 /min 20 /min eCW1 ([facility]) Systolic blood pressure 122 mm[Hg] 122 mm[Hg] e CW1 ([facility]) Diastolic blood pressure 68 mm[Hg] 68 mm[Hg] eCW1 ([facility]) Body weight 147.25 [lb_av] 147.25 [lb_av] MEDEN T ([facility]) Body mass index (BMI) [Ratio] 22.4 kg/m2 22.4 k g/m2 [facility] ([facility]) Diastolic blood pressure 64 mm[Hg] 64 mm[Hg] [facility] ([facility]) Oxygen saturation in Arterial blood by Pulse oximetry 98 % 98 % [facility] ([facility]) [place] body weight 154 [lb_av] 154 [lb_av] MEDEN T ([facility]) Systolic blood pressure 126 mm[Hg] 126 mm[Hg] M EDENT ([facility]) Body height 68 [in_i] 68 [in_i] MEDENT ([facility]) 5'8" Heart rate 70 /min 70 /min [facility] ([facility]) Respiratory rate 18 /min 18 /min [facility] ( [facility]) Body temperature 98.3 [degF] 98.3 [degF] [facility] ([facility]) Body temperature 97.6 [degF] 97.6 [degF] [facility] ([facility]) Heart rate 81 /min 81 /min [facility] ([facility]) Respiratory rate 14 /min 14 /min [facility] ( [facility]) Oxygen saturation in Arterial blood by Pulse oximetry 98 % 98 % [facility]) [place] body weight 154 [lb_av] 154 [lb_av] MEDEN T ([facility]) Systolic blood pressure 122 mm[Hg] 122 mm[Hg] M EDENT ([facility]) Diastolic blood pressure 68 mm[Hg] 68 mm[Hg] [facility] ([facility]) Body height 68 [in_i] 68 [in_i] MEDENT ([facility]) 5'8" Body weight 145.50 [lb_av] 145.50 [lb_av] MEDEN T ([facility]) Body mass index (BMI) [Ratio] 22.1 kg/m2 22.1 k g/m2 MED[facility] ([facility]) Body mass index (BMI) [Ratio] 21.7 kg/m2 21.7 k g/m2 [facility] ([facility]) Body weight 143.00 [lb_av] 143.00 [lb_av] MEDEN T ([facility]) Heart rate 71 /min 71 /min MED[facility] ([facility]) Oxygen saturation in Arterial blood by Pulse oximetry 98 % 98 % [facility] ([facility]) Systolic blood pressure 118 mm[Hg] 118 mm[Hg] M EDENT ([facility]) Diastolic blood pressure 78 mm[Hg] 78 mm[Hg] [facility] ([facility]) Body height 68 [in_i] 68 [in_i] MEDENT ([facility]) 5'8" Respiratory rate 18 /min 18 /min MEDENT ( [facility]) Body temperature 98.3 [degF] 98.3 [degF] MED[facility] ([facility]) [place] body weight 154 [lb_av] 154 [lb_av] MEDEN T ([facility]) Body weight 144.0 [lb_av] 144.0 [lb_av] eCW1 ([facility]) Body weight 65.3 kg 65.3 kg eCW1 ([facility]) Body height 69 [in_i] 69 [in_i] eCW1 ([facility]) Body mass index (BMI) [Ratio] 21.26 kg/m2 21.26 kg/m2 W1 ([facility]) Heart rate 77 /min 77 /min eCW1 ([facility]) Respiratory rate 20 /min 20 /min eCW1 ([facility]) Body temperature 98.1 [degF] 98.1 [degF] eCW1 ( [facility]) Systolic blood pressure 118 mm[Hg] 118 mm[Hg] e CW1 ([facility]) Diastolic blood pressure 72 mm[Hg] 72 mm[Hg] eCW1 ([facility]) Body weight 144.0 [lb_av] 144.0 [lb_av] eCW1 ([facility]) Body weight 65.3 kg 65.3 kg eCW1 ([facility]) Body height 69 [in_i] 69 [in_i] eCW1 ([facility]) Body mass index (BMI) [Ratio] 21.26 kg/m2 21.26 kg/m2 eCW1 ([facility]) Heart rate 77 /min 77 /min eCW1 ([facility]) Respiratory rate 20 /min 20 /min eCW1 ([facility]) Body temperature 98.1 [degF] 98.1 [degF] eCW1 ( [facility]) Systolic blood pressure 118 mm[Hg] 118 mm[Hg] e CW1 ([facility]) Diastolic blood pressure 72 mm[Hg] 72 mm[Hg] eCW1 ([facility]) Systolic blood pressure 140 mm[Hg] 140 mm[Hg] M EDENT ([facility]) [place] body weight 154 [lb_av] 154 [lb_av] MEDEN T ([facility]) Diastolic blood pressure 80 mm[Hg] 80 mm[Hg] MEDENT ([facility]) Body height 68 [in_i] 68 [in_i] MEDENT ([facility]) 5'8" Body weight 157.12 [lb_av] 157.12 [lb_av] MEDEN T ([facility]) Body mass index (BMI) [Ratio] 23.9 kg/m2 23.9 k g/m2 MED[facility] ([facility]) Heart rate 70 /min 70 /min MED[facility] ([facility]) Respiratory rate 16 /min 16 /min [facility] Body temperature 97.4 [degF] 97.4 [degF] MEDENT ([facility]) Oxygen saturation in Arterial blood by Pulse oximetry 97 % 97 % [facility]) Body temperature 98.0 [degF] 98.0 [degF] MEDENT ([facility]) Oxygen saturation in Arterial blood by Pulse oximetry 98 % 98 % [facility] ([facility]) [place] body weight 154 [lb_av] 154 [lb_av] MEDEN T ([facility]) Systolic blood pressure 144 mm[Hg] 144 mm[Hg] M EDENT ([facility]) Diastolic blood pressure 80 mm[Hg] 80 mm[Hg] [facility] ([facility]) Body height 68 [in_i] 68 [in_i] [facility] ([facility]) 5'8" Body weight 156.12 [lb_av] 156.12 [lb_av] MEDEN T ([facility]) Body mass index (BMI) [Ratio] 23.7 kg/m2 23.7 k g/m2 [facility] ([facility]) Heart rate 70 /min 70 /min [facility] ([facility]) Respiratory rate 18 /min 18 /min [facility] ( [facility]) Body height 69 [in_i] 69 [in_i] [facility] ([facility]) 5'9" Body weight 156.38 [lb_av] 156.38 [lb_av] MEDEN T ([facility]) Body mass index (BMI) [Ratio] 23.1 kg/m2 23.1 k g/m2 [facility] ([facility]) [place] body weight 160 [lb_av] 160 [lb_av] MEDEN T ([facility]) Body weight 70.932 kg 70.932 kg [facility] ([facility]) Body surface area Derived from formula 1.86 m2 1.86 m2 [facility] ([facility]) Diastolic blood pressure 70 mm[Hg] 70 mm[Hg] [facility] ([facility]) Body height 69 [in_i] 69 [in_i] [facility] ([facility]) 5'9" Body weight 156.38 [lb_av] 156.38 [lb_av] MEDEN T ([facility]) Body mass index (BMI) [Ratio] 23.1 kg/m2 23.1 k g/m2 [facility] ([facility]) [place] body weight 160 [lb_av] 160 [lb_av] MED[facility] T ([facility]) Body weight 70.932 kg 70.932 kg [facility] ([facility]) Body surface area Derived from formula 1.86 m2 1.86 m2 [facility] ([facility]) Systolic blood pressure 132 mm[Hg] 132 mm[Hg] M EDENT ([facility]) Systolic blood pressure 124 mm[Hg] 124 mm[Hg] M [facility]ENT ([facility]) Diastolic blood pressure 80 mm[Hg] 80 mm[Hg] [facility] ([facility]) Body height 68 [in_i] 68 [in_i] [facility] ([facility]) 5'8" Body weight 157.12 [lb_av] 157.12 [lb_av] MEDEN T ([facility]) Body mass index (BMI) [Ratio] 23.9 kg/m2 23.9 k g/m2 [facility] Heart rate 71 /min 71 /min [facility] ([facility]) Respiratory rate 18 /min 18 /min [facility] ( [facility]) Body temperature 97.6 [degF] 97.6 [degF] [facility] ([facility]) Oxygen saturation in Arterial blood by Pulse oximetry 98 % 98 % [facility] ([facility]) [place] body weight 154 [lb_av] 154 [lb_av] MEDEN T ([facility]) Body height 69 [in_i] 69 [in_i] [facility] ([facility], ) 5'9" Body weight 150.38 [lb_av] 150.38 [lb_av] MED[facility] T ([facility], ) Body mass index (BMI) [Ratio] 22.2 kg/m2 22.2 k g/m2 [facility] ([facility], ) [place] body weight 160 [lb_av] 160 [lb_av] MEDEN T ([facility], ) Body weight 68.210 kg 68.210 kg [facility] ([facility]) Body surface area Derived from formula 1.83 m2 1.83 m2 [facility] ([facility], ) Systolic blood pressure 158 mm[Hg] 158 mm[Hg] [facility] ([facility], ) Diastolic blood pressure 86 mm[Hg] 86 mm[Hg] [facility] ([facility], ) Systolic blood pressure 110 mm[Hg] 110 mm[Hg] [facility] ([facility], ) Left 150/86 Diastolic blood pressure 80 mm[Hg] 80 mm[Hg] [facility] Left 150/86 Body height 69 [in_i] 69 [in_i] [facility] ([facility]) 5'9" Body weight 151.50 [lb_av] 151.50 [lb_av] MED[facility] T ([facility]) Body mass index (BMI) [Ratio] 22.4 kg/m2 22.4 k g/m2 [facility] ([facility]) [place] body weight 160 [lb_av] 160 [lb_av] [facility] Body weight 68.720 kg 68.720 kg [facility] ([facility]) Oxygen saturation in Arterial blood by Pulse oximetry 98 % 98 % [facility] ([facility]) [place] body weight 154 [lb_av] 154 [lb_av] [facility] Systolic blood pressure 118 mm[Hg] 118 mm[Hg] M [facility] ([facility]) Diastolic blood pressure 62 mm[Hg] 62 mm[Hg] [facility] ([facility]) Body height 68 [in_i] 68 [in_i] [facility] ([facility]) 5'8" Body weight 151.25 [lb_av] 151.25 [lb_av] [facility] Body mass index (BMI) [Ratio] 23.0 kg/m2 23.0 k g/m2 [facility] ([facility]) Heart rate 62 /min 62 /min [facility] ([facility]) Respiratory rate 18 /min 18 /min [facility] ( [facility]) Body temperature 97.4 [degF] 97.4 [degF] [facility] ([facility]) Patient Treatment Plan of Care Planned Activity Planned Date Details Description Data Source (s) KAYDEN Neoprene Wrist Brace 07/17/2021 12:00:00 AM EDT eCW1 ([facility]) KAYDEN Neoprene Wrist Brace 07/17/2021 12:00:00 AM EDT eCW1 ([facility]) ferrous sulfate 325 MG Oral Tablet 05/13/2021 12:00:00 AM EDT eCW1 ([facility]) ferrous sulfate 325 MG Oral Tablet 05/13/2021 12:00:00 AM EDT eCW1 ([facility]) ferrous sulfate 325 MG Oral Tablet 05/13/2021 12:00:00 AM EDT eCW1 ([facility]) ferrous sulfate 325 MG Oral Tablet 05/13/2021 12:00:00 AM EDT eCW1 ([facility])
[2021-09-13] MEDS ORDERED: FIRV25SO (11:43)
--- NOTE | 2021-09-13 15:16 | REP ---
INDICATION: board fell onto leg 2 days ago COMPARISON: None. TECHNIQUE: AP, lateral, bilateral oblique views. FINDINGS: No acute fracture or dislocation. Skeletal structures and joint spaces are intact and normal. Ankle mortise appears stable. No subcutaneous emphysema or radiodense foreign body. IMPRESSION: Normal right ankle radiograph series. No acute fracture or dislocation. <Electronically signed by Chris Bledsoe > 09/13/21 [id number]
--- NOTE | 2021-09-13 15:17 | REP ---
INDICATION: board fell onto leg 2 days ago COMPARISON: 07/03/2021 TECHNIQUE: Five views FINDINGS: There is no acute fracture, dislocation, or subluxation. IMPRESSION: No significant change. Mild chronic changes status quo. <Electronically signed by Varun Fuentes > 09/13/21 [id number]
--- OUTSIDE RECORDS SUMMARY | 2021-09-13 16:47 | CCD ---
Author Author [facility] Organization [facility] Address Unknown Phone Unavailable Care Team Providers Care Heavy Equipment Operator Name Role Phone EDDY PRAKASH MD Unavailable [...] REINDL, EDDY MONACO Unavailable Unavailable REINDL, EDDY MNOACO Unavailable Unavailable REINDL, EDDY MONACO Unavailable Unavailable [...] Unavailable Unavailable WALKER-NORBERT, SHAWN DO Unavailable Unavailable WALKER-NROBERT, SHAWN DO Unavailable Unavailable WALKER-NORBERT, SHAWN DO [...] Unavailable Unavailable Mahesh CHARLES MD Unavailable Unavailable Mahehs CHARLES MD Unavailable Unavailable Mahesh CHARLES MD [...] Unavailable Unavailable Mahesh CHARLES MD Unavailable Unavailable Mahseh CHARLES MD Unavailable Unavailable CederstrandMarycruz MD Unavailable [...] A Ignacio PA Unavailable Unavailable PFLUGH, FLORINA BLOWER OPERATOR Unavailable Unavailable PFLUGH, FLORINA BLOWER OPERATOR Unavailable Unavailable PFLUGH, FLORINA BLOWER OPERATOR Unavailable Unavailable PFLUGH, FLORINA BLOWER OPERATOR Unavailable Unavailable PFLUGH, FLORINA BLOWER OPERATOR Unavailable Unavailable PFLUGH, FLORINA BLOWER OPERATOR Unavailable Unavailable PFLUGH, FLORINA BLOWER OPERATOR Unavailable Unavailable PFLUGH, FLORINA BLOWER OPERATOR Unavailable Unavailable PFLUGH, FLORINA BLOWER OPERATOR Unavailable Unavailable PFLUGH, FLORINA BLOWER OPERATOR Unavailable Unavailable PFLUGH, FLORINA BLOWER OPERATOR Unavailable Unavailable PFLUGH, FLORINA BLOWER OPERATOR Unavailable Unavailable PFLUGH, FLORINA BLOWER OPERATOR Unavailable Unavailable PFLUGH, FLORINA BLOWER OPERATOR Unavailable Unavailable PFLUGH, FLORINA BLOWER OPERATOR Unavailable Unavailable PFLUGH, FLORINA BLOWER OPERATOR Unavailable Unavailable PFLUGH, FLORINA BLOWER OPERATOR Unavailable Unavailable PFLUGH, FLORINA BLOWER OPERATOR Unavailable Unavailable PFLUGH, FLORINA BLOWER OPERATOR Unavailable Unavailable PFLUGH, FLORINA BLOWER OPERATOR Unavailable Unavailable PFLUGH, FLORINA BLOWER OPERATOR Unavailable Unavailable PFLUGH, FLORINA BLOWER OPERATOR Unavailable Unavailable PFLUGH, FLORINA BLOWER OPERATOR Unavailable Unavailable PFLUGH, FLORINA BLOWER OPERATOR Unavailable Unavailable PFLUGH, FLORINA BLOWER OPERATOR Unavailable Unavailable PFLUGH, FLORINA BLOWER OPERATOR Unavailable Unavailable PFLUGH, FLORINA BLOWER OPERATOR Unavailable Unavailable PFLUGH, FLORINA BLOWER OPERATOR Unavailable Unavailable PFLUGH, FLORINA BLOWER OPERATOR Unavailable Unavailable PFLUGH, FLORINA BLOWER OPERATOR Unavailable Unavailable PFLUGH, FLORINA BLOWER OPERATOR Unavailable Unavailable PFLUGH, FLORINA BLOWER OPERATOR Unavailable Unavailable PFLUGH, FLORINA BLOWER OPERATOR Unavailable Unavailable PFLUGH, FLORINA BLOWER OPERATOR Unavailable Unavailable PFLUGH, FLORINA BLOWER OPERATOR Unavailable Unavailable PFLUGH, FLORINA BLOWER OPERATOR Unavailable Unavailable PFLUGH, FLORINA BLOWER OPERATOR Unavailable Unavailable PFLUGH, FLORINA BLOWER OPERATOR Unavailable Unavailable PFLUGH, FLORINA BLOWER OPERATOR Unavailable Unavailable PFLUGH, FLORINA BLOWER OPERATOR Unavailable Unavailable PFLUGH, FLORINA BLOWER OPERATOR Unavailable Unavailable PFLUGH, FLORINA BLOWER OPERATOR Unavailable Unavailable PFLUGH, FLORINA BLOWER OPERATOR Unavailable Unavailable PFLUGH, FLORINA BLOWER OPERATOR Unavailable Unavailable PFLUGH, FLORINA BLOWER OPERATOR Unavailable Unavailable Tello, L Elyse RPA Unavailable [...] Unavailable Unavailable WALKER-NORBERT, SHAWN DO Unavailable Unavailable WALEKR-NORBERT, SHAWN DO Unavailable Unavailable WALKER-NORBERT, SHAWN DO [...] Unavailable Unavailable WALKER-NORBERT, SHAWN DO Unavailable Unavailable WALEKR-NORBERT, SHAWN DO Unavailable Unavailable WALKER-NORBERT, SHAWN DO [...] is protected by Article 27-F of the [facility] Public Health law. If you continue you may have access to information: Regarding HIV / AIDS; Provided by facilities licensed or operated by the [facility] Office of Mental Health; or Provided by the [facility] Office for People With Developmental Disabilities. If such information is present, then the following [facility] mandated warning applies: This information has [...] law may result in a fine or custodial sentence or both. A general authorization for the release of medical or other information is NOT sufficient authorization for further disc losure. Family History Family Member Name Family Member Gender Family Member Status Date o f Status Description Data Source(s) Unknown Male Problem 08/25/2018 12:00:00 AM EDT [facility] Encounters Encounter Providers Location Date Indications Data Source(s ) Outpatient Attender: EDDY Bhat/Gab/Lukas/Rein dl 08/16/2021 09:00:00 AM EDT [facility] ([facility] Outpatient Attender: SHAWN JANG DO [facility] 08/15/2021 09:20:00 AM EDT [facility] ([facility]) Outpatient Attender: Ignacio ALCARAZ Family [facility] 07/26/2021 09:00:00 AM EDT [facility] ([facility]) Outpatient 07/23/2021 12:00:[address] [facility] Out[facility] [address] [place] [place] [address] 07/17/2021 12:00:00 AM EDT eCW1 ([facility]) Unknown [address] [place] [address] 07/13/2021 12:00:00 AM EDT eCW1 ([facility]) Unknown [address] [place] [address] 07/13/2021 12:00:00 AM EDT eCW1 ([facility]) Outpatient Attender: SHAWN JANG DO [facility] 06/14/2021 11:20:00 AM EDT [facility] ([facility]) [place] [address] [place] [address] 05/30/2021 12:00:00 AM EDT eCW1 ([facility]) Outpatient Attender: SHAWN JANG DO [facility] 05/28/2021 02:40:00 PM EDT [facility] ([facility]) [place] [address] [place] [address] 05/13/2021 12:00:00 AM EDT eCW1 ([facility]) Outpatient Attender: Ignacio ALCARAZ [facility] 04/24/2021 09:00:00 AM EDT [facility] ([facility]) Outpatient [address] [place] [place] [address] 04/16/2021 12:00:00 AM EDT eCW1 ([facility]) Outpatient Attender: SANDER CHARLES MDReferrer: Ignacio ALCARAZ 03/14/2021 09:52:02 AM EDT [facility] Recurring Patient Attender: Rene Hendricksonleticia MDReferrer: Ignacio ALCARAZ 03/14/2021 08:51:33 AM EDT [facility] Outpatient Attender: Reen Conor MDReferrer: Ignacio ALCARAZ 02/13/2021 12:28:56 PM EDT [facility] Recurring Patient Attender: Rene Conor MDReferrer: Ignacio ALCARAZ 02/13/2021 11:26:43 AM EDT [facility] Recurring Patient Attender: Rene Conor MDReferrer: Ignacio ALCARAZ 02/07/2021 11:05:59 AM EDT [facility] Recurring Patient Referrer: Ignacio ALCARAZ 02/06/2021 04:38:02 PM EDT [facility] Outpatient Attender: FLORINA RUIZ NPReferrer: SHAWN DEWITT DO 01/24/2021 10:15:40 PM EDT [facility] Outpatient Attender: Ignacio ALCARAZ [facility] 01/22/2021 09:30:00 AM EDT [facility] ([facility]) Recurring Patient Referrer: Ignacio ALCARAZ 01/19/2021 09:34:02 AM EDT [facility] Recurring Patient Referrer: Ignacio ALCARZA 01/09/2021 09:48:56 AM EDT [facility] Outpatient Attender: Ignacio ALCARAZ [facility] 01/02/2021 03:00:00 PM EST [facility] ([facility]) Outpatient Attender: TEETEE ARAIZA MDReferrer: SHAWN PHOENIX DO 11/30/2020 08:01:29 AM EST [facility] Recurring Patient Referrer: Ignacio ALCARAZ 11/29/2020 12:48:26 PM EST [facility] Recurring Patient Referrer: Ignacio ALCARAZ 11/29/2020 12:32:20 PM EST [facility] Recurring Patient Referrer: Ignacio ALCARAZ 10/24/2020 11:37:02 AM EST [facility] Recurring Patient Referrer: Ignacio ALCARAZ 10/24/2020 11:30:53 AM EST [facility] Outpatient Attender: Ignacio ALCARAZ [facility] 10/23/2020 08:40:00 AM EST [facility] ([facility]) Outpatient Attender: Elyse Bhat/Gab/Lukas/R eindl 09/04/2020 08:30:00 AM EST [facility] ([facility] Outpatient Attender: Fay Bhat/Gab/Lukas/ Reindl 07/27/2020 09:15:00 AM EDT [facility] ([facility]) Outpatient Attender: Ignacio ALCARAZ [facility] 07/24/2020 10:30:00 AM EDT [facility] ([facility]) Immunizations Vaccine Date Status Description Data Source(s) New in 2012. IIV4 07/26/2021 09:44:00 AM EDT completed [facility] ([facility]) COVID-19 VACCINE Moderna 02/05/2021 12:00:00 AM EDT completed [facility] Vaccine Series Complete: YESThis Data wa s Submitted to [facility] Via [employer]. COVID-19 VACCINE, MRNA-1273, LNP-S (MODERNA)/PF 02/05/2021 1 2:00:00 AM EDT completed [facility] COVID-19 VACCINE Moderna 01/04/2021 12:00:00 AM EST completed [facility] Vaccine Series Complete: NOThis Data was Submitted to [facility] [employer]. COVID-19 VACCINE, MRNA-1273, LNP-S (MODERNA)/PF 01/04/2021 1 2:00:00 AM EST completed [facility] Medications Medication Brand Name Start Date Product Form Dose Route Admi nistrative Instructions Pharmacy Instructions Status Indications Reaction Description Data Source(s) 75 mg 08/22/2021 12:00:00 AM EDT tablet 30 TAKE ONE TABLET BY MOUTH EVERY DAY TAKE ONE TABLET BY MOUTH EVERY DAY SOLD: 08/28/2021 [facility] [employer] atorvastatin 20 MG Oral Tablet ATORVASTATIN CALCIUM [...] DOSE = 2 TABLETS SOLD: 08/28/2021 [facility] [employer] MAGNESIUM CITRATE 08/16/2021 12:00:00 AM EDT solution 296 DRINK ONE 10 OZ BOTTLE (GREEN OR CLEAR ONLY) USE FOR ADDITIONAL PREP AT 2-3 DAYS BEFORE PROCEDURE DRINK ONE 10 OZ BOTTLE (GREEN OR CLEAR O NLY) USE FOR ADDITIONAL PREP AT 2-3 DAYS BEFORE PROCEDURE SOLD: 08/16/2021 [facility] POLYETHYLENE GLYCOL 3350 142 MG/ML Oral Solution [Miralax] M iralax 08/16/2021 12:00:00 AM EDT active M [facility]ENT ([facility]) 17 gram/dose 08/16/2021 12:00:00 AM EDT powder 510 TAKE 17 GRAMS ONCE A DAY TAKE 17 GRAMS ONCE A DAY SOLD: 08/20/2021 [facility] magnesium citrate 58.2 MG/ML Oral Solution Magnesium Citrate 08/16/2021 12:00:00 AM EDT active [facility] ([facility]) POLYETHYLENE GLYCOL 3350 142 MG/ML Oral Solution [Miralax] M iralax 08/16/2021 12:00:00 AM EDT active M [facility] ([facility]) 75 mg 07/18/2021 12:00:00 AM EDT tablet 30 TAKE ONE TABLET BY MOUTH EVERY DAY TAKE ONE TABLET BY MOUTH EVERY DAY SOLD: 07/23/2021 [facility] KAYDEN Neoprene Wrist Brace UNK 07/17/2021 12:00:00 AM EDT active KAYDEN Neoprene Wrist Brace eCW1 ([facility]) KAYDEN Neoprene Wrist Brace UNK 07/17/2021 12:00:00 AM EDT active KAYDEN Neoprene Wrist Brace eCW1 ([facility]) 0.5 mg 07/10/2021 12:00:00 AM EDT tablet [...] Tartrate 05/27 12:00:00 AM EDT active [facility] ([facility]) 10 mg 06/14/2021 12:00:00 AM EDT [...] 05/28/2021 12:00:00 AM EDT ORAL active [facility] ([facility]) ferrous sulfate 325 MG Oral Tablet Ferrous Sulfate 325 (65 Fe) MG Ferrous Sulfate 325 (65 Fe) MG 05/13/2021 12:00:00 AM EDT 1.0 {tablet} active Ferrous Sulfate 325 (65 Fe) MG eCW1 ([facility]) ferrous sulfate 325 MG Oral Tablet Ferrous Sulfate 325 (65 Fe) MG Ferrous Sulfate 325 (65 Fe) MG 05/13/2021 12:00:00 AM EDT 1.0 {tablet} active Ferrous Sulfate 325 (65 Fe) MG eCW1 ([facility]) ferrous sulfate 325 MG Oral Tablet Ferrous Sulfate 325 (65 Fe) MG Ferrous Sulfate 325 (65 Fe) MG 05/13/2021 12:00:00 AM EDT 1.0 {tablet} active Ferrous Sulfate 325 (65 Fe) MG eCW1 ([facility]) ferrous sulfate 325 MG Oral Tablet Ferrous Sulfate 325 (65 Fe) MG Ferrous Sulfate 325 (65 Fe) MG 05/13/2021 12:00:00 AM EDT 1.0 {tablet} active Ferrous Sulfate 325 (65 Fe) MG eCW1 ([facility]) 75 mg 05/07/2021 12:00:00 AM EDT tablet [...] Tartrate 05/05/2021 12:00:00 AM EDT completed [facility] ([facility]) Acetaminophen 325 MG / Hydrocodone Bitartrate 5 [...] AM EST active [facility] ( [facility]) 0.5 mg 12/04/2020 12:00:00 AM EST tablet [...] 10/23/2020 12:00:00 AM EST ORAL active [facility] ([facility]) 5-325 mg 10/23/2020 12:00:00 AM EST tablet [...] Tartrate 06/28 12:00:00 AM EDT active [facility] ([facility]) 15 mg 05/31/2020 12:00:00 AM EDT [...] type / Coverage type Policy ID Covered alliance party ID Covered alliance party's relationship to donis Policy Donis Plan Information [facility] [id number] [employer] Commercial [id number] [place] [employer] Commercial [id number] [facility] Commercial [id number] [facility] Community Plan Medigap Part B [id number] Self [facility] Community Plan Medigap Part B [id number] Self 1 [id number] [employer] COMMUNITY PLAN MCDHMO [id number] SP [id number] [employer] COMMUNITY PLAN MCDHMO [id number] SP [id number] [facility] Comm Plan Medicaid F [id number] SELF [id number] [employer] COMMUNITY PLAN MCDHMO [id number] SP [id number] [facility] I [id number] Self [id number] [facility] Community Plan Commercial [id number] Self [id number] [facility] Health Maintenance Organization (HMO) [id number] Self [id number] [facility] Community Plan Commercial [id number] Self [id number] [facility] Health Maintenance Organization (HMO) [id number] Self [id number] [facility] Health Maintenance Organization (HMO) [id number] Self [id number] [facility] Community Plan Commercial [id number] Self [id number] [facility] Community Plan Commercial [id number] Self [id number] [facility] Commercial [id number] Self [id number] [facility] Commercial [id number] Self O UNAVAILABLE UNAVAILA BLE [facility] Commercial [id number] Self UN COMMUNITY PLAN MCDHMO [id number] SP [id number] [facility] COMMUNITY PLAN MCDO [id number] SP [id number] [facility] O [id number] S [id number] [facility] Comm Plan Medicaid F [id number] SELF [id number] [facility] PLAN XIX [id number] 18 [id number] [facility] Commercial [id number] Self [id number] [facility] O [id number] S [id number] [facility] Plan Commercial [id number] Self [id number] [facility] Commercial [id number] Self [id number] Medicaid S UNAVAILABLE S UNAVAILA BLE Managed Care - [facility] P UNAVAILABLE S UNAVAILABLE Problems, Conditions, and Diagnoses Code Display Name Description Problem Type Effective Dates Data Source(s) M17.10 [id number] Osteoarthritis of kn ee, unspecified laterality, unspecified osteoarthritis type Problem 07/17/2021 12:00:00 AM EDT eCW1 ([facility]) R20.2 [id number] Paresthesias Problem 04/16/2021 12:00:00 AM EDT eCW1 ([facility]) M19.049 [id number] Osteoarthritis of [place], unspecified laterality, unspecified osteoarthritis type Problem 04/16/2021 12:00:00 AM EDT eCW1 ([facility]) Z79.01 Long-term current use of anticoagulant L janna-term current use of anticoagulant Problem 01/22/2021 12:00:00 AM EDT [facility] ([facility]) 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 Problem 10/23/2020 12:00:00 AM EST [facility] ([facility]) Surgeries/Procedures Procedure Description Date Indications Data Source(s) OFFICE OUTPATIENT NEW 45 MINUTES 08/16/2021 12:00:00 A M EDT [facility] ([facility]) OFFICE OUTPATIENT VISIT 25 MINUTES 08/15/2021 12:00:00 AM EDT [facility] ([facility]) PERIODIC PREVENTIVE MED EST PATIENT 40-64YRS 12:00:00 AM EDT [facility] ([facility]) OFFICE OUTPATIENT VISIT 25 MINUTES 06/14/2021 12:00:00 AM EDT [facility] ([facility]) OFFICE OUTPATIENT VISIT 25 MINUTES 05/28/2021 12:00:00 AM EDT [facility] ([facility]) OFFICE OUTPATIENT VISIT 25 MINUTES 04/24/2021 12:00:00 AM EDT [facility] ([facility]) OFFICE OUTPATIENT VISIT 25 MINUTES 01/22/2021 12:00:00 AM EDT [facility] ([facility]) OFFICE OUTPATIENT VISIT 25 MINUTES 01/02/2021 12:00:00 AM EST [facility] ([facility]) Catheter Placement Arterial System First Order Thoracic/Brac hioce 08/28/2020 12:00:00 AM EST [facility] ([facility]) Non-Selective Catheter Placement Thoracic Aorta W/Angiograph y 08/28/2020 12:00:00 AM EST [facility] ([facility]) Transcatheter Placement Intravascular Stent Initial Artery 08/28/2020 12:00:00 AM EST [facility] ([facility]) Moderate Sedation Services; Same Phys Intl 15 Mins; PT >= 5 Years 08/28/2020 12:00:00 AM EST [facility] ([facility]) MRI Upper Extremity Any Joint 08/23/2020 12:00:00 AM E DT [facility] ([facility]) RADEX SHOULDER COMPLETE MINIMUM 2 VIEWS 08/14/2020 12: 00:00 AM EDT [facility] ([facility]) X-Ray Hip Unilateral With Pelvis 2-3 Views 07/26/2020 12:00:00 AM EDT [facility] ([facility]) Results ID Date Data Source [id number] 08/20/2021 10:59:00 AM EDT [facility]) Name Value Range Interpretation Code Description Data Nimisha rce(s) Supporting Document(s) Tissue transglutaminase IgA Ab [Units/volume] in Serum Labor atory test result 0-3 Normal (applies to non-numeric results) [facility]) Negative 0 - 3 Weak Positive 4 - 10 Positive >10 . Tissue Transglutaminase (tTG) has been identified as the endomysial antigen. Studies have demonstr- ated that endomysial IgA antibodies have over 99% specificity for gluten sensitive enteropathy. Performed at: RN - [facility] [address] [id number] Ergonomics Technician: Lakshmi Martin MD, Phone: [phone] ID Date Data Source [id number] 08/20/2021 10:59:00 AM EDT [facility] ([facility]) Name Value Range Interpretation Code Description Data Nimisha rce(s) Supporting Document(s) Free T4 0.89 ng/dL 0.76-1.46 Normal (applies to non-numeric resul ts) [facility] ([facility]) Thyroid Stimulating Hormone 0.719 uIU/ML 0.358-3.740 Norm al (applies to non- numeric results) [facility] ([facility]) ID Date Data Source [id number] 08/20/2021 10:59:00 AM EDT [facility] ([facility]) Name Value Range Interpretation Code Description Data Nimisha rce(s) Supporting Document(s) IgA [Mass/volume] in Serum or Plasma 145.0 mg/dL 70-400 Normal (applies to non- numeric results) [facility]) ID Date Data Source [id number] 08/20/2021 10:59:00 AM EDT [facility] ([facility]) Name Value Range Interpretation Code Description Data Nimisha rce(s) Supporting Document(s) Creatinine For GFR 0.82 mg/dL 0.70-1.30 Normal (applies to non -numeric results) [facility] ([facility]) Glomerular Filtration Rate Laboratory test result Normal (applies to non- numeric results) [facility]) <content>Units are mL/min/1.73 m2</content>
<content></content>
<content>Chronic Kidney Disease Staging per NKF:</content>
<content></content>
<content>Stage I & II GFR >=60 Normal to Mildly Decreased</content>
<content>Stage III GFR 30- 59 Moderately Decreased</content>
<content>Stage IV GFR 15-29 Severely Decreased</content>
<content>Stage V GFR <15 Very Little GFR Left</content>
<content>ESRD GFR <15 on KICK PRESS SETTER</content>
<content></content> ID Date Data Source [id number] 08/20/2021 10:59:00 AM EDT [facility] ([facility]) Name Value Range Interpretation Code Description Data Nimisha rce(s) Supporting Document(s) Urea nitrogen [Mass/volume] in Serum or Plasma 11 mg/dL 7 -18 Normal (applies to non-numeric results) [facility]) ID Date Data Source [id number] 08/13/2021 01:13:00 PM EDT [facility] ([facility], ) Name Value Range Interpretation Code Description Data Nimisha rce(s) Supporting Document(s) Carotid arteries - bilateral US.doppler Laboratory test result [facility] ([facility]) Upper extremity artery - bilateral US.doppler Laboratory test result [facility] ([facility]) ID Date Data Source [facility] Wrist, complete 07/03/2021 12:00:00 AM EDT eCW ([facility]) Name Value Range Interpretation Code Description Data Nimisha rce(s) Supporting Document(s) [facility] Wrist, complete eCW1 ([facility]) ID Date Data Source [facility] Knee, complete 07/03/2021 12:00:00 AM EDT eCW1 ([facility]) Name Value Range Interpretation Code Description Data Nimisha rce(s) Supporting Document(s) [facility] Knee, complete eCW1 ([facility]) ID Date Data Source [facility] Hand, complete 07/03/2021 12:00:00 AM EDT eCW1 ([facility]) Name Value Range Interpretation Code Description Data Nimisha rce(s) Supporting Document(s) [facility] Hand, complete eCW1 ([facility]) ID Date Data Source [id number] 06/16/2021 09:10:00 PM EDT [facility] ([facility]) Name Value Range Interpretation Code Description Data Nimisha rce(s) Supporting Document(s) Laboratory test finding (navigational concept) 44.0 % 3 8.0-51.0 Normal (applies to non-numeric results) [facility] ([facility]) Laboratory test finding (navigational concept) 4.0 meq/L 3 .5-5.1 Normal (applies to non-numeric results) [facility]) Laboratory test finding (navigational concept) 99 mg/dL 7 0-105 Normal (applies to non-numeric results) [facility] ([facility]) Laboratory test finding (navigational concept) 139 meq/L 1 36-145 Normal (applies to non-numeric results) [facility] ([facility]) Laboratory test finding (navigational concept) 23.0 MM/L 2 3.0-27.0 Normal (applies to non-numeric results) [facility] ([facility]) Laboratory test finding (navigational concept) 4.7 mg/dL 4 .5-5.3 Normal (applies to non-numeric results) [facility] ([facility]) Laboratory test finding (navigational concept) 102 meq/L 9 8-109 Normal (applies to non-numeric results) [facility] ([facility]) Laboratory test finding (navigational concept) 12 mg/dL 8 -26 Normal (applies to non-numeric results) [facility] ([facility]) Laboratory test finding (navigational concept) 0.9 mg/dL 0 .6-1.3 Normal (applies to non-numeric results) [facility] ([facility]) ID Date Data Source [id number] 06/16/2021 09:02:00 PM EDT [facility] ([facility]) Name Value Range Interpretation Code Description Data Nimisha rce(s) Supporting Document(s) Ast/Sgot 19 U/L 7-37 Normal (applies to non-numeric resul ts) [facility] ([facility]) Alkaline Phosphatase 100 U/L 45-117 Normal (applies to non-num aron results) [facility] ([facility]) Bilirubin,Total 1.0 mg/dL 0.2-1.0 Normal (applies to non-numeric results) [facility] ([facility]) Alt/SGPT 23 U/L 12-78 Normal (applies to non-numeric resul ts) [facility] ([facility]) Bilirubin,Direct 0.2 mg/dL 0.0-0.2 Normal (applies to non-numeric results) [facility] ([facility]) Total Protein 6.8 GM/DL 6.4-8.2 Normal (applies to non-numeric re sults) [facility] ([facility]) Albumin 3.6 GM/DL 3.2-5.2 Normal (applies to non-numeric resul ts) [facility] ([facility]) Albumin/Globulin Ratio 1.1 Normal (applies to non-n umeric results) [facility] ([facility]) ID Date Data Source [id number] 06/16/2021 09:02:00 PM EDT [facility] ([facility]) Name Value Range Interpretation Code Description Data Nimisha rce(s) Supporting Document(s) White Blood Count 17.7 10 4.0-10.0 Above high normal [facility] ([facility]) A Pathologist review of this differentia l can help in the evaluation of a differential diagnosis. Please order a Pathologist Review (PERISM) if deemed necessary. Results are subject to change if a Pathologist Review is performed. Red Blood Count 4.78 10 4.30-6.10 Normal (applies to non-numeric results) [facility] ([facility]) Hematocrit 44.0 % 42.0-52.0 Normal (applies to non-numeric resul ts) [facility] ([facility]) Mean Corpuscular Volume 92.1 fl 80.0-96.0 Normal ( applies to non-numeric results) [facility] ([facility]) Hemoglobin 14.8 g/dL 13.5-17.5 Normal (applies to non-numeric resul ts) [facility] ([facility]) Mean Corpuscular HGB Conc 33.6 g/dL 32.0-36.5 Normal (applies to non-numeric results) [facility] ([facility]) Mean Corpuscular Hemoglobin 31.0 pg 27.0-33.0 Norm al (applies to non-numeric results) [facility] ([facility]) Neutrophils % 80.2 % 36.0-66.0 Above high normal [facility] ([facility]) Platelet Count, Automated 279 10 150-450 Normal (applies to non-numeric results) [facility] ([facility]) Red Cell Distribution Width 12.7 % 11.5-14.5 Norm al (applies to non-numeric results) [facility] ([facility]) Ritchie % 8.3 % 2.0-8.0 Above high normal [facility] ([facility]) Lymph % 10.0 % 24.0-44.0 Below low normal [facility] ( [facility]) Eos % 0.6 % 0.0-3.0 Normal (applies to non-numeric resul ts) [facility] ([facility]) Baso % 0.3 % 0.0-1.0 Normal (applies to non-numeric resul ts) [facility] ([facility]) Immature Granulocyte % 0.6 % 0-3.0 Normal (applies to non-n umeric results) [facility] ([facility]) Lymph # 1.8 10 1.5-5.0 Normal (applies to non-numeric resul ts) [facility] ([facility]) Nucleated Red Blood Cell % 0.0 % 0-0 Normal (applies to n on-numeric results) [facility] ([facility]) Neutrophils # 14.2 10 1.5-8.5 Above high normal [facility] ([facility]) Ritchie # 1.5 10 0.0-0.8 Above high normal [facility] ([facility]) Eos # 0.1 10 0.0-0.5 Normal (applies to non-numeric resul ts) [facility] ([facility]) Baso # 0.1 10 0.0-0.2 Normal (applies to non-numeric resul ts) [facility] ([facility]) ID Date Data Source [id number] 06/16/2021 09:02:00 PM EDT [facility] ([facility]) Name Value Range Interpretation Code Description Data Nimisha rce(s) Supporting Document(s) Lipase [Enzymatic activity/volume] in Serum or Plasma 128 U/L 73-393 Normal (applies to non-numeric results) [facility] ([facility]) ID Date Data Source [id number] 06/16/2021 08:57:00 PM EDT [facility] ([facility]) Name Value Range Interpretation Code Description Data Nimisha rce(s) Supporting Document(s) Appearance, Urine RFX Laboratory test result Nor mal (applies to non-numeric results) [facility] ([facility]) Specific [place] Ur Auto RFX 1.033 1.002-1.035 Nor mal (applies to non-numeric results) [facility] ([facility]) PH,Urine RFX 6.0 units 5.0-9.0 Normal (applies to non-numeric res ults) [facility] ([facility]) Color, Urine RFX Laboratory test result Normal ( applies to non-numeric results) [facility] ([facility]) Protein, Urine Auto RFX Laboratory test result N ormal (applies to non-numeric results) [facility] ([facility]) Glucose, Urine (Ua) Auto RFX Laboratory test result Normal (applies to non- numeric results) [facility] ([facility]) Bilirubin, Urine Auto RFX Laboratory test result Normal (applies to non- numeric results) [facility] ([facility]) Urobilinogen, Urine Auto RFX 0.2 mg/dL 0.0-2.0 Nor mal (applies to non-numeric results) [facility] ([facility]) Ketone, Urine Auto RFX Laboratory test result Above high n ormal [facility] ([facility]) Nitrite, Urine Auto RFX Laboratory test result N ormal (applies to non-numeric results) [facility] ([facility]) Leukocyte Esterase Ur Auto RFX Laboratory test result Normal (applies to non- numeric results) [facility] ([facility]) WBC, Urine Auto RFX 0 /HPF 0-3 Normal (applies to non-nume sara results) [facility] ([facility]) Blood, Urine Blood RFX Laboratory test result No rmal (applies to non-numeric results) [facility] ([facility]) Bacteria, Urine Auto RFX Laboratory test result Normal (applies to non-numeric results) [facility] ([facility]) Squam Epithelial Cell Ur Aurfx 0 /HPF 0-6 N ormal (applies to non-numeric results) [facility] ([facility]) RBC, Urine Auto RFX 2 /HPF 0-3 Normal (applies to non-nume sara results) [facility] ([facility]) Transitional Epithelial AU RFX Laboratory test result Normal (applies to non- numeric results) [facility] ([facility]) Mucus, Urine RFX Laboratory test result Normal ( applies to non-numeric results) [facility] ([facility]) Hyaline Cast, Urine Auto RFX 0 /LPF 0-1 Normal (appl ies to non-numeric results) [facility] ([facility]) ID Date Data Source [id number] 05/28/2021 03:53:00 PM EDT [facility]) Name Value Range Interpretation Code Description Data Nimisha rce(s) Supporting Document(s) Lipase [Enzymatic activity/volume] in Serum or Plasma 378 U/L 73-393 Normal (applies to non-numeric results) [facility] ([facility]) Amylase [Enzymatic activity/volume] in Serum or Plasma 55 U/L 25-115 Normal (applies to non-numeric results) [facility] ([facility]) ID Date Data Source [id number] 05/28/2021 03:53:00 PM EDT [facility]) Name Value Range Interpretation Code Description Data Nimisha rce(s) Supporting Document(s) Glucose, Fasting 101 mg/dL 70-100 Above high normal [facility]) Creatinine For GFR 0.86 mg/dL 0.70-1.30 Normal (applies to non -numeric results) [facility] ([facility]) Blood Urea Nitrogen 12 mg/dL 7-18 Normal (applies to non-nume sara results) [facility] ([facility]) Potassium Serum 4.2 meq/L 3.5-5.1 Normal (applies to non-numeric results) [facility] ([facility]) Glomerular Filtration Rate Laboratory test result Normal (applies to non- numeric results) [facility] ([facility]) <content>Units are mL/min/1.73 m2</content>
<content></content>
<content>Chronic Kidney Disease Staging per NKF:</content>
<content></content>
<content>Stage I & II GFR >=60 Normal to Mildly Decreased</content>
<content>Stage III GFR 30-59 Moderately Decreased</content>
<content>Stage IV GFR 15-29 Severely Decreased</content>
<content>Stage V GFR <15 Very Little GFR Left</content>
<content>ESRD GFR <15 on KICK PRESS SETTER</content>
<content></content> Sodium Level 142 meq/L 136-145 Normal (applies to non-numeric res ults) [facility] ([facility]) Anion Gap 5 meq/L 8-16 Below low normal [facility] ( [facility]) Carbon Dioxide Level 30 meq/L 21-32 Normal (applies to non-num aron results) [facility] ([facility]) Chloride Level 107 meq/L 98-107 Normal (applies to non-numeric r esults) [facility] ([facility]) Calcium Level 9.1 mg/dL 8.8-10.2 Normal (applies to non-numeric re sults) [facility] ([facility]) Ast/Sgot 23 U/L 7-37 Normal (applies to non-numeric resul ts) [facility] ([facility]) Alt/SGPT 33 U/L 12-78 Normal (applies to non-numeric resul ts) [facility] ([facility]) Bilirubin,Total 0.4 mg/dL 0.2-1.0 Normal (applies to non-numeric results) [facility] ([facility]) Alkaline Phosphatase 83 U/L 45-117 Normal (applies to non-num aron results) [facility] ([facility]) Albumin 3.8 GM/DL 3.2-5.2 Normal (applies to non-numeric resul ts) [facility] ([facility]) Total Protein 6.5 GM/DL 6.4-8.2 Normal (applies to non-numeric re sults) [facility] ([facility]) Albumin/Globulin Ratio 1.4 Normal (applies to non-n umeric results) [facility] ([facility]) ID Date Data Source [id number] 05/28/2021 03:53:00 PM EDT [facility] ([facility]) Name Value Range Interpretation Code Description Data Nimisha rce(s) Supporting Document(s) Red Blood Count 4.40 10 4.30-6.10 Normal (applies to non-numeric results) [facility] ([facility]) Hemoglobin 13.7 g/dL 13.5-17.5 Normal (applies to non-numeric resul ts) [facility] ([facility]) White Blood Count 10.5 10 4.0-10.0 Above high normal [facility] ([facility]) Hematocrit 41.7 % 42.0-52.0 Below low normal [facility] ( [facility]) Mean Corpuscular Volume 94.8 fl 80.0-96.0 Normal ( applies to non-numeric results) [facility] ([facility]) Mean Corpuscular Hemoglobin 31.1 pg 27.0-33.0 Norm al (applies to non-numeric results) [facility] ([facility]) Mean Corpuscular HGB Conc 32.9 g/dL 32.0-36.5 Normal (applies to non-numeric results) [facility] ([facility]) Neutrophils % 73.4 % 36.0-66.0 Above high normal [facility] ([facility]) Platelet Count, Automated 254 10 150-450 Normal (applies to non-numeric results) [facility] ([facility]) Red Cell Distribution Width 12.2 % 11.5-14.5 Norm al (applies to non-numeric results) [facility] ([facility]) Lymph % 15.3 % 24.0-44.0 Below low normal [facility] ( [facility]) Ritchie % 7.9 % 2.0-8.0 Normal (applies to non-numeric resul ts) [facility] ([facility]) Eos % 2.4 % 0.0-3.0 Normal (applies to non-numeric resul ts) [facility] ([facility]) Nucleated Red Blood Cell % 0.0 % 0-0 Normal (applies to n on-numeric results) [facility] ([facility]) Immature Granulocyte % 0.3 % 0-3.0 Normal (applies to non-n umeric results) [facility] ([facility]) Baso % 0.7 % 0.0-1.0 Normal (applies to non-numeric resul ts) [facility] ([facility]) Lymph # 1.6 10 1.5-5.0 Normal (applies to non-numeric resul ts) [facility] ([facility]) Neutrophils # 7.7 10 1.5-8.5 Normal (applies to non-numeric re sults) [facility] ([facility]) Baso # 0.1 10 0.0-0.2 Normal (applies to non-numeric resul ts) [facility] ([facility]) Ritchie # 0.8 10 0.0-0.8 Normal (applies to non-numeric resul ts) [facility] ([facility]) Eos # 0.3 10 0.0-0.5 Normal (applies to non-numeric resul ts) [facility] ([facility]) ID Date Data Source [id number] 05/28/2021 03:53:00 PM EDT [facility] ([facility]) Name Value Range Interpretation Code Description Data Nimisha rce(s) Supporting Document(s) Thyroid Stimulating Hormone 0.901 uIU/ML 0.358-3.740 Norm al (applies to non- numeric results) [facility] ([facility]) Free T4 0.69 ng/dL 0.76-1.46 Below low normal [facility] ( [facility]) ID Date Data Source IRON (FE) 04/16/2021 12:00:00 AM EDT eCW1 ([facility]) Name Value Range Interpretation Code Description Data Nimisha rce(s) Supporting Document(s) [id number] IRON (FE) eCW1 ([facility]) ID Date Data Source VITAMIN B12 LEVEL 04/16/2021 12:00:00 AM EDT eCW1 ([facility]) Name Value Range Interpretation Code Description Data Nimisha rce(s) Supporting Document(s) [id number] VITAMIN B12 LEVEL eCW1 ([facility]) ID Date Data Source VITAMIN D 25-HYDROXY 04/16/2021 12:00:00 AM EDT eCW1 ([facility]) Name Value Range Interpretation Code Description Data Nimisha rce(s) Supporting Document(s) 30.4 30.0-100.0 TOTAL 25(OH) VITAMIN D eC W1 ([facility]) ID Date Data Source TSH 04/16/2021 12:00:00 AM EDT eCW1 ([facility]) Name Value Range Interpretation Code Description Data Nimisha rce(s) Supporting Document(s) 0.585 0.358-3.740 THYROID STIMULATING HORM ONE eCW1 ([facility]) ID Date Data Source PHOSPHOROUS LEVEL 04/16/2021 12:00:00 AM EDT eCW1 ([facility]) Name Value Range Interpretation Code Description Data Nimisha rce(s) Supporting Document(s) 3.5 2.5-4.9 PHOSPHORUS LEVEL eCW1 ([facility]) ID Date Data Source MAGNESIUM LEVEL 04/16/2021 12:00:00 AM EDT eCW1 ([facility]) Name Value Range Interpretation Code Description Data Nimisha rce(s) Supporting Document(s) 2.4 1.8-2.4 MAGNESIUM LEVEL eCW1 ([facility]) ID Date Data Source CPK CREATINE PHOSPHOKINASE 04/16/2021 12:00:00 AM EDT eCW1 ( [facility]) Name Value Range Interpretation Code Description Data Nimisha rce(s) Supporting Document(s) [id number] CPK CREATINE PHOSPHOKINASE eCW 1 ([facility]) ID Date Data Source [id number] 03/14/2021 09:52:02 AM EDT [facility] Kip WaddellOB: 1960Provider: Dany [...] bilateral thumb pain and weakness. 5-year-old male [id number] reports pain in the thumbs bilaterally. 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 No specific 1 injury. Left [...] need hip replacement.This note was dictated using Wrapp voice recognition software. A reasonable attempt was [...] rce(s) Supporting Document(s) ID Date Data Source [id number] 02/13/2021 12:28:56 PM EDT [facility] Kip WaddellOB: 1960Provider: Geovani [...] Done: 07Feb2021 Perform:SOS29; Due:21Feb2021; Last Updated By:Jovan eKy; 02/07/2021 11:28:19 AM;Ordered; For:Pain of left hip; Ordered By:Rene Perdomo;Weight Bearing Status : Weight bearing Signatures Electronically signed by : Mulu Kinney, ; Feb 07 2021 12:28PM EST Electronically signed by : Rene Perdomo M.D.; Feb 13 2021 12:28PM EST Name Value Range Interpretation Code Description Data Nimisha rce(s) Supporting Document(s) ID Date Data Source [id number] 01/24/2021 10:15:40 PM EDT [facility] Kip WaddellOB: 1960Provider: Madina [...] document was dictated and electronically signed using [employer] software. A reasonable attempt at proof reading has been made to minimize errors. Please call with any questions. Signatures Electronically signed by : Florina Ruiz NP; Jan 24 2021 1:17PM EST (Author) Electronically signed by : Teetee Araiza M.D.; Jan 24 2021 10:15PM EST Name Value Range Interpretation Code Description Data Nimisha rce(s) Supporting Document(s) ID Date Data Source [id number] 11/30/2020 08:01:29 AM EST [facility] PC[facility]: Kip JustinPerOB: 1960Provider: Jaime [...] pain.HISTORY OF PRESENT ILLNESSThis is a 60-year-old [id number] male who presents for an initial evaluation [...] and report, per formed on 08/23/2020 at [facility] were reviewed. These show what appears to [...] (SOS) - General Treatment Treatment Status: Complete Done:[id number] Ordered;For: Left shoulder pain; Ordered By: Teetee Araiza Performed: Order Comments: left shoulder impingement Due: [id number]; Last Updated By: Beatrice Santana; 11/29/2020 2:20:57 [...] rce(s) Supporting Document(s) ID Date Data Source [id number] 08/30/2020 12:19:00 PM EST [facility] ([facility]) Name Value Range Interpretation Code Description Data Nimisha rce(s) Supporting Document(s) Laboratory test finding (navigational concept) 0.00 ng/mL 0 .00-0.08 Normal (applies to non-numeric results) [facility] ([facility]) ID Date Data Source [id number] 08/30/2020 12:16:00 PM EST [facility] ([facility]) Name Value Range Interpretation Code Description Data Nimisha rce(s) Supporting Document(s) Erythrocyte sedimentation rate by Westergren method 8 mm/hr 0-20 Normal (applies to non-numeric results) [facility] ([facility]) ID Date Data Source [id number] 08/30/2020 12:16:00 PM EST [facility] ([facility]) Name Value Range Interpretation Code Description Data Nimisha e(s) Supporting Document(s) Glucose, Fasting 118 mg/dL 70-100 Above high normal [facility] Creatinine For GFR 1.02 mg/dL 0.70-1.30 Normal (applies to non -numeric results) [facility] ([facility]) Blood Urea Nitrogen 12 mg/dL 7-18 Normal (applies to non-nume sara results) [facility] ([facility]) Glomerular Filtration Rate Laboratory test result Normal (applies to non- numeric results) [facility] ([facility]) <content>Units are mL/min/1.73 m2</content>
<content></content>
<content>Chronic Kidney Disease Staging per NKF:</content>
<content></content>
<content>Stage I & II GFR >=60 Normal to Mildly Decreased</content>
<content>Stage III GFR 30-59 Moderately Decreased</content>
<content>Stage IV GFR 15-29 Severely Decreased</content>
<content>Stage V GFR <15 Very Little GFR Left</content>
<content>ESRD GFR <15 on KICK PRESS SETTER</content>
<content></content> Sodium Level 139 meq/L 136-145 Normal (applies to non-numeric res ults) [facility] ([facility]) Potassium Serum 3.7 meq/L 3.5-5.1 Normal (applies to non-numeric results) [facility] ([facility]) Chloride Level 109 meq/L 98-107 Above high normal [facility] ([facility]) Carbon Dioxide Level 25 meq/L 21-32 Normal (applies to non-num aron results) [facility] ([facility]) Anion Gap 5 meq/L 8-16 [facility] Calcium Level 9.5 mg/dL 8.8-10.2 Normal (applies to non-numeric re sults) [facility] ([facility]) ID Date Data Source [id number] 08/30/2020 12:16:00 PM EST [facility] ([facility]) Name Value Range Interpretation Code Description Data Nimisha rce(s) Supporting Document(s) Laboratory test finding (navigational concept) 42.0 % 3 8.0-51.0 Normal (applies to non-numeric results) [facility] ([facility]) Laboratory test finding (navigational concept) 124 mg/dL 7 0-105 Above high normal [facility] ([facility]) Laboratory test finding (navigational concept) 139 meq/L 1 36-145 Normal (applies to non-numeric results) [facility] ([facility]) Laboratory test finding (navigational concept) 105 meq/L 9 8-109 Normal (applies to non-numeric results) [facility] ([facility]) Laboratory test finding (navigational concept) 3.6 meq/L 3 .5-5.1 Normal (applies to non-numeric results) [facility] ([facility]) Laboratory test finding (navigational concept) 4.9 mg/dL 4 .5-5.3 Normal (applies to non-numeric results) [facility]) Laboratory test finding (navigational concept) 12 mg/dL 8 -26 Normal (applies to non-numeric results) [facility] ([facility]) Laboratory test finding (navigational concept) 21.0 MM/L 2 3.0-27.0 Below low normal [facility] ([facility]) Laboratory test finding (navigational concept) 0.9 mg/dL 0 .6-1.3 Normal (applies to non-numeric results) [facility] ([facility]) ID Date Data Source [id number] 08/30/2020 12:16:00 PM EST [facility] ([facility]) Name Value Range Interpretation Code Description Data Nimisha rce(s) Supporting Document(s) Red Blood Count 4.58 10 4.30-6.10 Normal (applies to non-numeric results) [facility] ([facility]) White Blood Count 15.3 10 4.0-10.0 Above high normal [facility] Hematocrit 42.6 % 42.0-52.0 Normal (applies to non-numeric resul ts) MEDENT ([facility]) Hemoglobin 14.5 g/dL 13.5-17.5 Normal (applies to non-numeric resul ts) [facility] ([facility]) Mean Corpuscular Volume 93.0 fl 80.0-96.0 Normal ( applies to non-numeric results) [facility] ([facility]) Mean Corpuscular Hemoglobin 31.7 pg 27.0-33.0 Norm al (applies to non-numeric results) [facility] ([facility]) Mean Corpuscular HGB Conc 34.0 g/dL 32.0-36.5 Normal (applies to non-numeric results) [facility] ([facility]) Red Cell Distribution Width 12.0 % 11.5-14.5 Norm al (applies to non-numeric results) [facility] ([facility]) Platelet Count, Automated 263 10 150-450 Normal (applies to non-numeric results) [facility] ([facility]) Neutrophils % 80.5 % 36.0-66.0 Above high normal MEDE NT ([facility]) Ritchie % 7.7 % 0.0-5.0 Above high normal [facility] ([facility]) Lymph % 10.4 % 24.0-44.0 Below low normal [facility] ( [facility]) Eos % 0.7 % 0.0-3.0 Normal (applies to non-numeric resul ts) [facility] ([facility]) Baso % 0.4 % 0.0-1.0 Normal (applies to non-numeric resul ts) [facility] ([facility]) Nucleated Red Blood Cell % 0.0 % 0-0 Normal (applies to n on-numeric results) [facility] ([facility]) Immature Granulocyte % 0.3 % 0-3.0 Normal (applies to non-n umeric results) [facility] ([facility]) Neutrophils # 12.3 10 1.5-8.5 Above high normal MEDE NT ([facility]) Lymph # 1.6 10 1.5-5.0 Normal (applies to non-numeric resul ts) [facility] ([facility]) Ritchie # 1.2 10 0.0-0.8 Above high normal [facility] ([facility]) Eos # 0.1 10 0.0-0.5 Normal (applies to non-numeric resul ts) [facility] ([facility]) Baso # 0.1 10 0.0-0.2 Normal (applies to non-numeric resul ts) [facility] ([facility]) ID Date Data Source [id number] 08/28/2020 06:39:00 AM EST [facility] ([facility]) Name Value Range Interpretation Code Description Data Nimisha rce(s) Supporting Document(s) Glucose, Fasting 99 mg/dL 70-100 Normal (applies to non-numeric results) [facility] ([facility]) Blood Urea Nitrogen 16 mg/dL 7-18 Normal (applies to non-nume sara results) [facility] Glomerular Filtration Rate Laboratory test result Normal (applies to non- numeric results) [facility] ([facility]) <content>Units are mL/min/1.73 m2</content>
<content></content>
<content>Chronic Kidney Disease Staging per NKF:</content>
<content></content>
<content>Stage I & II GFR >=60 Normal to Mildly Decreased</content>
<content>Stage III GFR 30-59 Moderately Decreased</content>
<content>Stage IV GFR 15-29 Severely Decreased</content>
<content>Stage V GFR <15 Very Little GFR Left</content>
<content>ESRD GFR <15 on KICK PRESS SETTER</content>
<content></content> Creatinine For GFR 0.98 mg/dL 0.70-1.30 Normal (applies to non -numeric results) [facility] ([facility]) Sodium Level 140 meq/L 136-145 Normal (applies to non-numeric res ults) [facility] ([facility]) Potassium Serum 4.1 meq/L 3.5-5.1 Normal (applies to non-numeric results) [facility] ([facility]) Carbon Dioxide Level 30 meq/L 21-32 Normal (applies to non-num aron results) [facility] ([facility]) Chloride Level 107 meq/L 98-107 Normal (applies to non-numeric r esults) [facility] ([facility]) Anion Gap 3 meq/L 8-16 Below low [facility] Calcium Level 8.8 mg/dL 8.8-10.2 Normal (applies to non-numeric re sults) [facility]) ID Date Data Source [id number] 08/28/2020 06:39:00 AM EST [facility] ([facility]) Name Value Range Interpretation Code Description Data Nimisha rce(s) Supporting Document(s) Hemoglobin 14.8 g/dL 13.5-17.5 Normal (applies to non-numeric resul ts) [facility] ([facility]) White Blood Count 11.2 10 4.0-10.0 Above high normal [facility] ([facility]) Red Blood Count 4.78 10 4.30-6.10 Normal (applies to non-numeric results) [facility]) Mean Corpuscular Volume 95.4 fl 80.0-96.0 Normal ( applies to non-numeric results) [facility] ([facility]) Hematocrit 45.6 % 42.0-52.0 Normal (applies to non-numeric resul ts) [facility] ([facility]) Mean Corpuscular HGB Conc 32.5 g/dL 32.0-36.5 Normal (applies to non-numeric results) [facility] ([facility]) Mean Corpuscular Hemoglobin 31.0 pg 27.0-33.0 Norm al (applies to non-numeric results) [facility] ([facility]) Red Cell Distribution Width 12.3 % 11.5-14.5 Norm al (applies to non-numeric results) [facility] ([facility]) Platelet Count, Automated 269 10 150-450 Normal (applies to non-numeric results) [facility] ([facility]) Nucleated Red Blood Cell % 0.0 % 0-0 Normal (applies to n on-numeric results) [facility] ([facility]) ID Date Data Source [id number] 08/28/2020 06:39:00 AM EST [facility], ) Name Value Range Interpretation Code Description Data Nimisha rce(s) Supporting Document(s) Glucose, Fasting 99 mg/dL 70-100 Normal (applies to non-numeric results) [facility] ([facility], ) Creatinine For GFR 0.98 mg/dL 0.70-1.30 Normal (applies to non -numeric results) [facility] ([facility]) Blood Urea Nitrogen 16 mg/dL 7-18 Normal (applies to non-nume sara results) [facility] ([facility], ) Sodium Level 140 meq/L 136-145 Normal (applies to non-numeric res ults) [facility] ([facility], ) Glomerular Filtration Rate Laboratory test result Normal (applies to non- numeric results) [facility], ) <content>Units are mL/min/1.73 m2</content>
<content></content>
<content>Chronic Kidney Disease Staging per NKF:</content>
<content></content>
<content>Stage I & II GFR >=60 Normal to Mildly Decreased</content>
<content>Stage III GFR 30-59 Moderately Decreased</content>
<content>Stage IV GFR 15-29 Severely Decreased</content>
<content>Stage V GFR <15 Very Little GFR Left</content>
<content>ESRD GFR <15 on KICK PR[employer] SETTER</content>
<content></content> Chloride Level 107 meq/L 98-107 Normal (applies to non-numeric r esults) [facility] ([facility]) Potassium Serum 4.1 meq/L 3.5-5.1 Normal (applies to non-numeric results) [facility] ([facility]) Calcium Level 8.8 mg/dL 8.8-10.2 Normal (applies to non-numeric re sults) [facility]) Anion Gap 3 meq/L 8-16 Below low normal [facility] ( [facility]) Carbon Dioxide Level 30 meq/L 21-32 Normal (applies to non-num aron results) [facility]) ID Date Data Source [id number] 08/28/2020 06:39:00 AM EST [facility] ([facility]) Name Value Range Interpretation Code Description Data Nimisha rce(s) Supporting Document(s) Red Blood Count 4.78 10 4.30-6.10 Normal (applies to non-numeric results) [facility]) White Blood Count 11.2 10 4.0-10.0 Above high normal [facility]) Mean Corpuscular Volume 95.4 fl 80.0-96.0 Normal ( applies to non-numeric results) [facility]) Hemoglobin 14.8 g/dL 13.5-17.5 Normal (applies to non-numeric resul ts) [facility]) Hematocrit 45.6 % 42.0-52.0 Normal (applies to non-numeric resul ts) [facility]) Mean Corpuscular Hemoglobin 31.0 pg 27.0-33.0 Norm al (applies to non-numeric results) [facility]) Mean Corpuscular HGB Conc 32.5 g/dL 32.0-36.5 Normal (applies to non-numeric results) [facility] ([facility], ) Red Cell Distribution Width 12.3 % 11.5-14.5 Norm al (applies to non-numeric results) [facility] ([facility], ) Platelet Count, Automated 269 10 150-450 Normal (applies to non-numeric results) [facility] ([facility], ) Nucleated Red Blood Cell % 0.0 % 0-0 Normal (applies to n on-numeric results) [facility] ([facility], ) ID Date Data Source [id number] 08/14/2020 12:00:00 AM EDT [facility] Jonathan Arango MD Patient Name: KIP [id number] [facility] Date of : 1960[place] [id number] Date of Exam: 08/14/2020#: Fax: [phone] EXAM: ARTHROCENTESIS LTHIP-ASPIR / INJ STEROID/PAIN MEDSLEFT HIP INJECTION:The procedure was performed by KAYCEE Marqeuz under the generalsupervision of Dr. Cunha.The benefits [...] rce(s) Supporting Document(s) ID Date Data Source [id number] 08/14/2020 12:00:00 AM EDT [facility] Jonathan Arango MD Patient Name: KIP [id number] [facility] Date of : 1960[place] [address] Date of Exam: 08/14/2020#: Fax: [phone] EXAM: [...] EDT Former Smoker completed Former Smoker eCW1 ([facility]) Smoking 07/17/2021 12:00:00 AM EDT Former Smoker completed Former Smoker eCW1 ([facility]) Smoking 06/14/2021 12:00:00 AM EDT Patient is a former smoker completed Patient is a former smoker ROBERT ([facility]) Smoking 04/16/2021 12:00:00 AM EDT Former Smoker completed Former Smoker eCW1 ([facility]) Smoking 04/16/2021 12:00:00 AM EDT Former Smoker completed Former Smoker eCW1 ([facility]) Smoking 04/16/2021 12:00:00 AM EDT Former Smoker completed Former Smoker eCW1 ([facility]) Smoking 04/16/2021 12:00:00 AM EDT Former Smoker completed Former Smoker eCW1 ([facility]) Smoking 04/16/2021 12:00:00 AM EDT Former Smoker completed Former Smoker eCW1 ([facility]) Vital Signs ID Date Data Source UNK Name Value Range Interpretation Code Description Data Source(s) Systolic blood pressure 148 mm[Hg] 148 mm[Hg] M CORNELIUS ([facility]) Diastolic blood pressure 78 mm[Hg] 78 mm[Hg] [facility] ([facility]) Body height 68 [in_i] 68 [in_i] [facility] ([facility]) 5'8" Body weight 143.00 [lb_av] 143.00 [lb_av] MEDEN T ([facility]) Body mass index (BMI) [Ratio] 21.7 kg/m2 21.7 k g/m2 [facility] ([facility]) [place] body weight 154 [lb_av] 154 [lb_av] [facility] Body weight 64.865 kg 64.865 kg [facility] ([facility]) Body surface area Derived from formula 1.77 m2 1.77 m2 [facility] ([facility]) Body height 68 [in_i] 68 [in_i] [facility] ([facility]) 5'8" Systolic blood pressure 142 mm[Hg] 142 mm[Hg] [facility] Oxygen saturation in Arterial blood by Pulse oximetry 98 % 98 % [facility] ([facility]) Diastolic blood pressure 82 mm[Hg] 82 mm[Hg] [facility] ([facility]) Body weight 144.00 [lb_av] 144.00 [lb_av] [facility] Body mass index (BMI) [Ratio] 21.9 kg/m2 21.9 k g/m2 [facility] ([facility]) Heart rate 68 /min 68 /min [facility] ([facility]) Respiratory rate 18 /min 18 /min [facility] ( [facility]) Body temperature 97.6 [degF] 97.6 [degF] [facility] ([facility]) [place] body weight 154 [lb_av] 154 [lb_av] MEDEN T ([facility]) Body temperature 97.2 [degF] 97.2 [degF] [facility] ([facility]) [place] body weight 154 [lb_av] 154 [lb_av] MEDEN T ([facility]) Systolic blood pressure 146 mm[Hg] 146 mm[Hg] M EDENT ([facility]) Body weight 148.00 [lb_av] 148.00 [lb_av] MEDEN T ([facility]) Respiratory rate 18 /min 18 /min [facility] ( [facility]) Oxygen saturation in Arterial blood by Pulse oximetry 98 % 98 % [facility] ([facility]) Diastolic blood pressure 72 mm[Hg] 72 mm[Hg] [facility] ([facility]) Body height 68 [in_i] 68 [in_i] [facility] 5'8" Body mass index (BMI) [Ratio] 22.5 kg/m2 22.5 k g/m2 [facility] ([facility]) Heart rate 68 /min 68 /min [facility] ([facility]) Body temperature 98.0 [degF] 98.0 [degF] eCW1 ( [facility]) Body weight 140.8 [lb_av] 140.8 [lb_av] eCW1 ([facility]) Body weight 63.87 kg 63.87 kg W1 ([facility]) Body height 69 [in_i] 69 [in_i] eCW1 ([facility]) Body mass index (BMI) [Ratio] 20.79 kg/m2 20.79 kg/m2 W1 ([facility]) Heart rate 73 /min 73 /min eCW1 ([facility]) Respiratory rate 20 /min 20 /min eCW1 ([facility]) Systolic blood pressure 122 mm[Hg] 122 mm[Hg] e CW1 ([facility]) Diastolic blood pressure 68 mm[Hg] 68 mm[Hg] eCW1 ([facility]) Diastolic blood pressure 64 mm[Hg] 64 mm[Hg] [facility] ([facility]) Body weight 147.25 [lb_av] 147.25 [lb_av] MEDEN T ([facility]) Body mass index (BMI) [Ratio] 22.4 kg/m2 22.4 k g/m2 [facility] ([facility]) Oxygen saturation in Arterial blood by Pulse oximetry 98 % 98 % [facility] ([facility]) [place] body weight 154 [lb_av] 154 [lb_av] MEDEN T ([facility]) Systolic blood pressure 126 mm[Hg] 126 mm[Hg] M EDENT ([facility]) Body height 68 [in_i] 68 [in_i] [facility] ([facility]) 5'8" Heart rate 70 /min 70 /min [facility] ([facility]) Respiratory rate 18 /min 18 /min [facility] ( [facility]) Body temperature 98.3 [degF] 98.3 [degF] [facility] ([facility]) Body temperature 97.6 [degF] 97.6 [degF] [facility] ([facility]) Heart rate 81 /min 81 /min [facility] ([facility]) Respiratory rate 14 /min 14 /min [facility] ( [facility]) Oxygen saturation in Arterial blood by Pulse oximetry 98 % 98 % [facility]) [place] body weight 154 [lb_av] 154 [lb_av] MEDEN T ([facility]) Systolic blood pressure 122 mm[Hg] 122 mm[Hg] M EDENT ([facility]) Diastolic blood pressure 68 mm[Hg] 68 mm[Hg] [facility] ([facility]) Body height 68 [in_i] 68 [in_i] [facility] ([facility]) 5'8" Body weight 145.50 [lb_av] 145.50 [lb_av] MEDEN T ([facility]) Body mass index (BMI) [Ratio] 22.1 kg/m2 22.1 k g/m2 [facility] ([facility]) Body mass index (BMI) [Ratio] 21.7 kg/m2 21.7 k g/m2 [facility] ([facility]) Systolic blood pressure 118 mm[Hg] 118 mm[Hg] M EDENT ([facility]) Diastolic blood pressure 78 mm[Hg] 78 mm[Hg] [facility] ([facility]) Body height 68 [in_i] 68 [in_i] [facility] ([facility]) 5'8" Body weight 143.00 [lb_av] 143.00 [lb_av] MEDEN T ([facility]) Heart rate 71 /min 71 /min [facility] ([facility]) Respiratory rate 18 /min 18 /min [facility] ( [facility]) Body temperature 98.3 [degF] 98.3 [degF] [facility] ([facility]) Oxygen saturation in Arterial blood by Pulse oximetry 98 % 98 % [facility] ([facility]) [place] body weight 154 [lb_av] 154 [lb_av] MEDEN T ([facility]) Body weight 144.0 [lb_av] 144.0 [lb_av] eCW1 ([facility]) Body weight 65.3 kg 65.3 kg eCW1 ([facility]) Body height 69 [in_i] 69 [in_i] eCW1 ([facility]) Body mass index (BMI) [Ratio] 21.26 kg/m2 21.26 kg/m2 W1 ([facility]) Heart rate 77 /min 77 /min eCW1 ([facility]) Respiratory rate 20 /min 20 /min eCW1 ([facility]) Body temperature 98.1 [degF] 98.1 [degF] eCW1 ( [facility]) Systolic blood pressure 118 mm[Hg] 118 mm[Hg] e CW1 ([facility]) Diastolic blood pressure 72 mm[Hg] 72 mm[Hg] eCW1 ([facility]) Body weight 144.0 [lb_av] 144.0 [lb_av] eCW1 ([facility]) Body weight 65.3 kg 65.3 kg eCW1 ([facility]) Body height 69 [in_i] 69 [in_i] eCW1 ([facility]) Body mass index (BMI) [Ratio] 21.26 kg/m2 21.26 kg/m2 eCW1 ([facility]) Heart rate 77 /min 77 /min eCW1 ([facility]) Respiratory rate 20 /min 20 /min eCW1 ([facility]) Body temperature 98.1 [degF] 98.1 [degF] eCW1 ( [facility]) Systolic blood pressure 118 mm[Hg] 118 mm[Hg] e CW1 ([facility]) Diastolic blood pressure 72 mm[Hg] 72 mm[Hg] eCW1 ([facility]) Systolic blood pressure 140 mm[Hg] 140 mm[Hg] M EDENT ([facility]) [place] body weight 154 [lb_av] 154 [lb_av] MEDEN T ([facility]) Body weight 157.12 [lb_av] 157.12 [lb_av] MEDEN T ([facility]) Body mass index (BMI) [Ratio] 23.9 kg/m2 23.9 k g/m2 [facility] ([facility]) Heart rate 70 /min 70 /min [facility] ([facility]) Respiratory rate 16 /min 16 /min [facility] ( [facility]) Body temperature 97.4 [degF] 97.4 [degF] [facility] ([facility]) Oxygen saturation in Arterial blood by Pulse oximetry 97 % 97 % [facility] ([facility]) Diastolic blood pressure 80 mm[Hg] 80 mm[Hg] [facility] ([facility]) Body height 68 [in_i] 68 [in_i] [facility] ([facility]) 5'8" Body temperature 98.0 [degF] 98.0 [degF] [facility] ([facility]) Oxygen saturation in Arterial blood by Pulse oximetry 98 % 98 % [facility] ([facility]) [place] body weight 154 [lb_av] 154 [lb_av] MEDEN T ([facility]) Systolic blood pressure 144 mm[Hg] 144 mm[Hg] M EDENT ([facility]) Diastolic blood pressure 80 mm[Hg] 80 mm[Hg] [facility] ([facility]) Body height 68 [in_i] 68 [in_i] [facility] ([facility]) 5'8" Body weight 156.12 [lb_av] 156.12 [lb_av] MEDEN T ([facility]) Body mass index (BMI) [Ratio] 23.7 kg/m2 23.7 k g/m2 [facility] ([facility]) Heart rate 70 /min 70 /min [facility] ([facility]) Respiratory rate 18 /min 18 /min MED[facility] ( [facility]) Body height 69 [in_i] 69 [in_i] MED[facility] ([facility]) 5'9" Body weight 156.38 [lb_av] 156.38 [lb_av] MEDEN T ([facility]) Body mass index (BMI) [Ratio] 23.1 kg/m2 23.1 k g/m2 [facility] ([facility]) [place] body weight 160 [lb_av] 160 [lb_av] MEDEN T ([facility]) Body weight 70.932 kg 70.932 kg [facility] ([facility]) Body surface area Derived from formula 1.86 m2 1.86 m2 [facility] ([facility]) Diastolic blood pressure 70 mm[Hg] 70 mm[Hg] [facility] ([facility]) Body height 69 [in_i] 69 [in_i] MED[facility] ([facility]) 5'9" Body weight 156.38 [lb_av] 156.38 [lb_av] MEDEN T ([facility]) Body mass index (BMI) [Ratio] 23.1 kg/m2 23.1 k g/m2 [facility] ([facility]) [place] body weight 160 [lb_av] 160 [lb_av] MEDEN T ([facility]) Body weight 70.932 kg 70.932 kg [facility] ([facility]) Body surface area Derived from formula 1.86 m2 1.86 m2 [facility] ([facility]) Systolic blood pressure 132 mm[Hg] 132 mm[Hg] M EDENT ([facility]) Systolic blood pressure 124 mm[Hg] 124 mm[Hg] [facility] Diastolic blood pressure 80 mm[Hg] 80 mm[Hg] [facility] Body height 68 [in_i] 68 [in_i] [facility] 5'8" Body weight 157.12 [lb_av] 157.12 [lb_av] MEDEN T ([facility]) Body mass index (BMI) [Ratio] 23.9 kg/m2 23.9 k g/m2 [facility] ([facility]) Heart rate 71 /min 71 /min [facility] ([facility]) Respiratory rate 18 /min 18 /min [facility] ( [facility]) Body temperature 97.6 [degF] 97.6 [degF] [facility] ([facility]) Oxygen saturation in Arterial blood by Pulse oximetry 98 % 98 % [facility] ([facility]) [place] body weight 154 [lb_av] 154 [lb_av] [facility] Body height 69 [in_i] 69 [in_i] [facility] ([facility], ) 5'9" Body weight 150.38 [lb_av] 150.38 [lb_av] MEDEN T ([facility]) Body mass index (BMI) [Ratio] 22.2 kg/m2 22.2 k g/m2 [facility] ([facility]) [place] body weight 160 [lb_av] 160 [lb_av] MEDEN T ([facility], ) Body weight 68.210 kg 68.210 kg [facility] ([facility]) Body surface area Derived from formula 1.83 m2 1.83 m2 [facility] ([facility]) Systolic blood pressure 158 mm[Hg] 158 mm[Hg] [facility] ([facility]) Diastolic blood pressure 86 mm[Hg] 86 mm[Hg] [facility] ([facility]) Body weight 68.720 kg 68.720 kg [facility] ([facility]) Systolic blood pressure 110 mm[Hg] 110 mm[Hg] M [facility] ([facility] ) Left 150/86 Diastolic blood pressure 80 mm[Hg] 80 mm[Hg] [facility] ([facility]) Left 150/86 Body height 69 [in_i] 69 [in_i] [facility] ([facility]) 5'9" Body weight 151.50 [lb_av] 151.50 [lb_av] MEDEN T ([facility]) Body mass index (BMI) [Ratio] 22.4 kg/m2 22.4 k g/m2 [facility] ([facility]) [place] body weight 160 [lb_av] 160 [lb_av] MEDEN T ([facility]) Oxygen saturation in Arterial blood by Pulse oximetry 98 % 98 % [facility] ([facility]) [place] body weight 154 [lb_av] 154 [lb_av] MEDEN T ([facility]) Systolic blood pressure 118 mm[Hg] 118 mm[Hg] Schuyler CORNELIUS ([facility]) Diastolic blood pressure 62 mm[Hg] 62 mm[Hg] [facility] ([facility]) Body height 68 [in_i] 68 [in_i] [facility] ([facility]) 5'8" Body mass index (BMI) [Ratio] 23.0 kg/m2 23.0 k g/m2 [facility] ([facility]) Body weight 151.25 [lb_av] 151.25 [lb_av] MEDEN T ([facility]) Heart rate 62 /min 62 /min [facility] ([facility]) Respiratory rate 18 /min 18 /min [facility] ( [facility]) Body temperature 97.4 [degF] 97.4 [degF] [facility] ([facility]) Patient Treatment Plan of Care Planned Activity Planned Date Details Description Data Source (s) KAYDEN Neoprene Wrist Brace 07/17/2021 12:00:00 AM EDT [email or web address] ([facility]) KAYDEN Neoprene Wrist Brace 07/17/2021 12:00:00 AM EDT [email or web address] ([facility]) ferrous sulfate 325 MG Oral Tablet 05/13/2021 12:00:00 AM EDT [email or web address] ([facility]) ferrous sulfate 325 MG Oral Tablet 05/13/2021 12:00:00 AM EDT [email or web address] ([facility]) ferrous sulfate 325 MG Oral Tablet 05/13/2021 12:00:00 AM EDT [email or web address] ([facility]) ferrous sulfate 325 MG Oral Tablet 05/13/2021 12:00:00 AM EDT [email or web address] ([facility])
== END 2021-09-13 18:34 | disposition left against medical advice (07) ==
LOC: M ED 11:19
DX: Z53.21 Procedure and treatment not carried out due to patient leaving prior to being seen by health care provider (principal)

== ENCOUNTER → 2021-10-01 | Outpatient (CLI) | payer OTHER ==
[~2021-10-01] MED LIST changes: +FIRV25SO
--- NOTE | 2021-10-03 07:20 | REP ---
INDICATION: DIAGNOSING OF ABNORMAL FINDING OF LUNG R91.8. COMPARISON: CT chest without contrast, 09/10/2021. CT abdomen and pelvis with IV contrast, 06/16/2021. TECHNIQUE: Following the intravenous injection of 9.0 mCi of FDG and a standard uptake period, a noncontrast CT scan, followed by a PET scan were acquired along the length of the body from the base of the skull to the mid thighs. The noncontrast helical CT imaging was performed, without breath hold, for attenuation correction of PET images and anatomic correlation, but not for primary interpretation, as it is not a of standard diagnostic quality. Images were reviewed in the axial, coronal and sagittal planes. FINDINGS: Head and neck: There is a normal distribution of FDG activity in the visualized brain parenchyma. There is calcific vascular disease of both carotid bifurcations. There is normal uptake within the soft tissues of the neck and glandular structures. There is no lymphadenopathy identified. Chest: There is pleural-parenchymal scarring in both lung apices. The soft tissue density nodule in the left lung apex, seen on the recent CT chest exam is noted measuring approximately 10 mm in diameter. The nodule demonstrates minimal FDG activity, max SUV 1.3. There are no pleural effusions. The heart size is normal. There is no pericardial effusion. 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 There is a stent in the brachiocephalic artery. There is a left axillary lymph node measuring 16 x 10 mm demonstrating FDG activity, max SUV 3.2. Abdomen and pelvis: There is a normal distribution of FDG activity within the gastrointestinal and genitourinary tract. No evidence of lymphadenopathy. There is calcific vascular disease of the abdominal aorta. There is colonic diverticulosis without diverticulitis. There is thickening of the wall of the urinary bladder consistent with bladder outlet obstruction and or cystitis. The prostate gland contains coarse calcifications. Musculoskeletal: There are no suspicious hypermetabolic, osteolytic or osteo sclerotic lesions. IMPRESSION: 1. Soft tissue density nodule in the left lung apex does not demonstrate significant FDG activity. However, this does not exclude neoplasm, as some neoplasms do not demonstrate significant FDG activity. 2. There is a hypermetabolic left axillary lymph node of indeterminate significance. 3. There are no other foci of abnormal FDG activity to suggest neoplastic disease. 4. Other findings as noted. <Electronically signed by Mauro Donis > 10/03/21 [id number]
== END ==
LOC: M PLARAD 12:49
PROVIDERS: ATTEND Physician Assistant
DX: R91.8 Other nonspecific abnormal finding of lung field (principal)
CPT/HCPCS: 78815; A9552

== ENCOUNTER → 2021-10-10 | Outpatient (CLI) | payer OTHER ==
--- NOTE | 2021-10-10 11:33 | REP ---
INDICATION: LT AXILA MASS COMPARISON: None TECHNIQUE: Grayscale and color evaluation using linear high-frequency transducer. FINDINGS: Directed ultrasound examination of the left axilla demonstrates 14 x 12 x 6 mm and 18 x 8 x 10 mm lymph nodes which are nonspecific by sonographic evaluation. IMPRESSION: 1. Two nonspecific appearing lymph nodes in the left axillary region. <Electronically signed by Chris Bledsoe > 10/10/21 [id number]
== END ==
LOC: M RAD 10:13
PROVIDERS: ATTEND Physician Assistant
DX: R59.0 Localized enlarged lymph nodes (principal)

== ENCOUNTER → 2021-11-21 | Outpatient (CLI) | payer OTHER ==
[~2021-11-21] MED LIST changes: +ISOVUE-300 61% 50ML VIAL As Ordered ONE; +LIDOCAINE 1% MDV 20ML VIAL As Ordered ONE; -OMEP-221; +OMEP40CA5; +TRIAMCINOLONE ACETONIDE SUSP 40 MG/ML VIAL (J3301) As Ordered ONE
== END ==
LOC: M RADPRO 11:10
PROVIDERS: ATTEND Orthopaedic Surgery
DX: M16.12 Unilateral primary osteoarthritis, left hip (principal)
CPT/HCPCS: 20610; 77002; J3301; Q9967

== ENCOUNTER → 2022-01-14 | Outpatient (REF) | payer OTHER ==
[~2022-01-14] MED LIST changes: -ISOVUE-300 61% 50ML VIAL As Ordered ONE; -LIDOCAINE 1% MDV 20ML VIAL As Ordered ONE; -TRIAMCINOLONE ACETONIDE SUSP 40 MG/ML VIAL (J3301) As Ordered ONE
[2022-01-14 17:23] LABS: TOTAL 25(OH) VITAMIN D 23.9 NG/ML (30.0-100.0)
== END ==
LOC: M SFHCRHEU 13:02
PROVIDERS: ATTEND Internal Medicine
DX: E61.1 Iron deficiency (principal); M19.049 Primary osteoarthritis, unspecified hand

== ENCOUNTER 2022-02-07 11:13 | Day surgery (SDC) | payer OTHER ==
[~2022-02-07] VITALS: Ht 172.7 cm; Wt 60.8 kg
[~2022-02-07 11:13] MED LIST changes: +NS 1,000 ML IV ONE
[2022-02-07] MEDS ORDERED: propofoL 200 MG/20 ML VIAL As Ordered ONE ×2 (12:42→12:45)
[2022-02-07] MEDS ORDERED: LIDOCAINE 2% 100MG/5ML SDV (FOR ANES.) As Ordered ONE (12:42)
[2022-02-07] MEDS ORDERED: hydrALAZINE 20MG/ML 1ML VIAL (J0360 PER 20MG) As Ordered ONE (13:53)
[2022-02-07] MEDS ORDERED: LABETALOL 100MG/20ML VIAL As Ordered ONE (13:53)
[2022-02-07 15:13] VITALS: BP 121/66
== END 2022-02-07 14:40 | disposition home or self-care (01) ==
LOC: M OPP 11:13
PROVIDERS: ATTEND Internal Medicine Gastroenterology
DX: D12.4 Benign neoplasm of descending colon (principal); K57.30 Diverticulosis of large intestine without perforation or abscess without bleeding; K64.8 Other hemorrhoids; R10.9 Unspecified abdominal pain; R63.4 Abnormal weight loss; Z79.02 Long term (current) use of antithrombotics/antiplatelets; Z79.82 Long term (current) use of aspirin; Z79.891 Long term (current) use of opiate analgesic; Z79.899 Other long term (current) drug therapy
CPT/HCPCS: 43235; 45385; 88305; J0360

== ENCOUNTER → 2022-07-15 | Outpatient (REF) | payer OTHER ==
[~2022-07-15] MED LIST changes: -NS 1,000 ML IV ONE
== END ==
LOC: M SFHCRHEU 13:00
PROVIDERS: ATTEND Internal Medicine
DX: E55.9 Vitamin D deficiency, unspecified (principal)

== ENCOUNTER → 2022-08-27 | Outpatient (CLI) | payer OTHER ==
[2022-08-27 11:38] LABS: BASO # 0.1 10^3/uL (0.0-0.2); BASO % 0.7 % (0.0-1.0); EOS # 0.2 10^3/uL (0.0-0.5); EOS % 2.6 % (0.0-3.0); HEMATOCRIT 44.5 % (42.0-52.0); HEMOGLOBIN 14.8 g/dl (13.5-17.5); LYMPH # 1.5 10^3/uL (1.5-5.0); LYMPH % 18.5 % (24.0-44.0); MEAN CORPUSCULAR HEMOGLOBIN 32.1 pg (27.0-33.0); MEAN CORPUSCULAR HGB CONC 33.3 g/dl (32.0-36.5); MEAN CORPUSCULAR VOLUME 96.5 fl (80.0-96.0); MONO # 0.8 10^3/uL (0.0-0.8); MONO % 9.7 % (2.0-8.0); NEUTROPHILS # 5.5 10^3/uL (1.5-8.5); NEUTROPHILS % 68.1 % (36.0-66.0); PLATELET COUNT, AUTOMATED 288 10^3/uL (150-450); RED BLOOD COUNT 4.61 10^6/uL (4.30-6.10); WHITE BLOOD COUNT 8.1 10^3/uL (4.0-10.0)
[2022-08-27 12:24] LABS: ALBUMIN 3.9 GM/DL (3.2-5.2); ALT/SGPT 23 U/L (12-78); BILIRUBIN,TOTAL 0.6 MG/DL (0.2-1.0); BLOOD UREA NITROGEN 14 MG/DL (7-18); CALCIUM LEVEL 9.3 MG/DL (8.8-10.2); CARBON DIOXIDE LEVEL 28 MEQ/L (21-32); CHLORIDE LEVEL 105 MEQ/L (98-107); CHOLESTEROL LEVEL 155 MG/DL (<200); CHOLESTEROL RISK RATIO 2.348 (<5); CREATININE FOR GFR 0.85 MG/DL (0.70-1.30); FREE T4 0.86 NG/DL (0.76-1.46); GLOMERULAR FILTRATION RATE > 60.0 (>49); GLUCOSE, FASTING 97 MG/DL (70-100); HDL CHOLESTEROL 66 MG/DL (>40); LDL CHOLESTEROL 75 MG/DL (<100); NON-HDL-C 89 MG/DL; POTASSIUM SERUM 4.3 MEQ/L (3.5-5.1); SODIUM LEVEL 138 MEQ/L (136-145); TOTAL PROTEIN 6.9 GM/DL (6.4-8.2); TRIGLYCERIDES LEVEL 70 MG/DL (<150)
[2022-08-27 12:54] LABS: TOTAL 25(OH) VITAMIN D 25.7 NG/ML (30.0-100.0)
[2022-08-28 23:07] LABS: PSA TOTAL 0.6 ng/mL (0.0-4.0)
== END ==
LOC: M LAB 10:42
PROVIDERS: ATTEND Physician Assistant
DX: Z12.5 Encounter for screening for malignant neoplasm of prostate (principal); Z13.220 Encounter for screening for lipoid disorders; Z13.29 Encounter for screening for other suspected endocrine disorder

== ENCOUNTER → 2022-09-03 | Outpatient (CLI) | payer OTHER ==
[2022-09-03 16:01] LABS: BASO # 0.1 10^3/uL (0.0-0.2); BASO % 0.7 % (0.0-1.0); EOS # 0.2 10^3/uL (0.0-0.5); HEMATOCRIT 43.6 % (42.0-52.0); HEMOGLOBIN 14.5 g/dl (13.5-17.5); LYMPH # 1.9 10^3/uL (1.5-5.0); LYMPH % 18.1 % (24.0-44.0); MEAN CORPUSCULAR HEMOGLOBIN 31.9 pg (27.0-33.0); MEAN CORPUSCULAR HGB CONC 33.3 g/dl (32.0-36.5); MEAN CORPUSCULAR VOLUME 95.8 fl (80.0-96.0); MONO # 0.8 10^3/uL (0.0-0.8); MONO % 7.7 % (2.0-8.0); NEUTROPHILS # 7.5 10^3/uL (1.5-8.5); PLATELET COUNT, AUTOMATED 318 10^3/uL (150-450); RED BLOOD COUNT 4.55 10^6/uL (4.30-6.10); WHITE BLOOD COUNT 10.6 10^3/uL (4.0-10.0)
[2022-09-03 17:09] LABS: PERCENT SATURATION 34.8 % (19.7-50.0)
== END ==
LOC: M LAB 14:43
PROVIDERS: ATTEND Orthopaedic Surgery
DX: Z01.812 Encounter for preprocedural laboratory examination (principal); M16.12 Unilateral primary osteoarthritis, left hip; M25.552 Pain in left hip

== ENCOUNTER → 2023-04-23 | Outpatient (CLI) | payer OTHER ==
[2023-04-23 12:14] LABS: BASO # 0.1 10^3/uL (0.0-0.2); BASO % 0.5 % (0.0-1.0); EOS # 0.3 10^3/uL (0.0-0.5); EOS % 2.8 % (0.0-3.0); HEMOGLOBIN 14.3 g/dl (13.5-17.5); LYMPH # 1.6 10^3/uL (1.5-5.0); LYMPH % 13.4 % (24.0-44.0); MEAN CORPUSCULAR HEMOGLOBIN 31.8 pg (27.0-33.0); MEAN CORPUSCULAR HGB CONC 33.3 g/dl (32.0-36.5); MEAN CORPUSCULAR VOLUME 95.6 fl (80.0-96.0); MONO % 8.9 % (2.0-8.0); NEUTROPHILS # 8.6 10^3/uL (1.5-8.5); NEUTROPHILS % 74.1 % (36.0-66.0); PLATELET COUNT, AUTOMATED 292 10^3/uL (150-450); WHITE BLOOD COUNT 11.7 10^3/uL (4.0-10.0)
[2023-04-23 12:22] LABS: LIPASE 107 U/L (12-53)
[2023-04-23 12:24] LABS: ALBUMIN 3.6 G/DL (3.2-5.2); ALKALINE PHOSPHATASE 83 U/L (46-116); ALT/SGPT 19 U/L (7.0-40); AST/SGOT 21 U/L (<34); BILIRUBIN,DIRECT 0.1 MG/DL (<0.4); BILIRUBIN,TOTAL 0.5 MG/DL (0.3-1.2); BLOOD UREA NITROGEN 13 MG/DL (9-23); CALCIUM LEVEL 9.8 MG/DL (8.3-10.6); CARBON DIOXIDE LEVEL 27 MMOL/L (20-31); CHLORIDE LEVEL 108 MMOL/L (98-107); CREATININE FOR GFR 0.83 MG/DL (0.70-1.30); GLOMERULAR FILTRATION RATE > 60.0 (>49); GLUCOSE, FASTING 87 MG/DL (74-106); IRON (FE) 81 UG/DL (65-175); PERCENT SATURATION 25.2 % (19.7-50.0); POTASSIUM SERUM 4.3 MMOL/L (3.5-5.1); SODIUM LEVEL 136 MMOL/L (136-145); TOTAL IRON BINDING CAPACITY 322 UG/DL (250-425); TOTAL PROTEIN 6.3 G/DL (5.7-8.2)
[2023-04-23 12:26] LABS: FERRITIN 98.3 NG/ML (10.5-307.3)
== END ==
LOC: M LAB 10:58
PROVIDERS: ATTEND Physician Assistant
DX: R19.7 Diarrhea, unspecified (principal); K55.1 Chronic vascular disorders of intestine

== ENCOUNTER 2023-10-09 23:15 | Emergency (ER) | payer OTHER ==
[~2023-10-09] VITALS: Ht 172.7 cm; Wt 68.1 kg
[2023-10-09 23:20] VITALS: TEMP 97.4
[2023-10-10] MEDS ORDERED: BOOSTRIX VACCINE (TETANUS/DIPHTH/ACEL. PERTUSSIS) 0.5ML SYR IM.IMMUN ONE (01:40)
[2023-10-10 01:45] VITALS: O2SAT 100
[2023-10-10 01:54] VITALS: BP 137/79
== END 2023-10-10 01:57 | disposition home or self-care (01) ==
LOC: M ED 23:15
DX: S00.01XA Abrasion of scalp, initial encounter (principal); W01.0XXA Fall on same level from slipping, tripping and stumbling without subsequent striking against object, initial encounter; I10 Essential (primary) hypertension; G47.33 Obstructive sleep apnea (adult) (pediatric); E78.5 Hyperlipidemia, unspecified; F10.10 Alcohol abuse, uncomplicated; F17.200 Nicotine dependence, unspecified, uncomplicated; Y92.410 Unspecified street and highway as the place of occurrence of the external cause; Y93.89 Activity, other specified; Y99.9 Unspecified external cause status; Z79.82 Long term (current) use of aspirin; Z79.02 Long term (current) use of antithrombotics/antiplatelets; Z79.810 Long term (current) use of selective estrogen receptor modulators (SERMs); Z79.899 Other long term (current) drug therapy

== ENCOUNTER → 2024-01-27 | Outpatient (CLI) | payer OTHER | LOC: M SOG 07:50 | PROVIDERS: ATTEND Physician Assistant | DX: M79.641 Pain in right hand (principal); M79.642 Pain in left hand; Z53.9 Procedure and treatment not carried out, unspecified reason ==

== ENCOUNTER → 2024-03-24 | Outpatient (CLI) | payer MEDICARE, OTHER | LOC: M WHC 08:10 | PROVIDERS: ATTEND Surgery | DX: K55.1 Chronic vascular disorders of intestine (principal); I70.0 Atherosclerosis of aorta ==

== ENCOUNTER 2024-06-19 14:53 | Emergency (ER) | payer MEDICARE, OTHER ==
[~2024-06-19] VITALS: Ht 170.2 cm; Wt 61.0 kg
[2024-06-19 14:53] VITALS: TEMP 97
[2024-06-19] MEDS ORDERED: CLON0.5T2 PO (15:03)
[2024-06-19] MEDS ORDERED: BRIN1TAB3 PO (15:03)
[2024-06-19] MEDS ORDERED: ERGO500029 PO (15:03)
[2024-06-19 15:37] LABS: BASO # 0.1 10^3/uL (0.0-0.2); BASO % 0.5 % (0.0-1.0); EOS # 0.3 10^3/uL (0.0-0.5); EOS % 2.3 % (0.0-3.0); HEMATOCRIT 45.2 % (42.0-52.0); HEMOGLOBIN 15.2 g/dl (13.5-17.5); LYMPH # 1.6 10^3/uL (1.5-5.0); LYMPH % 14.1 % (24.0-44.0); MEAN CORPUSCULAR HEMOGLOBIN 32.5 pg (27.0-33.0); MEAN CORPUSCULAR HGB CONC 33.6 g/dl (32.0-36.5); MEAN CORPUSCULAR VOLUME 96.6 fl (80.0-96.0); MONO # 0.9 10^3/uL (0.0-0.8); NEUTROPHILS # 8.2 10^3/uL (1.5-8.5); NEUTROPHILS % 74.7 % (36.0-66.0); PLATELET COUNT, AUTOMATED 275 10^3/uL (150-450); RED BLOOD COUNT 4.68 10^6/uL (4.30-6.10)
[2024-06-19 15:57] LABS: INR 1.03; PROTHROMBIN TIME 13.2 SECONDS (12.5-14.5)
[2024-06-19 16:13] LABS: CK-MB VALUE MASS < 1.0 NG/ML (<3.6); LIPASE 49 U/L (12-53)
[2024-06-19 16:15] LABS: ALBUMIN 4.1 G/DL (3.2-5.2); ALKALINE PHOSPHATASE 88 U/L (46-116); ALT/SGPT 22 U/L (7.0-40); AST/SGOT 21 U/L (<34); BILIRUBIN,DIRECT 0.2 MG/DL (<0.4); BILIRUBIN,TOTAL 0.7 MG/DL (0.3-1.2); BLOOD UREA NITROGEN 18 MG/DL (9-23); CALCIUM LEVEL 9.5 MG/DL (8.3-10.6); CARBON DIOXIDE LEVEL 27 MMOL/L (20-31); CHLORIDE LEVEL 109 MMOL/L (98-107); CPK CREATINE PHOSPHOKINASE 79 U/L (46-171); CREATININE FOR GFR 1.04 MG/DL (0.70-1.30); GLOMERULAR FILTRATION RATE > 60.0 (>49); GLUCOSE, FASTING 122 MG/DL (74-106); MB/CK RELATIVE INDEX 1.26 (< OR =4); POTASSIUM SERUM 4.1 MMOL/L (3.5-5.1); SODIUM LEVEL 139 MMOL/L (136-145)
[2024-06-19 16:17] LABS: FREE T4 1.11 NG/DL (0.89-1.76); THYROID STIMULATING HORMONE 0.961 uIU/ML (0.55-4.78)
[2024-06-19 16:18] LABS: HCG, SERUM QUALITATIVE NEGATIVE
[2024-06-19] MEDS: ASPIRIN 81MG CHEW TABLET PO ONE (16:25)
[2024-06-19] MEDS ORDERED: ISOVUE-370 76% 100ML VIAL As Ordered ONE (16:54)
[2024-06-19 17:02] LABS: CK-MB VALUE MASS < 1.0 NG/ML (<3.6)
[2024-06-19 17:03] LABS: CPK CREATINE PHOSPHOKINASE 71 U/L (46-171)
[2024-06-19 19:00] VITALS: BP 160/89
[2024-06-19 19:08] VITALS: O2SAT 99
== END 2024-06-19 19:49 | disposition home or self-care (01) ==
LOC: M ED 14:53
DX: R91.1 Solitary pulmonary nodule (principal); R07.9 Chest pain, unspecified; Z87.891 Personal history of nicotine dependence; Z79.82 Long term (current) use of aspirin; Z79.899 Other long term (current) drug therapy
CPT/HCPCS: 71045; 71275; 80048; 80076; 82550; 82553; 83690; 83880; 84439; 84443; 84484; 84703; 85025; 85610; 85730; 87486; 87581; 87633; 87798; 93005; 93041; 94760; 99285; Q9967

== ENCOUNTER → 2024-08-16 | Outpatient (CLI) | payer MEDICARE, OTHER ==
[~2024-08-16] MED LIST changes: +BRIN1TAB3 PO; +CLON0.5T2 PO; +ERGO500029 PO; -MULT200T7 PO; +MULT200T9 PO
== END ==
LOC: M PLARAD 08:06
PROVIDERS: ATTEND Physician Assistant
DX: D38.1 Neoplasm of uncertain behavior of trachea, bronchus and lung (principal)
CPT/HCPCS: 78815; A9552

== ENCOUNTER → 2024-12-29 | Outpatient (CLI) | payer MEDICARE, OTHER ==
[2024-12-29 17:46] LABS: BASO % 0.4 % (0.0-1.0); EOS # 0.2 10^3/uL (0.0-0.5); EOS % 2.7 % (0.0-3.0); HEMATOCRIT 44.5 % (42.0-52.0); HEMOGLOBIN 14.9 g/dl (13.5-17.5); LYMPH # 1.9 10^3/uL (1.5-5.0); LYMPH % 22.3 % (24.0-44.0); MEAN CORPUSCULAR HEMOGLOBIN 31.5 pg (27.0-33.0); MEAN CORPUSCULAR HGB CONC 33.5 g/dl (32.0-36.5); MEAN CORPUSCULAR VOLUME 94.1 fl (80.0-96.0); MONO # 0.8 10^3/uL (0.0-0.8); MONO % 9.9 % (2.0-8.0); NEUTROPHILS # 5.4 10^3/uL (1.5-8.5); NEUTROPHILS % 64.3 % (36.0-66.0); PLATELET COUNT, AUTOMATED 236 10^3/uL (150-450); RED BLOOD COUNT 4.73 10^6/uL (4.30-6.10); WHITE BLOOD COUNT 8.3 10^3/uL (4.0-10.0)
[2024-12-29 18:15] LABS: ALBUMIN 3.8 G/DL (3.2-5.2); ALKALINE PHOSPHATASE 85 U/L (40-129); ALT/SGPT 32 U/L (7.0-40); AST/SGOT 31 U/L (<34); BILIRUBIN,TOTAL 0.4 MG/DL (0.3-1.2); BLOOD UREA NITROGEN 14 MG/DL (9-23); CALCIUM LEVEL 8.9 MG/DL (8.3-10.6); CARBON DIOXIDE LEVEL 26 MMOL/L (20-31); CHLORIDE LEVEL 104 MMOL/L (98-107); CHOLESTEROL LEVEL 143 MG/DL (<200); CHOLESTEROL RISK RATIO 3.52 (<5); GLOMERULAR FILTRATION RATE > 60.0 (>49); GLUCOSE, FASTING 87 MG/DL (74-106); HDL CHOLESTEROL 40.6 MG/DL (>40); LDL CHOLESTEROL 88.6 MG/DL (<100); NON-HDL-C 102.4 MG/DL; POTASSIUM SERUM 4.3 MMOL/L (3.5-5.1); SODIUM LEVEL 137 MMOL/L (136-145); TRIGLYCERIDES LEVEL 69 MG/DL (<150)
== END ==
LOC: M LAB 16:43
PROVIDERS: ATTEND Physician Assistant
DX: I70.213 Atherosclerosis of native arteries of extremities with intermittent claudication, bilateral legs (principal); I70.8 Atherosclerosis of other arteries; R06.02 Shortness of breath

== ENCOUNTER → 2025-01-03 | Outpatient (CLI) | payer MEDICARE, OTHER ==
[~2025-01-03] MED LIST changes: +ISOVUE-370 76% 100ML VIAL As Ordered ONE
== END ==
LOC: M RAD 09:42
PROVIDERS: ATTEND Physician Assistant
DX: I70.8 Atherosclerosis of other arteries (principal); I70.213 Atherosclerosis of native arteries of extremities with intermittent claudication, bilateral legs; I77.4 Celiac artery compression syndrome; J43.9 Emphysema, unspecified; I25.10 Atherosclerotic heart disease of native coronary artery without angina pectoris
CPT/HCPCS: 71275; 75635; Q9967

== ENCOUNTER → 2025-03-17 | Outpatient (CLI) | payer MEDICARE, OTHER ==
[~2025-03-17] MED LIST changes: -AMBI5TAB PO; -ISOVUE-370 76% 100ML VIAL As Ordered ONE; +ZOLP-532 PO
== END ==
LOC: M CARPUL 15:58
PROVIDERS: ATTEND Physician Assistant
DX: I25.119 Atherosclerotic heart disease of native coronary artery with unspecified angina pectoris (principal)

== ENCOUNTER → 2025-05-30 | Outpatient (CLI) | payer MEDICARE | LOC: M RAD 08:31 | PROVIDERS: ATTEND Surgery | DX: K55.1 Chronic vascular disorders of intestine (principal); I70.0 Atherosclerosis of aorta ==

== ENCOUNTER → 2025-06-21 | Outpatient (CLI) | payer MEDICARE | LOC: M PLAIMG 12:14 | PROVIDERS: ATTEND Physician Assistant | DX: R41.3 Other amnesia (principal); F02.A18 Dementia in other diseases classified elsewhere, mild, with other behavioral disturbance; J32.0 Chronic maxillary sinusitis; J01.00 Acute maxillary sinusitis, unspecified; G31.9 Degenerative disease of nervous system, unspecified; R29.818 Other symptoms and signs involving the nervous system ==

== ENCOUNTER 2025-07-08 19:08 | Emergency (ER) | payer MEDICARE ==
[~2025-07-08] VITALS: Ht 172.7 cm; Wt 59.1 kg
[2025-07-08 21:32] LABS: BASO # 0.1 10^3/uL (0.0-0.2); BASO % 0.5 % (0.0-1.0); EOS # 0.3 10^3/uL (0.0-0.5); EOS % 2.3 % (0.0-3.0); LYMPH # 2.3 10^3/uL (1.5-5.0); LYMPH % 19.4 % (24.0-44.0); MONO # 1.0 10^3/uL (0.0-0.8); MONO % 8.4 % (2.0-8.0); NEUTROPHILS # 8.4 10^3/uL (1.5-8.5); NEUTROPHILS % 69.2 % (36.0-66.0); PLATELET COUNT, AUTOMATED 370 10^3/uL (150-450)
[2025-07-08 22:03] LABS: ALT/SGPT 33 U/L (7.0-40); AST/SGOT 40 U/L (<34); CALCIUM LEVEL 10.1 MG/DL (8.3-10.6); CARBON DIOXIDE LEVEL 28 MMOL/L (20-31); CHLORIDE LEVEL 104 MMOL/L (98-107); CREATININE FOR GFR 0.92 MG/DL (0.70-1.30); GLOMERULAR FILTRATION RATE > 90.0 (>49); POTASSIUM SERUM 4.4 MMOL/L (3.5-5.1); SODIUM LEVEL 142 MMOL/L (136-145)
[2025-07-08] MEDS: ACETAMINOPHEN *IV* 1,000 MG in IV 1 EA IV ONE (22:40)
[2025-07-09] MEDS ORDERED: ISOVUE-370 76% 100 ML VIAL As Ordered ONE (00:15)
[2025-07-09] MEDS: NS 500 ML IV ONE (00:38)
[2025-07-09] MEDS: ONDANSETRON 4MG 2ML VIAL IV ONE (00:38)
[2025-07-09] MEDS: dexAMETHasone 4 MG/ML 1 ML VIAL IV ONE (00:38)
[2025-07-09] MEDS: KETOROLAC 30 MG/ML 1 ML VIAL IV ONE (01:47)
[2025-07-09] MEDS ORDERED: ONDANSETRON 4MG 2ML VIAL IV PRN (02:45)
[2025-07-09] MEDS: LR 1,000 ML IV ONE (02:45)
[2025-07-09] MEDS: PANTOPRAZOLE 40MG VIAL IV ONE (04:54)
[2025-07-09] MEDS: MAALOX 30 ML SUSP *UDC PO ONE (04:54)
[2025-07-09] MEDS ORDERED: BUPR-368 PO (07:34)
[2025-07-09] MEDS ORDERED: CLON1TAB8 PO (07:34)
[2025-07-09] MEDS ORDERED: CLOP75TA2 PO (07:34)
[2025-07-09] MEDS ORDERED: PREVAGEN PO (07:34)
[2025-07-09] MEDS ORDERED: DONE10TA90 PO (07:34)
[2025-07-09] MEDS ORDERED: HOME MED LIST COMPLETE! XX SCH (07:35)
[2025-07-09] MEDS: MIRALAX *UNIT DOSE* 17 GM PACKET PO SCH (09:41)
[2025-07-09] MEDS: IBUPROFEN 600 MG TAB PO PRN (09:43)
[2025-07-09] MEDS ORDERED: clonazePAM 1 MG TAB PO PRN (10:25)
[2025-07-09] MEDS ORDERED: TAMS-18 PO (10:35)
[2025-07-09] MEDS: ATORVASTATIN 20 MG TAB PO SCH (10:58)
[2025-07-09] MEDS: CLOPIDOGREL 75 MG TAB PO SCH (10:59)
[2025-07-09] MEDS: LIDOCAINE 2% 5 ML JELLY UROJET TOP ONE (11:10)
[2025-07-09 11:11] LABS: KETONE, URINE AUTO RFX TRACE mg/dL (NEGATIVE); LEUKOCYTE ESTERASE UR AUTO RFX NEGATIVE (NEGATIVE); NITRITE, URINE AUTO RFX NEGATIVE (NEGATIVE); RBC, URINE AUTO RFX 0 /HPF (0-3); SQUAM EPITHELIAL CELL UR AURFX 0 /HPF (0-6); WBC, URINE AUTO RFX 0 /HPF (0-3)
[2025-07-09] MEDS: TAMSULOSIN 0.4 MG CAP PO ONE (12:05)
[2025-07-09 12:27] LABS: BASO # 0.0 10^3/uL (0.0-0.2); BASO % 0.1 % (0.0-1.0); EOS # 0.0 10^3/uL (0.0-0.5); EOS % 0.0 % (0.0-3.0); LYMPH # 0.7 10^3/uL (1.5-5.0); LYMPH % 9.9 % (24.0-44.0); MONO # 0.2 10^3/uL (0.0-0.8); MONO % 2.9 % (2.0-8.0); NEUTROPHILS # 6.1 10^3/uL (1.5-8.5); NEUTROPHILS % 86.7 % (36.0-66.0); PLATELET COUNT, AUTOMATED 382 10^3/uL (150-450)
[2025-07-09 12:42] LABS: ERYTHROCYTE SEDIMENTATION RATE 26 mm/hr (0-20)
[2025-07-09 12:49] LABS: ESTIMATED AVERAGE GLUCOSE 111.0 MG/DL (60-110)
[2025-07-09 12:52] LABS: C REACTIVE PROTEIN QUANTITATIV < 0.50 MG/DL (<1.0)
[2025-07-09 13:06] LABS: ALT/SGPT 26 U/L (7.0-40); AST/SGOT 30 U/L (<34); CALCIUM LEVEL 9.2 MG/DL (8.3-10.6); CARBON DIOXIDE LEVEL 26 MMOL/L (20-31); CHLORIDE LEVEL 105 MMOL/L (98-107); CHOLESTEROL LEVEL 140 MG/DL (<200); CHOLESTEROL RISK RATIO 3.18 (<5); CREATININE FOR GFR 0.87 MG/DL (0.70-1.30); GLOMERULAR FILTRATION RATE > 90.0 (>49); LDL CHOLESTEROL 87.1 MG/DL (<100); NON-HDL-C 96.1 MG/DL; POTASSIUM SERUM 4.5 MMOL/L (3.5-5.1); SODIUM LEVEL 140 MMOL/L (136-145); T UPTAKE 32.8 % (22.5-37.0); THYROXINE (T4) 7.4 UG/DL (4.5-10.9); TRIGLYCERIDES LEVEL 45 MG/DL (<150)
[2025-07-09 14:20] VITALS: BP 150/88; TEMP 97.6; O2SAT 98
[2025-07-09] MEDS ORDERED: ASPIRIN ENTERIC 325 MG TAB PO SCH (21:00)
== END 2025-07-09 14:22 | disposition home or self-care (01) ==
LOC: M ED 19:08
DX: R51.9 Headache, unspecified (principal); R29.6 Repeated falls; R53.1 Weakness; I25.119 Atherosclerotic heart disease of native coronary artery with unspecified angina pectoris; K57.30 Diverticulosis of large intestine without perforation or abscess without bleeding; G30.0 Alzheimer's disease with early onset; Z79.1 Long term (current) use of non-steroidal anti-inflammatories (NSAID); Z79.899 Other long term (current) drug therapy; Z79.810 Long term (current) use of selective estrogen receptor modulators (SERMs)
CPT/HCPCS: 70450; 71045; 74177; 80047; 80048; 80053; 80061; 80076; 81001; 83036; 83605; 83690; 84145; 84436; 84443; 84479; 85025; 85652; 86140; 96365; 96375; 97161; 99285; J0131; J1100; J1885; J2405; J2470; Q9967

== ENCOUNTER → 2025-09-27 | Outpatient (CLI) | payer MEDICARE, OTHER ==
[~2025-09-27] MED LIST changes: +BUPR-368 PO; +CLON1TAB8 PO; +DONE10TA90 PO; +PREVAGEN PO; +TAMS-18 PO
[2025-09-27 10:45] LABS: INR 0.94
[2025-09-27 10:54] LABS: ALT/SGPT 24.0 U/L (7.0-40); AST/SGOT 24.0 U/L (<34); CALCIUM LEVEL 9.4 MG/DL (8.3-10.6); CARBON DIOXIDE LEVEL 32.0 MMOL/L (20-31); CHLORIDE LEVEL 101.0 MMOL/L (98-107); CREATININE FOR GFR 0.95 MG/DL (0.70-1.30); GLOMERULAR FILTRATION RATE 88.3 (>49); POTASSIUM SERUM 4.8 MMOL/L (3.5-5.1); SODIUM LEVEL 139.0 MMOL/L (136-145)
[2025-09-27 10:56] LABS: VITAMIN B12 LEVEL 810.0 PG/ML (211-911)
[2025-10-01 19:22] LABS: NICOTINAMIDE < 20 ng/mL (see note); NICOTINIC ACID < 20 ng/mL (see note)
[2025-10-02 17:12] LABS: VITAMIN B1 LEVEL WHOLE BLOOD 147 nmol/L (78-185)
[2025-10-04 01:23] LABS: ALPHA 2-MACROGLOBULINS,QN 162 mg/dL (106-279); ALT (SGPT) P5P 16 U/L (9-46); APOLIPOPROTEIN A-1 152 mg/dL (94-176); FIBROSIS SCORE 0.14; FIBROSIS STAGE NO FIBROSIS (F0); GGT 15 U/L (3-70); HAPTOGLOBIN 141 mg/dL (43-212); NECROINFLAM ACT GRADE NO ACTIVITY (A0); NECROINFLAM ACT SCORE 0.04
== END ==
LOC: M LAB 09:16
PROVIDERS: ATTEND Family Medicine
DX: F10.10 Alcohol abuse, uncomplicated (principal); R63.4 Abnormal weight loss; F02.A18 Dementia in other diseases classified elsewhere, mild, with other behavioral disturbance; Z79.01 Long term (current) use of anticoagulants